=== PATIENT | male | born 1955 | race Caucasian/White ===

== ENCOUNTER 2019-09-15 06:33 | Day surgery (SDC) | payer MEDICARE, MEDICAID, SELFPAY ==
[2019-09-12 07:11] VITALS: BMI 34.0
--- NOTE | 2019-09-15 06:56 | PM.HPUD ---
H&P update H&P Update: DATE OF SURGERY/PROCEDURE: 09/15/19 DATE H&P PERFORMED: 07/16/19 H&P UPDATE INFORMATION: No changes to prior documentation and H&P to be scanned into chart PREOP DIAGNOSIS: Screening colonoscopy PLANNED PROCEDURE: Operation Date: 09/15/19 07:30 Proposed Procedures p Colonoscopy(Not Applicable) - Leandro Brunner MD Conscious Sedation: PHYSICAL EXAM: alert, oriented x 3 and clear to auscultation bilaterally OTHER PERTINENT EXAM FINDINGS: Abdomen: Soft Full H&P Perinent History: Social History: Social History Smoking and tobacco status: never smoked Alcohol intake: former Substance/Drug Use: never A&P Assessment and plan (1) Family history of colon cancer: Plan for colonoscopy under MAC Status: Acute Code(s): Z80.0 - Family history of malignant neoplasm of digestive organs
--- NOTE | 2019-09-15 06:58 | ANES.PREANES ---
Pre-Anesthetic Assessment Pre-Anesthetic Assessment: Height/Weight: Height 1.7 m Weight 98.43 kg Preop Diagnosis: left lower quadrant pain Proposed Procedure: Operation Date: 09/15/19 07:30 Proposed Procedures p Colonoscopy(Not Applicable) - Leandro Brunner MD Familial anesthetic complications: none Was Beta Charlie taken within 24 hours: N/A Social: Social History: No alcohol and No tobacco Exam: Pre-Anes Outpt Exam: alert, oriented x 3, clear to auscultation bilaterally and regular rate & rhythm Airway: Dentition: Chipped Additional comments: upper dentures History/ROS: Other Pulmonary: Pulmonary: None reported CV/HEM: CV/HEM: HTN : : None reported Hepatic: Hepatic: None reported GI: GI: GERD (certain foods ) and Hiatus hernia Metabolic: Metabolic: None reported Musc/skel: Musc/skel: OA/DJD Neuropsych: Neuropsych: None reported Anesthetic Plan: ASA status: II Anesthesia: MAC Risk of > 500 ml blood loss (7ml/kg in children): No PFSH Anesthesia PFSH: Medical History (Updated 09/15/19 @ 06:58 by Leandro Brunner MD) Family history of colon cancer (Acute) Hypertension (Acute) Social History (Updated 09/12/19 @ 07:08 by Dot Mireles RN) Smoking and tobacco status: never smoked Alcohol intake: former Substance/Drug Use: never Data Anesthesia Cardiac Studies: No Data to Display
[2019-09-15 07:04] VITALS: BP 96/65; PULSE 78; RESP 18; TEMP 36.6; O2SAT 100
[2019-09-15] MEDS: sodium chloride 0.9% 1,000 ML 30 ML (07:10)
[2019-09-15 07:59] VITALS: BP 83/59; PULSE 69; RESP 18; TEMP 36.8; O2SAT 94
--- NOTE | 2019-09-15 08:01 | ANE.PACU ---
 Inpatient post-anesthesia follow up: Airway intact: Yes Vital signs: Temperature 97.9 F Pulse Rate [Right Radial] 78 Respiratory Rate 18 Blood Pressure [Le ft Arm] 96/65 Pulse Oximetry 100 Oxygen Delivery Me thod Room Air Oxygen Flow Rate Fraction of Inspir ed Oxygen Hydration adequate: Yes Nausea and vomiting: No Pain level: 1 Mental status: Baseline
[2019-09-15 08:07] VITALS: BP 85/59; PULSE 66; RESP 16; O2SAT 96
== END 2019-09-15 08:20 | disposition home or self-care (01) ==
PROVIDERS: Family Provider Family Medicine; PCP Family Medicine; Visit Provider Surgery
PROC: 0DJD8ZZ Inspection of Lower Intestinal Tract, Via Natural or Artificial Opening Endoscopic (ICD-10-PCS; CPT 45378; principal; 2019-09-15 07:30)
DX: R10.32 Left lower quadrant pain (principal); K57.30 Diverticulosis of large intestine without perforation or abscess without bleeding; K64.8 Other hemorrhoids; Z87.891 Personal history of nicotine dependence; Z80.0 Family history of malignant neoplasm of digestive organs; I10 Essential (primary) hypertension; E78.5 Hyperlipidemia, unspecified; Z82.49 Family history of ischemic heart disease and other diseases of the circulatory system; Z83.3 Family history of diabetes mellitus
CPT/HCPCS: 12345; 45378; 96365; J2704; J7030

== ENCOUNTER 2021-07-14 09:30 | Emergency (ER) | payer MEDICARE, MEDICAID, SELFPAY ==
[2021-07-14 09:35] VITALS: BP 161/88; PULSE 76; RESP 18; TEMP 36.6; O2SAT 98; BMI 30.5
--- NOTE | 2021-07-14 09:52 | CT_ITS ---
WS: [id number] CT ABDOMEN PELVIS TECHNIQUE: Contrast-enhanced CT of the abdomen and pelvis with coronal and sagittal reformatted image s. CLINICAL INFORMATION: abd pain, vomiting, upper abd pressure COMPARISON: 2013 DLP: 1732.[address] scans at [facility] use at least one of these dose optimization techniques: automated e xposure control; mA and/or kV adjustment per patient size (includes targeted exams where dose is matc hed to clinical indication); or iterative reconstruction. FINDINGS: Large esophageal hiatal hernia with intrathoracic stomach. Additional herniation of upper intra-abdom inal contents and multiple loops of obstructed small bowel. Air-fluid levels within the hernia small bowel in the midline chest. This displaces the heart anteriorly. Air-fluid levels in multiple dilated fluid-filled loops of small bowel in the midabdomen measuring up to 3.3 CM. Associated bowel wall th ickening. No free air or pneumatosis. Fluid in the right lower quadrant and pelvis. Sigmoid colon is normal. A loop of the mid transverse colon is also herniated into the chest cavity a nd incompletely visualized extending off the [id number]. Visualized colon is decompressed and nono bstructed. Lung bases are well aerated. Normal liver. Normal portal vein and splenic vein. Normal gallbladder. N ormal splenic enhancement. Adrenal glands are normal. Normal renal parenchymal enhancement. No hydron ephrosis. Polycystic kidneys bilaterally with large bilateral renal cysts. Largest renal cyst measure up to 10 x 10 cm. Small amount of free fluid about the spleen and left upper quadrant. Tiny fat-cont aining umbilical hernia. Moderate spondylitic changes lumbar spine with disc space narrowing worse at L3-L5. CT/CT abdomen pelvis w con* [id number] IMPRESSION: 1. Large esophageal hiatal hernia with intrathoracic stomach. 2. Herniated loops of both small and large bowel herniated into the chest. 3. Evidence of small bowel obstruction with air-fluid levels and distended flu id-filled small bowel with mucosal edema and submucosal enhancement. Small mahogany l measures up to 3 cm in the abdomen. No free air. 4. Free fluid within the right lower quadrant and pelvis. Small amount of moraima splenic fluid in the left upper quadrant. 5. Herniated loop of transverse colon extends into the hiatal hernia and exten ds cephalad off the [id number]. This is incompletely visualized. 6. Left descending colon and sigmoid colon are decompressed. 7. Polycystic kidneys bilaterally. Notified SUMIT Garay at 07/14/2021 11:42 AM.
--- NOTE | 2021-07-14 09:52 | XR_ITS ---
WS: [id number] Exam: XR chest 1V portable [id number] Date/Time of Exam: 07/14/2021 9:52 AM Reason For Exam: abd pain No priors. The lungs are fully expanded and clear. The heart is not enlarged. A very large hiatal hernia is note d which may contain bowel as well as the stomach. No pleural effusions are seen. Regional bony elemen ts are intact. The mediastinum is not widened. XR/XR chest 1V portable [id number] IMPRESSION: 1. No acute cardiopulmonary process noted. 2. Very large hiatal hernia that may contain both the stomach as well as bowel loops.
--- NOTE | 2021-07-14 09:53 | W.ED.ABDPA2 ---
Documented by User: SUMIT Garay 07/14/21 09:56 HPI - Abdominal Pain General: Chief Complaint: Abdominal Pain Stated Complaint: Stomach cramps vomited for last 2 days Time Seen by Provider: 07/14/21 09:32 History of Present Illness: HPI narrative: Patient states that he thinks he has food poisoning. Patient states that he ate some chicken fingers from a gas station 2 nights ago when he got sick after that. Patient denies any fever chills. Has been vomiting with some brown stuff in his vomit last night. And that was after he drank prune juice. Not sure whether he is constipated. Denies fever chills shortness of breath. Has had slight diarrhea. Says his upper abdomen hurts. Has history of hiatal hernia and diverticulosis. MD elicited complaint: abdominal pain Pertinent past history: other (Hiatal hernia and diverticulosis) Onset (ago): day(s) Pain Consistency: intermittent Location: Epigastric Severity: mild Quality: fullness Radiation: none Exacerbating factors: eating Relieving factors: nothing Context: possible food poisoning Associated Symptoms: Reports diarrhea, nausea and vomiting; Denies chills and fever(s) Review of Systems Const: Denies: fever(s), chills or body aches Eyes: Denies: change in vision or blurry vision ENMT: Denies: throat pain or nasal congestion Card: Denies: chest pain or dyspnea on exertion Resp: Denies: dyspnea, productive cough or non-productive cough GI: Reports: abdominal pain, nausea, vomiting and diarrhea : Denies: difficulty urinating Musc: Denies: extremity pain Skin/Breast: Denies: rash Neuro: Denies: headache(s) Psych: Denies: anxiety or depression Aubrey/Lymph: Denies: easy bruising PFSH ED PFSH: Medical History Diverticulosis Family history of colon cancer 09/15/2019: Normal colonoscopy except diverticulosis, follow-up colonoscopy in 2024 Hypertension Social History Smoking and tobacco status: never smoked Alcohol intake: former Physical Exam Const: COMMON NORMALS: no acute distress, average body habitus and patient oriented x3 HENMT: COMMON NORMALS: normocephalic HEAD & SCALP: normal to inspection and normocephalic FACE & SINUS: normal facial exam Eye: COMMON NORMALS: conjunctivae normal GENERAL EYE: appearance normal, both eyes and all related structures CONJUNCTIVA: Yes conjunctivae normal Neck/C-Spine: COMMON NORMALS: no JVD Chest: COMMONS NORMALS: normal inspection of the chest Resp: COMMON NORMALS: normal respiratory effort and clear to auscultation bilaterally AUSCULTATION: clear to auscultation bilaterally Cardio: COMMON NORMALS: no JVD, regular rate and regular rhythm RATE: regular rate RHYTHM: regular rhythm GI: COMMON NORMALS: Normal to inspection, nondistended, normoactive bowel sounds present AUSCULTATION: Yes Hypoactive bowel sounds present PALPATION: Yes Tenderness to palpation present (GI) (Epigastric) Extremity: COMMON NORMALS: normal to inspection and full ROM Neuro: COMMON NORMALS: patient oriented x3 Course Vital Signs: Vital signs: Vital Signs Temperature 97.8 F 07/14/21 09:35 Pulse Rate 75 07/15/21 05:29 Respiratory Rate 20 H 07/15/21 07:25 Blood Pressure 116/51 07/15/21 05:29 Pulse Oximetry 92 07/15/21 05:29 MDM - Abdominal Pain Lab Data: Labs: Lab Results 07/14/21 07/14/21 07/14/21 10:10 10:10 10:19 WBC 13.7 10^3/uL H 10 ^3/uL (4.0-10.0) RBC 5.39 10^6/uL H 10 ^6/uL (4.1-5.3) Hgb 16.3 g/dL g/dL (11.7-16.6) Hct 48.1 % % (42.0-52.0) MCV 89.2 fl fl (80-94) MCH 30.2 pg pg (28.0-34.0) MCHC 33.9 g/dL g/dL (30.0-36.0) RDW 13.0 % % (12.1-15.1) Plt Count 274 10^3/cmm 10^3 /cmm (130-400) MPV 10.0 fL fL (7.4-10.4) Neut % (Auto) 88.3 % % Lymph % (Auto) 4.7 % % [place] % (Auto) 6.4 % % Eos % (Auto) 0.1 % % Baso % (Auto) 0.2 % % Neut # (Auto) 12.05 10^3/uL H 1 0^3/uL (1.8-7.7) Lymph # (Auto) 0.6 10^3/uL L 10^ 3/uL (0.8-4.8) [place] # (Auto) 0.9 10^3/uL 10^3/ uL (0.2-0.9) Eos # (Auto) 0.0 10^3/uL 10^3/ uL (0.0-0.8) Baso # (Auto) 0.0 10^3/uL 10^3/ uL (0.0-0.1) Nucleated RBC % (a uto) 0 % % Nucleated RBCs # 0.0 /100WBC /100W BC PT 13.30 SECONDS SEC ONDS (12.1-14.9) INR 0.98 (0.8-1.2) Sodium 135 mmol/L L mmol /L (136-145) Potassium 3.6 mmol/L mmol/L (3.5-5.1) Chloride 95 mmol/L L mmol/ L (98-107) Carbon Dioxide 27 mmol/L mmol/L (22-29) Anion Gap 16.6 (5-19) BUN 20 mg/dL mg/dL (8-23) Creatinine 1.0 mg/dL mg/dL (0.7-1.2) GFR Calculation 74.5 mL/min L mL/ min (90-130) Glucose 138 mg/dL H mg/dL (65-115) Calculated Osmolal ity 285 mOsm/kg mOsm/ kg (285-295) Lactic Acid Calcium 9.3 mg/dL mg/dL (8.5-10.5) Total Bilirubin 1.6 mg/dL H mg/dL (0.15-1.2) AST 22 U/L U/L (0-40) ALT 16 U/L U/L (0-41) Alkaline Phosphata se 53 IU/L IU/L (40-130) Total Protein 7.0 g/dL g/dL (6.6-8.7) Albumin 4.1 g/dL g/dL (3.5-5.2) Globulin 2.9 g/dL g/dL (1.3-4.6) Lipase 22 U/L U/L (13-60) Urine Color Urine Appearance Urine pH Ur Specific Gravit y Urine Protein Urine Glucose (UA) Urine Ketones Urine Blood Urine Nitrate Urine Bilirubin Urine Urobilinogen Ur Leukocyte Emilie ase SARS-CoV-2 Ag (Rap id) 07/14/21 07/14/21 07/14/21 10:19 14:01 16:52 WBC RBC Hgb Hct MCV MCH MCHC RDW Plt Count MPV Neut % (Auto) Lymph % (Auto) [place] % (Auto) Eos % (Auto) Baso % (Auto) Neut # (Auto) Lymph # (Auto) [place] # (Auto) Eos # (Auto) Baso # (Auto) Nucleated RBC % (a uto) Nucleated RBCs # PT INR Sodium Potassium Chloride Carbon Dioxide Anion Gap BUN Creatinine GFR Calculation Glucose Calculated Osmolal ity Lactic Acid 1.4 mmol/L mmol/L (0.5-2.2) Calcium Total Bilirubin AST ALT Alkaline Phosphata se Total Protein Albumin Globulin Lipase Urine Color Yellow (Yellow) Urine Appearance Clear (CLEAR) Urine pH 5 (5-7) Ur Specific Gravit y 1.010 (1.005-1.030) Urine Protein Neg (Negative) Urine Glucose (UA) Norm (Normal) Urine Ketones Negative (Negative) Urine Blood Neg (Negative) Urine Nitrate Negative (Negative) Urine Bilirubin Neg (Negative) Urine Urobilinogen 1 mg/dL H mg/dL (Negative) Ur Leukocyte Emilie ase Negative (Negative) SARS-CoV-2 Ag (Rap id) Negative (Negative) 07/15/21 07/15/21 07/15/21 06:56 06:56 06:56 WBC 11.7 10^3/uL H 10 ^3/uL (4.0-10.0) RBC 4.76 10^6/uL 10^6 /uL (4.1-5.3) Hgb 14.6 g/dL g/dL (11.7-16.6) Hct 43.2 % % (42.0-52.0) MCV 90.8 fl fl (80-94) MCH 30.7 pg pg (28.0-34.0) MCHC 33.8 g/dL g/dL (30.0-36.0) RDW 13.2 % % (12.1-15.1) Plt Count 227 10^3/cmm 10^3 /cmm (130-400) MPV 9.9 fL fL (7.4-10.4) Neut % (Auto) 80.4 % % Lymph % (Auto) 6.8 % % [place] % (Auto) 10.9 % % Eos % (Auto) 1.3 % % Baso % (Auto) 0.3 % % Neut # (Auto) 9.41 10^3/uL H 10 ^3/uL (1.8-7.7) Lymph # (Auto) 0.8 10^3/uL 10^3/ uL (0.8-4.8) [place] # (Auto) 1.3 10^3/uL H 10^ 3/uL (0.2-0.9) Eos # (Auto) 0.2 10^3/uL 10^3/ uL (0.0-0.8) Baso # (Auto) 0.0 10^3/uL 10^3/ uL (0.0-0.1) Nucleated RBC % (a uto) 0 % % Nucleated RBCs # 0.0 /100WBC /100W BC PT INR Sodium 137 mmol/L mmol/L (136-145) Potassium 3.7 mmol/L mmol/L (3.5-5.1) Chloride 100 mmol/L mmol/L (98-107) Carbon Dioxide 22 mmol/L mmol/L (22-29) Anion Gap 18.7 (5-19) BUN 25 mg/dL H mg/dL (8-23) Creatinine 1.0 mg/dL mg/dL (0.7-1.2) GFR Calculation 74.5 mL/min L mL/ min (90-130) Glucose 99 mg/dL mg/dL (65-115) Calculated Osmolal ity 288 mOsm/kg mOsm/ kg (285-295) Lactic Acid 1.0 mmol/L mmol/L (0.5-2.2) Calcium 8.3 mg/dL L mg/dL (8.5-10.5) Total Bilirubin 1.9 mg/dL H mg/dL (0.15-1.2) AST 16 U/L U/L (0-40) ALT 10 U/L U/L (0-41) Alkaline Phosphata se 41 IU/L IU/L (40-130) Total Protein 6.1 g/dL L g/dL (6.6-8.7) Albumin 3.4 g/dL L g/dL (3.5-5.2) Globulin 2.7 g/dL g/dL (1.3-4.6) Lipase Urine Color Urine Appearance Urine pH Ur Specific Gravit y Urine Protein Urine Glucose (UA) Urine Ketones Urine Blood Urine Nitrate Urine Bilirubin Urine Urobilinogen Ur Leukocyte Emilie ase SARS-CoV-2 Ag (Rap id) Discharge Plan Discharge Patient Disposition: Xfer Short-Term Hosp Clinical Impression: Diaphragmatic hernia, Small bowel obstruction Condition: Stable Prescriptions: No Action lisinopril-hydrochlorothiazide 20-12.5 mg Tablet 1 tab PO QAM RF: 0 Vitamin C 500 mg Tablet 500 mg PO DAILY RF: 0 zinc 50 mg Tablet 50 mg PO DAILY RF: 0 Osteo Bi-Flex 250-200 mg Tablet 1 tab PO DAILY RF: 0 Vitamin D3 1 cap PO DAILY RF: 0 Referrals: Omari Ames MD [Primary Care Provider] - Sign Out Sign Out Data: Patient Sign Out occurred on 07/14/21 at 11:58. Patient's care was discussed, and care was transferred from to Ameya Hodges DO. Coding Level of Care Code ED Relay Mechanic for Chg Fwd Exam Comprehensive Documented by User: Ameya Hodges DO 07/15/21 08:33 HPI - Abdominal Pain General: Chief Complaint: Abdominal Pain Stated Complaint: Stomach cramps vomited for last 2 days Time Seen by Provider: 07/14/21 09:32 History of Present Illness: HPI narrative: 65-year-old male presents to the emergency room with complaints of abdominal pain swelling and bloating and nausea and vomiting. Is been going on for the last 2 days and is progressively worsened. Denies any hemoptysis or hematochezia. Patient was initially seen by Rick TOLENTINO who signed the case out to me after CT findings. MD elicited complaint: abdominal pain Onset (ago): day(s) (2) Pain Consistency: constant Location: Diffuse Severity: severe Quality: cramping Exacerbating factors: eating, vomiting and movement Relieving factors: rest Associated Symptoms: Reports anorexia, belching, bloating, GI cramping, dyspepsia, nausea and poor appetite; Denies change in bowel habits, change in stool character, chills, coffee ground emesis, constipation, diarrhea, dysuria, excessive flatus, fever(s), heartburn, hematochezia, hematuria, hematemesis, fecal incontinence, loose stools, melena, syncope and vomiting Review of Systems Const: Denies: fever(s) or chills ENMT: Denies: throat pain, ear or mastoid pain, nasal discharge or nasal congestion Card: Denies: syncope Resp: Denies: dyspnea, productive cough or non-productive cough GI: Reports: nausea, bloating, GI cramping and belching; Denies: vomiting, hematemesis, coffee ground emesis, heartburn, diarrhea, constipation, excessive flatus, fecal incontinence, change in bowel habits, change in stool character, hematochezia or melena : Denies: dysuria or hematuria Skin/Breast: Denies: rash or pruritus PFSH ED PFSH: Medical History Diverticulosis Family history of colon cancer 09/15/2019: Normal colonoscopy except diverticulosis, follow-up colonoscopy in 2024 Hypertension Social History Smoking and tobacco status: never smoked Alcohol intake: former Physical Exam Const: COMMON NORMALS: no acute distress GENERAL APPEARANCE: cooperative and comfortable ORIENTATION/CONSCIOUSNESS: Yes awake, Yes oriented to person, Yes oriented to place and Yes oriented to time HENMT: COMMON NORMALS: normocephalic, atraumatic, hearing grossly normal bilaterally and external ears normal HEAD & SCALP: normocephalic and atraumatic EXTERNAL EAR: Yes external ears normal Neck/C-Spine: COMMON NORMALS: no JVD Resp: COMMON NORMALS: normal respiratory effort, No retractions, No use of accessory muscles and clear to auscultation bilaterally AUSCULTATION: clear to auscultation bilaterally Cardio: COMMON NORMALS: no JVD, regular rate, regular rhythm and No murmurs present (Cardio) RATE: regular rate RHYTHM: regular rhythm GI: INSPECTION: Yes abdominal distension AUSCULTATION: Yes Absent bowel sounds PALPATION: Yes Tenderness to palpation present (GI) PERCUSSION: tympanic to percussion Extremity: COMMON NORMALS: normal to inspection, capillary refill normal, no clubbing, cyanosis or edema, no calf tenderness and no pedal edema Neuro: SENSORIUM/ORIENTATION: Yes oriented to person, Yes oriented to place and Yes oriented to time Skin: COMMON NORMALS: no rashes or lesions noted GENERAL SKIN EXAM: no rashes or lesions noted Course Vital Signs: Vital signs: Vital Signs Temperature 97.8 F 07/14/21 09:35 Pulse Rate 75 07/15/21 05:29 Respiratory Rate 20 H 07/15/21 07:25 Blood Pressure 116/51 07/15/21 05:29 Pulse Oximetry 92 07/15/21 05:29 MDM - Abdominal Pain MDM Narrative: Medical decision making narrative: Massive diaphragmatic hernia resulting in stomach portions of the large and small bowel entering the chest cavity. He has evidence of bowel obstruction on the CT. Lactic acid is in the normal range. NG placed good return of fluids and did relieve some of his symptoms. Discussed with our surgeon here he does not feel we have adequate resources to manage this Dr. Lebron is not available and this will likely require cardiothoracic surgery as well as general surgery. After several attempts we were able to secure a receiving hospital at [facility]. We will go ahead and transfer via ground ambulance. Were awaiting bed assignment at this time. Lab Data: Labs: Lab Results 07/14/21 07/14/21 07/14/21 10:10 10:10 10:19 WBC 13.7 10^3/uL H 10 ^3/uL (4.0-10.0) RBC 5.39 10^6/uL H 10 ^6/uL (4.1-5.3) Hgb 16.3 g/dL g/dL (11.7-16.6) Hct 48.1 % % (42.0-52.0) MCV 89.2 fl fl (80-94) MCH 30.2 pg pg (28.0-34.0) MCHC 33.9 g/dL g/dL (30.0-36.0) RDW 13.0 % % (12.1-15.1) Plt Count 274 10^3/cmm 10^3 /cmm (130-400) MPV 10.0 fL fL (7.4-10.4) Neut % (Auto) 88.3 % % Lymph % (Auto) 4.7 % % [place] % (Auto) 6.4 % % Eos % (Auto) 0.1 % % Baso % (Auto) 0.2 % % Neut # (Auto) 12.05 10^3/uL H 1 0^3/uL (1.8-7.7) Lymph # (Auto) 0.6 10^3/uL L 10^ 3/uL (0.8-4.8) [place] # (Auto) 0.9 10^3/uL 10^3/ uL (0.2-0.9) Eos # (Auto) 0.0 10^3/uL 10^3/ uL (0.0-0.8) Baso # (Auto) 0.0 10^3/uL 10^3/ uL (0.0-0.1) Nucleated RBC % (a uto) 0 % % Nucleated RBCs # 0.0 /100WBC /100W BC PT 13.30 SECONDS SEC ONDS (12.1-14.9) INR 0.98 (0.8-1.2) Sodium 135 mmol/L L mmol /L (136-145) Potassium 3.6 mmol/L mmol/L (3.5-5.1) Chloride 95 mmol/L L mmol/ L (98-107) Carbon Dioxide 27 mmol/L mmol/L (22-29) Anion Gap 16.6 (5-19) BUN 20 mg/dL mg/dL (8-23) Creatinine 1.0 mg/dL mg/dL (0.7-1.2) GFR Calculation 74.5 mL/min L mL/ min (90-130) Glucose 138 mg/dL H mg/dL (65-115) Calculated Osmolal ity 285 mOsm/kg mOsm/ kg (285-295) Lactic Acid Calcium 9.3 mg/dL mg/dL (8.5-10.5) Total Bilirubin 1.6 mg/dL H mg/dL (0.15-1.2) AST 22 U/L U/L (0-40) ALT 16 U/L U/L (0-41) Alkaline Phosphata se 53 IU/L IU/L (40-130) Total Protein 7.0 g/dL g/dL (6.6-8.7) Albumin 4.1 g/dL g/dL (3.5-5.2) Globulin 2.9 g/dL g/dL (1.3-4.6) Lipase 22 U/L U/L (13-60) Urine Color Urine Appearance Urine pH Ur Specific Gravit y Urine Protein Urine Glucose (UA) Urine Ketones Urine Blood Urine Nitrate Urine Bilirubin Urine Urobilinogen Ur Leukocyte Emilie ase SARS-CoV-2 Ag (Rap id) 07/14/21 07/14/21 07/14/21 10:19 14:01 16:52 WBC RBC Hgb Hct MCV MCH MCHC RDW Plt Count MPV Neut % (Auto) Lymph % (Auto) [place] % (Auto) Eos % (Auto) Baso % (Auto) Neut # (Auto) Lymph # (Auto) [place] # (Auto) Eos # (Auto) Baso # (Auto) Nucleated RBC % (a uto) Nucleated RBCs # PT INR Sodium Potassium Chloride Carbon Dioxide Anion Gap BUN Creatinine GFR Calculation Glucose Calculated Osmolal ity Lactic Acid 1.4 mmol/L mmol/L (0.5-2.2) Calcium Total Bilirubin AST ALT Alkaline Phosphata se Total Protein Albumin Globulin Lipase Urine Color Yellow (Yellow) Urine Appearance Clear (CLEAR) Urine pH 5 (5-7) Ur Specific Gravit y 1.010 (1.005-1.030) Urine Protein Neg (Negative) Urine Glucose (UA) Norm (Normal) Urine Ketones Negative (Negative) Urine Blood Neg (Negative) Urine Nitrate Negative (Negative) Urine Bilirubin Neg (Negative) Urine Urobilinogen 1 mg/dL H mg/dL (Negative) Ur Leukocyte Emilie ase Negative (Negative) SARS-CoV-2 Ag (Rap id) Negative (Negative) 07/15/21 07/15/21 07/15/21 06:56 06:56 06:56 WBC 11.7 10^3/uL H 10 ^3/uL (4.0-10.0) RBC 4.76 10^6/uL 10^6 /uL (4.1-5.3) Hgb 14.6 g/dL g/dL (11.7-16.6) Hct 43.2 % % (42.0-52.0) MCV 90.8 fl fl (80-94) MCH 30.7 pg pg (28.0-34.0) MCHC 33.8 g/dL g/dL (30.0-36.0) RDW 13.2 % % (12.1-15.1) Plt Count 227 10^3/cmm 10^3 /cmm (130-400) MPV 9.9 fL fL (7.4-10.4) Neut % (Auto) 80.4 % % Lymph % (Auto) 6.8 % % [place] % (Auto) 10.9 % % Eos % (Auto) 1.3 % % Baso % (Auto) 0.3 % % Neut # (Auto) 9.41 10^3/uL H 10 ^3/uL (1.8-7.7) Lymph # (Auto) 0.8 10^3/uL 10^3/ uL (0.8-4.8) [place] # (Auto) 1.3 10^3/uL H 10^ 3/uL (0.2-0.9) Eos # (Auto) 0.2 10^3/uL 10^3/ uL (0.0-0.8) Baso # (Auto) 0.0 10^3/uL 10^3/ uL (0.0-0.1) Nucleated RBC % (a uto) 0 % % Nucleated RBCs # 0.0 /100WBC /100W BC PT INR Sodium 137 mmol/L mmol/L (136-145) Potassium 3.7 mmol/L mmol/L (3.5-5.1) Chloride 100 mmol/L mmol/L (98-107) Carbon Dioxide 22 mmol/L mmol/L (22-29) Anion Gap 18.7 (5-19) BUN 25 mg/dL H mg/dL (8-23) Creatinine 1.0 mg/dL mg/dL (0.7-1.2) GFR Calculation 74.5 mL/min L mL/ min (90-130) Glucose 99 mg/dL mg/dL (65-115) Calculated Osmolal ity 288 mOsm/kg mOsm/ kg (285-295) Lactic Acid 1.0 mmol/L mmol/L (0.5-2.2) Calcium 8.3 mg/dL L mg/dL (8.5-10.5) Total Bilirubin 1.9 mg/dL H mg/dL (0.15-1.2) AST 16 U/L U/L (0-40) ALT 10 U/L U/L (0-41) Alkaline Phosphata se 41 IU/L IU/L (40-130) Total Protein 6.1 g/dL L g/dL (6.6-8.7) Albumin 3.4 g/dL L g/dL (3.5-5.2) Globulin 2.7 g/dL g/dL (1.3-4.6) Lipase Urine Color Urine Appearance Urine pH Ur Specific Gravit y Urine Protein Urine Glucose (UA) Urine Ketones Urine Blood Urine Nitrate Urine Bilirubin Urine Urobilinogen Ur Leukocyte Emilie ase SARS-CoV-2 Ag (Rap id) Discharge Plan Discharge Patient Disposition: Xfer Short-Term Hosp Clinical Impression: Diaphragmatic hernia, Small bowel obstruction Condition: Stable Prescriptions: No Action lisinopril-hydrochlorothiazide 20-12.5 mg Tablet 1 tab PO QAM RF: 0 Vitamin C 500 mg Tablet 500 mg PO DAILY RF: 0 zinc 50 mg Tablet 50 mg PO DAILY RF: 0 Osteo Bi-Flex 250-200 mg Tablet 1 tab PO DAILY RF: 0 Vitamin D3 1 cap PO DAILY RF: 0 Referrals: Omari Ames MD [Primary Care Provider] - Sign Out Sign Out Data: Patient Sign Out occurred on 07/14/21 at 11:58. Patient's care was discussed, and care was transferred from to Ameya Hodges DO. Coding Level of Care Code ED Relay Mechanic for g Fwd Exam Comprehensive
[2021-07-14 10:20] VITALS: RESP 18; O2SAT 95
[2021-07-14] MEDS: morphine 4 mg/mL SDV 1 mL 2 MG IVP (10:20)
[2021-07-14] MEDS: sodium chloride 0.9% 1,000 ML 999 ML IV (10:24)
[2021-07-14] MEDS: ondansetron 2 mg/ML SDV 2 mL 4 MG IVP (10:27)
[2021-07-14 10:29] LABS: Basophils % 0.2 %; Eosinophils % 0.1 %; Hematocrit 48.1 % (42.0-52.0); Hemoglobin 16.3 g/dL (11.7-16.6); Lymphocytes # 0.6 10^3/uL (0.8-4.8); Lymphocytes % 4.7 %; Mean Corpuscular HGB Conc 33.9 g/dL (30.0-36.0); Mean Corpuscular Hemoglobin 30.2 pg (28.0-34.0); Mean Corpuscular Volume 89.2 fl (80-94); Monocytes # 0.9 10^3/uL (0.2-0.9); Monocytes % 6.4 %; Neutrophils # 12.05 10^3/uL (1.8-7.7); Neutrophils % 88.3 %; Nucleated Red Blood Cells % 0 %; Platelet Count 274 10^3/cmm (130-400); Red Blood Count 5.39 10^6/uL (4.1-5.3); White Blood Count 13.7 10^3/uL (4.0-10.0)
[2021-07-14 10:40] LABS: INR 0.98 (0.8-1.2)
[2021-07-14 10:57] LABS: Alanine Aminotransferase 16 U/L (0-41); Albumin Level 4.1 g/dL (3.5-5.2); Alkaline Phosphatase 53 IU/L (40-130); Anion Gap 16.6 (5-19); Aspartate Amino Transferase 22 U/L (0-40); Blood Urea Nitrogen 20 mg/dL (8-23); Calcium 9.3 mg/dL (8.5-10.5); Carbon Dioxide 27 mmol/L (22-29); Chloride 95 mmol/L (98-107); Globulin 2.9 g/dL (1.3-4.6); Glomerular Filtration Rate 74.5 mL/min (90-130); Glucose 138 mg/dL (65-115); Lipase 22 U/L (13-60); Osmolality Calculated 285 mOsm/kg (285-295); Potassium 3.6 mmol/L (3.5-5.1); Sodium 135 mmol/L (136-145); Total Bilirubin 1.6 mg/dL (0.15-1.2)
[2021-07-14] MEDS: iohexol 300 mg/mL 100 mL Btl IV (11:13)
[2021-07-14 11:18] VITALS: BP 123/72
[2021-07-14 12:18] VITALS: BP 133/71; PULSE 65; RESP 16; O2SAT 98
[2021-07-14] MEDS: LORazepam 2 mg/mL INJ 1 mL 1 MG IVP (13:13)
[2021-07-14 13:35] LABS: Lactic Sepsis W/Reflex 1.4 mmol/L (0.5-2.2)
[2021-07-14] MEDS: cetacaine Spray 5 gm Can 1 SPRAY TOPICAL (14:24)
[2021-07-14] MEDS: pantoprazole 40 mg SDV 80 MG IVP (16:31)
[2021-07-14] MEDS: sodium chlor 0.9% + KCl 20 mEq 20 MEQ/1,000 ML BAG 125 MEQ IV (16:31)
[2021-07-14 16:44] VITALS: BP 137/84; PULSE 85; RESP 14; O2SAT 91
[2021-07-14 16:49] LABS: Add Urine Microscopic? NO; Charge for UA Resulting for Rev
[2021-07-14 16:57] LABS: Bilirubin Urine Neg (Negative); Blood Urine Neg (Negative); Glucose Urine UA Norm (Normal); Ketones Urine Negative (Negative); Leukocyte Esterase Urine Negative (Negative); Nitrate Urine Negative (Negative); Protein Urine Neg (Negative); Urine Appearance Clear (CLEAR); Urine Color Yellow (Yellow); Urobilinogen Urine 1 mg/dL (Negative); pH Urine 5 (5-7)
[2021-07-14 17:28] VITALS: BP 125/78; PULSE 79; RESP 14; O2SAT 93
[2021-07-14 17:28] LABS: SARS Covid-2 Antigen Negative (Negative)
[2021-07-14] MEDS: ketorolac 30 mg/mL INJ 15 MG IVP (21:13)
--- NOTE | 2021-07-14 22:43 | PC.NURSE ---
took over care at [id number] from Williams Nickerson RN. pt sleeping at this time.
[2021-07-15] VITALS (8 sets, daily range): BP systolic 100–127; BP diastolic 51–79; PULSE 60–75; RESP 14–20; O2SAT 91–95
--- NOTE | 2021-07-15 02:36 | PC.NURSE ---
Pt. repositioned and pulse ox repositioned. O2 saturation 94% while sleeping.
[2021-07-15] MEDS: piperacillin-tazobactam 3.375 GM in sodium chloride 0.9% (plus) 50 ML IV (06:42)
[2021-07-15 07:09] LABS: Basophils % 0.3 %; Eosinophils # 0.2 10^3/uL (0.0-0.8); Eosinophils % 1.3 %; Hematocrit 43.2 % (42.0-52.0); Hemoglobin 14.6 g/dL (11.7-16.6); Lymphocytes # 0.8 10^3/uL (0.8-4.8); Lymphocytes % 6.8 %; Mean Corpuscular HGB Conc 33.8 g/dL (30.0-36.0); Mean Corpuscular Hemoglobin 30.7 pg (28.0-34.0); Mean Corpuscular Volume 90.8 fl (80-94); Mean Platelet Volume 9.9 fL (7.4-10.4); Monocytes # 1.3 10^3/uL (0.2-0.9); Monocytes % 10.9 %; Neutrophils # 9.41 10^3/uL (1.8-7.7); Neutrophils % 80.4 %; Nucleated Red Blood Cells % 0 %; Platelet Count 227 10^3/cmm (130-400); Red Blood Count 4.76 10^6/uL (4.1-5.3); Red Cell Distribution Width 13.2 % (12.1-15.1); White Blood Count 11.7 10^3/uL (4.0-10.0)
[2021-07-15] MEDS: morphine 4 mg/mL SDV 1 mL IVP (07:25)
[2021-07-15] MEDS: sodium chlor 0.9% + KCl 20 mEq 20 MEQ/1,000 ML BAG 125 MEQ IV (07:25)
[2021-07-15] MEDS: pantoprazole 40 mg SDV IVP (07:27)
[2021-07-15 07:30] LABS: Alanine Aminotransferase 10 U/L (0-41); Albumin Level 3.4 g/dL (3.5-5.2); Alkaline Phosphatase 41 IU/L (40-130); Anion Gap 18.7 (5-19); Aspartate Amino Transferase 16 U/L (0-40); Blood Urea Nitrogen 25 mg/dL (8-23); Calcium 8.3 mg/dL (8.5-10.5); Carbon Dioxide 22 mmol/L (22-29); Chloride 100 mmol/L (98-107); Globulin 2.7 g/dL (1.3-4.6); Glomerular Filtration Rate 74.5 mL/min (90-130); Glucose 99 mg/dL (65-115); Osmolality Calculated 288 mOsm/kg (285-295); Potassium 3.7 mmol/L (3.5-5.1); Sodium 137 mmol/L (136-145); Total Bilirubin 1.9 mg/dL (0.15-1.2); Total Protein 6.1 g/dL (6.6-8.7)
[2021-07-15] MEDS: morphine 4 mg/mL SDV 1 mL 6 MG IVP (08:40)
== END 2021-07-15 09:23 | disposition short-term general hospital (02) ==
PROVIDERS: Nurse Practitioner Family; Emergency Provider Family Medicine; PCP Family Medicine
DX: I10 Essential (primary) hypertension (principal); Z20.822 Contact with and (suspected) exposure to COVID-19
CPT/HCPCS: 71045; 74177; 80053; 81003; 83605; 83690; 85025; 85610; 87426; 96365; 96366; 96367; 96375; 96376; 99285; C9113; J1885; J2060; J2270; J2405; J2543; J7030; Q9967

== ENCOUNTER → 2021-08-01 08:36 | Day surgery (SDC) | payer MEDICARE, MEDICAID, SELFPAY ==
[2021-08-01 08:58] VITALS: BP 117/77; PULSE 78; RESP 16; TEMP 36.9; O2SAT 93; BMI 28.3
--- NOTE | 2021-08-01 09:33 | PC.NURSE ---
Patient brought own PICC line dressing kit which was used.
[2021-08-01 09:36] LABS: Ionized Calcium 1.1 mmol/L (1.1-1.4)
[2021-08-01 09:51] LABS: Basophils # 0.1 10^3/uL (0.0-0.1); Eosinophils # 0.5 10^3/uL (0.0-0.8); Eosinophils % 6.5 %; Hemoglobin 10.9 g/dL (11.7-16.6); Lymphocytes # 0.8 10^3/uL (0.8-4.8); Lymphocytes % 11.6 %; Mean Corpuscular HGB Conc 27.9 g/dL (30.0-36.0); Mean Corpuscular Hemoglobin 32.3 pg (28.0-34.0); Mean Corpuscular Volume 115.7 fl (80-94); Mean Platelet Volume 11.5 fL (7.4-10.4); Monocytes # 0.8 10^3/uL (0.2-0.9); Monocytes % 10.9 %; Neutrophils # 4.77 10^3/uL (1.8-7.7); Neutrophils % 69.4 %; Nucleated Red Blood Cells % 0 %; Platelet Count 401 10^3/cmm (130-400); Red Blood Count 3.37 10^6/uL (4.1-5.3); Red Cell Distribution Width 14.6 % (12.1-15.1); White Blood Count 6.9 10^3/uL (4.0-10.0)
== END ==
PROVIDERS: PCP Family Medicine; Visit Provider Nurse Practitioner
DX: K22.3 Perforation of esophagus (principal)
CPT/HCPCS: 36592; 82330; 85025

== ENCOUNTER 2021-08-02 09:13 | Outpatient (CLI) | payer MEDICARE, MEDICAID, SELFPAY ==
[2021-08-02 09:44] LABS: Basophils # 0.1 10^3/uL (0.0-0.1); Eosinophils # 0.5 10^3/uL (0.0-0.8); Eosinophils % 6.3 %; Hematocrit 40.5 % (42.0-52.0); Hemoglobin 12.4 g/dL (11.7-16.6); Lymphocytes % 13.2 %; Mean Corpuscular HGB Conc 30.6 g/dL (30.0-36.0); Mean Corpuscular Hemoglobin 29.7 pg (28.0-34.0); Mean Corpuscular Volume 96.9 fl (80-94); Mean Platelet Volume 10.4 fL (7.4-10.4); Monocytes # 0.8 10^3/uL (0.2-0.9); Monocytes % 10.4 %; Neutrophils % 68.7 %; Nucleated Red Blood Cells % 0 %; Platelet Count 492 10^3/cmm (130-400); Red Blood Count 4.18 10^6/uL (4.1-5.3); Red Cell Distribution Width 13.8 % (12.1-15.1); White Blood Count 7.3 10^3/uL (4.0-10.0)
[2021-08-02 10:01] LABS: Alanine Aminotransferase 36 U/L (0-41); Albumin Level 2.8 g/dL (3.5-5.2); Alkaline Phosphatase 91 IU/L (40-130); Anion Gap 15.8 (5-19); Aspartate Amino Transferase 33 U/L (0-40); Blood Urea Nitrogen 20 mg/dL (8-23); Calcium 8.7 mg/dL (8.5-10.5); Carbon Dioxide 24 mmol/L (22-29); Chloride 103 mmol/L (98-107); Glomerular Filtration Rate 84.2 mL/min (90-130); Glucose 107 mg/dL (65-115); Magnesium 2.1 mg/dL (1.7-2.3); Osmolality Calculated 289 mOsm/kg (285-295); Phosphorus 3.1 mg/dL (2.5-4.5); Potassium 4.8 mmol/L (3.5-5.1); Sodium 138 mmol/L (136-145); Total Bilirubin 0.6 mg/dL (0.15-1.2); Total Protein 6.8 g/dL (6.6-8.7)
[2021-08-02 10:09] LABS: Ionized Calcium 1.2 mmol/L (1.1-1.4)
== END 2021-08-02 09:14 | disposition home or self-care (01) ==
LOC: LAB 09:20
PROVIDERS: PCP Nurse Practitioner; Visit Provider Nurse Practitioner
DX: K22.3 Perforation of esophagus (principal)
CPT/HCPCS: 36415; 80053; 82330; 83735; 84100; 85025

== ENCOUNTER → 2021-08-08 12:59 | Day surgery (SDC) | payer MEDICARE, MEDICAID, SELFPAY ==
[2021-08-08 13:17] VITALS: BP 123/76; PULSE 80; RESP 18; TEMP 36.1; O2SAT 97
[2021-08-08 13:52] LABS: Basophils % 0.7 %; Eosinophils # 0.4 10^3/uL (0.0-0.8); Eosinophils % 6.8 %; Hematocrit 38.8 % (42.0-52.0); Hemoglobin 12.2 g/dL (11.7-16.6); Lymphocytes # 1.3 10^3/uL (0.8-4.8); Lymphocytes % 22.8 %; Mean Corpuscular HGB Conc 31.4 g/dL (30.0-36.0); Mean Corpuscular Hemoglobin 29.9 pg (28.0-34.0); Mean Corpuscular Volume 95.1 fl (80-94); Monocytes # 0.7 10^3/uL (0.2-0.9); Monocytes % 11.6 %; Neutrophils # 3.38 10^3/uL (1.8-7.7); Neutrophils % 57.6 %; Nucleated Red Blood Cells % 0 %; Platelet Count 298 10^3/cmm (130-400); Red Blood Count 4.08 10^6/uL (4.1-5.3); Red Cell Distribution Width 13.3 % (12.1-15.1); White Blood Count 5.9 10^3/uL (4.0-10.0)
--- NOTE | 2021-08-08 13:52 | PC.NURSE ---
Pt to GI Lab for lab draw and PICC dressing change. Labs drawn as ordered peripherally. PICC dressing to right upper arm performed using sterile technique. Site clear. Pt tolerated well.
[2021-08-08 14:00] LABS: Ionized Calcium 1.2 mmol/L (1.1-1.4)
[2021-08-08 14:16] LABS: Alanine Aminotransferase 32 U/L (0-41); Albumin Level 2.8 g/dL (3.5-5.2); Alkaline Phosphatase 86 IU/L (40-130); Anion Gap 11.4 (5-19); Aspartate Amino Transferase 28 U/L (0-40); Blood Urea Nitrogen 19 mg/dL (8-23); Calcium 8.6 mg/dL (8.5-10.5); Carbon Dioxide 28 mmol/L (22-29); Chloride 101 mmol/L (98-107); Globulin 3.8 g/dL (1.3-4.6); Glomerular Filtration Rate 96.1 mL/min (90-130); Glucose 105 mg/dL (65-115); Magnesium 1.8 mg/dL (1.7-2.3); Osmolality Calculated 285 mOsm/kg (285-295); Phosphorus 2.9 mg/dL (2.5-4.5); Potassium 4.4 mmol/L (3.5-5.1); Sodium 136 mmol/L (136-145); Total Bilirubin 0.5 mg/dL (0.15-1.2); Total Protein 6.6 g/dL (6.6-8.7)
== END ==
PROVIDERS: PCP Nurse Practitioner; Visit Provider Nurse Practitioner
DX: Z45.2 Encounter for adjustment and management of vascular access device (principal); K22.3 Perforation of esophagus
CPT/HCPCS: 36415; 80053; 82330; 83735; 84100; 85025

== ENCOUNTER → 2021-08-15 12:48 | Day surgery (SDC) | payer MEDICARE, MEDICAID, SELFPAY ==
[2021-08-15 13:07] VITALS: BMI 26.6
[2021-08-15 13:09] VITALS: BP 123/76; PULSE 83; RESP 16; TEMP 36.6; O2SAT 97
[2021-08-15 13:33] LABS: Basophils % 0.5 %; Eosinophils # 0.2 10^3/uL (0.0-0.8); Eosinophils % 3.4 %; Hemoglobin 13.3 g/dL (11.7-16.6); Lymphocytes # 1.9 10^3/uL (0.8-4.8); Lymphocytes % 32.8 %; Mean Corpuscular HGB Conc 31.7 g/dL (30.0-36.0); Mean Corpuscular Hemoglobin 29.7 pg (28.0-34.0); Mean Corpuscular Volume 93.8 fl (80-94); Mean Platelet Volume 10.7 fL (7.4-10.4); Monocytes # 0.6 10^3/uL (0.2-0.9); Monocytes % 10.1 %; Neutrophils # 3.07 10^3/uL (1.8-7.7); Neutrophils % 52.9 %; Nucleated Red Blood Cells % 0 %; Platelet Count 301 10^3/cmm (130-400); Red Blood Count 4.48 10^6/uL (4.1-5.3); Red Cell Distribution Width 13.4 % (12.1-15.1); White Blood Count 5.8 10^3/uL (4.0-10.0)
[2021-08-15 14:02] LABS: Alanine Aminotransferase 25 U/L (0-41); Albumin Level 3.3 g/dL (3.5-5.2); Alkaline Phosphatase 102 IU/L (40-130); Anion Gap 16.7 (5-19); Blood Urea Nitrogen 20 mg/dL (8-23); Calcium 8.7 mg/dL (8.5-10.5); Carbon Dioxide 24 mmol/L (22-29); Chloride 100 mmol/L (98-107); Globulin 3.9 g/dL (1.3-4.6); Glomerular Filtration Rate 96.1 mL/min (90-130); Glucose 109 mg/dL (65-115); Magnesium 1.9 mg/dL (1.7-2.3); Osmolality Calculated 285 mOsm/kg (285-295); Potassium 4.7 mmol/L (3.5-5.1); Sodium 136 mmol/L (136-145); Total Bilirubin 0.5 mg/dL (0.15-1.2); Total Protein 7.2 g/dL (6.6-8.7)
[2021-08-15 14:04] LABS: Ionized Calcium 1.2 mmol/L (1.1-1.4)
[2021-08-15 14:14] LABS: Aspartate Amino Transferase 22 U/L (0-40)
== END ==
PROVIDERS: PCP Nurse Practitioner; Visit Provider Nurse Practitioner
DX: Z45.2 Encounter for adjustment and management of vascular access device (principal); K22.3 Perforation of esophagus
CPT/HCPCS: 36592; 80053; 82330; 83735; 84100; 85025

== ENCOUNTER → 2021-08-22 08:41 | Day surgery (SDC) | payer MEDICARE, MEDICAID, SELFPAY ==
[2021-08-22 08:58] VITALS: BP 125/73; PULSE 66; RESP 18; TEMP 36.9; O2SAT 96
--- NOTE | 2021-08-22 09:15 | PC.NURSE ---
Pt to GI Lab for peripheral lab draw and dressing change to right PICC line. Pt had medication actively infusing via home pump, therefore, flushing and checking for blood return not completed. PICC to right upper arm patent with no redness or drainage noted. Dressing changed per protocol with stat lock in place. Pt tolerated well.
[2021-08-22 09:27] LABS: Ionized Calcium 1.2 mmol/L (1.1-1.4)
[2021-08-22 09:31] LABS: Basophils % 0.2 %; Eosinophils # 0.1 10^3/uL (0.0-0.8); Eosinophils % 2.5 %; Hematocrit 36.1 % (42.0-52.0); Hemoglobin 11.4 g/dL (11.7-16.6); Lymphocytes # 1.4 10^3/uL (0.8-4.8); Lymphocytes % 27.8 %; Mean Corpuscular HGB Conc 31.6 g/dL (30.0-36.0); Mean Corpuscular Hemoglobin 29.8 pg (28.0-34.0); Mean Corpuscular Volume 94.5 fl (80-94); Mean Platelet Volume 10.7 fL (7.4-10.4); Monocytes # 0.6 10^3/uL (0.2-0.9); Monocytes % 13.2 %; Neutrophils # 2.73 10^3/uL (1.8-7.7); Neutrophils % 56.1 %; Nucleated Red Blood Cells % 0 %; Platelet Count 314 10^3/cmm (130-400); Red Blood Count 3.82 10^6/uL (4.1-5.3); Red Cell Distribution Width 13.3 % (12.1-15.1); White Blood Count 4.9 10^3/uL (4.0-10.0)
[2021-08-22 10:38] LABS: Alanine Aminotransferase 15 U/L (0-41); Albumin Level 2.9 g/dL (3.5-5.2); Alkaline Phosphatase 77 IU/L (40-130); Anion Gap 13.1 (5-19); Aspartate Amino Transferase 18 U/L (0-40); Blood Urea Nitrogen 15 mg/dL (8-23); Calcium 8.3 mg/dL (8.5-10.5); Carbon Dioxide 26 mmol/L (22-29); Chloride 103 mmol/L (98-107); Globulin 3.6 g/dL (1.3-4.6); Glomerular Filtration Rate 112.1 mL/min (90-130); Glucose 109 mg/dL (65-115); Magnesium 1.9 mg/dL (1.7-2.3); Osmolality Calculated 287 mOsm/kg (285-295); Phosphorus 2.9 mg/dL (2.5-4.5); Potassium 4.1 mmol/L (3.5-5.1); Sodium 138 mmol/L (136-145); Total Bilirubin 0.4 mg/dL (0.15-1.2); Total Protein 6.5 g/dL (6.6-8.7)
== END ==
PROVIDERS: PCP Nurse Practitioner; Visit Provider Nurse Practitioner
DX: Z45.2 Encounter for adjustment and management of vascular access device (principal); K22.3 Perforation of esophagus
CPT/HCPCS: 36415; 80053; 82330; 83735; 84100; 85025

== ENCOUNTER → 2021-08-29 12:04 | Day surgery (SDC) | payer MEDICARE, MEDICAID, SELFPAY ==
[2021-08-29 12:15] VITALS: BP 98/59; PULSE 62; RESP 18; TEMP 36.4; O2SAT 97
[2021-08-29 12:58] LABS: Basophils % 0.4 %; Eosinophils # 0.1 10^3/uL (0.0-0.8); Eosinophils % 1.6 %; Hematocrit 37.5 % (42.0-52.0); Hemoglobin 12.2 g/dL (11.7-16.6); Lymphocytes # 2.3 10^3/uL (0.8-4.8); Lymphocytes % 42.5 %; Mean Corpuscular HGB Conc 32.5 g/dL (30.0-36.0); Mean Corpuscular Hemoglobin 29.5 pg (28.0-34.0); Mean Corpuscular Volume 90.6 fl (80-94); Monocytes # 0.6 10^3/uL (0.2-0.9); Neutrophils # 2.42 10^3/uL (1.8-7.7); Neutrophils % 44.3 %; Nucleated Red Blood Cells % 0 %; Platelet Count 388 10^3/cmm (130-400); Red Blood Count 4.14 10^6/uL (4.1-5.3); Red Cell Distribution Width 13.2 % (12.1-15.1); White Blood Count 5.5 10^3/uL (4.0-10.0)
[2021-08-29 13:03] LABS: Ionized Calcium 1.2 mmol/L (1.1-1.4)
[2021-08-29 13:15] LABS: Alanine Aminotransferase 15 U/L (0-41); Albumin Level 3.3 g/dL (3.5-5.2); Alkaline Phosphatase 75 IU/L (40-130); Aspartate Amino Transferase 18 U/L (0-40); Blood Urea Nitrogen 20 mg/dL (8-23); Calcium 8.8 mg/dL (8.5-10.5); Carbon Dioxide 24 mmol/L (22-29); Chloride 101 mmol/L (98-107); Globulin 3.4 g/dL (1.3-4.6); Glomerular Filtration Rate 112.1 mL/min (90-130); Glucose 99 mg/dL (65-115); Magnesium 1.9 mg/dL (1.7-2.3); Osmolality Calculated 283 mOsm/kg (285-295); Phosphorus 2.8 mg/dL (2.5-4.5); Sodium 135 mmol/L (136-145); Total Bilirubin 0.4 mg/dL (0.15-1.2); Total Protein 6.7 g/dL (6.6-8.7)
== END ==
PROVIDERS: PCP Nurse Practitioner; Visit Provider Nurse Practitioner
DX: Z45.2 Encounter for adjustment and management of vascular access device (principal); K22.3 Perforation of esophagus
CPT/HCPCS: 36592; 80053; 82330; 83735; 84100; 85025

== ENCOUNTER → 2022-08-15 07:57 | Outpatient (BNVA) | payer MEDICARE, MEDICAID, SELFPAY | PROVIDERS: PCP Family Medicine; Visit Provider Family Medicine | DX: E78.5 Hyperlipidemia, unspecified (principal); I10 Essential (primary) hypertension | CPT/HCPCS: 80053; 80061 ==

== ENCOUNTER 2023-07-13 06:16 | Emergency (ER) | payer MEDICARE, MEDICAID, SELFPAY ==
[2023-07-13 06:18] VITALS: BMI 25.0
[2023-07-13 06:21] VITALS: BP 153/78; PULSE 83; RESP 16; TEMP 37.1; O2SAT 97
[2023-07-13 06:52] LABS: Basophils % 0.2 %; Hematocrit 39.8 % (37-53); Lymphocytes # 0.8 10^3/uL (0.8-4.8); Mean Corpuscular HGB Conc 33.4 g/dL (30-55); Mean Corpuscular Hemoglobin 28.5 pg (27-33); Mean Corpuscular Volume 85.4 fl (82-101); Monocytes # 0.5 10^3/uL (0.2-0.9); Neutrophils # 7.69 10^3/uL (1.8-7.7); Neutrophils % 85.5 %; Nucleated Red Blood Cells % 0 %; Platelet Count 381 10^3/cmm (157-399); Red Blood Count 4.66 10^6/uL (3.85-5.65); Red Cell Distribution Width 16.3 % (12.1-15.1)
[2023-07-13 06:56] LABS: INR 0.91 (0.8-1.2)
[2023-07-13 06:57] LABS: Partial Thromboplastin Time 21.6 SECONDS (23.9-36.7)
[2023-07-13 07:04] LABS: Alanine Aminotransferase 42 U/L (0-41); Albumin Level 4.5 g/dL (3.5-5.2); Alkaline Phosphatase 58 U/L (40-130); Anion Gap 29.5 (5-19); Aspartate Amino Transferase 57 U/L (0-40); Blood Urea Nitrogen 25 mg/dL (8-23); Calcium 9.4 mg/dL (8.5-10.5); Carbon Dioxide 29 mmol/L (22-29); Chloride 95 mmol/L (98-107); Globulin 2.2 g/dL (1.3-4.6); Glucose 135 mg/dL (65-115); Lipase 20 U/L (13-60); Osmolality Calculated 316 mOsm/kg (285-295); Potassium 3.5 mmol/L (3.5-5.1); Sodium 150 mmol/L (136-145); Total Bilirubin 0.7 mg/dL (0.15-1.2); Total Protein 6.7 g/dL (6.6-8.7)
[2023-07-13 07:07] LABS: Alcohol Level 362 mg/dL (0-10)
[2023-07-13] MEDS: sodium chloride 0.9% 1,000 ML 999 ML IV ×2 (07:09→08:06)
[2023-07-13] MEDS: ondansetron 2 mg/ML SDV 2 mL 4 MG IVP (07:10)
[2023-07-13] MEDS: pantoprazole 40 mg SDV 80 MG IVP (07:10)
--- NOTE | 2023-07-13 07:16 | ED_ITS ---
HPI - GI Bleed General: Chief complaint: Nausea/Vomiting/Diarrhea Stated complaint: ABD PAIN Time Seen by Provider: 07/13/23 06:27 History of Present Illness: This patient is a 67-year-old white male who presents to the emergency department via EMS after vomiting up blood. Patient states that he has been vomiting up blood for the past 2 to 3 days. Patient states he is an alcoholic. He has not noticed any blood in stools. Patient states he has had no prior episodes of upper GI bleeding. He does take Prilosec for gastroesophageal reflux disease. Other past medical history includes hypertension. Patient is not feeling lightheaded. No chest pain or shortness of breath. Associated symptoms: Reports nausea and vomiting Review of Systems General: Reports: 10 or more systems reviewed and unremarkable except in HPI and below GI: Reports: nausea, vomiting and hematemesis PFSH ED PFSH: Medical History (Updated 07/13/23 @ 09:30 by Miguel Rios MD) Diverticulosis Family history of colon cancer 09/15/2019: Normal colonoscopy except diverticulosis, follow-up colonoscopy in 2024 GERD (gastroesophageal reflux disease) Hyperlipidemia Hypertension Hypertension Social History Smoking and tobacco/nicotine status: never used tobacco/nicotine Alcohol intake: former Substance/Drug Use: never Physical Exam Const: COMMON NORMALS: no acute distress, patient oriented x3 and no limitations GENERAL APPEARANCE: cooperative and comfortable HENMT: COMMON NORMALS: normocephalic, atraumatic, Normal nasal mucous membranes and turbinates present, moist oral mucous membranes and oropharynx normal HEAD & SCALP: normal to inspection, normocephalic and atraumatic FACE & SINUS: normal facial exam NOSE: Normal nasal mucous membranes and turbinates present MOUTH: other (Dark dried blood around the lips.) Eye: COMMON NORMALS: Equal, round and reactive pupils present, EOMs intact bilaterally and conjunctivae normal GENERAL EYE: appearance normal, both eyes and all related structures CONJUNCTIVA: Yes conjunctivae normal PUPIL: Yes Equal, round and reactive pupils present Neck/C-Spine: COMMON NORMALS: supple and no JVD Chest: COMMONS NORMALS: normal inspection of the chest Resp: COMMON NORMALS: normal respiratory effort and clear to auscultation bilaterally AUSCULTATION: clear to auscultation bilaterally Cardio: COMMON NORMALS: no JVD, regular rate, regular rhythm, No gallops present (Cardio), No murmurs present (Cardio) and No rub (Cardio) RATE: regular rate RHYTHM: regular rhythm GI: COMMON NORMALS: Normal to inspection, nondistended, normoactive bowel sounds present, Soft to palpation and non-tender AUSCULTATION: Yes normoactive bowel sounds PALPATION: Yes Soft to palpation : COMMON NORMALS: Yes no CVA tenderness BLADDER/KIDNEY EXAM: Yes no CVA tenderness Back/Pelvis: COMMON NORMALS: no CVA tenderness and thoracic and lumbar spine normal to inspection Extremity: COMMON NORMALS: normal to inspection Neuro: COMMON NORMALS: patient oriented x3 and CN's II-XII intact bilaterally Psych: COMMON NORMALS: mental status grossly normal, Normal thought process present and cooperative THOUGHT PROCESS: Normal thought process present Skin: COMMON NORMALS: no rashes or lesions noted, turgor normal and no jaundic e GENERAL SKIN EXAM: no rashes or lesions noted and turgor normal Course Vital Signs: Vital signs: Vital Signs Temperature 98.8 F 07/13/23 06:21 Pulse Rate 92 07/13/23 08:37 Respiratory Rate 18 07/13/23 08:37 Blood Pressure 153/64 07/13/23 08:37 Pulse Oximetry 95 07/13/23 08:37 Oxygen Delivery Me thod Room Air 07/13/23 08:37 MDM - GI Bleed Medical Decision Making Patient was given 2 L of normal saline and 80 mg of Protonix IV. Also started octreotide. CBC revealed hemoglobin of 13.3. CMP reveals a sodium of 150, BUN 25 and creatinine 1.2. Lipase 20. Blood alcohol level was 362. Abdominal f latplate and upright films did not reveal any free air. Patient likely has bleeding esophageal varices with his history of alcoholism but this could be a bleed from a peptic ulcer or gastritis. He will need an EGD. I initially discussed the case with the local surgeon who stated that he does not have the equipment here to take care of bleed from esophageal varices and he recommended transfer. I did discuss the case with Glenn, intake nurse at [facility] [place] in [place]. Dr. Hurst has excepted the patient. Patient will be transferred shortly. He is stable. Lab Data 07/13/23 06:22 07/13/23 06:22 Laboratory Results WBC 9.00 10^3/uL (3.29-11.43) 07/13/23 06:22 RBC 4.66 10^6/uL (3.85-5.65) 07/13/23 06:22 Hgb 13.30 g/dL (11.27-16.99) 07/13/23 06:22 Hct 39.8 % (37-53) 07/13/23 06:22 MCV 85.4 fl (82-101) 07/13/23 06:22 MCH 28.5 pg (27-33) 07/13/23 06:22 MCHC 33.4 g/dL (30-55) 07/13/23 06:22 RDW 16.3 % (12.1-15.1) H 07/13/23 06:22 Plt Count 381 10^3/cmm (157-399) 07/13/23 06:22 MPV 9.0 fL (7.4-10.4) 07/13/23 06:22 Neut % (Auto) 85.5 % 07/13/23 06:22 Lymph % (Auto) 9.0 % 07/13/23 06:22 [place] % (Auto) 5.0 % 07/13/23 06:22 Eos % (Auto) 0.0 % 07/13/23 06:22 Baso % (Auto) 0.2 % 07/13/23 06:22 Neut # (Auto) 7.69 10^3/uL (1.8-7.7) 07/13/23 06:22 Lymph # (Auto) 0.8 10^3/uL (0.8-4.8) 07/13/23 06:22 [place] # (Auto) 0.5 10^3/uL (0.2-0.9) 07/13/23 06:22 Eos # (Auto) 0.0 10^3/uL (0.0-0.8) 07/13/23 06:22 Baso # (Auto) 0.0 10^3/uL (0.0-0.1) 07/13/23 06:22 Nucleated RBC % (auto) 0 % 07/13/23 06:22 Nucleated RBCs # 0.0 /100WBC 07/13/23 06:22 PT 12.50 SECONDS (12.1-14.9) 07/13/23 06:22 INR 0.91 (0.8-1.2) 07/13/23 06:22 APTT 21.6 SECONDS (23.9-36.7) L 07/13/23 06:22 Sodium 150 mmol/L (136-145) H 07/13/23 06:22 Potassium 3.5 mmol/L (3.5-5.1) 07/13/23 06:22 Chloride 95 mmol/L (98-107) L 07/13/23 06:22 Carbon Dioxide 29 mmol/L (22-29) 07/13/23 06:22 Anion Gap 29.5 (5-19) H 07/13/23 06:22 BUN 25 mg/dL (8-23) H 07/13/23 06:22 Creatinine 1.2 mg/dL (0.7-1.2) 07/13/23 06:22 GFR Calculation 60.0 mL/min (90-130) L 07/13/23 06:22 Glucose 135 mg/dL (65-115) H 07/13/23 06:22 Calculated Osmolality 316 mOsm/kg (285-295) H 07/13/23 06:22 Calcium 9.4 mg/dL (8.5-10.5) 07/13/23 06:22 Total Bilirubin 0.7 mg/dL (0.15-1.2) 07/13/23 06:22 AST 57 U/L (0-40) H 07/13/23 06:22 ALT 42 U/L (0-41) H 07/13/23 06:22 Alkaline Phosphatase 58 U/L (40-130) 07/13/23 06:22 Total Protein 6.7 g/dL (6.6-8.7) 07/13/23 06:22 Albumin 4.5 g/dL (3.5-5.2) 07/13/23 06:22 Globulin 2.2 g/dL (1.3-4.6) 07/13/23 06:22 Lipase 20 U/L (13-60) 07/13/23 06:22 Ethyl Alcohol 362 mg/dL (0-10) H* 07/13/23 06:22 Blood Type A Positive 07/13/23 06:20 Rho(D) Type Rh positive 07/13/23 06:20 Antibody Screen Negative 07/13/23 06:20 All radiology interpretation(s) finalized by discharge Discharge Plan Discharge Patient Disposition: Xfer Short-Term Hosp Clinical Impression: Upper GI hemorrhage Condition: Stable Discharge Orders: Transfer Out of Facility (Order); Ordered 07/13/23 Ordered By: Miguel Rios Referrals: Omari Ames MD [Primary Care Provider] - Coding Level of Care Code ED Certified Performance Technologist for Giselle Horton
--- NOTE | 2023-07-13 07:23 | XR_ITS ---
WS: [id number] Exam: XR acute abdomen series [id number] Date/Time of Exam: 07/13/2023 7:31 AM Reason For Exam: Upper GI Bleed AP portable chest x-ray compared to the last exam 07/14/2021. The lungs are clear and fully inflated. Normal cardiomediastinal silhouette and regional bony element s. Flat and erect abdomen. No bowel obstruction or pneumoperitoneum. Surgical clips in the epigastric re gion. Bony structures are intact. Degenerative changes of the lumbar spine and slight levoscoliosis. IMPRESSION: 1. No acute cardiopulmonary finding. 2. No acute abdominal process.
[2023-07-13] MEDS: octreotide 500 MCG in sodium chloride 0.9% (100 ml) 100 ML 10.1 MCG IV (08:28)
[2023-07-13 08:37] VITALS: BP 153/64; PULSE 92; RESP 18; O2SAT 95
== END 2023-07-13 10:03 | disposition short-term general hospital (02) ==
PROVIDERS: Emergency Provider Emergency Medicine; PCP Family Medicine
DX: K92.2 Gastrointestinal hemorrhage, unspecified (principal); E78.5 Hyperlipidemia, unspecified; I10 Essential (primary) hypertension
CPT/HCPCS: 74022; 80053; 80307; 83690; 85025; 85610; 85730; 86850; 86900; 96365; 96366; 96375; 99285; C9113; J2354; J2405; J7030

== ENCOUNTER → 2023-07-23 13:54 | Outpatient (BNVA) | payer MEDICARE, MEDICAID, SELFPAY | PROVIDERS: PCP Family Medicine; Visit Provider Family Medicine | DX: K92.2 Gastrointestinal hemorrhage, unspecified (principal) | CPT/HCPCS: 80053; 85025 ==

== ENCOUNTER 2023-12-13 19:20 | Emergency (ER) | payer MEDICARE, MEDICAID, SELFPAY ==
[2023-12-13] VITALS (7 sets, daily range): BP systolic 103–142; BP diastolic 50–67; PULSE 67–93; RESP 16–19; TEMP 36.8; O2SAT 94–97
--- NOTE | 2023-12-13 19:31 | ED_ITS ---
HPI - GI Bleed 2 General: Chief complaint: GI Bleed Stated complaint: Vomiting Time Seen by Provider: 12/13/23 19:29 History of Present Illness: 68-year-old male patient comes in today with what he describes as coffee-ground like emesis. Patient states that he has been drinking more than he usually does. Patient reports excessive drinking the last 2 to 3 days. This is starting patient vomiting. Patient has had previous episode at that time days. Not tell him he had any esophageal varices. Patient did not report any bright red blood. Patient reports some gastric discomfort. Patient reports he does have abdominal hernias. Patient skin is warm and dry color is pink. Review of Systems 2 General: Reports: 10 or more systems reviewed and unremarkable except in HPI and below PFSH ED 2 PFSH: Medical History GERD (gastroesophageal reflux disease) Hyperlipidemia Hypertension Diverticulosis Hypertension Family history of colon cancer 09/15/2019: Normal colonoscopy except diverticulosis, follow-up colonoscopy in 2024 Social History Smoking and tobacco/nicotine status: never used tobacco/nicotine Alcohol intake: former Substance/Drug Use: never Physical Exam 2 Const: COMMON NORMALS: alert HENMT: COMMON NORMALS: normocephalic HEAD & SCALP: normocephalic Neck/C-Spine: COMMON NORMALS: full ROM Resp: COMMON NORMALS: normal respiratory effort and clear to auscultation bilaterally AUSCULTATION: clear to auscultation bilaterally Cardio: COMMON NORMALS: regular rate RATE: regular rate GI: COMMON NORMALS: Soft to palpation and non-tender PALPATION: Yes Soft to palpation : COMMON NORMALS: Yes no CVA tenderness BLADDER/KIDNEY EXAM: Yes no CVA tenderness Back/Pelvis: COMMON NORMALS: no CVA tenderness Extremity: COMMON NORMALS: normal to inspection Neuro: SENSORIUM/ORIENTATION: Yes alert Skin: COMMON NORMALS: turgor normal GENERAL SKIN EXAM: turgor normal Course 2 Vital Signs: Vital signs: Vital Signs Temperature 98.3 F 12/13/23 19:22 Pulse Rate 80 12/13/23 21:33 Respiratory Rate 17 12/13/23 21:00 Blood Pressure 134/60 12/13/23 21:33 Pulse Oximetry 96 12/13/23 21:33 Oxygen Delivery Me thod Room Air 12/13/23 21:33 MDM - GI Bleed Medical Decision Making 68-year-old male patient comes in today for complaints of nausea and vomiting with blood in it. Patient reports drinking excessively for the last 2 to 3 days. Patient does have a history of alcoholism. Patient has had a prior gastritis secondary to alcoholism. Patient denies any esophageal varices. Patient appears nontoxic. Abdomen soft with some epigastric tenderness. Vital signs are normal. Differential diagnosis includes but not limited to gastritis, pancreatitis, esophageal varices, anemia. Hemoglobin was 12.2. EtOH was 349. Sodium was 146, potassium 3.8, creatinine was 1.1. Patient was given 2 L of IV fluid. 80 mg of pantoprazole. Patient was able to tolerate oral fluids. Patient will be placed on oral pantoprazole as strongly encouraged not to continue with alcohol consumption. Recommend follow-up with primary care in 1 week. Return to ED for worsening symptoms. Patient reported understanding and agreed to plan. Lab Data 12/13/23 19:35 12/13/23 19:35 Laboratory Results WBC 9.65 10^3/uL (3.29-11.43) 12/13/23 19:35 RBC 4.67 10^6/uL (3.85-5.65) 12/13/23 19:35 Hgb 12.20 g/dL (11.27-16.99) 12/13/23 19:35 Hct 40.0 % (37-53) 12/13/23 19:35 MCV 85.7 fl (82-101) 12/13/23 19:35 MCH 26.1 pg (27-33) L 12/13/23 19:35 MCHC 30.5 g/dL (30-55) 12/13/23 19:35 RDW 17.5 % (12.1-15.1) H 12/13/23 19:35 Plt Count 369 10^3/cmm (157-399) 12/13/23 19:35 MPV 9.7 fL (7.4-10.4) 12/13/23 19:35 Neut % (Auto) 88.6 % 12/13/23 19:35 Lymph % (Auto) 6.7 % 12/13/23 19:35 [place] % (Auto) 3.7 % 12/13/23 19:35 Eos % (Auto) 0.0 % 12/13/23 19:35 Baso % (Auto) 0.6 % 12/13/23 19:35 Neut # (Auto) 8.54 10^3/uL (1.8-7.7) H 12/13/23 19:35 Lymph # (Auto) 0.7 10^3/uL (0.8-4.8) L 12/13/23 19:35 [place] # (Auto) 0.4 10^3/uL (0.2-0.9) 12/13/23 19:35 Eos # (Auto) 0.0 10^3/uL (0.0-0.8) 12/13/23 19:35 Baso # (Auto) 0.1 10^3/uL (0.0-0.1) 12/13/23 19:35 Nucleated RBC % (auto) 0 % 12/13/23 19:35 Nucleated RBCs # 0.0 /100WBC 12/13/23 19:35 Sodium 146 mmol/L (136-145) H 12/13/23 19:35 Potassium 3.8 mmol/L (3.5-5.1) 12/13/23 19:35 Chloride 102 mmol/L (98-107) 12/13/23 19:35 Carbon Dioxide 19 mmol/L (22-29) L 12/13/23 19:35 Anion Gap 28.8 (5-19) H 12/13/23 19:35 BUN 25 mg/dL (8-23) H 12/13/23 19:35 Creatinine 1.1 mg/dL (0.7-1.2) 12/13/23 19:35 GFR Calculation 66.2 mL/min (90-130) L 12/13/23 19:35 Glucose 60 mg/dL (65-115) L 12/13/23 19:35 Calculated Osmolality 304 mOsm/kg (285-295) H 12/13/23 19:35 Calcium 9.2 mg/dL (8.5-10.5) 12/13/23 19:35 Total Bilirubin 0.7 mg/dL (0.15-1.2) 12/13/23 19:35 AST 52 U/L (0-40) H 12/13/23 19:35 ALT 24 U/L (0-41) 12/13/23 19:35 Alkaline Phosphatase 61 U/L (40-130) 12/13/23 19:35 Total Protein 7.4 g/dL (6.6-8.7) 12/13/23 19:35 Albumin 4.2 g/dL (3.5-5.2) 12/13/23 19:35 Globulin 3.2 g/dL (1.3-4.6) 12/13/23 19:35 Lipase 23 U/L (13-60) 12/13/23 19:35 Ethyl Alcohol 349 mg/dL (0-10) H* 12/13/23 19:35 No radiology studies performed this visit Discharge Plan Discharge Patient Disposition: Home Clinical Impression: Gastritis Qualifiers: Gastritis type: alcoholic Chronicity: unspecified Gastritis bleeding: with bleeding Qualified Code(s): K29.21 - Alcoholic gastritis with bleeding Condition: Stable Prescriptions: New Protonix 40 mg tablet,delayed release (DR/EC) 40 mg PO DAILY 28 Days Qty: 30 2RF ondansetron 4 mg tablet,disintegrating 4 mg PO Q8H PRN (Reason: nausea and vomiting) 3 Days Qty: 9 0RF No Action hydralazine 25 mg tablet 25 mg PO TID Qty: 90 3RF lisinopril-hydrochlorothiazide 20-12.5 mg tablet 1 tab PO QAM Qty: 90 3RF omeprazole 40 mg capsule,delayed release(DR/EC) 40 mg PO QAM Discharge Orders: Discharge ED (Routine); Ordered 12/13/23 Ordered By: Demar Burt Referrals: Omari Ames MD [Primary Care Provider] - Discharge Diet: Usual diet Discharge Activity: Increase activity as tolerated Patient Instructions: Gastritis (ED) Activity Restrictions/Additional Instructions: Stop drinking alcohol. The excessive drinking of alcohol and has irritated the lining of your stomach causing it to bleed. Cessation of alcohol should return to normal mucosa in the stomach. Use Protonix to help decrease acid and to encourage healing. Clear liquid diet until abdominal pain and vomiting subsides. Avoidance of alcohol is strongly encouraged. Follow-up with primary care in 1 week for recheck. Return to ER for worsening symptoms such as increasing pain, bright red blood in the vomit or stool, or weakness and feeling of passing out. Coding Level of Care Code ED Ibm Mainframe Developer for Giselle Horton
[2023-12-13] MEDS: lactated ringers 1,000 ML 999 ML IV (19:50)
[2023-12-13 20:11] LABS: Basophils # 0.1 10^3/uL (0.0-0.1); Basophils % 0.6 %; Lymphocytes # 0.7 10^3/uL (0.8-4.8); Lymphocytes % 6.7 %; Mean Corpuscular HGB Conc 30.5 g/dL (30-55); Mean Corpuscular Hemoglobin 26.1 pg (27-33); Mean Corpuscular Volume 85.7 fl (82-101); Mean Platelet Volume 9.7 fL (7.4-10.4); Monocytes # 0.4 10^3/uL (0.2-0.9); Monocytes % 3.7 %; Neutrophils # 8.54 10^3/uL (1.8-7.7); Neutrophils % 88.6 %; Nucleated Red Blood Cells % 0 %; Platelet Count 369 10^3/cmm (157-399); Red Blood Count 4.67 10^6/uL (3.85-5.65); Red Cell Distribution Width 17.5 % (12.1-15.1); White Blood Count 9.65 10^3/uL (3.29-11.43)
[2023-12-13] MEDS: ondansetron 2 mg/ML SDV 2 mL 4 MG IVP (20:28)
[2023-12-13] MEDS: pantoprazole 40 mg SDV 80 MG IVP (20:28)
[2023-12-13 20:46] LABS: Alanine Aminotransferase 24 U/L (0-41); Albumin Level 4.2 g/dL (3.5-5.2); Alkaline Phosphatase 61 U/L (40-130); Blood Urea Nitrogen 25 mg/dL (8-23); Calcium 9.2 mg/dL (8.5-10.5); Carbon Dioxide 19 mmol/L (22-29); Chloride 102 mmol/L (98-107); Creatinine Clr Calc Pharmacy 62.3145; Globulin 3.2 g/dL (1.3-4.6); Glomerular Filtration Rate 66.2 mL/min (90-130); Glucose 60 mg/dL (65-115); Lipase 23 U/L (13-60); Osmolality Calculated 304 mOsm/kg (285-295); Sodium 146 mmol/L (136-145); Total Bilirubin 0.7 mg/dL (0.15-1.2); Total Protein 7.4 g/dL (6.6-8.7)
[2023-12-13 20:51] LABS: Anion Gap 28.8 (5-19); Aspartate Amino Transferase 52 U/L (0-40); Potassium 3.8 mmol/L (3.5-5.1)
[2023-12-13 20:53] LABS: Alcohol Level 349 mg/dL (0-10)
[2023-12-13] MEDS: sodium chloride 0.9% 1,000 ML 999 ML IV (21:03)
== END 2023-12-13 22:01 | disposition home or self-care (01) ==
PROVIDERS: Emergency Provider Nurse Practitioner Family; PCP Family Medicine
DX: K29.21 Alcoholic gastritis with bleeding (principal); E78.5 Hyperlipidemia, unspecified; I10 Essential (primary) hypertension
CPT/HCPCS: 36415; 80053; 80307; 83690; 85025; 96361; 96374; 96375; 99284; C9113; J2405; J7030; J7120

== ENCOUNTER 2023-12-19 01:43 | Emergency (ER) | payer MEDICARE, MEDICAID, SELFPAY ==
[2023-12-19 01:48] VITALS: BP 157/78; PULSE 86; RESP 17; TEMP 37; O2SAT 78; BMI 26.6
--- NOTE | 2023-12-19 01:53 | ED_ITS ---
HPI - Allergic Reaction General: Chief complaint: Allergic Reaction Stated complaint: Allergic reaction L side face swollen welps everyw Time Seen by Provider: 12/19/23 01:46 History of Present Illness: HPI narrative: Patient presents to the ER with complaints of allergic reaction. Patient stated he has red blotches and a rash all over his body as well as facial swelling in the mouth and tongue area. Patient states he is not had any new medicine but he brings his 3 medicines and it include lisinopril/HCTZ, Protonix, and Zofran, patient does state he is allergic to kiwi but has not ate any kiwi directly. Patient did have a fruit flavored cheesecake the day before yesterday. And when he went to bed yesterday night he did notice a mild red rash over his stomach. Patient denies any wheezing, problems breathing or swallowing. Patient did not take any Benadryl at home before coming to the emergency room. Review of Systems General: Reports: 10 or more systems reviewed and unremarkable except in HPI and below PFS ED PFSH: Medical History GERD (gastroesophageal reflux disease) Hyperlipidemia Hypertension Diverticulosis Hypertension Family history of colon cancer 09/15/2019: Normal colonoscopy except diverticulosis, follow-up colonoscopy in 2024 Social History Smoking and tobacco/nicotine status: never used tobacco/nicotine Alcohol intake: former Substance/Drug Use: never Physical Exam Const: COMMON NORMALS: no acute distress, average body habitus, patient oriented x3, no limitations, healthy appearing, alert and well nourished HENMT: COMMON NORMALS: normocephalic, atraumatic, hearing grossly normal bilaterally, external ears normal, Normal external nose present, moist oral mucous membranes and oropharynx normal HEAD & SCALP: normocephalic and atraumatic NOSE: Normal external nose present EXTERNAL EAR: Yes external ears normal OTHER: Swollen lower half of face including lips and tongue. Eye: COMMON NORMALS: Equal, round and reactive pupils present, EOMs intact bilaterally, conjunctivae normal and no scleral icterus CONJUNCTIVA: Yes conjunctivae normal PUPIL: Yes Equal, round and reactive pupils present Neck/C-Spine: COMMON NORMALS: full ROM, no lymphadenopathy, supple, no meningeal signs, no JVD and Thyroid normal THYROID: Thyroid normal Chest: COMMONS NORMALS: normal inspection of the chest and normal palpation of entire chest wall Resp: COMMON NORMALS: normal respiratory effort, No retractions, No use of accessory muscles and clear to auscultation bilaterally AUSCULTATION: clear to auscultation bilaterally Cardio: COMMON NORMALS: no JVD, regular rate, regular rhythm, S1 normal heart sound present, S2 normal heart sound present, No gallops present (Cardio), No clicks present (Cardio), No murmurs present (Cardio) and No rub (Cardio) RATE: regular rate RHYTHM: regular rhythm HEART SOUNDS: S1 normal heart sound present and S2 normal heart sound present GI: COMMON NORMALS: Normal to inspection, nondistended, normoactive bowel sounds present, Soft to palpation, non-tender, No hepatosplenomegaly present and no masses PALPATION: Yes Soft to palpation and Yes No hepatosplenomegaly present Neuro: COMMON NORMALS: patient oriented x3 SENSORIUM/ORIENTATION: Yes alert MENINGEAL SIGNS: Yes no meningeal signs Course Vital Signs: Vital signs: Vital Signs Temperature 98.6 F 12/19/23 03:32 Pulse Rate 60 12/19/23 03:32 Respiratory Rate 16 12/19/23 03:32 Blood Pressure 116/74 12/19/23 03:32 Pulse Oximetry 97 12/19/23 03:32 Oxygen Delivery Me thod Room Air 12/19/23 01:48 MDM - Allergic Reaction Medical Decision Making Patient was given 125 mg Solu-Medrol, 40 mg of Pepcid, 50 mg of Benadryl, and then observed. Upon reevaluation patient said the swelling has started to go down and he is feeling much better. Patient did ask if we could send an EpiPen for him to the pharmacy. Patient we discharged home. Differential Diagnosis Likely allergic reaction and angioedema Medical Records I reviewed the patient's medical records. Lab Data I reviewed the patient's lab results. No radiology studies performed this visit Discharge Plan Discharge Patient Disposition: Home Clinical Impression: Allergic reaction Qualifiers: Encounter type: initial encounter Qualified Code(s): T78.40XA - Allergy, unspecified, initial encounter Condition: Stable Prescriptions: New EpiPen 2-Shawn 0.3 mg/0.3 mL auto-injector 0.3 mg IM Q15M PRN (Reason: anaphylaxis) Qty: 2 0RF Rx Instructions: for 3 doses No Action hydralazine 25 mg tablet 25 mg PO TID Qty: 90 3RF lisinopril-hydrochlorothiazide 20-12.5 mg tablet 1 tab PO QAM Qty: 90 3RF omeprazole 40 mg capsule,delayed release(DR/EC) 40 mg PO QAM Protonix 40 mg tablet,delayed release (DR/EC) 40 mg PO DAILY 28 Days Qty: 30 2RF Discharge Orders: Discharge ED (Routine); Ordered 12/19/23 Ordered By: Fuentes Espinoza Referrals: Omari Ames MD [Primary Care Provider] - 1 week Patient Instructions: Allergic Reaction Activity Restrictions/Additional Instructions: An EpiPen has been sent to your pharmacy. Please continue to take Benadryl 25 mg 3 times a day and Pepcid 20 mg twice a day for the next 3 days to make for sure your reaction goes away and stays away. These medicines are available [id number]. Please follow-up with your family practitioner for further evaluation and testing as needed. Coding Level of Care Code ED Nurse Outreach Case Manager for Giselle Horton
[2023-12-19] MEDS: diphenhydrAMINE 50 mg/mL SDV 1mL IVP (01:56)
[2023-12-19] MEDS: famotidine 20 mg/2 mL INJ 40 MG IVP (01:56)
[2023-12-19] MEDS: methylPREDNISolone sod succ 125 mg/2 mL INJ IVP (01:56)
[2023-12-19 02:08] VITALS: BP 128/72; PULSE 77; RESP 17; O2SAT 96
[2023-12-19 02:59] VITALS: BP 116/74; PULSE 60; RESP 16; O2SAT 97
[2023-12-19 03:32] VITALS: BP 116/74; PULSE 60; RESP 16; TEMP 37; O2SAT 97
== END 2023-12-19 03:33 | disposition home or self-care (01) ==
PROVIDERS: Emergency Provider Emergency Medicine; PCP Family Medicine
DX: T78.40XA Allergy, unspecified, initial encounter (principal); X58.XXXA Exposure to other specified factors, initial encounter
CPT/HCPCS: 96374; 96375; 99284; J1200; J2919; J3490

== ENCOUNTER 2024-01-06 11:30 | Emergency (ER) | payer MEDICARE, MEDICAID, SELFPAY ==
[2024-01-06] VITALS (9 sets, daily range): BP systolic 113–155; BP diastolic 56–82; PULSE 71–99; RESP 16–18; TEMP 36.8; O2SAT 94–100; BMI 26.6
[2024-01-06 12:22] LABS: Basophils # 0.1 10^3/uL (0.0-0.1); Basophils % 0.5 %; Hematocrit 39.6 % (37-53); Lymphocytes # 0.8 10^3/uL (0.8-4.8); Lymphocytes % 8.6 %; Mean Corpuscular HGB Conc 30.8 g/dL (30-55); Mean Corpuscular Volume 84.3 fl (82-101); Mean Platelet Volume 8.9 fL (7.4-10.4); Monocytes # 0.3 10^3/uL (0.2-0.9); Neutrophils # 8.01 10^3/uL (1.8-7.7); Neutrophils % 87.7 %; Nucleated Red Blood Cells % 0 %; Platelet Count 404 10^3/cmm (157-399); Red Cell Distribution Width 17.6 % (12.1-15.1); White Blood Count 9.14 10^3/uL (3.29-11.43)
[2024-01-06 12:42] LABS: Alanine Aminotransferase 11 U/L (0-41); Albumin Level 4.1 g/dL (3.5-5.2); Alkaline Phosphatase 80 U/L (40-130); Anion Gap 22.3 (5-19); Aspartate Amino Transferase 24 U/L (0-40); Blood Urea Nitrogen 20 mg/dL (8-23); Carbon Dioxide 21 mmol/L (22-29); Chloride 98 mmol/L (98-107); Creatinine Clr Calc Pharmacy 62.3145; Globulin 3.2 g/dL (1.3-4.6); Glomerular Filtration Rate 66.2 mL/min (90-130); Glucose 106 mg/dL (65-115); Lipase 26 U/L (13-60); Osmolality Calculated 289 mOsm/kg (285-295); Potassium 3.3 mmol/L (3.5-5.1); Sodium 138 mmol/L (136-145); Total Bilirubin 0.7 mg/dL (0.15-1.2); Total Protein 7.3 g/dL (6.6-8.7)
--- NOTE | 2024-01-06 12:55 | XRR_ITS ---
PROCEDURE INFORMATION: Exam: XR Chest Exam date and time: 01/06/2024 1:05 PM Age: 68 years old Clinical indication: Other: Hematemesis; Additional info: Hemetemsis TECHNIQUE: Imaging protocol: Radiologic exam of the chest. Views: 1 view. COMPARISON: CR XR chest 1V portable [id number] 07/14/2021 10:01 AM FINDINGS: Lungs: No focal consolidation. Pleural spaces: No evidence of pneumothorax. No evidence of pleural effusion. Heart/Mediastinum: Cardiomediastinal silhouette is within normal limits. Bones/joints: No evidence of acute osseous abnormality. XR/XR chest 1V portable [id number] IMPRESSION: 1. No acute cardiopulmonary abnormality.
--- NOTE | 2024-01-06 12:58 | ED_ITS ---
HPI - GI Bleed 2 General: Chief complaint: Abdominal Pain Stated complaint: vomiting blood Time Seen by Provider: 01/06/24 12:16 Source: patient Mode of arrival: ambulatory Limitations: no limitations History of Present Illness: This patient presents to the emergency department because of vomiting blood. He states he vomited a little bit of blood last night and more so today. He is also having some upper epigastric discomfort. He admits to regular use of alcohol and that he has a chronic alcoholic. His last drink was earlier today. He denies any current chest pain shortness of breath lightheadedness syncope etc. He does not take any blood thinning medications. He denies any black or tarry stools. He denies any history of esophageal varices. He had a prior esophageal hiatal hernia repaired surgically at [facility]. complaint: gross hematemesis Pain Consistency: constant Severity: moderate Context: history of GI bleed Associated symptoms: Reports abdominal pain and vomiting; Denies chills, fever(s), headache(s), rash or syncope Review of Systems 2 Const: Denies: fever(s) or chills Eyes: Denies: change in vision ENMT: Denies: throat pain or odynophagia Card: Denies: chest pain, palpitations, irregular heart rhythm, syncope or pre-syncope Resp: Denies: dyspnea, productive cough or non-productive cough GI: Reports: abdominal pain, vomiting and hematemesis; Denies: melena : Denies: flank pain, difficulty urinating or dysuria Musc: Denies: neck pain, back pain or extremity pain Skin/Breast: Denies: rash or pruritus Neuro: Denies: headache(s), numbness in extremities or weakness in extremities Psych: Denies: anxiety or depression PFS ED 2 PFSH: Medical History GERD (gastroesophageal reflux disease) Hyperlipidemia Hypertension Diverticulosis Hypertension Family history of colon cancer 09/15/2019: Normal colonoscopy except diverticulosis, follow-up colonoscopy in 2024 Social History Smoking and tobacco/nicotine status: never used tobacco/nicotine Alcohol intake: former Substance/Drug Use: never Physical Exam 2 Narrative: EXAM NARRATIVE: Appears somewhat uncomfortable but able to answer questions appropriately. Const: COMMON NORMALS: average body habitus, patient oriented x3, alert and well nourished GENERAL APPEARANCE: cooperative HENMT: COMMON NORMALS: normocephalic, Normal external nose present, Normal nasal mucous membranes and turbinates present, moist oral mucous membranes and oropharynx normal HEAD & SCALP: normocephalic NOSE: Normal external nose present and Normal nasal mucous membranes and turbinates present Eye: COMMON NORMALS: Equal, round and reactive pupils present, EOMs intact bilaterally, conjunctivae normal and no scleral icterus CONJUNCTIVA: Yes conjunctivae normal PUPIL: Yes Equal, round and reactive pupils present Neck/C-Spine: COMMON NORMALS: full ROM, no lymphadenopathy, no JVD and No carotid bruits Chest: COMMONS NORMALS: normal inspection of the chest and normal palpation of entire chest wall Resp: COMMON NORMALS: normal respiratory effort, No retractions and clear to auscultation bilaterally AUSCULTATION: clear to auscultation bilaterally Cardio: COMMON NORMALS: no JVD, regular rate, regular rhythm, No murmurs present (Cardio) and Peripheral pulses 2+ throughout RATE: regular rate R HYTHM: regular rhythm PERIPHERAL PULSES: Peripheral pulses 2+ throughout GI: COMMON NORMALS: Normal to inspection, nondistended, normoactive bowel sounds present, Soft to palpation and No hepatosplenomegaly present P ALPATION: Yes Soft to palpation, Yes Tenderness to palpation present (GI) (Epigastric), No Guarding due to palpation present (GI), No Rigid due to palpation and Yes No hepatosplenomegaly present : COMMON NORMALS: Yes no CVA tenderness BLADDER/KIDNEY EXAM: Yes no CVA tenderness Back/Pelvis: COMMON NORMALS: no CVA tenderness, thoracic and lumbar spine normal to inspection, no thoracic nor lumbar tenderness and thoraco-lumbar ROM normal Extremity: COMMON NORMALS: normal to inspection, full ROM, capillary refill normal and no joint enlargement Neuro: COMMON NORMALS: patient oriented x3, moves all extremities, no focal motor deficits and no sensory deficits noted SENSORIUM/ORIENTATION: Yes alert Skin: COMMON NORMALS: no rashes or lesions noted, no wounds and turgor normal GENERAL SKIN EXAM: no rashes or lesions noted and turgor normal Course 2 Reevaluation(s): Reevaluation #1: Patient has remained hemodynamically stable with normal vital signs no tachycardia hypotension etc. Has had no subsequent hematemesis etc. We discussed treatment options to include continued observation versus home observation and he prefers the latter. We also discussed in detail the etiology to his gastritis which is his continued alcohol use. He acknowledges that and also promised me that he would work towards reducing his alcohol intake. 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 At this point he is currently hemodynamically clinically stable without any evidence of significant anemia thrombocytopenia etc. and may be discharged to home care. Time: 15:36 Vital Signs: Vital signs: Vital Signs Temperature 98.3 F 01/06/24 11:46 Pulse Rate 76 01/06/24 15:00 Respiratory Rate 17 01/06/24 13:54 Blood Pressure 123/56 01/06/24 14:00 Pulse Oximetry 94 01/06/24 15:00 Oxygen Delivery Me thod Room Air 01/06/24 11:46 MDM - GI Bleed Medical Decision Making Patient with a known history of chronic alcoholism returns to the emergency department with history of hematemesis today. He apparently is a daily drinker and states his last ingestion of alcohol was earlier today. Had a prior history of esophageal hernia with surgical repair but no history of esophageal varices. Clinical examination was reassuring without any evidence of acute abdomen and normal vital signs. Laboratory and imaging was obtained to ensure patient's stability and determine if there was a profound anemia etc. hemoglobin returned essentially unchanged from previous hemoglobins. The rest of his laboratories are also reassuring with borderline potassium being the only outlier. Chest x- ray is also reassuring. The patient received proton pump inhibitor IV fluids and continued observation. He was observed in the emerged part for greater than 4 hours and had no subsequent hematemesis or other concerning findings and remained hemodynamically stable. Treatment options were discussed and the patient prefers to be discharged home. He was admonished on alcohol ingestion reduction. He will be placed on double therapy with PPI and Carafate. He apparently was taking an H2 endy but did not seem to like that medicine. Differential Diagnosis Likely gastritis Medical Records I reviewed the patient's medical records. Prior hemoglobin and other ED workup was noted and unchanged from this current presentation Lab Data I reviewed the patient's lab results. 01/06/24 12:01 01/06/24 12:01 Radiology Impressions Chest X-Ray 01/06/24 12:55 IMPRESSION: 1. No acute cardiopulmonary abnormality. Laboratory Results WBC 9.14 10^3/uL (3.29-11.43) 01/06/24 12:01 RBC 4.70 10^6/uL (3.85-5.65) 01/06/24 12:01 Hgb 12.20 g/dL (11.27-16.99) 01/06/24 12:01 Hct 39.6 % (37-53) 01/06/24 12:01 MCV 84.3 fl (82-101) 01/06/24 12:01 MCH 26.0 pg (27-33) L 01/06/24 12:01 MCHC 30.8 g/dL (30-55) 01/06/24 12:01 RDW 17.6 % (12.1-15.1) H 01/06/24 12:01 Plt Count 404 10^3/cmm (157-399) H 01/06/24 12:01 MPV 8.9 fL (7.4-10.4) 01/06/24 12:01 Neut % (Auto) 87.7 % 01/06/24 12:01 Lymph % (Auto) 8.6 % 01/06/24 12:01 [place] % (Auto) 3.0 % 01/06/24 12:01 Eos % (Auto) 0.0 % 01/06/24 12:01 Baso % (Auto) 0.5 % 01/06/24 12:01 Neut # (Auto) 8.01 10^3/uL (1.8-7.7) H 01/06/24 12:01 Lymph # (Auto) 0.8 10^3/uL (0.8-4.8) 01/06/24 12:01 [place] # (Auto) 0.3 10^3/uL (0.2-0.9) 01/06/24 12:01 Eos # (Auto) 0.0 10^3/uL (0.0-0.8) 01/06/24 12:01 Baso # (Auto) 0.1 10^3/uL (0.0-0.1) 01/06/24 12:01 Nucleated RBC % (auto) 0 % 01/06/24 12:01 Nucleated RBCs # 0.0 /100WBC 01/06/24 12:01 Sodium 138 mmol/L (136-145) 01/06/24 12:01 Potassium 3.3 mmol/L (3.5-5.1) L 01/06/24 12:01 Chloride 98 mmol/L (98-107) 01/06/24 12:01 Carbon Dioxide 21 mmol/L (22-29) L 01/06/24 12:01 Anion Gap 22.3 (5-19) H 01/06/24 12:01 BUN 20 mg/dL (8-23) 01/06/24 12:01 Creatinine 1.1 mg/dL (0.7-1.2) 01/06/24 12: GFR Calculation 66.2 mL/min (90-130) L 01/06/24 12:01 Glucose 106 mg/dL (65-115) 01/06/24 12: Calculated Osmolality 289 mOsm/kg (285-295) 01/06/24 12: Calcium 9.0 mg/dL (8.5-10.5) 01/06/24 12:01 Total Bilirubin 0.7 mg/dL (0.15-1.2) 01/06/24 12:01 AST 24 U/L (0-40) 01/06/24 12:01 ALT 11 U/L (0-41) 01/06/24 12:01 Alkaline Phosphatase 80 U/L (40-130) 01/06/24 12:01 Total Protein 7.3 g/dL (6.6-8.7) 01/06/24 12: Albumin 4.1 g/dL (3.5-5.2) 01/06/24 12: Globulin 3.2 g/dL (1.3-4.6) 01/06/24 12:01 Lipase 26 U/L (13-60) 01/06/24 12:01 Ethyl Alcohol 278 mg/dL (0-10) H 01/06/24 12:01 Blood Type A Positive 01/06/24 13:03 Rho(D) Type Rh positive 01/06/24 13:03 Antibody Screen Negative 01/06/24 13:03 All radiology interpretation(s) finalized by discharge EKG Data EKG 1: I personally reviewed and interpreted this EKG as follows: Interpretation: Contemporaneous review of EKG reveals a ventricular rate of 107 bpm consistent with sinus tachycardia. Normal ME interval, QRS duration, QT T interval. Normal axis. Q waves present in 2 3 and aVF suggestive of possible remote inferior wall TN. No prior tracings available in the system for review. Discharge Plan Discharge Patient Disposition: Home Clinical Impression: Alcohol use disorder Alcoholic gastritis Qualifiers: Chronicity: acute Gastritis bleeding: with bleeding Qualified Code(s): K29.21 - Alcoholic gastritis with bleeding Condition: Stable Prescriptions: New pantoprazole [Protonix] 40 mg tablet,delayed release (DR/EC) 40 mg PO BID 10 Days Qty: 20 1RF sucralfate [Carafate] 100 mg/mL suspension 1 g PO TID 28 Days Qty: 840 0RF No Action lisinopril-hydrochlorothiazide 20-12.5 mg tablet 1 tab PO QAM Qty: 90 3RF epinephrine [EpiPen 2-Shawn] 0.3 mg/0.3 mL auto-injector 0.3 mg IM Q15M PRN (Reason: anaphylaxis) Qty: 2 0RF Rx Instructions: for 3 doses pantoprazole [Protonix] 40 mg tablet,delayed release (DR/EC) 40 mg PO DAILY 28 Days Qty: 30 2RF Discharge Orders: Discharge ED (Routine); Ordered 01/06/24 Ordered By: Sukhdev Traore Referrals: Omari Ames MD [Primary Care Provider] - 2 weeks Discharge Diet: Usual diet Discharge Activity: Resume usual activity Patient Instructions: Opioid Safety, Pain Management Activity Restrictions/Additional Instructions: As we discussed your use of alcohol directly irritates the stomach lining and causes of bleeding. This means that you should discontinue your alcohol use. We have also prescribed 2 medications to help with your stomach to heal. 1 of those is a pill that she should take twice daily for the next 10 days and the other is a solution that she should drink 3 times daily for the next 4 weeks. If it anytime you have recurrence of your bleeding or weakness or other concerning symptoms you are welcome to return to the emergency department otherwise you should follow-up with your regular doctor in 2 weeks. Coding Level of Care Code ED Heat Transfer Technician for Giselle Horton
[2024-01-06 13:12] LABS: Alcohol Level 278 mg/dL (0-10)
--- NOTE | 2024-01-06 13:22 | ECG_ITS ---
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 Measurements Intervals [place] Rate: 107 P: 62 FL: 124 QRS: -19 QRSD: 117 T: 40 QT: 356 QTc: 476 Interpretive Statements SINUS TACHYCARDIA INFERIOR MYOCARDIAL INFARCTION , PROBABLY OLD [40+ ms Q WAVE AND/OR ST/T ABNORMALITY IN II/aVF] No previous ECG available for comparison Electronically Signed On 01-06-2024 22:24:06 CDT by Reynaldo Hurst M.D. [id number]
[2024-01-06] MEDS: sodium chloride 0.9% 1,000 ML 150 ML IV (13:52)
[2024-01-06] MEDS: morphine 4 mg/mL SDV 1 mL 2 MG IVP (13:54)
[2024-01-06] MEDS: pantoprazole 40 mg SDV IVP (13:55)
[2024-01-06] MEDS: sucralfate 1 gm/10 mL Oral Liq UDC PO (16:07)
== END 2024-01-06 16:09 | disposition home or self-care (01) ==
PROVIDERS: Emergency Medicine; Emergency Provider Emergency Medicine; PCP Family Medicine
DX: K29.21 Alcoholic gastritis with bleeding (principal); E78.5 Hyperlipidemia, unspecified; I10 Essential (primary) hypertension
CPT/HCPCS: 36415; 71045; 80053; 80307; 83690; 85025; 86850; 86900; 93005; 96374; 96375; 99285; C9113; J2270; J7030

== ENCOUNTER 2024-02-08 14:53 | Inpatient (IN) | payer MEDICARE, SELFPAY ==
[2024-02-08] VITALS (9 sets, daily range): BP systolic 154–184; BP diastolic 68–84; PULSE 87–99; RESP 16–19; TEMP 36.6–36.9; O2SAT 95–99
[2024-02-08 15:38] LABS: Basophils # 0.1 10^3/uL (0.0-0.1); Basophils % 0.9 %; Hematocrit 36.2 % (37-53); Lymphocytes # 0.9 10^3/uL (0.8-4.8); Lymphocytes % 10.6 %; Mean Corpuscular HGB Conc 30.9 g/dL (30-55); Mean Corpuscular Hemoglobin 25.7 pg (27-33); Mean Corpuscular Volume 83.2 fl (82-101); Mean Platelet Volume 8.7 fL (7.4-10.4); Monocytes # 0.4 10^3/uL (0.2-0.9); Monocytes % 4.9 %; Neutrophils # 6.78 10^3/uL (1.8-7.7); Neutrophils % 83.2 %; Nucleated Red Blood Cells % 0 %; Platelet Count 393 10^3/cmm (157-399); Red Blood Count 4.35 10^6/uL (3.85-5.65); Red Cell Distribution Width 18.6 % (12.1-15.1); White Blood Count 8.14 10^3/uL (3.29-11.43)
[2024-02-08 15:53] LABS: INR 0.95 (0.8-1.2)
[2024-02-08 15:58] LABS: Alanine Aminotransferase 9 U/L (0-41); Albumin Level 4.2 g/dL (3.5-5.2); Alkaline Phosphatase 60 U/L (40-130); Anion Gap 30.2 (5-19); Aspartate Amino Transferase 24 U/L (0-40); Blood Urea Nitrogen 23 mg/dL (8-23); Calcium 8.7 mg/dL (8.5-10.5); Carbon Dioxide 17 mmol/L (22-29); Chloride 101 mmol/L (98-107); Creatinine Clr Calc Pharmacy 85.6824; Glomerular Filtration Rate 95.6 mL/min (90-130); Glucose 110 mg/dL (65-115); Lipase 22 U/L (13-60); Osmolality Calculated 302 mOsm/kg (285-295); Potassium 4.2 mmol/L (3.5-5.1); Sodium 144 mmol/L (136-145); Total Bilirubin 0.7 mg/dL (0.15-1.2); Total Protein 7.2 g/dL (6.6-8.7)
--- NOTE | 2024-02-08 17:53 | ED_ITS ---
Documented by User: Ameya Hodges DO 02/09/24 06:57 HPI - GI Bleed 2 General: Chief complaint: GI Bleed Stated complaint: vomitting blood Time Seen by Provider: 02/08/24 17:42 Source: patient Mode of arrival: ambulatory History of Present Illness: 68-year-old male presents to the emergen cy room complaints of vomiting blood and coffee-ground like emesis. He drinks about 1/5 of whiskey per day. He recently began drinking regularly again. He had been off the wagon for a time. He denies any neymar hematemesis denies any melena or hematochezia. He is complaining of significant stomach upset and nausea. MD complaint: coffee ground emesis Onset (ago): hour(s) Pain Consistency: constant Severity: moderate Relieving factors: none Exacerbating factors: none Associated symptoms: Reports abdominal pain, nausea and vomiting; Denies chills, easy bruising, epistaxis, fever(s), headache(s), malaise, other bleeding, poor appetite, rash, syncope or weakness Review of Systems 2 Const: Denies: fever(s), chills or malaise ENMT: Denies: epistaxis Card: Denies: syncope Resp: Denies: dyspnea GI: Reports: abdominal pain, nausea, vomiting, hematemesis and coffee ground emesis : Denies: flank pain, dysuria, urinary frequency or urinary urgency Musc: Denies: neck pain or back pain Skin/Breast: Denies: rash Neuro: Denies: headache(s) Aubrey/Lymph: Denies: easy bruising PFSH ED 2 PFSH: Medical History GERD (gastroesophageal reflux disease) Hyperlipidemia Hypertension Diverticulosis Hypertension Family history of colon cancer 09/15/2019: Normal colonoscopy except diverticulosis, follow-up colonoscopy in 2024 Social History Smoking and tobacco/nicotine status: never used tobacco/nicotine Alcohol intake: former Substance/Drug Use: never Physical Exam 2 Const: GENERAL APPEARANCE: cooperative and comfortable O RIENTATION/CONSCIOUSNESS: Yes awake, Yes oriented to person, Yes oriented to place and Yes oriented to time HENMT: COMMON NORMALS: normocephalic, atraumatic and hearing grossly normal bilaterally HEAD & SCALP: normocephalic and atraumatic Resp: COMMON NORMALS: normal respiratory effort, No retractions, No use of accessory muscles and clear to auscultation bilaterally AUSCULTATION: clear to auscultation bilaterally Cardio: COMMON NORMALS: regular rate, regular rhythm and No murmurs present (Cardio) RATE: regular rate RHYTHM: regular rhythm GI: COMMON NORMALS: No hepatosplenomegaly present AUSCULTATION: Yes normoactive bowel sounds PALPATION: Yes Tenderness to palpation present (GI) (Epigastric), No Guarding due to palpation present (GI) and Yes No hepatosplenomegaly present Extremity: COMMON NORMALS: normal to inspection, capillary refill normal, no clubbing, cyanosis or edema, no calf tenderness and no pedal edema Neuro: SENSORIUM/ORIENTATION: Yes oriented to person, Yes oriented to place and Yes oriented to time Skin: COMMON NORMALS: no rashes or lesions noted GENERAL SKIN EXAM: no rashes or lesions noted Course 2 Vital Signs: Vital signs: Vital Signs Temperature 98.5 F 02/09/24 03:22 Pulse Rate 76 02/09/24 05:46 Respiratory Rate 18 02/09/24 03:22 Blood Pressure 138/69 02/09/24 03:22 Pulse Oximetry 98 02/09/24 03:22 Oxygen Delivery Me thod Room Air 02/09/24 03:22 MDM - GI Bleed Medical Decision Making Care signed out to Dr. Goodson at change of shift. See final notes for diagnosis and disposition. Received in checkout from Dr. Hodges at shift change. Gentleman with coffee- ground emesis. Small amounts here. No blood frankly, or clots. Vitals are stable. He is actually hypertensive. Alcohol level is 94. He has received fluid, IV PPI. CT shows no acute findings. He has a fluid-filled hiatal hernia. No evidence of varices. His INR is 1.0. Liver enzymes are essentially normal. Hemoglobin looks stable 11.2. Consulted with surgery. They are willing to see in consultation. He will be admitted to hospitalist for upper GI bleeding. They agree. Medical Records I reviewed the patient's medical records. Lab Data I reviewed the patient's lab results. 02/09/24 05:05 02/09/24 05:05 Radiology Impressions Abdomen/Pelvis CT 02/08/24 17:53 IMPRESSION: 1. No acute findings. 2. Residual fluid-filled hiatal hernia. The previous large hernia in the lower chest has been repaired. 3. Large renal cysts. COMMENTS: Consistent with the [employer]'s Incidental Findings Committee white paper (J Am Debo Radiol 2018): Any incidental renal lesion less than 1 cm or classified as too small to characterize, or any incidental cystic renal lesion characterized as simple-appearing, is likely benign. No follow-up imaging is recommended for these lesions per consensus recommendations based on imaging criteria. Laboratory Results WBC 8.14 10^3/uL (3.29-11.43) 02/08/24 15:25 RBC 4.35 10^6/uL (3.85-5.65) 02/08/24 15:25 Hgb 11.20 g/dL (11.27-16.99) L 02/08/24 15:25 Hct 36.2 % (37-53) L 02/08/24 15:25 MCV 83.2 fl (82-101) 02/08/24 15:25 MCH 25.7 pg (27-33) L 02/08/24 15:25 MCHC 30.9 g/dL (30-55) 02/08/24 15:25 RDW 18.6 % (12.1-15.1) H 02/08/24 15:25 Plt Count 393 10^3/cmm (157-399) 02/08/24 15:25 MPV 8.7 fL (7.4-10.4) 02/08/24 15:25 Neut % (Auto) 83.2 % 02/08/24 15:25 Lymph % (Auto) 10.6 % 02/08/24 15:25 [place] % (Auto) 4.9 % 02/08/24 15:25 Eos % (Auto) 0.0 % 02/08/24 15: Baso % (Auto) 0.9 % 02/08/24 15:25 Neut # (Auto) 6.78 10^3/uL (1.8-7.7) 02/08/24 15:25 Lymph # (Auto) 0.9 10^3/uL (0.8-4.8) 02/08/24 15:25 [place] # (Auto) 0.4 10^3/uL (0.2-0.9) 02/08/24 15:25 Eos # (Auto) 0.0 10^3/uL (0.0-0.8) 02/08/24 15:25 Baso # (Auto) 0.1 10^3/uL (0.0-0.1) 02/08/24 15:25 Nucleated RBC % (auto) 0 % 02/08/24 15:25 Nucleated RBCs # 0.0 /100WBC 02/08/24 15:25 PT 13.60 SECONDS (12.1-14.9) 02/08/24 18:07 INR 1.01 (0.8-1.2) 02/08/24 18:07 APTT 22.0 SECONDS (23.9-36.7) L 02/08/24 18:07 Sodium 144 mmol/L (136-145) 02/08/24 15:25 Potassium 4.2 mmol/L (3.5-5.1) 02/08/24 15:25 Chloride 101 mmol/L (98-107) 02/08/24 15:25 Carbon Dioxide 17 mmol/L (22-29) L 02/08/24 15:25 Anion Gap 30.2 (5-19) H 02/08/24 15:25 BUN 23 mg/dL (8-23) 02/08/24 15:25 Creatinine 0.8 mg/dL (0.7-1.2) 02/08/24 15:25 GFR Calculation 95.6 mL/min (90-130) 02/08/24 15:25 Glucose 110 mg/dL (65-115) 02/08/24 15:25 Calculated Osmolality 302 mOsm/kg (285-295) H 02/08/24 15:25 Lactic Acid 10.2 mmol/L (0.5-2.2) H* 02/08/24 15:25 Calcium 8.7 mg/dL (8.5-10.5) 02/08/24 15:25 Iron 107 ug/dL (59-158) 02/08/24 15:25 TIBC 349 mcg/dl 02/08/24 15:25 % Saturation 30.6 % (20-50) 02/08/24 15:25 Unsat Iron Binding 242 ug/dL (112-347) 02/08/24 15:25 Total Bilirubin 0.7 mg/dL (0.15-1.2) 02/08/24 15:25 AST 24 U/L (0-40) 02/08/24 15:25 ALT 9 U/L (0-41) 02/08/24 15:25 Alkaline Phosphatase 60 U/L (40-130) 02/08/24 15:25 Ammonia 21 umol/L (16-60) 02/08/24 18:07 Total Protein 7.2 g/dL (6.6-8.7) 02/08/24 15:25 Albumin 4.2 g/dL (3.5-5.2) 02/08/24 15:25 Globulin 3.0 g/dL (1.3-4.6) 02/08/24 15:25 Lipase 22 U/L (13-60) 02/08/24 15:25 Vitamin B12 303 pg/mL (232-1245) 02/08/24 15:25 Procalcitonin 0.07 ng/mL (0-0.5) 02/08/24 15:25 TSH 1.79 uIU/mL (0.27-4.20) 02/08/24 15:25 Gastric Occult Blood Positive (Negative) H 02/08/24 18:02 Urine Opiates Screen Positive ng/mL (Negative) H 02/08/24 01:44 Ur Barbiturates Screen Negative ng/mL (Negative) 02/08/24 01:44 Ur Phencyclidine Scrn Negative ng/mL (Negative) 02/08/24 01:44 Ur Amphetamines Screen Negative ng/mL (Negative) 02/08/24 01:44 U Benzodiazepines Scrn Negative ng/mL (Negative) 02/08/24 01:44 Urine Cocaine Screen Negative ng/mL (Negative) 02/08/24 01:44 U Marijuana (THC) Screen Negative ng/mL (Negative) 02/08/24 01:44 Ethyl Alcohol 94 mg/dL (0-10) H 02/08/24 18:07 Discharge Plan Discharge Patient Disposition: Admitted As Inpatient Admit Provider: Victoriano Harry Clinical Impression: Acute upper gastrointestinal bleeding Condition: Stable Coding Level of Care Code ED Collar Starcher for Chg Fwd Documented by User: Yehuda Goodson DO 02/08/24 20:28 HPI - GI Bleed 2 General: Chief complaint: GI Bleed Stated complaint: vomitting blood Time Seen by Provider: 02/08/24 17:42 PFSH ED 2 PFSH: Medical History GERD (gastroesophageal reflux disease) Hyperlipidemia Hypertension Diverticulosis Hypertension Family history of colon cancer 09/15/2019: Normal colonoscopy except diverticulosis, follow-up colonoscopy in 2024 Social History Smoking and tobacco/nicotine status: never used tobacco/nicotine Alcohol intake: former Substance/Drug Use: never Course 2 Vital Signs: Vital signs: Vital Signs Temperature 98.5 F 02/09/24 03:22 Pulse Rate 76 02/09/24 05:46 Respiratory Rate 18 02/09/24 03:22 Blood Pressure 138/69 02/09/24 03:22 Pulse Oximetry 98 02/09/24 03:22 Oxygen Delivery Me thod Room Air 02/09/24 03:22 MDM - GI Bleed Medical Decision Making Received in checkout from Dr. Hodges at shift change. Gentleman with coffee- ground emesis. Small amounts here. No blood frankly, or clots. Vitals are stable. He is actually hypertensive. Alcohol level is 94. He has received fluid, IV PPI. CT shows no acute findings. He has a fluid-filled hiatal hernia. No evidence of varices. His INR is 1.0. Liver enzymes are essentially normal. Hemoglobin looks stable 11.2. Consulted with surgery. They are willing to see in consultation. He will be admitted to hospitalist for upper GI bleeding. They agree. Lab Data 02/09/24 05:05 02/09/24 05:05 Radiology Impressions Abdomen/Pelvis CT 02/08/24 17:53 IMPRESSION: 1. No acute findings. 2. Residual fluid-filled hiatal hernia. The previous large hernia in the lower chest has been repaired. 3. Large renal cysts. COMMENTS: Consistent with the [employer]'s Incidental Findings Committee white paper (J Am Debo Radiol 2018): Any incidental renal lesion less than 1 cm or classified as too small to characterize, or any incidental cystic renal lesion characterized as simple-appearing, is likely benign. No follow-up imaging is recommended for these lesions per consensus recommendations based on imaging criteria. Laboratory Results WBC 8.14 10^3/uL (3.29-11.43) 02/08/24 15:25 RBC 4.35 10^6/uL (3.85-5.65) 02/08/24 15:25 Hgb 11.20 g/dL (11.27-16.99) L 02/08/24 15: Hct 36.2 % (37-53) L 02/08/24 15:25 MCV 83.2 fl (82-101) 02/08/24 15: MCH 25.7 pg (27-33) L 02/08/24 15: MCHC 30.9 g/dL (30-55) 02/08/24 15: RDW 18.6 % (12.1-15.1) H 02/08/24 15: Plt Count 393 10^3/cmm (157-399) 02/08/24 15:25 MPV 8.7 fL (7.4-10.4) 02/08/24 15:25 Neut % (Auto) 83.2 % 02/08/24 15:25 Lymph % (Auto) 10.6 % 02/08/24 15:25 [place] % (Auto) 4.9 % 02/08/24 15:25 Eos % (Auto) 0.0 % 02/08/24 15: Baso % (Auto) 0.9 % 02/08/24 15: Neut # (Auto) 6.78 10^3/uL (1.8-7.7) 02/08/24 15: Lymph # (Auto) 0.9 10^3/uL (0.8-4.8) 02/08/24 15:25 [place] # (Auto) 0.4 10^3/uL (0.2-0.9) 02/08/24 15:25 Eos # (Auto) 0.0 10^3/uL (0.0-0.8) 02/08/24 15:25 Baso # (Auto) 0.1 10^3/uL (0.0-0.1) 02/08/24 15:25 Nucleated RBC % (auto) 0 % 02/08/24 15:25 Nucleated RBCs # 0.0 /100WBC 02/08/24 15:25 PT 13.60 SECONDS (12.1-14.9) 02/08/24 18:07 INR 1.01 (0.8-1.2) 02/08/24 18:07 APTT 22.0 SECONDS (23.9-36.7) L 02/08/24 18:07 Sodium 144 mmol/L (136-145) 02/08/24 15:25 Potassium 4.2 mmol/L (3.5-5.1) 02/08/24 15:25 Chloride 101 mmol/L (98-107) 02/08/24 15:25 Carbon Dioxide 17 mmol/L (22-29) L 02/08/24 15:25 Anion Gap 30.2 (5-19) H 02/08/24 15:25 BUN 23 mg/dL (8-23) 02/08/24 15:25 Creatinine 0.8 mg/dL (0.7-1.2) 02/08/24 15:25 GFR Calculation 95.6 mL/min (90-130) 02/08/24 15:25 Glucose 110 mg/dL (65-115) 02/08/24 15:25 Calculated Osmolality 302 mOsm/kg (285-295) H 02/08/24 15:25 Lactic Acid 10.2 mmol/L (0.5-2.2) H* 02/08/24 15:25 Calcium 8.7 mg/dL (8.5-10.5) 02/08/24 15:25 Iron 107 ug/dL (59-158) 02/08/24 15:25 TIBC 349 mcg/dl 02/08/24 15:25 % Saturation 30.6 % (20-50) 02/08/24 15:25 Unsat Iron Binding 242 ug/dL (112-347) 02/08/24 15:25 Total Bilirubin 0.7 mg/dL (0.15-1.2) 02/08/24 15:25 AST 24 U/L (0-40) 02/08/24 15:25 ALT 9 U/L (0-41) 02/08/24 15:25 Alkaline Phosphatase 60 U/L (40-130) 02/08/24 15:25 Ammonia 21 umol/L (16-60) 02/08/24 18:07 Total Protein 7.2 g/dL (6.6-8.7) 02/08/24 15:25 Albumin 4.2 g/dL (3.5-5.2) 02/08/24 15:25 Globulin 3.0 g/dL (1.3-4.6) 02/08/24 15:25 Lipase 22 U/L (13-60) 02/08/24 15:25 Vitamin B12 303 pg/mL (232-1245) 02/08/24 15:25 Procalcitonin 0.07 ng/mL (0-0.5) 02/08/24 15:25 TSH 1.79 uIU/mL (0.27-4.20) 02/08/24 15:25 Gastric Occult Blood Positive (Negative) H 02/08/24 18:02 Urine Opiates Screen Positive ng/mL (Negative) H 02/08/24 01:44 Ur Barbiturates Screen Negative ng/mL (Negative) 02/08/24 01:44 Ur Phencyclidine Scrn Negative ng/mL (Negative) 02/08/24 01:44 Ur Amphetamines Screen Negative ng/mL (Negative) 02/08/24 01:44 U Benzodiazepines Scrn Negative ng/mL (Negative) 02/08/24 01:44 Urine Cocaine Screen Negative ng/mL (Negative) 02/08/24 01:44 U Marijuana (THC) Screen Negative ng/mL (Negative) 02/08/24 01:44 Ethyl Alcohol 94 mg/dL (0-10) H 02/08/24 18:07 All radiology interpretation(s) finalized by discharge Discharge Plan Discharge Patient Disposition: Admitted As Inpatient Admit Provider: Victoriano Harry Clinical Impression: Acute upper gastrointestinal bleeding Condition: Stable Coding Level of Care Code ED Collar Starcher for Giselle Horton
--- NOTE | 2024-02-08 17:53 | CTR_ITS ---
PROCEDURE INFORMATION: Exam: CT Abdomen And Pelvis With Contrast Exam date and time: 02/08/2024 6:22 PM Age: 68 years old Clinical indication: Nausea and vomiting; Abdominal pain; Generalized; Prior surgery; Surgery date: 6+ months; Surgery type: Hernia repair; Patient HX: C/O diffuse abd pain with n/v TECHNIQUE: Imaging protocol: Computed tomography of the abdomen and pelvis with contrast. Radiation optimization: All CT scans at this facility use at least one of these dose optimization techniques: automated exposure control; mA and/or kV adjustment per patient size (includes targeted exams where dose is matched to clinical indication); or iterative reconstruction. Contrast material: OMNI 350; Contrast volume: 100 ml; Contrast route: INTRAVENOUS (IV); COMPARISON: CT abdomen pelvis w con* [id number] 07/14/2021 11:12 AM RADIATION DOSE METRICS: Total DLP (mGy-cm): 511.65 FINDINGS: Diaphragm: Large fluid-filled hiatal hernia with adjacent clip. Liver: Diffuse fatty infiltration of the liver. No nodule. Gallbladder and bile ducts: Cholecystectomy. The bile ducts are normal. Pancreas: Normal. No ductal dilation. Spleen: Normal. No splenomegaly. Adrenal glands: Normal. No mass. Kidneys and ureters: Multiple bilateral renal cysts, Hounsfield units less than 20, the largest on the left 10.7 cm and on the right 10.9 cm. Additional hypodense lesions in both kidneys are too small to characterize and are most likely cysts. No follow-up imaging is recommended. No calculus or hydronephrosis. Stomach and bowel: Mild diverticulosis of the colon. No diverticulitis. The transverse and descending colon are decompressed. The stomach and small bowel are unremarkable. No obstruction. Appendix: The appendix is not visualized. No secondary signs of appendicitis. Intraperitoneal space: Unremarkable. No free air. No significant fluid collection. Vasculature: Mild calcified arterial plaque. No aneurysm. Lymph nodes: 3.0 cm lobulated fluid collection in the lower left pelvis, Hounsfield units less than 20, is most likely a seroma or lymphocele. Urinary bladder: Unremarkable as visualized. Reproductive: Mildly enlarged prostate with a calcification. Bones/joints: Degenerative changes in the spine. No acute fracture. Soft tissues: Fat containing right inguinal hernia. Fat containing umbilical hernia. CT/CT abdomen pelvis w con* [id number] IMPRESSION: 1. No acute findings. 2. Residual fluid-filled hiatal hernia. The previous large hernia in the lower chest has been repaired. 3. Large renal cysts. COMMENTS: Consistent with the [employer]'s Incidental Findings Committee white paper (J Am Debo Radiol 2018): Any incidental renal lesion less than 1 cm or classified as too small to characterize, or any incidental cystic renal lesion characterized as simple-appearing, is likely benign. No follow-up imaging is recommended for these lesions per consensus recommendations based on imaging criteria.
[2024-02-08 18:03] LABS: Gastricult Occult Blood Positive (Negative)
[2024-02-08] MEDS: pantoprazole 40 mg SDV 80 MG IVP (18:06)
[2024-02-08 18:22] LABS: Ammonia 21 umol/L (16-60); INR 1.01 (0.8-1.2)
[2024-02-08] MEDS: iohexol 350 mg/mL 500 mL Btl (per mL) IV (18:26)
[2024-02-08] MEDS: sodium chloride 0.9% 1,000 ML 999 ML IV (18:37)
[2024-02-08 18:45] LABS: Alcohol Level 94 mg/dL (0-10)
[2024-02-08] MEDS: pantoprazole 40 mg SDV IVP (21:47)
[2024-02-08] MEDS: dextrose 5%-sod chloride 0.9% 1,000 ML 50 ML IV (21:48)
--- NOTE | 2024-02-08 21:49 | PM.HP ---
Providers/Chief Complaint Admitting Physician: Victoriano Harry MD Primary Care Provider: Omari Ames MD Chief Complaint: vomitting blood History of Present Illness James Austin is a 68 year old male medical history of hypertension, past history of GI bleed, alcohol use disorder who presents to the emergency room today with several episodes of vomiting containing coffee-ground material. Denies any bright red blood in vomitus. Has not noticed any stool abnormalities. Complains of abdominal pain located in the epigastric region at the time of vomiting. In reviewing his past medical history, it appears patient was previously in the emergency room January 06, 2024 and December 13, 2023 and June 2023 with similar complaints of coffee-ground emesis. In June 2023, he was transferred to [facility] due to suspicion for variceal bleeding and underwent upper GI endoscopy there. Per review of primary care physicians noted there were no varices or ulcers encountered at that time. More recently in November and December, his hemoglobin was stable at the time and patient was discharged on PPIs to follow-up with primary care physician. He has continued to drink. No known history of GI malignancy. Previously had colonoscopy in 2019 which had shown no abnormalities Except for mild diverticulosis of the sigmoid colon. Review of Systems General: Reports: 10 or more systems reviewed and unremarkable except in HPI and below Const: Denies: fever(s), chills or body aches Eyes: Denies: change in vision, blurry vision or photophobia ENMT: Reports: hoarseness; Denies: throat pain, enlarged tonsils, odynophagia or nasal congestion Card: Denies: chest pain, palpitations, irregular heart rhythm, edema, swelling of feet/ankles, lightheadedness, pre-syncope, dyspnea on exertion or orthopnea Resp: Denies: dyspnea, productive cough, non-productive cough, wheezing, stridor, pain on inspiration, change in phlegm color, hemoptysis or chest congestion GI: Denies: abdominal pain, nausea, vomiting, hematemesis, coffee ground emesis, dysphagia, heartburn, diarrhea, constipation, GI cramping, change in stool character, hematochezia or melena : Denies: flank pain, dysuria, urinary frequency, urinary urgency, urinary hesitancy or hematuria Musc: Denies: neck pain, back pain, extremity pain, joint swelling, joint warmth or deformity Neuro: Denies: headache(s), numbness in extremities, weakness in extremities, sensory changes, difficulty walking, frequent falls, dizziness, vertigo, behavioral changes, Slurred speech present or seizure-like activity Psych: Denies: anxiety, depression, suicidal ideation or homicidal ideation Endo: Denies: polyuria, polydipsia, tired all the time, cold intolerance or hot flashes Aubrey/Lymph: Denies: easy bruising or easy bleeding Medications/Allergies Home Medications Medication Instructions Recorded Confirmed Last Taken Type lisinopril 20 1 tab PO QAM #90 tabs 09/19/23 02/08/24 02/08/24 08:00 Rx mg-hydrochlorothiazide 12.5 mg tablet epinephrine 0.3 mg/0.3 mL 0.3 mg (0.3 mL) IM Q15M PRN 12/19/23 02/08/24 Unknown Rx injection, auto-injector (EpiPen anaphylaxis #2 ea 2-Shawn) omeprazole 40 mg capsule,delayed 40 mg PO DAILY 02/08/24 02/08/24 02/08/24 08:00 History release Allergies Allergy/AdvReac Type Severity Reaction Status Date / Time cantaloupe Allergy Unknown ALGY-Swell Verified 02/08/24 21:53 Lip/Tongue/Throat kiwi Allergy Unknown ALGY-Anaphy Verified 02/08/24 21:53 laxis PFSH Acute PFSH: Medical History GERD (gastroesophageal reflux disease) Hyperlipidemia Hypertension Diverticulosis Hypertension Family history of colon cancer 09/15/2019: Normal colonoscopy except diverticulosis, follow-up colonoscopy in 2024 Social History Smoking and tobacco/nicotine status: never used tobacco/nicotine Alcohol intake: former Substance/Drug Use: never Vitals/I&O/Wt Last Vital Signs Temp 98.3 F 02/08/24 21:27 Pulse 93 02/08/24 21:27 Resp 19 H 02/08/24 21:27 BP 173/77 02/08/24 21:27 Pulse Ox 97 02/08/24 21:27 O2 Del Method Room Air 02/08/24 21:37 02/08/24 02/08/24 02/08/24 06:59 14:59 22:59 Intake Total 1000 / 1000 Balance 1000 / 1000 Weight last 48 hrs Weight 77.111 kg Physical Exam Narrative: General: No acute distress, AO x3 HEENT: PERRLA, pupils bilaterally equal and reactive, pallors not present Chest: Normal vesicular breath sounds, no added sounds, equal good air entry bilaterally CVS: S1-S2 regular, no murmurs, no tachycardia, no gallops, no rubs Abdomen: Soft, nontender, no organomegaly, bowel sounds present Neuro: No focal deficits, no facial deformity, AO x3, power 5/5 in all limbs Data 02/08/24 15:25 02/08/24 15:25 Other Labs: [facility] [address] [place] [id number] Scan Report Signed Patient: James Austin Unit #: [id number] : [id number] Age/Sex: 68 / M ADM Date: 02/08/24 Loc: ER Room/Bed: Attending Dr: Ordering Provider/Ordering MD: Ameya Hodges DO Date of Service: 02/08/24 Procedure(s): CT abdomen pelvis w con* [id number] Accession Number(s): [id number] Report Number: [id number] PROCEDURE INFORMATION: Exam: CT Abdomen And Pelvis With Contrast Exam date and time: 02/08/2024 6:22 PM Age: 68 years old Clinical indication: Nausea and vomiting; Abdominal pain; Generalized; Prior surgery; Surgery date: 6+ months; Surgery type: Hernia repair; Patient HX: C/O diffuse abd pain with n/v TECHNIQUE: Imaging protocol: Computed tomography of the abdomen and pelvis with contrast. Radiation optimization: All CT scans at this facility use at least one of these dose optimization techniques: automated exposure control; mA and/or kV adjustment per patient size (includes targeted exams where dose is matched to clinical indication); or iterative reconstruction. Contrast material: OMNI 350; Contrast volume: 100 ml; Contrast route: INTRAVENOUS (IV); COMPARISON: CT abdomen pelvis w con* [id number] 07/14/2021 11:12 AM RADIATION DOSE METRICS: Total DLP (mGy-cm): 511.65 FINDINGS: Diaphragm: Large fluid-filled hiatal hernia with adjacent clip. Liver: Diffuse fatty infiltration of the liver. No nodule. Gallbladder and bile ducts: Cholecystectomy. The bile ducts are normal. Pancreas: Normal. No ductal dilation. Spleen: Normal. No splenomegaly. Adrenal glands: Normal. No mass. Kidneys and ureters: Multiple bilateral renal cysts, Hounsfield units less than 20, the largest on the left 10.7 cm and on the right 10.9 cm. Additional hypodense lesions in both kidneys are too small to characterize and are most likely cysts. No follow-up imaging is recommended. No calculus or hydronephrosis. Stomach and bowel: Mild diverticulosis of the colon. No diverticulitis. The transverse and descending colon are decompressed. The stomach and small bowel are unremarkable. No obstruction. Appendix: The appendix is not visualized. No secondary signs of appendicitis. Intraperitoneal space: Unremarkable. No free air. No significant fluid collection. Vasculature: Mild calcified arterial plaque. No aneurysm. Lymph nodes: 3.0 cm lobulated fluid collection in the lower left pelvis, Hounsfield units less than 20, is most likely a seroma or lymphocele. Urinary bladder: Unremarkable as visualized. Reproductive: Mildly enlarged prostate with a calcification. Bones/joints: Degenerative changes in the spine. No acute fracture. Soft tissues: Fat containing right inguinal hernia. Fat containing umbilical hernia. CT/CT abdomen pelvis w con* [id number] IMPRESSION: 1. No acute findings. 2. Residual fluid-filled hiatal hernia. The previous large hernia in the lower chest has been repaired. 3. Large renal cysts. A&P Assessment and plan (1) Acute upper gastrointestinal bleeding: Acute upper GI bleeding likely as a result of multiple episodes of vomiting, possibly alcoholic gastritis. Previously patient has been in the ER in November and December for similar complaints. He has been on PPIs but does not appear to have any relief in symptoms. He continues to drink. Hemoglobin currently stable at 11.2. Will trend serially. Given continued symptoms in spite of being on PPIs, will likely need endoscopic evaluation General surgery consult for the same. Keep n.p.o. Protonix 40 mg IV every 12 hours (2) GI bleed: (3) Intractable vomiting: Likely alcohol gastritis induced. As needed Zofran for symptomatic management PPIs IV every 12 hours. (4) Alcohol abuse: Currently alcohol level at 94. History of daily drinking Closely monitor for signs of alcohol withdrawal CIWA monitoring , as needed Ativan per CIWA scoring. thiamine 100 mg p.o. daily (5) Lactic acidosis: Likely related to dehydration and vomiting. Improving from 10 to 2.6 with hydration No signs of sepsis Continue IV hydration Plan DVT prophylaxis: SCDs only Full code Attestations Medical Necessity Statement*: Greater than 2 midnight stay is anticipated Coding Level of Care Code Acute Code for Chg Fwd High MDM includes number and complexity of problems actively addressed during encounter, amount and/or complexity of data reviewed/ordered and described risk of complication, morbidity or mortality of management as documented Diagnoses Acute upper gastrointestinal bleeding K92.2 GI bleed K92.2 Intractable vomiting R11.10 Alcohol abuse F10.10 Lactic acidosis E87.20
[2024-02-08 22:04] LABS: Lactic Sepsis W/Reflex 10.2 mmol/L (0.5-2.2)
[2024-02-08] MEDS: folic acid 1 MG, multivitamin inj 10 ML, thiamine 100 MG in sodium chloride 0.9% 1,000 ML 252.800000000000011 MG IV (22:07)
[2024-02-08 22:08] LABS: Procalcitonin 0.07 ng/mL (0-0.5); Thyroid Stimulating Hormone 1.79 uIU/mL (0.27-4.20)
[2024-02-08] MEDS: morphine 4 mg/mL SDV 1 mL 2 MG IVP (22:13)
--- NOTE | 2024-02-08 22:36 | PC.NURSE ---
Notified Dr. Pan via phone call at 0328 of critical lab result: lactic acid 10.2 No new orders received at this time.
[2024-02-08 23:33] LABS: Reflex Lactate Order REFLEX LACTIC ORDERD
[2024-02-09] VITALS (9 sets, daily range): BP systolic 138–157; BP diastolic 67–76; PULSE 52–82; RESP 16–18; TEMP 36.4–36.9; O2SAT 96–99
[2024-02-09 00:23] LABS: Lactic Acid level (Lactate) 2.6 mmol/L (0.5-2.2)
[2024-02-09 01:38] LABS: Iron 107 ug/dL (59-158); Percent Saturation 30.6 % (20-50); Total Iron Binding Capacity 349 mcg/dl; Unsaturated Iron Binding 242 ug/dL (112-347)
[2024-02-09 01:48] LABS: Add Urine Microscopic? NO; Charge for UA Resulting for Rev
[2024-02-09 01:52] LABS: Vitamin B12 303 pg/mL (232-1245)
[2024-02-09 01:59] LABS: Amphetamines Screen Urine Negative (Negative); Barbiturates Screen Urine Negative (Negative); Benzodiazepines Screen Urine Negative (Negative); Cocaine Screen Urine Negative (Negative); Opiate Screen Urine Positive (Negative); PCP Screen Urine Negative (Negative); THC Screen Urine Negative (Negative)
[2024-02-09 02:02] LABS: Bilirubin Urine Neg (Negative); Blood Urine Neg (Negative); Glucose Urine UA Norm (Normal); Ketones Urine 2+ (Negative); Leukocyte Esterase Urine Negative (Negative); Nitrate Urine Negative (Negative); Protein Urine Trace (Negative); Urine Appearance Clear (CLEAR); Urine Color Yellow (Yellow); Urobilinogen Urine Neg (Negative); pH Urine 7 (5-7)
[2024-02-09] MEDS: LORazepam 2 mg/mL INJ 10 mL MDV IVP (02:11)
[2024-02-09 05:53] LABS: Basophils % 0.2 %; Hematocrit 29.3 % (37-53); Lymphocytes # 0.7 10^3/uL (0.8-4.8); Lymphocytes % 7.5 %; Mean Corpuscular HGB Conc 30.7 g/dL (30-55); Mean Corpuscular Hemoglobin 25.5 pg (27-33); Mean Platelet Volume 9.5 fL (7.4-10.4); Monocytes % 11.3 %; Neutrophils # 7.07 10^3/uL (1.8-7.7); Neutrophils % 80.8 %; Nucleated Red Blood Cells % 0 %; Platelet Count 309 10^3/cmm (157-399); Red Blood Count 3.53 10^6/uL (3.85-5.65); Red Cell Distribution Width 18.4 % (12.1-15.1); White Blood Count 8.76 10^3/uL (3.29-11.43)
[2024-02-09 06:06] LABS: Chol HDL Ratio 2.08 mg/dL (1.0-5.00); Cholesterol 191 mg/dL (0-200); HDL Cholesterol 92 mg/dL (60-100); LDL Cholesterol Calculated 90 mg/dL (50-129); LDL HDL Ratio 0.98 RATIO (0.00-3.22); Triglycerides 45 mg/dL (0-150)
[2024-02-09 06:12] LABS: Estmated Average Glucose 97
[2024-02-09 06:18] LABS: Alanine Aminotransferase 10 U/L (0-41); Albumin Level 3.7 g/dL (3.5-5.2); Alkaline Phosphatase 46 U/L (40-130); Anion Gap 14.1 (5-19); Aspartate Amino Transferase 21 U/L (0-40); Blood Urea Nitrogen 25 mg/dL (8-23); Calcium 8.3 mg/dL (8.5-10.5); Carbon Dioxide 25 mmol/L (22-29); Chloride 110 mmol/L (98-107); Creatinine Clr Calc Pharmacy 86.6965; Globulin 2.4 g/dL (1.3-4.6); Glomerular Filtration Rate 111.5 mL/min (90-130); Glucose 139 mg/dL (65-115); Magnesium 2.2 mg/dL (1.7-2.3); Osmolality Calculated 307 mOsm/kg (285-295); Phosphorus 1.8 mg/dL (2.5-4.5); Potassium 4.1 mmol/L (3.5-5.1); Sodium 145 mmol/L (136-145); Total Bilirubin 1.5 mg/dL (0.15-1.2); Total Protein 6.1 g/dL (6.6-8.7)
[2024-02-09 07:35] LABS: Folate Level > 20.0 ng/mL (4.5-32.2)
[2024-02-09] MEDS: pantoprazole 40 mg SDV IVP ×2 (08:49→20:42)
[2024-02-09] MEDS: folic acid 1 mg Tablet PO (09:07)
[2024-02-09] MEDS: thiamine 100 mg Tablet PO (09:07)
[2024-02-09] MEDS: multivitamin therapeutic Tablet 1 TAB PO (09:07)
[2024-02-09] MEDS: artificial tears Op Soln 15 mL Btl 1 DROP EYE-BOTH (11:34)
[2024-02-09] MEDS: dextrose 5%-sod chloride 0.9% 1,000 ML 75 ML IV (13:38)
[2024-02-09] MEDS: LORazepam 1 mg Tablet PO (14:15)
[2024-02-09] MEDS: sodium chloride 0.9% 1,000 ML 150 ML IV ×2 (14:16→20:42)
--- NOTE | 2024-02-09 14:23 | P.CONIM_ITS ---
Providers/Reason For Consult 2 Consulting Physician/Specialty*: Dr. Alek Prince, DO/General surgery Reason for Consult*: Hematemesis Attending Physician: Frantz Dunn MD Primary Care Provider: Omari Ames MD History of Present Illness History of Present Illness James Austin is a 68 year old male with a longstanding history of alcoholism, who presents to the hospital with hematemesis. He reports that he began feeling nauseous yesterday and had several episodes of emesis which eventually became hematemesis. He reports that his vomit began to contain [id number] material. He reports that he has vague epigastric pain that does not radiate. Nothing seems to make the pain better or worse. He reports that his last bowel movement was this morning and was within normal limits. He typically drinks whiskey and feels somewhat shaky today. He has a history of hiatal hernia repair. CT of the abdomen pelvis showed small hiatal hernia with some fluid in the esophagus. His last 3 EGDs did not identify any esophageal varices. Review of Systems 2 General: Reports: 10 or more systems reviewed and unremarkable except in HPI and below Medications/Allergies Home Medications Medication Instructions Recorded Confirmed Last Taken Type lisinopril 20 1 tab PO QAM #90 tabs 09/19/23 02/08/24 02/08/24 08:00 Rx mg-hydrochlorothiazide 12.5 mg tablet epinephrine 0.3 mg/0.3 mL 0.3 mg (0.3 mL) IM Q15M PRN 12/19/23 02/08/24 Unknown Rx injection, auto-injector (EpiPen anaphylaxis #2 ea 2-Shawn) omeprazole 40 mg capsule,delayed 40 mg PO DAILY 02/08/24 02/08/24 02/08/24 08:00 History release Allergies Allergy/AdvReac Type Severity Reaction Status Date / Time cantaloupe Allergy Unknown ALGY-Swell Verified 02/08/24 21:53 Lip/Tongue/Throat kiwi Allergy Unknown ALGY-Anaphy Verified 02/08/24 21:53 laxis Current Medications Generic Name Dose Route Start Last Admin Trade Name Freq PRN Reason Stop Dose Admin Artificial Tears 1 drop 02/09/24 10:20 02/09/24 11:34 Artificial Tears Op Soln 15 Ml Btl EYE-BOTH 1 drop Q4H PRN Administration DRY EYE(S) Folic Acid 1 mg 02/09/24 09:00 02/09/24 09:07 Folic Acid 1 Mg Tablet PO 1 mg DAILY MARSHA Administration Sodium Chloride 1,000 mls @ 150 mls/hr 02/09/24 14:15 02/09/24 14:16 Sodium Chloride 0.9% IV 150 mls/hr .Q6H40M MARSHA Administration Lorazepam 2 mg 02/08/24 21:31 02/09/24 02:11 Lorazepam 2 Mg/Ml Inj 10 Ml Mdv IVP 2 mg PRN PRN Administration WITHDRAWAL Protocol Morphine Sulfate 2 mg 02/08/24 21:31 02/08/24 22:13 Morphine 4 Mg/Ml Sdv 1 Ml IVP 2 mg Q4H PRN Administration SEVERE PAIN Multivitamins Therapeutic 1 tab 02/09/24 09:00 02/09/24 09:07 Multivitamin Therapeutic Tablet PO 1 tab DAILY MARSHA Administration Pantoprazole Sodium 40 mg 02/08/24 21:31 02/09/24 08:49 Pantoprazole 40 Mg Sdv IVP 40 mg Q12H MARSHA Administration Thiamine Mononitrate 100 mg 02/09/24 09:00 02/09/24 09:07 Thiamine 100 Mg Tablet PO 100 mg DAILY MARSHA Administration PFSH Acute 2 PFSH: Medical History GERD (gastroesophageal reflux disease) Hyperlipidemia Hypertension Diverticulosis Hypertension Family history of colon cancer 09/15/2019: Normal colonoscopy except diverticulosis, follow-up colonoscopy in 2024 Social History Smoking and tobacco/nicotine status: never used tobacco/nicotine Alcohol intake: former Substance/Drug Use: never Vitals/I&O/Wt Last Vital Signs Temp 97.6 F 02/09/24 12:00 Pulse 63 02/09/24 12:00 Resp 18 02/09/24 03:22 BP 154/73 02/09/24 12:00 Pulse Ox 96 02/09/24 12:00 O2 Del Method Room Air 02/09/24 08:00 02/08/24 02/09/24 02/09/24 22:59 06:59 14:59 Intake Total 1000 / 1000 1445.367 / 2445.367 613.75 / 613.75 Output Total 475 / 475 Balance 1000 / 1000 1445.367 / 2445.367 138.75 / 138.75 Weight last 48 hrs Weight 178 lb 8 oz Weight 174 lb 9.6 oz Weight 174 lb 2 oz Weight 170 lb Physical Exam 2 Narrative: General : Patient is well developed , no acute distress, oriented x3 Head : Normal cephalic, a-traumatic. Ears : Pinnae and external canal are normal. Hearing is normal. Eyes : PERRLA, Sclera and injection are normal. No conjunctival discharge. Nose : Mucous membranes are without erythema. Throat : buccal mucosa is normal, gums are without significant recession or hypertrophy. Lungs : Equal chest rise bilaterally, no use of accessory muscles, trachea is midline. Cor : Rate and rhythm are normal. Abdomen : Soft, ND, NT, no g/r/m Extremities : No edema, no cyanosis or clubbing, dorsalis pedis pulses are present bilaterally, non-tender to palpation of calves. Upper extremities are normal bilaterally. Back : non-tender to palpation, no CVA tenderness. Neuro : CN II - XII intact, Upper and lower extremities have equal and full strength Data 02/09/24 05:05 02/09/24 05:05 A&P Assessment and plan (1) Acute upper gastrointestinal bleeding: (2) Alcohol abuse: (3) Lactic acidosis: (4) Acute blood loss anemia: Plan Protonix IV twice daily Sucralfate IV fluids Full liquid diet N.p.o. after midnight Tomorrow for EGD The risks and benefits of the procedure, including bleeding, infection, intestinal perforation requiring surgery, missed lesion were explained to the patient. The patient is understanding of the risks and wishes to proceed. Ativan 1 mg p.o. now Coding Level of Care Code 44689 Diagnoses Acute upper gastrointestinal bleeding K92.2 Alcohol abuse F10.10 Lactic acidosis E87.20 Acute blood loss anemia D62
--- NOTE | 2024-02-09 17:18 | PM.PN ---
Subjective Subjective: Patient reports mild abdominal discomfort. Reports the nausea and vomiting is improved. Denies fevers or chills. Discussed plan of care including EGD tomorrow. He is in agreement. Medications: Reviewed: Yes Vitals/I&O/Wt Last Vital Signs Temp 97.7 F 02/09/24 16:00 Pulse 71 02/09/24 16:00 Resp 16 02/09/24 16:00 BP 153/67 02/09/24 16:00 Pulse Ox 98 02/09/24 16:00 O2 Del Method Room Air 02/09/24 16:00 02/09/24 02/09/24 02/09/24 06:59 14:59 22:59 Intake Total 1445.367 / 2445.367 613.75 / 613.75 Output Total 475 / 475 Balance 1445.367 / 2445.367 138.75 / 138.75 Weight last 48 hrs Weight 80.966 kg Weight 79.197 kg Weight 78.982 kg Weight 77.111 kg Physical Exam Narrative: General: Patient is awake and alert. Head: Normocephalic. Atraumatic. EOM intact. Dry mucous membranes. Neck: No JVD. Cardiovascular: RRR. No gallops. No murmurs. Lungs: Clear to auscultation, no use of accessory muscles, no crackles or wheezes. Skin: No jaundice. No rashes. Abdomen: Normal bowel sounds, abdomen soft and nontender. Extremities: No cyanosis or clubbing. Musculoskeletal: No swollen or erythematous joints. Neurological: Moves all 4 extremities. No myoclonus. Data 02/09/24 05:05 02/09/24 05:05 A&P Assessment and plan (1) Acute upper gastrointestinal bleeding: Acute appropriate GI bleed Suspected alcohol induced gastritis Continue IV PPI Discussed with general surgery Will make n.p.o. after midnight for EGD tomorrow Trend hemoglobin Antiemetics as needed IV fluids increased (2) Intractable vomiting: Continue IV PPI Antiemetics as needed Supportive care (3) Alcohol abuse: Alcohol use disorder with abuse Benefit from complete cessation Continue [facility] monitoring Monitor for worsening withdrawal (4) Lactic acidosis: Severe lactic acidosis secondary to severe dehydration secondary to alcoholism GI bleed Lactic level is improving IV fluids are increased Plan DVT prophylaxis: SCDs Full code Attestations Medical Necessity Statement*: Patient requires ongoing hospitalization for IV fluid resuscitation, IV PPI, serial exams, CIWA, and EGD tomorrow. Coding Level of Care Code Acute Code for Chg Fwd Diagnoses Acute upper gastrointestinal bleeding K92.2 Intractable vomiting R11.10 Alcohol abuse F10.10 Lactic acidosis E87.20
[2024-02-09] MEDS: ondansetron 2 mg/ML SDV 2 mL 4 MG IVP (19:42)
[2024-02-09] MEDS: trazodone 50 mg Tablet PO (20:42)
[2024-02-10] VITALS (9 sets, daily range): BP systolic 131–169; BP diastolic 61–117; PULSE 48–74; RESP 16–20; TEMP 36.3–36.8; O2SAT 96–100
[2024-02-10] MEDS: sodium chloride 0.9% 1,000 ML 150 ML IV ×2 (03:27→10:32)
[2024-02-10 05:41] LABS: Basophils % 0.3 %; Eosinophils % 0.5 %; Hematocrit 28.1 % (37-53); Lymphocytes # 1.3 10^3/uL (0.8-4.8); Lymphocytes % 21.1 %; Mean Corpuscular HGB Conc 30.2 g/dL (30-55); Mean Corpuscular Hemoglobin 25.9 pg (27-33); Mean Corpuscular Volume 85.7 fl (82-101); Mean Platelet Volume 9.3 fL (7.4-10.4); Monocytes # 0.6 10^3/uL (0.2-0.9); Monocytes % 10.6 %; Neutrophils # 3.98 10^3/uL (1.8-7.7); Neutrophils % 67.2 %; Nucleated Red Blood Cells % 0 %; Platelet Count 238 10^3/cmm (157-399); Red Blood Count 3.28 10^6/uL (3.85-5.65); Red Cell Distribution Width 18.6 % (12.1-15.1); White Blood Count 5.93 10^3/uL (3.29-11.43)
[2024-02-10 06:07] LABS: Alanine Aminotransferase 9 U/L (0-41); Albumin Level 3.2 g/dL (3.5-5.2); Alkaline Phosphatase 44 U/L (40-130); Anion Gap 12.1 (5-19); Aspartate Amino Transferase 24 U/L (0-40); Blood Urea Nitrogen 21 mg/dL (8-23); Carbon Dioxide 25 mmol/L (22-29); Chloride 110 mmol/L (98-107); Globulin 2.1 g/dL (1.3-4.6); Glomerular Filtration Rate 111.5 mL/min (90-130); Glucose 123 mg/dL (65-115); Osmolality Calculated 300 mOsm/kg (285-295); Phosphorus 2.4 mg/dL (2.5-4.5); Potassium 4.1 mmol/L (3.5-5.1); Sodium 143 mmol/L (136-145); Total Protein 5.3 g/dL (6.6-8.7)
[2024-02-10] MEDS: acetaminophen 325 mg Tablet 650 MG PO (08:57)
[2024-02-10] MEDS: pantoprazole 40 mg SDV IVP ×2 (08:57→15:27)
--- NOTE | 2024-02-10 12:00 | ANES.PREANE2 ---
Pre-Anesthetic Assessment Height/Weight: Height 1.7 m Weight 81.647 kg Temp Pulse Resp BP Pulse Ox O2 Del Method 97.4 F L 50 L 20 H 169/65 100 Room Air 02/10/24 11:52 02/10/24 11:52 02/10/24 11:52 02/10/24 11:52 02/10/24 11:52 02/10/24 11:52 Operation Date: 02/10/24 13:00 Proposed Procedures p EGD(Not Applicable) - Alek Prince, Social Alcohol and Tobacco Exam alert, oriented x 3, clear to auscultation bilaterally and regular rate & rhythm Airway Submandibular: within normal limits Cervical ROM: within normal limits Mallampati: Class II Pulmonary Chronic Obstructive Pulmonary Disease and Cough GI Gastroesophageal Reflux Disease Alcohol induced Gastritis; r/o upper GI bleed. Anesthetic Plan ASA status: 3E Anesthesia: MAC Medications/Allergies Home Medications Medication Instructions Recorded Confirmed Last Taken Type lisinopril 20 1 tab PO QAM #90 tabs 09/19/23 02/08/24 02/08/24 08:00 Rx mg-hydrochlorothiazide 12.5 mg tablet epinephrine 0.3 mg/0.3 mL 0.3 mg (0.3 mL) IM Q15M PRN 12/19/23 02/08/24 Unknown Rx injection, auto-injector (EpiPen anaphylaxis #2 ea 2-Shawn) omeprazole 40 mg capsule,delayed 40 mg PO DAILY 02/08/24 02/08/24 02/08/24 08:00 History release Allergies Allergy/AdvReac Type Severity Reaction Status Date / Time cantaloupe Allergy Unknown ALGY-Swell Verified 02/08/24 21:53 Lip/Tongue/Throat kiwi Allergy Unknown ALGY-Anaphy Verified 02/08/24 21:53 laxis Current Medications Generic Name Dose Route Start Last Admin Trade Name Freq PRN Reason Stop Dose Admin Acetaminophen 650 mg 02/08/24 21:31 02/10/24 08:57 Acetaminophen 325 Mg Tablet PO 650 mg Q6H PRN Administration Mild/Mod Pain Or Temp >/= 101 Artificial Tears 1 drop 02/09/24 10:20 02/09/24 11:34 Artificial Tears Op Soln 15 Ml Btl EYE-BOTH 1 drop Q4H PRN Administration DRY EYE(S) Folic Acid 1 mg 02/09/24 09:00 06/16/24 10:12 Folic Acid 1 Mg Tablet PO Not Given DAILY MARSHA Sodium Chloride 1,000 mls @ 150 mls/hr 02/09/24 14:15 02/10/24 10:32 Sodium Chloride 0.9% IV 150 mls/hr .Q6H40M MARSHA Administration Lorazepam 2 mg 02/08/24 21:31 02/09/24 02:11 Lorazepam 2 Mg/Ml Inj 10 Ml Mdv IVP 2 mg PRN PRN Administration WITHDRAWAL Protocol Morphine Sulfate 2 mg 02/08/24 21:31 02/08/24 22:13 Morphine 4 Mg/Ml Sdv 1 Ml IVP 2 mg Q4H PRN Administration SEVERE PAIN Multivitamins Therapeutic 1 tab 02/09/24 09:00 02/10/24 10:13 Multivitamin Therapeutic Tablet PO Not Given DAILY MARSHA Ondansetron HCl 4 mg 02/08/24 21:31 02/09/24 19:42 Ondansetron 2 Mg/Ml Sdv 2 Ml IVP 4 mg Q8H PRN Administration vomiting, or N/V if npo Pantoprazole Sodium 40 mg 02/08/24 21:31 02/10/24 08:57 Pantoprazole 40 Mg Sdv IVP 40 mg Q12H MARSHA Administration Thiamine Mononitrate 100 mg 02/09/24 09:00 02/10/24 10:13 Thiamine 100 Mg Tablet PO Not Given DAILY MARSHA Trazodone HCl 50 mg 02/09/24 19:49 02/09/24 20:42 Trazodone 50 Mg Tablet PO 50 mg BEDTIME PRN Administration INSOMNIA PFSH Anesthesia Medical History GERD (gastroesophageal reflux disease) Hyperlipidemia Hypertension Diverticulosis Hypertension Family history of colon cancer 09/15/2019: Normal colonoscopy except diverticulosis, follow-up colonoscopy in 2024 Social History Smoking and tobacco/nicotine status: never used tobacco/nicotine Alcohol intake: former Substance/Drug Use: never Data Anesthesia 02/10/24 05:20 02/10/24 05:20 Short CBC 02/08/24 02/09/24 02/10/24 Range/Units 15:25 05:05 05:20 WBC 8.14 8.76 5.93 (3.29-11.43) 10^3/uL Hgb 11.20 L 9.00 L 8.50 L (11.27-16.99) g/dL Hct 36.2 L 29.3 L 28.1 L (37-53) % MCV 83.2 83.0 85.7 (82-101) fl Plt Count 393 309 238 (157-399) 10^3/cmm Neut % (Auto) 83.2 80.8 67.2 % Neut # (Auto) 6.78 7.07 3.98 (1.8-7.7) 10^3/uL BMP 02/08/24 02/09/24 02/10/24 15:25 05:05 05:20 Sodium 144 145 143 Potassium 4.2 4.1 4.1 Chloride 101 110 H 110 H Carbon Dioxide 17 L 25 25 BUN 23 25 H 21 Creatinine 0.8 0.7 0.7 Glucose 110 139 H 123 H Calcium 8.7 8.3 L 8.0 L Liver Function 02/08/24 02/09/24 02/10/24 Range/Units 15:25 05:05 05:20 Total Bilirubin 0.7 1.5 H 1.0 (0.15-1.2) mg/dL AST 24 21 24 (0-40) U/L ALT 9 10 9 (0-41) U/L Alkaline Phosphatase 60 46 44 (40-130) U/L Albumin 4.2 3.7 3.2 L (3.5-5.2) g/dL Urine 02/09/24 Range/Units 01:44 Urine Color Yellow (Yellow) Urine Appearance Clear (CLEAR) Urine pH 7 (5-7) Ur Specific [place] 1.010 (1.005-1.030) Urine Protein Trace (Negative) Urine Glucose (UA) Norm (Normal) Urine Ketones 2+ H (Negative) Urine Nitrate Negative (Negative) Urine Bilirubin Neg (Negative) Ur Leukocyte Esterase Negative (Negative) Coags 02/08/24 02/08/24 15:25 18:07 PT 13.00 13.60 INR 0.95 1.01 APTT 22.0 L 22.0 L Cardiac Studies: No Data to Display
--- NOTE | 2024-02-10 12:53 | P.PN_ITS ---
Vitals/I&O/Wt Last Vital Signs Temp 97.4 F L 02/10/24 11:52 Pulse 50 L 02/10/24 11:52 Resp 20 H 02/10/24 11:52 BP 169/65 02/10/24 11:52 Pulse Ox 100 02/10/24 11:52 O2 Del Method Room Air 02/10/24 11:52 02/09/24 02/10/24 02/10/24 22:59 06:59 14:59 Intake Total 1085 / 1698.75 1000 / 2698.75 1000 / 1000 Output Total 200 / 675 Balance 1085 / 1223.75 800 / 2023.75 1000 / 1000 Weight last 48 hrs Weight 180 lb Weight 181 lb 3 oz Weight 178 lb 8 oz Weight 174 lb 9.6 oz Weight 174 lb 2 oz Weight 170 lb Data 02/10/24 05:20 02/10/24 05:20 A&P Assessment and plan (1) Acute upper gastrointestinal bleeding: (2) Alcohol abuse: (3) Lactic acidosis: (4) Acute blood loss anemia: Plan EGD The risks and benefits of the procedure, including bleeding, infection, intestinal perforation requiring surgery, missed lesion were explained to the patient. The patient is understanding of the risks and wishes to proceed. Attestations 2 Medical Necessity Statement*: PER PRIMARY Coding Level of Care Code Acute Code for Chg Fwd Diagnoses Acute upper gastrointestinal bleeding K92.2 Alcohol abuse F10.10 Lactic acidosis E87.20 Acute blood loss anemia D62
[2024-02-10] MEDS: EPINEPHrine 1 mg/mL INJ XX (13:08)
[2024-02-10] MEDS: thiamine 100 mg Tablet PO (14:31)
[2024-02-10] MEDS: folic acid 1 mg Tablet PO (14:31)
[2024-02-10] MEDS: multivitamin therapeutic Tablet 1 TAB PO (14:31)
--- NOTE | 2024-02-10 15:09 | ANE.PACU2 ---
Inpatient post-anesthesia follow up: Airway intact: Yes Vital signs: Temperature 97.9 F Pulse Rate 56 Respiratory Rate 18 Blood Pressure 137/61 Pulse Oximetry 98 Oxygen Delivery Me thod Room Air Oxygen Flow Rate Fraction of Inspir ed Oxygen Hydration adequate: Yes Nausea and vomiting: No Pain level: 1 Mental status: Baseline
--- NOTE | 2024-02-10 15:30 | PM.DCS ---
Discharge Providers Date of Admission: 02/08/24 20:40 Date of Discharge: February 10, 2024 Attending Provider at Admission: Victoriano Harry MD Attending Provider at Discharge: Frantz Dunn MD Consults: General surgery Primary Care Provider: Omari Ames MD Diagnoses at Discharge Discharge Diagnosis (1) Acute upper gastrointestinal bleeding: Status: Acute (2) Alcohol abuse: Status: Acute (3) Lactic acidosis: Status: Acute (4) Acute blood loss anemia: Status: Acute Reason for Visit Reason for Visit: vomitting blood Hospital Course Hospital Course James Austin is a 68-year-old male with a past medical history significant for alcohol use disorder with abuse, prior GI bleed, and hypertension who presented with coffee-ground emesis, found to have acute GI bleed, lactic acidosis, dehydration, and acute blood loss anemia. He was treated with IV PPI treatment, IV fluids, and supportive care. General surgery consulted and he underwent EGD evaluation revealing moderate hiatal hernia and esophagitis. He was treated with [facility] protocol and advised to continue outpatient treatment of alcohol use disorder. He remained stable and was discharged home on twice daily PPI. He was educated to continue full liquid diet through Sunday per general surgery recommendation. He will follow-up with his PCP within 1 week. Physical Exam Narrative: General: Patient is awake and alert. Head: Normocephalic. Atraumatic. EOM intact. Neck: No JVD. Cardiovascular: RRR. No gallops. No murmurs. No peripheral edema. Lungs: Clear to auscultation, no use of accessory muscles, no crackles or wheezes. Skin: No jaundice. No rashes. Abdomen: Normal bowel sounds, abdomen soft and nontender. Extremities: No cyanosis or clubbing. Musculoskeletal: No swollen or erythematous joints. Neurological: Moves all 4 extremities. No myoclonus. Discharge Data Studies Completed and Pending Completed Studies During Hospitalization Category Date Time Status CT abdomen pelvis w con* [id number] Stat Cat Scan 02/08/24 17:53 Completed Pending at discharge Category Date Time Status Pathology: Surgical [PTH] Routine Pth 02/10/24 13:12 Ordered Radiology Impressions Abdomen/Pelvis CT 02/08/24 17:53 IMPRESSION: 1. No acute findings. 2. Residual fluid-filled hiatal hernia. The previous large hernia in the lower chest has been repaired. 3. Large renal cysts. COMMENTS: Consistent with the [employer]'s Incidental Findings Committee white paper (J Am Debo Radiol 2018): Any incidental renal lesion less than 1 cm or classified as too small to characterize, or any incidental cystic renal lesion characterized as simple-appearing, is likely benign. No follow-up imaging is recommended for these lesions per consensus recommendations based on imaging criteria. Laboratory Results WBC 5.93 10^3/uL (3.29-11.43) 02/10/24 05:20 RBC 3.28 10^6/uL (3.85-5.65) L 02/10/24 05:20 Hgb 8.50 g/dL (11.27-16.99) L 02/10/24 05:20 Hct 28.1 % (37-53) L 02/10/24 05:20 MCV 85.7 fl (82-101) 02/10/24 05:20 MCH 25.9 pg (27-33) L 02/10/24 05:20 MCHC 30.2 g/dL (30-55) 02/10/24 05:20 RDW 18.6 % (12.1-15.1) H 02/10/24 05:20 Plt Count 238 10^3/cmm (157-399) 02/10/24 05:20 MPV 9.3 fL (7.4-10.4) 02/10/24 05:20 Neut % (Auto) 67.2 % 02/10/24 05:20 Lymph % (Auto) 21.1 % 02/10/24 05:20 [place] % (Auto) 10.6 % 02/10/24 05:20 Eos % (Auto) 0.5 % 02/10/24 05:20 Baso % (Auto) 0.3 % 02/10/24 05:20 Neut # (Auto) 3.98 10^3/uL (1.8-7.7) 02/10/24 05:20 Lymph # (Auto) 1.3 10^3/uL (0.8-4.8) 02/10/24 05:20 [place] # (Auto) 0.6 10^3/uL (0.2-0.9) 02/10/24 05:20 Eos # (Auto) 0.0 10^3/uL (0.0-0.8) 02/10/24 05:20 Baso # (Auto) 0.0 10^3/uL (0.0-0.1) 02/10/24 05:20 Nucleated RBC % (auto) 0 % 02/10/24 05:20 Nucleated RBCs # 0.0 /100WBC 02/10/24 05:20 PT 13.60 SECONDS (12.1-14.9) 02/08/24 18:07 INR 1.01 (0.8-1.2) 02/08/24 18:07 APTT 22.0 SECONDS (23.9-36.7) L 02/08/24 18:07 Sodium 143 mmol/L (136-145) 02/10/24 05:20 Potassium 4.1 mmol/L (3.5-5.1) 02/10/24 05:20 Chloride 110 mmol/L (98-107) H 02/10/24 05:20 Carbon Dioxide 25 mmol/L (22-29) 02/10/24 05:20 Anion Gap 12.1 (5-19) 02/10/24 05:20 BUN 21 mg/dL (8-23) 02/10/24 05:20 Creatinine 0.7 mg/dL (0.7-1.2) 02/10/24 05:20 GFR Calculation 111.5 mL/min (90-130) 02/10/24 05:20 Glucose 123 mg/dL (65-115) H 02/10/24 05:20 Estimat Average Glucose 97 02/09/24 05:05 Hemoglobin A1c 5.0 % (4.0-6.0) 02/09/24 05:05 Calculated Osmolality 300 mOsm/kg (285-295) H 02/10/24 05:20 Lactic Acid 10.2 mmol/L (0.5-2.2) H* 02/08/24 15:25 Lactic Acid (Sepsis) 2.6 mmol/L (0.5-2.2) H 02/09/24 00:00 Calcium 8.0 mg/dL (8.5-10.5) L 02/10/24 05:20 Phosphorus 2.4 mg/dL (2.5-4.5) L 02/10/24 05:20 Magnesium 2.0 mg/dL (1.7-2.3) 02/10/24 05:20 Iron 107 ug/dL (59-158) 02/08/24 15:25 TIBC 349 mcg/dl 02/08/24 15:25 % Saturation 30.6 % (20-50) 02/08/24 15:25 Unsat Iron Binding 242 ug/dL (112-347) 02/08/24 15:25 Total Bilirubin 1.0 mg/dL (0.15-1.2) 02/10/24 05:20 AST 24 U/L (0-40) 02/10/24 05:20 ALT 9 U/L (0-41) 02/10/24 05:20 Alkaline Phosphatase 44 U/L (40-130) 02/10/24 05:20 Ammonia 21 umol/L (16-60) 02/08/24 18:07 Total Protein 5.3 g/dL (6.6-8.7) L 02/10/24 05:20 Albumin 3.2 g/dL (3.5-5.2) L 02/10/24 05:20 Globulin 2.1 g/dL (1.3-4.6) 02/10/24 05:20 Triglycerides 45 mg/dL (0-150) 02/09/24 05:05 Cholesterol 191 mg/dL (0-200) 02/09/24 05:05 LDL Cholesterol, Calc 90 mg/dL (50-129) 02/09/24 05:05 HDL Cholesterol 92 mg/dL (60-100) 02/09/24 05:05 LDL/HDL Ratio 0.98 RATIO (0.00-3.22) 02/09/24 05:05 Cholesterol/HDL Ratio 2.08 mg/dL (1.0-5.00) 02/09/24 05:05 Lipase 22 U/L (13-60) 02/08/24 15:25 Vitamin B12 303 pg/mL (232-1245) 02/08/24 15:25 Folate > 20.0 ng/mL (4.5-32.2) 02/09/24 05:05 Procalcitonin 0.07 ng/mL (0-0.5) 02/08/24 15:25 TSH 1.79 uIU/mL (0.27-4.20) 02/08/24 15:25 Urine Color Yellow (Yellow) 02/09/24 01:44 Urine Appearance Clear (CLEAR) 02/09/24 01:44 Urine pH 7 (5-7) 02/09/24 01:44 Ur Specific [place] 1.010 (1.005-1.030) 02/09/24 01:44 Urine Protein Trace (Negative) 02/09/24 01:44 Urine Glucose (UA) Norm (Normal) 02/09/24 01:44 Urine Ketones 2+ (Negative) H 02/09/24 01:44 Urine Blood Neg (Negative) 02/09/24 01:44 Urine Nitrate Negative (Negative) 02/09/24 01:44 Urine Bilirubin Neg (Negative) 02/09/24 01:44 Urine Urobilinogen Neg mg/dL (Negative) 02/09/24 01:44 Ur Leukocyte Esterase Negative (Negative) 02/09/24 01:44 Gastric Occult Blood Positive (Negative) H 02/08/24 18:02 Urine Opiates Screen Positive ng/mL (Negative) H 02/08/24 01:44 Ur Barbiturates Screen Negative ng/mL (Negative) 02/08/24 01:44 Ur Phencyclidine Scrn Negative ng/mL (Negative) 02/08/24 01:44 Ur Amphetamines Screen Negative ng/mL (Negative) 02/08/24 01:44 U Benzodiazepines Scrn Negative ng/mL (Negative) 02/08/24 01:44 Urine Cocaine Screen Negative ng/mL (Negative) 02/08/24 01:44 U Marijuana (THC) Screen Negative ng/mL (Negative) 02/08/24 01:44 Ethyl Alcohol 94 mg/dL (0-10) H 02/08/24 18:07 Vitals Last Vital Signs Temp 97.9 F 02/10/24 13:30 Pulse 56 L 02/10/24 13:30 Resp 18 02/10/24 13:30 BP 137/61 02/10/24 13:30 Pulse Ox 98 02/10/24 13:30 O2 Del Method Room Air 02/10/24 13:30 Discharge Plan Discharge Patient Disposition: Home Condition: Stable Prescriptions: New folic acid 1 mg Tablet 1 mg PO DAILY 30 Days Qty: 30 0RF Vitamin B-1 (mononitrate) 100 mg Tablet 100 mg PO DAILY Qty: 30 0RF pantoprazole 40 mg tablet,delayed release (DR/EC) 40 mg PO BID Qty: 60 2RF Continued lisinopril-hydrochlorothiazide 20-12.5 mg tablet 1 tab PO QAM Qty: 90 3RF epinephrine [EpiPen 2-Shawn] 0.3 mg/0.3 mL auto-injector 0.3 mg IM Q15M PRN (Reason: anaphylaxis) Qty: 2 0RF Rx Instructions: for 3 doses Discontinued omeprazole 40 mg capsule,delayed release(DR/EC) 40 mg PO DAILY Discharge Orders: Discharge Order (Routine); Ordered 02/10/24 Ordered By: Frantz Dunn Referrals: Omari Ames MD [Primary Care Provider] - 4-7 days (We have notified your physician's clinic of the need for a follow-up appointment to be scheduled. If you have not heard from them within the next 2 business days, please call them directly. ) Patient Instructions: Alcohol Abuse, Thiamine (By mouth), Folic Acid (By mouth), Pantoprazole (By mouth), Gastrointestinal Bleeding (DC), GI Discharge Instructions, Opioid Safety Activity Restrictions/Additional Instructions: 1. Take medications as prescribed 2. Recommend alcohol cessation 3. Full liquid diet through Sunday 4. PCP follow-up within 1 week 5. Increase activity as tolerated. 6. No driving for 24 hours postprocedure. 7. No NSAIDs. Discharge Attestations Time Spent in Discharge Care*: greater than 30 min Quality Metrics Clinical Quality Measures [ No reported AMI, CVA or VTE this stay] Coding Level of Care Code Acute Code for Chg Fwd Diagnoses Acute upper gastrointestinal bleeding K92.2 Alcohol abuse F10.10 Lactic acidosis E87.20 Acute blood loss anemia D62
== END 2024-02-10 16:35 | disposition home or self-care (01) | DRG 378 ==
LOC: ER 20:28 → MEDSURG 20:40
PROVIDERS: Family Medicine; Physician Assistant; Surgery; Admitting Provider Student in an Organized Health Care Education/Training Program; Emergency Provider Emergency Medicine; PCP Family Medicine; Visit Provider Internal Medicine
PROC: 0DJ08ZZ Inspection of Upper Intestinal Tract, Via Natural or Artificial Opening Endoscopic (ICD-10-PCS; CPT 43235; principal; 2024-02-10 13:00)
DX: K92.2 Gastrointestinal hemorrhage, unspecified (principal); D62 Acute posthemorrhagic anemia; E87.20 Acidosis, unspecified; K44.0 Diaphragmatic hernia with obstruction, without gangrene; F10.10 Alcohol abuse, uncomplicated; Y90.4 Blood alcohol level of 80-99 mg/100 ml; I10 Essential (primary) hypertension; E86.0 Dehydration; K20.90 Esophagitis, unspecified without bleeding; K57.90 Diverticulosis of intestine, part unspecified, without perforation or abscess without bleeding; K21.9 Gastro-esophageal reflux disease without esophagitis
CPT/HCPCS: 36415; 43239; 43255; 74177; 80053; 80061; 80306; 80307; 81003; 82140; 82271; 82607; 82746; 83036; 83540; 83550; 83605; 83690; 83735; 84100; 84145; 84443; 85025; 85610; 85730; 88305; 88313; 88342; 94664; 96372; 96374; 99285; C9113; J0171; J0330; J2060; J2270; J2405; J2704; J3411; J3490; J7030; J7042; Q9967

== ENCOUNTER → 2024-02-19 13:20 | Outpatient (BNVA) | payer MEDICARE, SELFPAY | PROVIDERS: PCP Family Medicine; Visit Provider Family Medicine | DX: F10.10 Alcohol abuse, uncomplicated (principal); K92.2 Gastrointestinal hemorrhage, unspecified | CPT/HCPCS: 80053; 85025 ==

== ENCOUNTER → 2024-03-06 09:49 | Outpatient (BNVA) | payer MEDICARE, MEDICAID, SELFPAY | PROVIDERS: PCP Family Medicine; Visit Provider Surgery | DX: F10.10 Alcohol abuse, uncomplicated (principal); K22.10 Ulcer of esophagus without bleeding; K40.20 Bilateral inguinal hernia, without obstruction or gangrene, not specified as recurrent; R22.9 Localized swelling, mass and lump, unspecified | CPT/HCPCS: 99204 ==

== ENCOUNTER 2024-03-18 10:25 | Day surgery (SDC) | payer MEDICARE, MEDICAID, SELFPAY ==
[2024-03-18] VITALS (10 sets, daily range): BP systolic 100–142; BP diastolic 47–77; PULSE 57–88; RESP 18; TEMP 36.3–36.7; O2SAT 96–99; BMI 27.3
--- NOTE | 2024-03-18 10:53 | W.PM.OPSUD ---
Surgery/Procedure H&P Update DATE OF PROCEDURE: March 18, 2024 DATE H&P PERFORMED: 03/06/24 H&P UPDATE INFORMATION: I have reviewed H&P completed within last 30 days, I have examined patient prior to procedure and No changes to prior documentation PLANNED PROCEDURE: Operation Date: 03/18/24 12:35 Proposed Procedures p excision sub q mass of back 3.2 cm [id number], R22.9(Not Applicable) - Alek Prince, DO
--- NOTE | 2024-03-18 11:02 | ANES.PREANE2 ---
Pre-Anesthetic Assessment Height/Weight: Height 1.7 m Operation Date: 03/18/24 12:35 Proposed Procedures p excision sub q mass of back 3.2 cm 52734, R22.9(Not Applicable) - Alek Prince DO Familial anesthetic complications: Hallicinations Was Beta Charlie taken within 24 hours: N/A Was Clonidine taken within 24 hours: N/A Last intake: > 8hrs Social No alcohol and No tobacco Exam alert, oriented x 3, clear to auscultation bilaterally and regular rate & rhythm Airway Mallampati: Class II Dentition: false CV/HEM Hypertension GI hiatal hernia -states he's done well with pantoprazole and isn't having anymore issues with acid reflux 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 laparoscopic surgery 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 Anesthetic Plan ASA status: 3 Anesthesia: MAC Risk of > 500 ml blood loss (7ml/kg in children): No Medications/Allergies Home Medications Medication Instructions Recorded Confirmed Last Taken Type lisinopril 20 1 tab PO QAM #90 tabs 09/19/23 03/17/24 03/17/24 Rx mg-hydrochlorothiazide 12.5 mg tablet epinephrine 0.3 mg/0.3 mL 0.3 mg (0.3 mL) IM Q15M PRN 12/19/23 03/17/24 Unknown Rx injection, auto-injector (EpiPen anaphylaxis #2 ea 2-Shawn) thiamine mononitrate (vit B1) 100 100 mg PO DAILY #30 tabs 02/10/24 03/17/24 03/17/24 Rx mg tablet (Vitamin B-1 (mononitrate)) pantoprazole 40 mg tablet,delayed 40 mg PO BID #60 tabs 03/06/24 03/17/24 03/17/24 Rx release Allergies Allergy/AdvReac Type Severity Reaction Status Date / Time cantaloupe Allergy Unknown ALGY-Swell Verified 03/06/24 10:04 Lip/Tongue/Throat kiwi Allergy Unknown ALGY-Anaphy Verified 03/06/24 10:04 laxis [facility] Anesthesia Medical History GI bleed Acute blood loss anemia Alcohol abuse Acute upper gastrointestinal bleeding GERD (gastroesophageal reflux disease) Hyperlipidemia Hypertension Diverticulosis Hypertension Family history of colon cancer 09/15/2019: Normal colonoscopy except diverticulosis, follow-up colonoscopy in 2024 Social History Smoking and tobacco/nicotine status: unknown if used tobacco/nicotine Alcohol intake: former Substance/Drug Use: never Data Anesthesia Cardiac Studies: No Data to Display
[2024-03-18] MEDS: sodium chloride 0.9% 1,000 ML 30 ML IV (11:12)
[2024-03-18] MEDS: ceFAZolin 2,000 mg SDV 2000 MG IVP (11:40)
[2024-03-18] MEDS: lidocaine-epi 2% PF 1:200,000 20 mL SDV XX (11:58)
--- NOTE | 2024-03-18 12:19 | PM.OP ---
Operative Report Date of procedure: March 18, 2024 Pre-op diagnosis: Subcutaneous mass of back Post-op diagnosis: same Procedure done: Excision of subcutaneous mass of back Specimens removed/disposition: Subcutaneous mass of back measures 4.5 cm in greatest diameter Surgeon: Alek Prince DO Anesthesia: General and Local Estimated blood loss (mL): 5 Complications: None apparent Brief History: This very pleasant 68-year-old gentleman who came to my office with a growing subcutaneous mass of his back that causes pain and would rupture sometimes. Excision was indicated. The risks and benefits were explained and documented. Procedure: Patient was wheeled operative room and remained on the gurney in the supine position. General endotracheal intubation was achieved by department anesthesia. The patient was then placed into the right lateral decubitus position. The back was inspected prepped and draped in usual sterile fashion. A timeout was performed. All present were in agreement. 2% lidocaine with epinephrine used to anesthetize the skin overlying the subcutaneous mass of his back. An elliptical excision was made transversely measuring 4.5 cm in length. 15 blade scalpel was used to do this. Electrocautery was then used dissect down around a cystic structure which was removed intact. Hemostasis was achieved with electrocautery. Subcutaneous mass measured 4.5 cm in greatest diameter. Skin was closed using 3-0 nylon in an interrupted vertical mattress and simple fashion. Sterile bandage was applied. Patient tolerated procedure well.
[2024-03-18] MEDS: HYDROcodone-acetaminophen 7.5-325 mg Tablet 1 TAB PO (13:18)
--- NOTE | 2024-03-18 13:35 | ANE.PACU2 ---
Inpatient post-anesthesia follow up: Airway intact: Yes Vital signs: Temperature 97.3 F Pulse Rate 57 Respiratory Rate 18 Blood Pressure 142/63 Pulse Oximetry 98 Oxygen Delivery Me thod Room Air Oxygen Flow Rate Fraction of Inspir ed Oxygen Hydration adequate: Yes Nausea and vomiting: Yes Pain level: 1 Mental status: Baseline
== END 2024-03-18 13:37 | disposition home or self-care (01) ==
PROVIDERS: PCP Family Medicine; Visit Provider Surgery
PROC: (CPT 11406; principal; 2024-03-18 12:35)
DX: L72.0 Epidermal cyst (principal); K21.9 Gastro-esophageal reflux disease without esophagitis; I10 Essential (primary) hypertension; E78.5 Hyperlipidemia, unspecified; Z80.0 Family history of malignant neoplasm of digestive organs
CPT/HCPCS: 11406; 12032; 88307; J0690; J1100; J2405; J3010; J7030

== ENCOUNTER → 2024-03-25 13:33 | Outpatient (BNVA) | payer MEDICARE, MEDICAID, SELFPAY | PROVIDERS: PCP Family Medicine; Visit Provider Family Medicine | DX: I10 Essential (primary) hypertension (principal); F10.10 Alcohol abuse, uncomplicated; K92.2 Gastrointestinal hemorrhage, unspecified; Z79.899 Other long term (current) drug therapy | CPT/HCPCS: 80053; 85025 ==

== ENCOUNTER 2024-03-29 12:45 | Emergency (ER) | payer MEDICARE, MEDICAID, SELFPAY ==
[2024-03-29 12:50] VITALS: BP 153/81; PULSE 80; RESP 18; TEMP 36.6; O2SAT 98
--- NOTE | 2024-03-29 13:15 | ED_ITS ---
HPI - Nausea/Vomiting/Diarrhea 2 General: Chief complaint: Nausea/Vomiting/Diarrhea Stated complaint: vomitting (3 days), high bp, weakness Time Seen by Provider: 03/29/24 12:51 Source: patient Mode of arrival: ambulatory Limitations: no limitations History of Present Illness: Patient is made his way to the emergency department because he think he got overheated a couple days ago. He states he is been sick to his stomach and cannot keep anything in his stomach. He has had repetitive nausea and vomiting when he attempts to eat or drink. He states there is been no blood in his emesis. He states that he is also had some elevation in his blood pressure at home which concerns me him. He has been faithful to his medications. He denies any concomitant chest pain or shortness of breath syncope lightheadedness etc. He denies any blood in his stools or black tarry stools. He recently was admitted because of gastritis and had an endoscopy. He states he has not drank alcohol for 2 days this week. No prior history of abdominal surgeries. MD elicited complaint: nausea and vomiting Associated nausea: Yes Associated symtoms: Reports nausea; Denies anxiety, change in vision, chest pain, dysuria, palpitations or syncope Review of Systems 2 Const: Denies: fever(s) or chills Eyes: Denies: change in vision ENMT: Denies: throat pain, odynophagia, nasal discharge or nasal congestion Card: Denies: chest pain, palpitations, syncope or pre-syncope Resp: Denies: dyspnea, productive cough or non-productive cough GI: Reports: nausea and vomiting; Denies: hematemesis, diarrhea, hematochezia or melena : Denies: flank pain, difficulty urinating, dysuria or urinary frequency Musc: Denies: neck pain, back pain, extremity pain or extremity swelling Skin/Breast: Denies: rash or pruritus Psych: Denies: anxiety or depression Endo: Denies: polyuria or polydipsia PFSH ED 2 PFSH: Medical History GI bleed Acute blood loss anemia Alcohol abuse Acute upper gastrointestinal bleeding GERD (gastroesophageal reflux disease) Hyperlipidemia Hypertension Diverticulosis Hypertension Family history of colon cancer 09/15/2019: Normal colonoscopy except diverticulosis, follow-up colonoscopy in 2024 Social History Smoking and tobacco/nicotine status: unknown if used tobacco/nicotine Alcohol intake: former Substance/Drug Use: never Physical Exam 2 Narrative: EXAM NARRATIVE: He appears to be comfortable. He answers questions in a goal-directed fashion. Const: COMMON NORMALS: no acute distress, average body habitus and patient oriented x3 GENERAL APPEARANCE: cooperative and comfortable HENMT: COMMON NORMALS: normocephalic, Normal nasal mucous membranes and turbinates present, moist oral mucous membranes and oropharynx normal HEAD & SCALP: normocephalic FACE & SINUS: normal facial exam NOSE: Normal nasal mucous membranes and turbinates present Eye: COMMON NORMALS: Equal, round and reactive pupils present, EOMs intact bilaterally and conjunctivae normal CONJUNCTIVA: Yes conjunctivae normal P UPIL: Yes Equal, round and reactive pupils present Neck/C-Spine: COMMON NORMALS: full ROM, supple and no JVD Chest: COMMONS NORMALS: normal inspection of the chest Resp: COMMON NORMALS: normal respiratory effort, No retractions, No use of accessory muscles and clear to auscultation bilaterally AUSCULTATION: clear to auscultation bilaterally Cardio: COMMON NORMALS: no JVD, regular rate, regular rhythm, No murmurs present (Cardio) and Peripheral pulses 2+ throughout RATE: regular rate R HYTHM: regular rhythm PERIPHERAL PULSES: Peripheral pulses 2+ throughout GI: COMMON NORMALS: Normal to inspection, nondistended, normoactive bowel sounds present, Soft to palpation, non-tender, No hepatosplenomegaly present and no masses PALPATION: Yes Soft to palpation and Yes No hepatosplenomegaly present : COMMON NORMALS: Yes no CVA tenderness BLADDER/KIDNEY EXAM: Yes no CVA tenderness Back/Pelvis: COMMON NORMALS: no CVA tenderness, thoracic and lumbar spine normal to inspection, no thoracic nor lumbar tenderness and thoraco-lumbar ROM normal Extremity: COMMON NORMALS: normal to inspection, full ROM, capillary refill normal, no calf tenderness and no pedal edema Neuro: COMMON NORMALS: patient oriented x3, moves all extremities, no focal motor deficits and no sensory deficits noted Psych: COMMON NORMALS: mental status grossly normal Skin: COMMON NORMALS: no rashes or lesions noted and no jaundice GENERAL SKIN EXAM: no rashes or lesions noted Course 2 Reevaluation(s): Reevaluation #1: Patient was reevaluated. He states he is doing well. No nausea or emesis since arrival to the emergency department. Will continue with IV fluids and transition to oral fluids Time: 15:00 Reevaluation #2: Patient is on his second liter of IV fluids. He states he still gets the acid taste in his mouth. Time: 15:56 Reevaluation #3: Reevaluation patient states he is doing much better after receiving the Carafate and the Pepcid. He is tolerating oral fluids without any difficulty. We had a discussion about his esophagitis and that alcohol avoidance is crucial. We also discussed dissolving his Carafate tablets at home and water and taking that slurry. He is currently stable and his desires to be discharged home and again we admonished him to avoid alcohol. Time: 17:40 Vital Signs: Vital signs: Vital Signs Temperature 97.8 F 03/29/24 12:50 Pulse Rate 74 03/29/24 16:54 Respiratory Rate 16 03/29/24 16:54 Blood Pressure 150/80 03/29/24 16:54 Pulse Oximetry 97 03/29/24 16:54 Oxygen Delivery Me thod Room Air 03/29/24 16:54 MDM - Nausea/Vomiting/Diarrhea Medical Decision Making This patient presented as per the HPI with nausea and vomiting which she attributed to possible heat stress. He is also had a history of alcohol related gastritis and stomach issues in the past. Differential included potential viral gastroenteritis, alcoholic gastritis, other potential etiologies of upper GI symptoms. Initial laboratories were reassuring including hemoglobin which was for any acute anemia. He did have evidence of volume depletion and he received IV fluids while in the emergency department. His prior EGD was reviewed which did show distal esophagitis. He did respond well to therapy in the emergency department was clinically stable had any evidence of profound anemia, other disturbance in his biochemistry. His blood alcohol level in the emergency department was 0. He remained clinically stable and desired to be discharged and is being discharged with instructions to use his Carafate as a slurry, avoid alcohol at any cost and to return if he needs any recurrent symptoms and follow-up with his primary care doctor as scheduled. Medical Records I reviewed the patient's medical records. EEG did show distal esophagitis. Lab Data 03/29/24 13:21 03/29/24 13:21 Laboratory Results WBC 9.63 10^3/uL (3.29-11.43) 03/29/24 13:21 RBC 4.60 10^6/uL (3.85-5.65) 03/29/24 13:21 Hgb 11.40 g/dL (11.27-16.99) 03/29/24 13:21 Hct 36.3 % (37-53) L 03/29/24 13:21 MCV 78.9 fl (82-101) L 03/29/24 13:21 MCH 24.8 pg (27-33) L 03/29/24 13:21 MCHC 31.4 g/dL (30-55) 03/29/24 13:21 RDW 19.9 % (12.1-15.1) H 03/29/24 13:21 Plt Count 293 10^3/cmm (157-399) 03/29/24 13:21 MPV 9.6 fL (7.4-10.4) 03/29/24 13:21 Neut % (Auto) 77.5 % 03/29/24 13:21 Lymph % (Auto) 12.7 % 03/29/24 13:21 [place] % (Auto) 9.3 % 03/29/24 13:21 Eos % (Auto) 0.0 % 03/29/24 13:21 Baso % (Auto) 0.2 % 03/29/24 13:21 Neut # (Auto) 7.46 10^3/uL (1.8-7.7) 03/29/24 13:21 Lymph # (Auto) 1.2 10^3/uL (0.8-4.8) 03/29/24 13:21 [place] # (Auto) 0.9 10^3/uL (0.2-0.9) 03/29/24 13:21 Eos # (Auto) 0.0 10^3/uL (0.0-0.8) 03/29/24 13:21 Baso # (Auto) 0.0 10^3/uL (0.0-0.1) 03/29/24 13:21 Nucleated RBC % (auto) 0 % 03/29/24 13:21 Nucleated RBCs # 0.0 /100WBC 03/29/24 13:21 Sodium 139 mmol/L (136-145) 03/29/24 13:21 Potassium 3.6 mmol/L (3.5-5.1) 03/29/24 13:21 Chloride 93 mmol/L (98-107) L 03/29/24 13:21 Carbon Dioxide 28 mmol/L (22-29) 03/29/24 13:21 Anion Gap 21.6 (5-19) H 03/29/24 13:21 BUN 39 mg/dL (8-23) H 03/29/24 13:21 Creatinine 1.3 mg/dL (0.7-1.2) H 03/29/24 13:21 GFR Calculation 54.6 mL/min (90-130) L 03/29/24 13:21 Glucose 134 mg/dL (65-115) H 03/29/24 13:21 Calculated Osmolality 299 mOsm/kg (285-295) H 03/29/24 13:21 Calcium 9.8 mg/dL (8.5-10.5) 03/29/24 13:21 Magnesium 1.9 mg/dL (1.7-2.3) 03/29/24 13:21 Total Bilirubin 3.3 mg/dL (0.15-1.2) H 03/29/24 13:21 AST 31 U/L (0-40) 03/29/24 13:21 ALT 20 U/L (0-41) 03/29/24 13:21 Alkaline Phosphatase 55 U/L (40-130) 03/29/24 13:21 Creatine Kinase 216 U/L (39-308) 03/29/24 13:21 Total Protein 7.0 g/dL (6.6-8.7) 03/29/24 13:21 Albumin 4.3 g/dL (3.5-5.2) 03/29/24 13:21 Globulin 2.7 g/dL (1.3-4.6) 03/29/24 13:21 Lipase 24 U/L (13-60) 03/29/24 13:21 Ethyl Alcohol < 10 mg/dL (0-10) 03/29/24 13:21 No radiology studies performed this visit EKG Data EKG 1: I personally reviewed and interpreted this EKG as follows: Interpretation: Contemporaneous review of resting EKG reveals a ventricular rate of 65 bpm. Normal HI interval, QRS duration, corrected QT interval. Normal axis. No acute ST-T wave changes noted. Discharge Plan Discharge Patient Disposition: Home Clinical Impression: Volume depletion, Esophagitis, Alcohol use disorder Condition: Stable Prescriptions: No Action pantoprazole 40 mg tablet,delayed release (DR/EC) 40 mg PO BID Qty: 60 12RF lisinopril-hydrochlorothiazide 20-12.5 mg tablet 1 tab PO QAM Qty: 90 3RF epinephrine [EpiPen 2-Shawn] 0.3 mg/0.3 mL auto-injector 0.3 mg IM Q15M PRN (Reason: anaphylaxis) Qty: 2 0RF Rx Instructions: for 3 doses thiamine mononitrate (vit B1) [Vitamin B-1 (mononitrate)] 100 mg Tablet 100 mg PO DAILY Qty: 30 0RF hydrocodone-acetaminophen 7.5-325 mg tablet 1 tab PO Q6H PRN (Reason: pain) Qty: 20 0RF Colace 100 mg capsule 100 mg PO BID Qty: 14 0RF Discharge Orders: Discharge ED (Routine); Ordered 03/29/24 Ordered By: Sukhdev Traore Referrals: Omari Ames MD [Primary Care Provider] - Discharge Diet: Usual diet Discharge Activity: Increase activity as tolerated Patient Instructions: Opioid Safety, Pain Management Activity Restrictions/Additional Instructions: As we discussed while in the emergency department we recommend taking your Carafate tablets and dissolving and a small glass of water and taking her medication that way. You should also continue your other stomach medicines as prescribed. Do not drink alcohol as this is a direct irritant to your stomach. If you have any new or worsening symptoms or develop any other concerns you are welcome to return to the emergency department at any time. Coding Level of Care Code ED Assembl[employer] Install[employer] General for Giselle Horton
[2024-03-29 13:42] LABS: Basophils % 0.2 %; Hematocrit 36.3 % (37-53); Lymphocytes # 1.2 10^3/uL (0.8-4.8); Lymphocytes % 12.7 %; Mean Corpuscular HGB Conc 31.4 g/dL (30-55); Mean Corpuscular Hemoglobin 24.8 pg (27-33); Mean Corpuscular Volume 78.9 fl (82-101); Mean Platelet Volume 9.6 fL (7.4-10.4); Monocytes # 0.9 10^3/uL (0.2-0.9); Monocytes % 9.3 %; Neutrophils # 7.46 10^3/uL (1.8-7.7); Neutrophils % 77.5 %; Nucleated Red Blood Cells % 0 %; Platelet Count 293 10^3/cmm (157-399); Red Cell Distribution Width 19.9 % (12.1-15.1); White Blood Count 9.63 10^3/uL (3.29-11.43)
--- NOTE | 2024-03-29 13:45 | ECG_ITS ---
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 Measurements Intervals [place] Rate: 65 P: 53 NH: 154 QRS: 6 QRSD: 100 T: 36 QT: 434 QTc: 454 Interpretive Statements SINUS RHYTHM Compared to ECG 01/06/2024 13:22:56 Sinus tachycardia no longer present Myocardial infarct finding no longer present Electronically Signed On 03-31-2024 14:11:46 CDT by Ramón Hi M.D. [id number]
[2024-03-29 13:54] LABS: Alanine Aminotransferase 20 U/L (0-41); Albumin Level 4.3 g/dL (3.5-5.2); Alkaline Phosphatase 55 U/L (40-130); Anion Gap 21.6 (5-19); Aspartate Amino Transferase 31 U/L (0-40); Blood Urea Nitrogen 39 mg/dL (8-23); Calcium 9.8 mg/dL (8.5-10.5); Carbon Dioxide 28 mmol/L (22-29); Chloride 93 mmol/L (98-107); Globulin 2.7 g/dL (1.3-4.6); Glomerular Filtration Rate 54.6 mL/min (90-130); Glucose 134 mg/dL (65-115); Lipase 24 U/L (13-60); Magnesium 1.9 mg/dL (1.7-2.3); Osmolality Calculated 299 mOsm/kg (285-295); Potassium 3.6 mmol/L (3.5-5.1); Sodium 139 mmol/L (136-145); Total Bilirubin 3.3 mg/dL (0.15-1.2)
[2024-03-29 13:55] LABS: Creatine Phosphokinase 216 U/L (39-308)
[2024-03-29 13:58] LABS: Alcohol Level < 10 mg/dL (0-10); Creatinine Clr Calc Pharmacy 54.0846
[2024-03-29] MEDS: lactated ringers 1,000 ML 999 ML IV ×2 (14:06→15:23)
[2024-03-29] MEDS: ondansetron 2 mg/ML SDV 2 mL 4 MG IVP (14:06)
[2024-03-29 14:11] VITALS: BP 126/72; PULSE 68; RESP 16; O2SAT 100
[2024-03-29 14:44] VITALS: BP 148/70; PULSE 66; RESP 16; O2SAT 95
[2024-03-29] MEDS: sucralfate 1 gm/10 mL Oral Liq UDC PO (16:37)
[2024-03-29] MEDS: famotidine 20 mg/2 mL INJ 40 MG IVP (16:43)
[2024-03-29 16:54] VITALS: BP 150/80; PULSE 74; RESP 16; O2SAT 97
[2024-03-29 18:18] VITALS: BP 146/81; PULSE 71; RESP 16; TEMP 36.6; O2SAT 98
== END 2024-03-29 18:14 | disposition home or self-care (01) ==
PROVIDERS: Emergency Provider Emergency Medicine; PCP Family Medicine
DX: K20.90 Esophagitis, unspecified without bleeding (principal); E86.9 Volume depletion, unspecified; F10.10 Alcohol abuse, uncomplicated; Y90.0 Blood alcohol level of less than 20 mg/100 ml; E78.5 Hyperlipidemia, unspecified; I10 Essential (primary) hypertension
CPT/HCPCS: 80053; 80307; 82550; 83690; 83735; 85025; 93005; 96361; 96374; 96375; 99284; J2405; J3490; J7120

== ENCOUNTER → 2024-04-07 08:57 | Outpatient (BNVA) | payer MEDICARE, MEDICAID, SELFPAY | PROVIDERS: PCP Family Medicine; Visit Provider Surgery | DX: Z98.890 Other specified postprocedural states (principal); Z87.2 Personal history of diseases of the skin and subcutaneous tissue | CPT/HCPCS: 99214 ==

== ENCOUNTER 2024-05-14 12:03 | Emergency (ER) | payer MEDICARE, MEDICAID, SELFPAY ==
[2024-05-14 12:05] VITALS: BP 113/60; PULSE 75; RESP 96; TEMP 36.6; O2SAT 96; BMI 27.3
--- NOTE | 2024-05-14 12:10 | CT_ITS ---
WS: [id number] CT chest wo con [id number] HISTORY: Traumatic chest pain TECHNIQUE: Axial imaging performed through the thorax. Coronal and sagittal reformats are submitted. All CT scans at [facility] use at least one of these dose optimization techniques: automated exposure control; mA and/or kV adjustment per patient size (includes targeted exams where dose is mat ched to clinical indication); or iterative reconstruction. CONTRAST: Omnipaque 350; 100 mL IV. DLP: 416.61 mGy.cm COMPARISON: None available. Lungs and central airway: Normal. Pleura: Normal. No pleural effusion. Heart and pericardium: Mild cardiomegaly. Mediastinum and akash: No mediastinum or hilar adenopathy. Vessels: Mild atherosclerosis aorta. Mildly dilated pulmonary artery. Chest wall and lower neck: No soft tissue masses. Upper abdomen: Patient has known large renal cysts. Hepatic steatosis. No adrenal mass. Large hiatal hernia. Prior cholecystectomy. Osseous structures: No destructive process. No fractures. CT/CT chest wo con [id number] IMPRESSION: 1. No pulmonary contusion or pneumothorax. 2. Mild cardiomegaly. 3. No pneumonia. 4. Mild pulmonary enlargement. 5. Large hiatal hernia with fluid in the mid to distal esophagus. Suspect refl ux disease. 6. Large renal cysts and prior cholecystectomy.
--- NOTE | 2024-05-14 12:10 | CT_ITS ---
WS: [id number] CT HEAD NONCONTRAST HISTORY: fall, head injury TECHNIQUE: Contiguous axial imaging performed through the brain in 2.0 mm imaging. Bone and soft tiss ue windows. Sagittal and coronal reformats reviewed. All CT scans at [facility] use at least one of these dose optimization techniques: automated exposure control; mA and/or kV adjustment per pa tient size (includes targeted exams where dose is matched to clinical indication); or iterative recon struction. DLP: 1108.48 mGy.cm COMPARISON: None available. No acute intracranial hemorrhage, midline shift or mass effect. Mild atrophy. Mild small vessel disease. No prior infarct. Ventricles: Normal size with no hydrocephalus. No inferior displacement of cerebellar tonsils. Paranasal sinuses: Mild mucoperiosteal thickening in the ethmoid sinuses. Mastoid air cells: Well pneumatized. Calvarium and scalp: Skull is intact with no soft tissue edema or swelling. Very dense calcification in the distal vertebral arteries and in the intracranial carotid arteries. CT/CT head wo con* [id number] IMPRESSION: 1. No acute intracranial hemorrhage or edema. 2. Mild atrophy and mild small vessel disease.
[2024-05-14 12:15] LABS: Basophils # 0.1 10^3/uL (0.0-0.1); Basophils % 0.5 %; Eosinophils # 0.1 10^3/uL (0.0-0.8); Eosinophils % 0.9 %; Lymphocytes # 2.2 10^3/uL (0.8-4.8); Lymphocytes % 20.8 %; Mean Corpuscular HGB Conc 31.1 g/dL (30-55); Mean Corpuscular Hemoglobin 25.3 pg (27-33); Mean Corpuscular Volume 81.4 fl (82-101); Mean Platelet Volume 10.3 fL (7.4-10.4); Monocytes # 0.8 10^3/uL (0.2-0.9); Monocytes % 7.1 %; Neutrophils # 7.43 10^3/uL (1.8-7.7); Neutrophils % 70.2 %; Nucleated Red Blood Cells % 0 %; Platelet Count 323 10^3/cmm (157-399); Red Blood Count 4.67 10^6/uL (3.85-5.65); Red Cell Distribution Width 20.2 % (12.1-15.1); White Blood Count 10.58 10^3/uL (3.29-11.43)
[2024-05-14] MEDS: sodium chloride 0.9% 1,000 ML 999 ML IV ×2 (12:26→13:46)
--- NOTE | 2024-05-14 12:27 | ECG_ITS ---
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 Measurements Intervals [place] Rate: 71 P: 61 FL: 162 QRS: 10 QRSD: 103 T: 30 QT: 427 QTc: 465 Interpretive Statements SINUS RHYTHM LOW QRS VOLTAGE IN EXTREMITY LEADS [QRS DEFLECTION < 0.5 mV IN LIMB LEADS] INFERIOR MYOCARDIAL INFARCTION , OF INDETERMINATE AGE [40+ ms Q WAVE AND/OR ST/T ABNORMALITY IN II/aVF] Compared to ECG 03/29/2024 13:45:37 Low QRS voltage now present Myocardial infarct finding now present Electronically Signed On 05-15-2024 0:21:15 CDT by Reynaldo Hurst M.D. [id number]
--- NOTE | 2024-05-14 12:33 | ED_ITS ---
HPI - Syncope 2 General: Chief Complaint: Syncope Stated Complaint: PASSED OUT Time Seen by Provider: 05/14/24 12:07 History of Present Illness: 68-year-old man with a history of hypert ension, hyperlipidemia who presents to the emergency room after having a syncopal episode. Apparently he has been working out in the heat last couple of days. He had been out quite a bit on Sunday and sweated a lot and then did not really replenish. He was out today. He is covered in sweat today. He said that he passed out and hit his left lateral posterior rib cage that some pain there. Blood pressure was in the 80s systolic according to EMS. He was received some fluids and his blood pressure is now over 100 systolic. No altered mental status. No focal motor deficits. No chest pain. No shortness of breath. No abdominal pain. Some nausea but no vomiting. Related Data Previous Rx's Medication Instructions Recorded lisinopril 20 1 tab PO QAM #90 tabs 09/19/23 mg-hydrochlorothiazide 12.5 mg tablet epinephrine 0.3 mg/0.3 mL 0.3 mg (0.3 mL) IM Q15M PRN 12/19/23 injection, auto-injector (EpiPen anaphylaxis #2 ea 2-Shawn) thiamine mononitrate (vit B1) 100 100 mg PO DAILY #30 tabs 02/10/24 mg tablet (Vitamin B-1 (mononitrate)) pantoprazole 40 mg tablet,delayed 40 mg PO BID #60 tabs 03/06/24 release hydrocodone 7.5 mg-acetaminophen 1 tab PO Q6H PRN pain #20 tabs 03/18/24 325 mg tablet Allergies Allergy/AdvReac Type Severity Reaction Status Date / Time cantaloupe Allergy Unknown ALGY-Swell Verified 04/07/24 09:19 Lip/Tongue/Throat kiwi Allergy Unknown ALGY-Anaphy Verified 04/07/24 09:19 laxis Review of Systems 2 Narrative: Constitutional symptoms: Negative except as documented in HPI. Skin symptoms: Negative except as documented in HPI. Eye symptoms: Negative except as documented in HPI. ENMT symptoms: Negative except as documented in HPI. Respiratory symptoms: Negative except as documented in HPI. Cardiovascular symptoms: Negative except as documented in HPI. Gastrointestinal symptoms: Negative except as documented in HPI. Genitourinary symptoms: Negative except as documented in HPI. Musculoskeletal symptoms: Negative except as documented in HPI. Neurologic symptoms: Negative except as documented in HPI. Psychiatric symptoms: Negative except as documented in HPI. Endocrine symptoms: Negative except as documented in HPI. PFSH ED 2 PFSH: Medical History GI bleed Acute blood loss anemia Alcohol abuse Acute upper gastrointestinal bleeding GERD (gastroesophageal reflux disease) Hyperlipidemia Hypertension Diverticulosis Hypertension Family history of colon cancer 09/15/2019: Normal colonoscopy except diverticulosis, follow-up colonoscopy in 2024 Surgical History History of excision of epidermal inclusion cyst Social History Smoking and tobacco/nicotine status: unknown if used tobacco/nicotine Alcohol intake: former Substance/Drug Use: never Physical Exam 2 Narrative: EXAM NARRATIVE: General: Alert, no acute distress. Skin: Warm, diaphoretic. Head: Normocephalic, atraumatic. Neck: Supple, trachea midline. Eye: Extraocular movements are intact. Ears, nose, mouth and throat: mucosa moist. Cardiovascular: Regular, Normal peripheral perfusion. Respiratory: Lungs are clear to auscultation, respirations are non-labored, breath sounds are equal, Symmetrical chest wall expansion. Gastrointestinal: Soft, Nontender, Non distended Musculoskeletal: Normal ROM, no deformity. Neurological: Alert and oriented, No focal neurological deficit observed. Psychiatric: Cooperative, appropriate mood & affect. Course 2 Vital Signs: Vital signs: Vital Signs Temperature 97.8 F 05/14/24 12:05 Pulse Rate 75 05/14/24 12:05 Respiratory Rate 96 H 05/14/24 12:05 Blood Pressure 113/60 05/14/24 12:05 Pulse Oximetry 96 05/14/24 12:05 Oxygen Delivery Me thod Room Air 05/14/24 12:05 MDM - Syncope Medical Decision Making Medical decision making: Differential diagnosis including but not limited to and based on the above HPI, review of systems and physical exam in this patient with syncope: Vasovagal, orthostatics hypotension, cardiac dysrhythmia, myocardial infarction, infection and hypotension, Orders placed to evaluate differential diagnosis based on the above differential, HPI and physical exam EKG: Time 1227. Rate 71. Normal sinus rhythm, No ST-T changes, no ectopy, normal CT & QRS intervals, This was reviewed and interpreted by myself the ER physician at 1230 Lab Review: Laboratory results were reviewed and interpreted by myself the emergency room physician. No leukocytosis. No anemia. Patient does have significant increase in his BUN/creatinine and 27 1.9 from creatinine around 1.3 a month or so ago. CT head: No acute intracranial process. no intracranial hemorrhage, no evidence of infarct. no evidence of acute fracture.This was reviewed and interpreted by myself the ER physician. CT of the chest without contrast: No rib fractures. No pneumothorax. No other acute process. This was reviewed and interpreted by myself the emergency room physician. I also reviewed the radiology report. I reviewed the patient's medical record. Reexamination: Patient remained stable. No increased work of breathing. No altered mental status. No focal motor deficits. Assessment and plan: Heat exposure Syncope Acute renal insufficiency Dehydration ?2 L normal saline bolus in the emergency room. Vitals have improved. Patient feels better. - Discharged home - Discussed findings and plan with patient. Answered any questions. - All laboratory values were reviewed and interpreted personally by myself, the ER physician - All imaging was reviewed and interpreted personally by myself, the ER physician. - Evaluation and treatment of this problem were appropriate in the emergency setting Lab Data 05/14/24 12:10 05/14/24 12:[address] 05/14/24 12:10 IMPRESSION: 1. No pulmonary contusion or pneumothorax. 2. Mild cardiomegaly. 3. No pneumonia. 4. Mild pulmonary enlargement. 5. Large hiatal hernia with fluid in the mid to distal esophagus. Suspect reflux disease. 6. Large renal cysts and prior cholecystectomy. Head CT 05/14/24 12:10 IMPRESSION: 1. No acute intracranial hemorrhage or edema. 2. Mild atrophy and mild small vessel disease. Laboratory Results WBC 10.58 10^3/uL (3.29-11.43) 05/14/24 12:10 RBC 4.67 10^6/uL (3.85-5.65) 05/14/24 12:10 Hgb 11.80 g/dL (11.27-16.99) 05/14/24 12:10 Hct 38.0 % (37-53) 05/14/24 12:10 MCV 81.4 fl (82-101) L 05/14/24 12:10 MCH 25.3 pg (27-33) L 05/14/24 12:10 MCHC 31.1 g/dL (30-55) 05/14/24 12:10 RDW 20.2 % (12.1-15.1) H 05/14/24 12:10 Plt Count 323 10^3/cmm (157-399) 05/14/24 12:10 MPV 10.3 fL (7.4-10.4) 05/14/24 12:10 Neut % (Auto) 70.2 % 05/14/24 12:10 Lymph % (Auto) 20.8 % 05/14/24 12:10 [place] % (Auto) 7.1 % 05/14/24 12:10 Eos % (Auto) 0.9 % 05/14/24 12:10 Baso % (Auto) 0.5 % 05/14/24 12:10 Neut # (Auto) 7.43 10^3/uL (1.8-7.7) 05/14/24 12:10 Lymph # (Auto) 2.2 10^3/uL (0.8-4.8) 05/14/24 12:10 [place] # (Auto) 0.8 10^3/uL (0.2-0.9) 05/14/24 12:10 Eos # (Auto) 0.1 10^3/uL (0.0-0.8) 05/14/24 12:10 Baso # (Auto) 0.1 10^3/uL (0.0-0.1) 05/14/24 12:10 Nucleated RBC % (auto) 0 % 05/14/24 12:10 Nucleated RBCs # 0.0 /100WBC 05/14/24 12:10 Sodium 136 mmol/L (136-145) 05/14/24 12:10 Potassium 3.7 mmol/L (3.5-5.1) 05/14/24 12:10 Chloride 91 mmol/L (98-107) L 05/14/24 12:10 Carbon Dioxide 21 mmol/L (22-29) L 05/14/24 12:10 Anion Gap 27.7 (5-19) H 05/14/24 12:10 BUN 27 mg/dL (8-23) H 05/14/24 12:10 Creatinine 1.9 mg/dL (0.7-1.2) H 05/14/24 12:10 GFR Calculation 35.2 mL/min (90-130) L 05/14/24 12:10 Glucose 166 mg/dL (65-115) H 05/14/24 12:10 Calculated Osmolality 291 mOsm/kg (285-295) 05/14/24 12:10 Calcium 9.7 mg/dL (8.5-10.5) 05/14/24 12:10 Total Bilirubin 2.2 mg/dL (0.15-1.2) H 05/14/24 12:10 AST 36 U/L (0-40) 05/14/24 12:10 ALT 28 U/L (0-41) 05/14/24 12:10 Alkaline Phosphatase 61 U/L (40-130) 05/14/24 12:10 Troponin T Baseline 38 ng/L (0-15) H 05/14/24 12:10 Total Protein 6.7 g/dL (6.6-8.7) 05/14/24 12:10 Albumin 4.4 g/dL (3.5-5.2) 05/14/24 12:10 Globulin 2.3 g/dL (1.3-4.6) 05/14/24 12:10 All radiology interpretation(s) finalized by discharge Discharge Plan Discharge Patient Disposition: Home Clinical Impression: Syncope, Dehydration, Acute renal insufficiency Condition: Stable Prescriptions: No Action pantoprazole 40 mg tablet,delayed release (DR/EC) 40 mg PO BID Qty: 60 12RF lisinopril-hydrochlorothiazide 20-12.5 mg tablet 1 tab PO QAM Qty: 90 3RF epinephrine [EpiPen 2-Shawn] 0.3 mg/0.3 mL auto-injector 0.3 mg IM Q15M PRN (Reason: anaphylaxis) Qty: 2 0RF Rx Instructions: for 3 doses thiamine mononitrate (vit B1) [Vitamin B-1 (mononitrate)] 100 mg Tablet 100 mg PO DAILY Qty: 30 0RF hydrocodone-acetaminophen 7.5-325 mg tablet 1 tab PO Q6H PRN (Reason: pain) Qty: 20 0RF Discharge Orders: Discharge ED (Routine); Ordered 05/14/24 Ordered By: Lexus Spain Referrals: Omari Ames MD [Primary Care Provider] - Discharge Diet: Usual diet Discharge Activity: Resume usual activity Patient Instructions: Dehydration (ED), Syncope (ED) Activity Restrictions/Additional Instructions: Please drink large amounts of Gatorade and water over the next several days. Avoid any further exertion in the heat and excessive sweating. Thank you for choosing [facility] for your healthcare needs today. Please realize this is an emergency room and that we are providing you with a medical screening exam and this may not be complete and all inclusive of all the testing and or work up that you may need to determine your ailment or severity of your illness. You have been screened and evaluated and felt safe for discharge. Health conditions do change or evolve sometimes and as such it is important that you follow up with your Primary Doctor to be re checked, 3-5 days is a general good time frame for follow up. You are always welcome to return to the ED for re assessment if your symptoms are worsening or you have new concerns Coding Level of Care Code ED Pulp Plant Supervisor for Giselle Horton
[2024-05-14 12:36] LABS: Alanine Aminotransferase 28 U/L (0-41); Albumin Level 4.4 g/dL (3.5-5.2); Alkaline Phosphatase 61 U/L (40-130); Anion Gap 27.7 (5-19); Aspartate Amino Transferase 36 U/L (0-40); Blood Urea Nitrogen 27 mg/dL (8-23); Calcium 9.7 mg/dL (8.5-10.5); Carbon Dioxide 21 mmol/L (22-29); Chloride 91 mmol/L (98-107); Globulin 2.3 g/dL (1.3-4.6); Glomerular Filtration Rate 35.2 mL/min (90-130); Glucose 166 mg/dL (65-115); Osmolality Calculated 291 mOsm/kg (285-295); Potassium 3.7 mmol/L (3.5-5.1); Sodium 136 mmol/L (136-145); Total Bilirubin 2.2 mg/dL (0.15-1.2); Total Protein 6.7 g/dL (6.6-8.7)
[2024-05-14 12:39] LABS: Troponin(5th) Baseline 38 ng/L (0-15)
[2024-05-14 13:30] VITALS: BP 128/62; PULSE 62; O2SAT 95
[2024-05-14 14:23] LABS: Troponin 5 2HR 30.25 ng/L (0-15)
[2024-05-14 14:25] LABS: Troponin 5 2HR Delta -7.75 ABS# (0-10)
[2024-05-14 14:26] VITALS: BP 155/74; PULSE 76; O2SAT 97
== END 2024-05-14 14:27 | disposition home or self-care (01) ==
PROVIDERS: Emergency Provider Emergency Medicine; PCP Family Medicine
DX: R55 Syncope and collapse (principal); E86.0 Dehydration; N28.9 Disorder of kidney and ureter, unspecified; E78.5 Hyperlipidemia, unspecified; I10 Essential (primary) hypertension
CPT/HCPCS: 36415; 70450; 71250; 80053; 84484; 85025; 93005; 96360; 99284; J7030

== ENCOUNTER → 2024-06-24 07:33 | Outpatient (BNVA) | payer MEDICARE, MEDICAID, SELFPAY | PROVIDERS: PCP Family Medicine; Visit Provider Family Medicine | DX: I10 Essential (primary) hypertension (principal); E78.5 Hyperlipidemia, unspecified; F10.10 Alcohol abuse, uncomplicated; K21.9 Gastro-esophageal reflux disease without esophagitis | CPT/HCPCS: 80053; 85025 ==

== ENCOUNTER 2024-07-07 13:53 | Observation (INO) | payer MEDICARE, MEDICAID, SELFPAY ==
[2024-07-07] VITALS (9 sets, daily range): BP systolic 166–188; BP diastolic 69–83; PULSE 83–107; RESP 16–22; TEMP 36.6–36.7; O2SAT 91–100; BMI 27.3
--- NOTE | 2024-07-07 16:35 | CTR_ITS ---
PROCEDURE INFORMATION: Exam: CT Abdomen And Pelvis With Contrast Exam date and time: 07/07/2024 5:15 PM Age: 68 years old Clinical indication: Abdominal pain; Other: Inguinal RT; Prior surgery; Surgery date: 6+ months; Surgery type: Hernia; Additional info: Abd pain TECHNIQUE: Imaging protocol: Computed tomography of the abdomen and pelvis with contrast. Radiation optimization: All CT scans at this facility use at least one of these dose optimization techniques: automated exposure control; mA and/or kV adjustment per patient size (includes targeted exams where dose is matched to clinical indication); or iterative reconstruction. Contrast material: OMNIPAQUE 350; Contrast volume: 100 ml; Contrast route: INTRAVENOUS (IV); COMPARISON: CT abdomen pelvis w con* [id number] 02/08/2024 6:22 PM RADIATION DOSE METRICS: Total DLP (mGy-cm): 763.96 FINDINGS: Diaphragm: Moderate hiatal hernia with residual fluid. Liver: Diffuse hepatic steatosis. No focal liver lesion. Gallbladder and biliary ducts: Normal. No calcified stones. No ductal dilation. Pancreas: Normal. No ductal dilation. Spleen: Normal. No splenomegaly. Adrenal glands: Normal. No mass. Kidneys and ureters: Multiple bilateral renal cysts are again seen and appears stable, again measuring up to 10.7 cm on the left and 10.9 cm on the right. No hydronephrosis. Stomach and bowel: Colonic diverticulosis without evidence of acute diverticulitis. No bowel obstruction. Appendix: No evidence of appendicitis. Intraperitoneal space: Unremarkable. No free air. No significant fluid collection. Vasculature: Mild atherosclerotic aortoiliac calcifications. No aortic aneurysm. Lymph nodes: Unremarkable. No enlarged lymph nodes. Urinary bladder: Unremarkable as visualized. Reproductive: Unremarkable as visualized. Bones/joints: Similar degenerative changes of the spine. Likely subacute nondisplaced fractures of the left posterior 12th rib and the left L1 through L3 transverse processes. Soft tissues: Small to moderate-sized right inguinal hernia containing fat and a nonobstructed portion of the cecum and terminal ileum. Small fat containing left inguinal hernia. CT/CT abdomen pelvis w con* [id number] IMPRESSION: 1. Small to moderate right inguinal hernia containing a portion of the cecum and terminal ileum. No evidence of obstruction. 2. Subacute nondisplaced fractures of the left posterior 12th rib and the L1 through L3 transverse processes on the left. 3. Remainder stable.
--- NOTE | 2024-07-07 16:36 | XRR_ITS ---
PROCEDURE INFORMATION: Exam: XR Chest Exam date and time: 07/07/2024 5:44 PM Age: 68 years old Clinical indication: Cough and dyspnea; Additional info: Dyspnea/cough TECHNIQUE: Imaging protocol: Radiologic exam of the chest. Views: 1 view. COMPARISON: CT chest con [id number] 05/14/2024 12:52 PM FINDINGS: Lungs: Unremarkable. No consolidation. Pleural spaces: Unremarkable. No pleural effusion. No pneumothorax. Heart/Mediastinum: Calcified left hilar nodes. Vasculature: Mildly tortuous thoracic aorta with atherosclerotic calcifications. Bones/joints: Unremarkable. XR/XR chest 1V portable [id number] IMPRESSION: No acute cardiopulmonary findings.
--- NOTE | 2024-07-07 16:36 | ECG_ITS ---
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 Measurements Intervals [place] Rate: 101 P: 62 SC: 153 QRS: -13 QRSD: 104 T: 18 QT: 360 QTc: 468 Interpretive Statements SINUS TACHYCARDIA WITH OCCASIONAL VENTRICULAR PREMATURE COMPLEXES Compared to ECG 05/14/2024 12:27:42 Ventricular premature complex(es) now present Sinus rhythm no longer present Myocardial infarct finding no longer present Electronically Signed On 07-10-2024 21:16:00 LOAN COUNSELOR by Reynaldo Hurst M.D. [id number]
--- NOTE | 2024-07-07 16:43 | ED_ITS ---
Documented by User: Ameya Hodges DO 07/08/24 05:59 HPI - Male Genitourinary 2 General: Chief complaint: Urogenital-Male Stated complaint: abd pain Time Seen by Provider: 07/07/24 16:06 History of Present Illness: 68-[facility]. States he has lower abdominal pain is gone plus he has epigastric pain. Patient is a heavy drinker he binge drink over the weekend drinking up to 1/5 of hard liquor a couple of days in a row. He has been vomiting coffee-ground like emesis today. He has not had any known esophageal varices that he can tell me. He does state at 1 point he had an injury to his esophagus associated with the procedure that was done in [place]. No known history of coronary artery disease. Associated symptoms: Reports nausea and vomiting; Deny dysuria Related Data Previous Rx's Medication Instructions Recorded lisinopril 20 1 tab PO QAM #90 tabs 09/19/23 mg-hydrochlorothiazide 12.5 mg tablet epinephrine 0.3 mg/0.3 mL 0.3 mg (0.3 mL) IM Q15M PRN 12/19/23 injection, auto-injector (EpiPen anaphylaxis #2 ea 2-Shawn) pantoprazole 40 mg tablet,delayed 40 mg PO BID #60 tabs 03/06/24 release Allergies Allergy/AdvReac Type Severity Reaction Status Date / Time cantaloupe Allergy Unknown ALGY-Swell Verified 07/07/24 14:09 Lip/Tongue/Throat kiwi Allergy Unknown ALGY-Anaphy Verified 07/07/24 14:09 laxis Review of Systems 2 Const: Denies: fever(s) or chills Card: Denies: chest pain Resp: Denies: dyspnea GI: Reports: abdominal pain, nausea, vomiting and coffee ground emesis : Denies: dysuria, urinary frequency or urinary urgency Musc: Denies: neck pain or back pain Skin/Breast: Denies: rash PFSH ED 2 PFSH: Medical History GI bleed Acute blood loss anemia Alcohol abuse Acute upper gastrointestinal bleeding GERD (gastroesophageal reflux disease) Hyperlipidemia Hypertension Diverticulosis Hypertension Family history of colon cancer 09/15/2019: Normal colonoscopy except diverticulosis, follow-up colonoscopy in 2024 Surgical History History of excision of epidermal inclusion cyst Social History Smoking and tobacco/nicotine status: unknown if used tobacco/nicotine Alcohol intake: former Substance/Drug Use: never Physical Exam 2 Const: GENERAL APPEARANCE: cooperative ORIENTATION/CONSCIOUSNESS: Yes awake, Yes oriented to person, Yes oriented to place and Yes oriented to time HENMT: COMMON NORMALS: normocephalic, atraumatic and hearing grossly normal bilaterally HEAD & SCALP: normocephalic and atraumatic Resp: COMMON NORMALS: normal respiratory effort, No retractions, No use of accessory muscles and clear to auscultation bilaterally AUSCULTATION: clear to auscultation bilaterally Cardio: COMMON NORMALS: regular rate, regular rhythm and No murmurs present (Cardio) RATE: regular rate RHYTHM: regular rhythm GI: COMMON NORMALS: No hepatosplenomegaly present AUSCULTATION: Yes normoactive bowel sounds PALPATION: Yes Tenderness to palpation present (GI) (Epigastric and lateral right inguinal region), No Guarding due to palpation present (GI) and Yes No hepatosplenomegaly present OTHER: Full supposed to the right inguinal region consistent with an inguinal hernia easily reduced completely with direct pressure Extremity: COMMON NORMALS: normal to inspection, capillary refill normal, no clubbing, cyanosis or edema, no calf tenderness and no pedal edema Neuro: SENSORIUM/ORIENTATION: Yes oriented to person, Yes oriented to place and Yes oriented to time Skin: COMMON NORMALS: no rashes or lesions noted GENERAL SKIN EXAM: no rashes or lesions noted Course 2 Vital Signs: Vital signs: Vital Signs Temperature 98.7 F 07/08/24 04:00 Pulse Rate 85 07/08/24 04:00 Respiratory Rate 17 07/08/24 04:00 Blood Pressure 159/93 07/08/24 04:00 Pulse Oximetry 97 07/08/24 04:00 Oxygen Delivery Me thod Room Air 07/08/24 04:00 MDM - Male Medical Decision Making Care signed out to Dr. Spain at change of shift. See final notes for diagnosis and disposition. Patient care transition at shift change awaiting occult of gastric contents. This was positive. Lab review. No leukocytosis. Hemoglobin is stable 11.3, however his BUN and creatinine are up at 42 and 1.6 which would be quite indicative of an upper GI bleed. CT of the abdomen pelvis: There is a inguinal hernia. Subcu left posterior rib fractures. Nothing acute. This was reviewed and interpreted by myself the emergency room physician. I also reviewed the radiology report. Consultation: I spoke with Dr. Prince who is on-call for general surgery and has seen the patient before. He will perform endoscopy in the morning. He recommends n.p.o. after midnight. Carafate. And Protonix. These have all been given Consultation: I spoke with Dr. Freeman who is on-call for the hospitalist service who agrees to admission. Assessment and plan: Upper GI bleeding Binge alcohol drinking Acute renal insufficiency -I discussed the patient with the hospitalist on-call who is admitting the patient. - Discussed findings and plan with patient. Answered any questions. - All laboratory values were reviewed and interpreted personally by myself, the ER physician - All imaging was reviewed and interpreted personally by myself, the ER physician. - Evaluation and treatment of this problem were appropriate in the emergency setting Lab Data 07/08/24 05:24 07/07/24 17:09 Radiology Impressions Abdomen/Pelvis CT 07/07/24 16:35 IMPRESSION: 1. Small to moderate right inguinal hernia containing a portion of the cecum and terminal ileum. No evidence of obstruction. 2. Subacute nondisplaced fractures of the left posterior 12th rib and the L1 through L3 transverse processes on the left. 3. Remainder stable. Chest X-Ray 07/07/24 16:36 IMPRESSION: No acute cardiopulmonary findings. Laboratory Results WBC 10.56 10^3/uL (3.29-11.43) 07/07/24 17:09 RBC 4.54 10^6/uL (3.85-5.65) 07/07/24 17:09 Hgb 11.30 g/dL (11.27-16.99) 07/07/24 17:09 Hct 35.5 % (37-53) L 07/07/24 17:09 MCV 78.2 fl (82-101) L 07/07/24 17:09 MCH 24.9 pg (27-33) L 07/07/24 17:09 MCHC 31.8 g/dL (30-55) 07/07/24 17:09 RDW 18.9 % (12.1-15.1) H 07/07/24 17:09 Plt Count 373 10^3/cmm (157-399) 07/07/24 17:09 MPV 9.4 fL (7.4-10.4) 07/07/24 17:09 Neut % (Auto) 86.6 % 07/07/24 17:09 Lymph % (Auto) 4.1 % 07/07/24 17:09 Oliver % (Auto) 8.7 % 07/07/24 17:09 Eos % (Auto) 0.0 % 07/07/24 17:09 Baso % (Auto) 0.2 % 07/07/24 17:09 Neut # (Auto) 9.15 10^3/uL (1.8-7.7) H 07/07/24 17:09 Lymph # (Auto) 0.4 10^3/uL (0.8-4.8) L 07/07/24 17:09 Oliver # (Auto) 0.9 10^3/uL (0.2-0.9) 07/07/24 17:09 Eos # (Auto) 0.0 10^3/uL (0.0-0.8) 07/07/24 17:09 Baso # (Auto) 0.0 10^3/uL (0.0-0.1) 07/07/24 17:09 Nucleated RBC % (auto) 0 % 07/07/24 17:09 Nucleated RBCs # 0.0 /100WBC 07/07/24 17:09 PT 13.70 SECONDS (12.1-14.9) 07/07/24 17:09 INR 1.02 (0.8-1.2) 07/07/24 17:09 APTT 22.7 SECONDS (23.9-36.7) L 07/07/24 17:09 Sodium 144 mmol/L (136-145) 07/07/24 17:09 Potassium 3.7 mmol/L (3.5-5.1) 07/07/24 17:09 Chloride 93 mmol/L (98-107) L 07/07/24 17:09 Carbon Dioxide 24 mmol/L (22-29) 07/07/24 17:09 Anion Gap 30.7 (5-19) H 07/07/24 17:09 BUN 42 mg/dL (8-23) H 07/07/24 17:09 Creatinine 1.6 mg/dL (0.7-1.2) H 07/07/24 17:09 GFR Calculation 42.9 mL/min (90-130) L 07/07/24 17:09 Glucose 154 mg/dL (65-115) H 07/07/24 17:09 Calculated Osmolality 312 mOsm/kg (285-295) H 07/07/24 17:09 Lactic Acid 9.4 mmol/L (0.5-2.2) H* 07/07/24 17:09 Calcium 9.7 mg/dL (8.5-10.5) 07/07/24 17:09 Total Bilirubin 1.1 mg/dL (0.15-1.2) 07/07/24 17:09 AST 46 U/L (0-40) H 07/07/24 17:09 ALT 36 U/L (0-41) 07/07/24 17:09 Alkaline Phosphatase 65 U/L (40-130) 07/07/24 17:09 Total Protein 6.9 g/dL (6.6-8.7) 07/07/24 17:09 Albumin 4.5 g/dL (3.5-5.2) 07/07/24 17:09 Globulin 2.4 g/dL (1.3-4.6) 07/07/24 17:09 Lipase 21 U/L (13-60) 07/07/24 17:09 Vitamin B12 378 pg/mL (232-1245) 07/07/24 17:09 Gastric Occult Blood Positive (Negative) H 07/07/24 18:03 Ethyl Alcohol < 10 mg/dL (0-10) 07/07/24 17:09 Blood Type A Positive 07/07/24 17:35 Rho(D) Type Rh positive 07/07/24 17:35 Antibody Screen Negative 07/07/24 17:35 Discharge Plan Discharge Patient Disposition: Admitted As Inpatient Admit Provider: eTodoro Freeman Clinical Impression: Acute upper GI bleeding, Acute renal insufficiency, Alcohol consumption binge drinking, Hernia, inguinal, right Condition: Stable Coding Level of Care Code ED Customer Services Coordinator for [employer] Documented by User: Lexus Spain MD 07/07/24 19:45 HPI - Male Genitourinary 2 General: Chief complaint: Urogenital-Male Stated complaint: abd pain Time Seen by Provider: 07/07/24 16:06 Related Data Previous Rx's Medication Instructions Recorded lisinopril 20 1 tab PO QAM #90 tabs 09/19/23 mg-hydrochlorothiazide 12.5 mg tablet epinephrine 0.3 mg/0.3 mL 0.3 mg (0.3 mL) IM Q15M PRN 12/19/23 injection, auto-injector (EpiPen anaphylaxis #2 ea 2-Shawn) pantoprazole 40 mg tablet,delayed 40 mg PO BID #60 tabs 03/06/24 release Allergies Allergy/AdvReac Type Severity Reaction Status Date / Time cantaloupe Allergy Unknown ALGY-Swell Verified 07/07/24 14:09 Lip/Tongue/Throat kiwi Allergy Unknown ALGY-Anaphy Verified 07/07/24 14:09 laxis PFSH ED 2 PFSH: Medical History GI bleed Acute blood loss anemia Alcohol abuse Acute upper gastrointestinal bleeding GERD (gastroesophageal reflux disease) Hyperlipidemia Hypertension Diverticulosis Hypertension Family history of colon cancer 09/15/2019: Normal colonoscopy except diverticulosis, follow-up colonoscopy in 2024 Surgical History History of excision of epidermal inclusion cyst Social History Smoking and tobacco/nicotine status: unknown if used tobacco/nicotine Alcohol intake: former Substance/Drug Use: never Course 2 Vital Signs: Vital signs: Vital Signs Temperature 98.7 F 07/08/24 04:00 Pulse Rate 85 07/08/24 04:00 Respiratory Rate 17 07/08/24 04:00 Blood Pressure 159/93 07/08/24 04:00 Pulse Oximetry 97 07/08/24 04:00 Oxygen Delivery Me thod Room Air 07/08/24 04:00 MDM - Male Medical Decision Making Patient care transition at shift change awaiting occult of gastric contents. This was positive. Lab review. No leukocytosis. Hemoglobin is stable 11.3, however his BUN and creatinine are up at 42 and 1.6 which would be quite indicative of an upper GI bleed. CT of the abdomen pelvis: There is a inguinal hernia. Subcu left posterior rib fractures. Nothing acute. This was reviewed and interpreted by myself the emergency room physician. I also reviewed the radiology report. Consultation: I spoke with Dr. Prince who is on-call for general surgery and has seen the patient before. He will perform endoscopy in the morning. He recommends n.p.o. after midnight. Carafate. And Protonix. These have all been given Consultation: I spoke with Dr. Freeman who is on-call for the hospitalist service who agrees to admission. Assessment and plan: Upper GI bleeding Binge alcohol drinking Acute renal insufficiency -I discussed the patient with the hospitalist on-call who is admitting the patient. - Discussed findings and plan with patient. Answered any questions. - All laboratory values were reviewed and interpreted personally by myself, the ER physician - All imaging was reviewed and interpreted personally by myself, the ER physician. - Evaluation and treatment of this problem were appropriate in the emergency setting Lab Data 07/08/24 05:24 07/07/24 17:09 Radiology Impressions Abdomen/Pelvis CT 07/07/24 16:35 IMPRESSION: 1. Small to moderate right inguinal hernia containing a portion of the cecum and terminal ileum. No evidence of obstruction. 2. Subacute nondisplaced fractures of the left posterior 12th rib and the L1 through L3 transverse processes on the left. 3. Remainder stable. Chest X-Ray 07/07/24 16:36 IMPRESSION: No acute cardiopulmonary findings. Laboratory Results WBC 10.56 10^3/uL (3.29-11.43) 07/07/24 17:09 RBC 4.54 10^6/uL (3.85-5.65) 07/07/24 17:09 Hgb 11.30 g/dL (11.27-16.99) 07/07/24 17:09 Hct 35.5 % (37-53) L 07/07/24 17:09 MCV 78.2 fl (82-101) L 07/07/24 17:09 MCH 24.9 pg (27-33) L 07/07/24 17:09 MCHC 31.8 g/dL (30-55) 07/07/24 17:09 RDW 18.9 % (12.1-15.1) H 07/07/24 17:09 Plt Count 373 10^3/cmm (157-399) 07/07/24 17:09 MPV 9.4 fL (7.4-10.4) 07/07/24 17:09 Neut % (Auto) 86.6 % 07/07/24 17:09 Lymph % (Auto) 4.1 % 07/07/24 17:09 Oliver % (Auto) 8.7 % 07/07/24 17:09 Eos % (Auto) 0.0 % 07/07/24 17:09 Baso % (Auto) 0.2 % 07/07/24 17:09 Neut # (Auto) 9.15 10^3/uL (1.8-7.7) H 07/07/24 17:09 Lymph # (Auto) 0.4 10^3/uL (0.8-4.8) L 07/07/24 17:09 Oliver # (Auto) 0.9 10^3/uL (0.2-0.9) 07/07/24 17:09 Eos # (Auto) 0.0 10^3/uL (0.0-0.8) 07/07/24 17:09 Baso # (Auto) 0.0 10^3/uL (0.0-0.1) 07/07/24 17:09 Nucleated RBC % (auto) 0 % 07/07/24 17:09 Nucleated RBCs # 0.0 /100WBC 07/07/24 17:09 PT 13.70 SECONDS (12.1-14.9) 07/07/24 17:09 INR 1.02 (0.8-1.2) 07/07/24 17:09 APTT 22.7 SECONDS (23.9-36.7) L 07/07/24 17:09 Sodium 144 mmol/L (136-145) 07/07/24 17:09 Potassium 3.7 mmol/L (3.5-5.1) 07/07/24 17:09 Chloride 93 mmol/L (98-107) L 07/07/24 17:09 Carbon Dioxide 24 mmol/L (22-29) 07/07/24 17:09 Anion Gap 30.7 (5-19) H 07/07/24 17:09 BUN 42 mg/dL (8-23) H 07/07/24 17:09 Creatinine 1.6 mg/dL (0.7-1.2) H 07/07/24 17:09 GFR Calculation 42.9 mL/min (90-130) L 07/07/24 17:09 Glucose 154 mg/dL (65-115) H 07/07/24 17:09 Calculated Osmolality 312 mOsm/kg (285-295) H 07/07/24 17:09 Lactic Acid 9.4 mmol/L (0.5-2.2) H* 07/07/24 17:09 Calcium 9.7 mg/dL (8.5-10.5) 07/07/24 17:09 Total Bilirubin 1.1 mg/dL (0.15-1.2) 07/07/24 17:09 AST 46 U/L (0-40) H 07/07/24 17:09 ALT 36 U/L (0-41) 07/07/24 17:09 Alkaline Phosphatase 65 U/L (40-130) 07/07/24 17:09 Total Protein 6.9 g/dL (6.6-8.7) 07/07/24 17:09 Albumin 4.5 g/dL (3.5-5.2) 07/07/24 17:09 Globulin 2.4 g/dL (1.3-4.6) 07/07/24 17:09 Lipase 21 U/L (13-60) 07/07/24 17:09 Vitamin B12 378 pg/mL (232-1245) 07/07/24 17:09 Gastric Occult Blood Positive (Negative) H 07/07/24 18:03 Ethyl Alcohol < 10 mg/dL (0-10) 07/07/24 17:09 Blood Type A Positive 07/07/24 17:35 Rho(D) Type Rh positive 07/07/24 17:35 Antibody Screen Negative 07/07/24 17:35 All radiology interpretation(s) finalized by discharge Discharge Plan Discharge Patient Disposition: Admitted As Inpatient Admit Provider: Teodoro Freeamn Clinical Impression: Acute upper GI bleeding, Acute renal insufficiency, Alcohol consumption binge drinking, Hernia, inguinal, right Condition: Stable Coding Level of Care Code ED Customer Services Coordinator for Giselle Horton
[2024-07-07] MEDS: ondansetron 2 mg/ML SDV 2 mL 4 MG IVP ×2 (17:03→21:28)
[2024-07-07] MEDS: pantoprazole 40 mg SDV 80 MG IVP (17:05)
[2024-07-07] MEDS: iohexol 350 mg/mL 500 mL Btl (per mL) IV (17:16)
[2024-07-07 17:33] LABS: Basophils % 0.2 %; Hematocrit 35.5 % (37-53); Lymphocytes # 0.4 10^3/uL (0.8-4.8); Lymphocytes % 4.1 %; Mean Corpuscular HGB Conc 31.8 g/dL (30-55); Mean Corpuscular Hemoglobin 24.9 pg (27-33); Mean Corpuscular Volume 78.2 fl (82-101); Mean Platelet Volume 9.4 fL (7.4-10.4); Monocytes # 0.9 10^3/uL (0.2-0.9); Monocytes % 8.7 %; Neutrophils # 9.15 10^3/uL (1.8-7.7); Neutrophils % 86.6 %; Nucleated Red Blood Cells % 0 %; Platelet Count 373 10^3/cmm (157-399); Red Blood Count 4.54 10^6/uL (3.85-5.65); Red Cell Distribution Width 18.9 % (12.1-15.1); White Blood Count 10.56 10^3/uL (3.29-11.43)
[2024-07-07 17:52] LABS: Alanine Aminotransferase 36 U/L (0-41); Albumin Level 4.5 g/dL (3.5-5.2); Alkaline Phosphatase 65 U/L (40-130); Anion Gap 30.7 (5-19); Aspartate Amino Transferase 46 U/L (0-40); Blood Urea Nitrogen 42 mg/dL (8-23); Calcium 9.7 mg/dL (8.5-10.5); Carbon Dioxide 24 mmol/L (22-29); Chloride 93 mmol/L (98-107); Creatinine Clr Calc Pharmacy 43.3925; Globulin 2.4 g/dL (1.3-4.6); Glomerular Filtration Rate 42.9 mL/min (90-130); Glucose 154 mg/dL (65-115); Lipase 21 U/L (13-60); Osmolality Calculated 312 mOsm/kg (285-295); Potassium 3.7 mmol/L (3.5-5.1); Sodium 144 mmol/L (136-145); Total Bilirubin 1.1 mg/dL (0.15-1.2); Total Protein 6.9 g/dL (6.6-8.7)
[2024-07-07 17:54] LABS: Alcohol Level < 10 mg/dL (0-10)
[2024-07-07 17:58] LABS: Lactic Sepsis W/Reflex 9.4 mmol/L (0.5-2.2)
[2024-07-07 18:30] LABS: Gastricult Occult Blood Positive (Negative)
[2024-07-07 18:39] LABS: INR 1.02 (0.8-1.2); Partial Thromboplastin Time 22.7 SECONDS (23.9-36.7)
[2024-07-07 19:26] LABS: Reflex Lactate Order REFLEX LACTIC ORDERD
--- NOTE | 2024-07-07 19:40 | P.HP_ITS ---
Providers/Chief Complaint 2 Primary Care Provider: Omari Ames MD Chief Complaint: abd pain History of Present Illness James Austin is a 68 year old male history of binge drinking, alcohol abuse, coffee-ground emesis history, 02/11/2024 had EGD done which showed hiatal hernia and ulcerative esophagitis, biopsy is showing benign gastric mucosa no signs of H. pylori infection no intestinal metaplasia or dysplasia, biopsy of the mass on his back showed epidermal inclusion cyst no sign of malignancy Patient is stating that he was sober until few days ago he noticed that he had a large bottle of alcohol in his house, he lives alone, he drink 1/5 alcohol shots for next 3 days then started experiencing nausea along emesis, he noticed dark- colored emesis, he has had multiple episodes in last 24 hours, he patient is denying history of alcohol withdrawal-related seizure history. No chest pain shortness of breath or vomiting at the time of my evaluation patient is hypertensive with heart rate around 80s. Workup in the ER revealed alcohol-induced acidosis, hemoglobin and blood pressure stable, Dr. Prince consulted for an EGD who will plan to scope the patient in the morning, hemoglobin 11.3, BUN 42, creatinine 1.6 Patient is stating that he is motivated to quit alcohol he is looking forward to seeing his grandkids grow up Review of Systems 2 Const: Denies: fever(s) Eyes: Denies: change in vision ENMT: Denies: throat pain Card: Denies: chest pain Resp: Denies: dyspnea GI: Reports: abdominal pain, nausea and coffee ground emesis Medications/Allergies Home Medications Medication Instructions Recorded Confirmed Last Taken Type lisinopril 20 1 tab PO QAM #90 tabs 09/19/23 07/07/24 07/07/24 Rx mg-hydrochlorothiazide 12.5 mg tablet epinephrine 0.3 mg/0.3 mL 0.3 mg (0.3 mL) IM Q15M PRN 12/19/23 07/07/24 Unknown Rx injection, auto-injector (EpiPen anaphylaxis #2 ea 2-Shawn) pantoprazole 40 mg tablet,delayed 40 mg PO BID #60 tabs 03/06/24 07/07/24 07/07/24 Rx release Allergies Allergy/AdvReac Type Severity Reaction Status Date / Time cantaloupe Allergy Unknown ALGY-Swell Verified 07/07/24 14:09 Lip/Tongue/Throat kiwi Allergy Unknown ALGY-Anaphy Verified 07/07/24 14:09 laxis PFSH Acute 2 PFSH: Medical History GI bleed Acute blood loss anemia Alcohol abuse Acute upper gastrointestinal bleeding GERD (gastroesophageal reflux disease) Hyperlipidemia Hypertension Diverticulosis Hypertension Family history of colon cancer 09/15/2019: Normal colonoscopy except diverticulosis, follow-up colonoscopy in 2024 Surgical History History of excision of epidermal inclusion cyst Social History Smoking and tobacco/nicotine status: unknown if used tobacco/nicotine Alcohol intake: former Substance/Drug Use: never Vitals/I&O/Wt Last Vital Signs Temp 97.8 F 07/07/24 14:04 Pulse 96 07/07/24 18:33 Resp 17 07/07/24 17:15 BP 166/69 07/07/24 18:33 Pulse Ox 94 07/07/24 18:33 O2 Del Method Room Air 07/07/24 14:04 Weight last 48 hrs Weight 79.379 kg Physical Exam 2 Narrative: Awake and alert Dehydrated GCS 15 Mild sign of alcohol withdrawal with coarse tremors Hemodynamically stable Hypertensive Normal sinus rhythm heart rate 80s Abdomen soft No active chest pain or shortness of breath Currently on room air Pleasant Appears stated age Laying supine in his bed Data 07/07/24 17:09 07/07/24 17:09 Micro: Microbiology 07/07/24 17:35 Blood Culture - Preliminary Blood SPECIMEN COLLECTED A&P Assessment and plan (1) Alcohol abuse: (2) Alcohol consumption binge drinking: (3) Hypertension: (4) GERD (gastroesophageal reflux disease): (5) GI bleed: (6) Acute renal insufficiency: (7) Metabolic acidosis: Plan Coffee-ground emesis Binge drinking History of ulcerative esophagitis Start sucralfate and Protonix Normal history of H. pylori as per previous biopsy report I will keep patient on n.p.o. 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 General Surgery consulted for EGD in the morning DVT prophylaxis: With SCDs Attestations 2 Medical Necessity Statement*: Anticipating discharge within 48 hours Diagnoses Alcohol abuse F10.10 Alcohol consumption binge drinking F10.10 Hypertension I10 GERD (gastroesophageal reflux disease) K21.9 GI bleed K92.2 Acute renal insufficiency N28.9 Metabolic acidosis E87.20
[2024-07-07 20:44] LABS: Lactic Acid level (Lactate) 4.1 mmol/L (0.5-2.2)
[2024-07-07] MEDS: sucralfate 1 gm/10 mL Oral Liq UDC PO (20:51)
[2024-07-07] MEDS: dextrose 5%-lactated ringers 1,000 ML 75 ML IV (21:28)
[2024-07-07] MEDS: labetalol 5 mg/mL SDV 20mL 10 MG IVP (21:28)
[2024-07-07 23:47] LABS: Vitamin B12 378 pg/mL (232-1245)
[2024-07-08] VITALS (13 sets, daily range): BP systolic 133–180; BP diastolic 59–93; PULSE 63–85; RESP 16–20; TEMP 36.5–37.2; O2SAT 92–98
[2024-07-08 05:46] LABS: Basophils % 0.1 %; Eosinophils % 0.2 %; Lymphocytes # 0.8 10^3/uL (0.8-4.8); Lymphocytes % 7.7 %; Mean Corpuscular HGB Conc 32.1 g/dL (30-55); Mean Corpuscular Hemoglobin 25.5 pg (27-33); Mean Corpuscular Volume 79.3 fl (82-101); Mean Platelet Volume 9.5 fL (7.4-10.4); Monocytes # 1.2 10^3/uL (0.2-0.9); Monocytes % 11.2 %; Neutrophils # 8.33 10^3/uL (1.8-7.7); Neutrophils % 80.5 %; Nucleated Red Blood Cells % 0 %; Platelet Count 277 10^3/cmm (157-399); Red Blood Count 4.16 10^6/uL (3.85-5.65); White Blood Count 10.35 10^3/uL (3.29-11.43)
[2024-07-08 06:04] LABS: Anion Gap 16.6 (5-19); Blood Urea Nitrogen 40 mg/dL (8-23); Calcium 8.8 mg/dL (8.5-10.5); Carbon Dioxide 33 mmol/L (22-29); Chloride 99 mmol/L (98-107); Creatinine Clr Calc Pharmacy 53.4061; Glomerular Filtration Rate 54.6 mL/min (90-130); Glucose 150 mg/dL (65-115); Magnesium 2.1 mg/dL (1.7-2.3); Osmolality Calculated 313 mOsm/kg (285-295); Phosphorus 2.8 mg/dL (2.5-4.5); Potassium 3.6 mmol/L (3.5-5.1); Sodium 145 mmol/L (136-145)
[2024-07-08] MEDS: sucralfate 1 gm/10 mL Oral Liq UDC PO (06:07)
[2024-07-08] MEDS: ondansetron 2 mg/ML SDV 2 mL 4 MG IVP ×3 (08:37→22:36)
[2024-07-08] MEDS: pantoprazole 40 mg SDV IVP ×2 (08:53→17:15)
[2024-07-08] MEDS: sennosides-docusate Tablet 1 TAB PO (08:59)
--- NOTE | 2024-07-08 10:04 | PC.CHAP ---
Pastoral Care Encounter/Spiritual Assessment Type of Contact [] Declined vein pumper visit [] Patient/Family/Request visit [] Outpatient visit [] Follow-up visit [] Physician referral [] Code/Alert [x] Routine visit [] Staff referral [] Actively dying [] Patient sleeping [] Family support [] [] Out of room [] Palliative care [] [] Receiving care in room [] Pre-surgical visit [] Trauma [] Long length of stay [] ICU visit [] Other: Relational/Emotional Strength [x] Patient feels connected with others/family/visitors/staff [] Distress [] Loneliness/isolation [] Abandonment Spirituality of Patient [x] Person of Skye [] Attends Yazdanism of their [place] [x] Believes in Prayer [] Reads Bible or Orthodox materials [] There are Spiritual issues to be addressed [place] [employer] Interventions [x] Prayer [x] Active listening [] Non-anxious presence [x] Spiritual/emotional support [] Crisis/trauma care [] Spiritual counseling [] Bereavement support [] Provided bereavement packet [] Provided Bible/devotional materials [] Provided toy/stuffed animal, coloring book to patient or family member [] Provided Communion [] Anointing/[place] [] Salvation [x] Completed spiritual assessment [] Other: Impact on Illness or Injury [] Angry [] Fearful [] Anxious [] Often cries [] Exhaustion [] Unable to work [] Unable to attend mormon [] Unable to walk/stand [] Unable to read [] Unable to drive [] Unable to eat/drink [] Unable to sleep [] Unable to be with family [] Patient intubated [] Other: Summary Time spent with patient 5 min
--- NOTE | 2024-07-08 11:00 | P.CONIM_ITS ---
Providers/Reason For Consult 2 Consulting Physician/Specialty*: Dr. Alek Prince, DO/General Surgery Reason for Consult*: Hematemesis Attending Physician: Victoriano Harry MD Primary Care Provider: Omari Ames MD History of Present Illness History of Present Illness James Austin is a 68 year old male, with a history of alcoholism, who presented to the hospital with coffee-ground emesis. Earlier this year he presented to the hospital for the same reason and I performed an EGD where I found ulcerated esophagitis with bleeding that was controlled with epinephrine injections. He recently had a relapse and drink hard liquor. He denies any abdominal pain, diarrhea, hematochezia and/or melena. He reports that he has been constipated but did have a small bowel movement this morning. He has known bilateral groin hernias and an umbilical hernia. General surgery was consulted for possible endoscopy Review of Systems 2 General: Reports: 10 or more systems reviewed and unremarkable except in HPI and below Medications/Allergies Home Medications Medication Instructions Recorded Confirmed Last Taken Type lisinopril 20 1 tab PO QAM #90 tabs 09/19/23 07/07/24 07/07/24 Rx mg-hydrochlorothiazide 12.5 mg tablet epinephrine 0.3 mg/0.3 mL 0.3 mg (0.3 mL) IM Q15M PRN 12/19/23 07/07/24 Unknown Rx injection, auto-injector (EpiPen anaphylaxis #2 ea 2-Shawn) pantoprazole 40 mg tablet,delayed 40 mg PO BID #60 tabs 03/06/24 07/07/24 07/07/24 Rx release Allergies Allergy/AdvReac Type Severity Reaction Status Date / Time cantaloupe Allergy Unknown ALGY-Swell Verified 07/07/24 14:09 Lip/Tongue/Throat kiwi Allergy Unknown ALGY-Anaphy Verified 07/07/24 14:09 laxis Current Medications Generic Name Dose Route Start Last Admin Trade Name Freq PRN Reason Stop Dose Admin Folic Acid 1 mg 07/08/24 09:00 07/08/24 08:58 Folic Acid 1 Mg Tablet PO Not Given DAILY MARSHA Dextrose/Lactated Ringer's 1,000 mls @ 75 mls/hr 07/07/24 21:04 07/08/24 10:53 Dextrose 5%-Lactated Ringers IV Infused .[id number] MARSHA Infusion Labetalol HCl 10 mg 07/07/24 21:04 07/07/24 21:28 Labetalol 5 Mg/Ml Sdv 20ml IVP 10 mg Q4H PRN Administration hr>140, bp>180/100 Multivitamins Therapeutic 1 tab 07/08/24 09:00 07/08/24 08:59 Multivitamin Therapeutic Tablet PO Not Given DAILY MARSHA Ondansetron HCl 4 mg 07/07/24 21:04 07/08/24 08:37 Ondansetron 2 Mg/Ml Sdv 2 Ml IVP 4 mg Q6H PRN Administration NAUSEA AND VOMITING Pantoprazole Sodium 40 mg 07/08/24 09:00 07/08/24 08:53 Pantoprazole 40 Mg Sdv IVP 40 mg BID MARSHA Administration Senna/Docusate Sodium 1 tab 07/08/24 09:00 07/08/24 08:59 Sennosides-Docusate Tablet PO 1 tab DAILY MARSHA Administration Sucralfate 1 gm 07/08/24 07:00 07/08/24 10:53 Sucralfate 1 Gm/10 Ml Oral Liq Udc PO Not Given AC MARSHA Thiamine Mononitrate 100 mg 07/08/24 09:00 07/08/24 08:59 Thiamine 100 Mg Tablet PO Not Given DAILY MARSHA PFSH Acute 2 PFSH: Medical History GI bleed Acute blood loss anemia Alcohol abuse Acute upper gastrointestinal bleeding GERD (gastroesophageal reflux disease) Hyperlipidemia Hypertension Diverticulosis Hypertension Family history of colon cancer 09/15/2019: Normal colonoscopy except diverticulosis, follow-up colonoscopy in 2024 Surgical History History of excision of epidermal inclusion cyst Social History Smoking and tobacco/nicotine status: unknown if used tobacco/nicotine Alcohol intake: former Substance/Drug Use: never Vitals/I&O/Wt Last Vital Signs Temp 98.2 F 07/08/24 07:41 Pulse 73 07/08/24 07:41 Resp 16 07/08/24 07:41 BP 155/73 07/08/24 07:41 Pulse Ox 97 07/08/24 07:41 O2 Del Method Room Air 07/08/24 07:41 07/07/24 07/08/24 07/08/24 22:59 06:59 14:59 Intake Total 45 / 45 1000 / 1000 Output Total 600 / 600 Balance 45 / 45 -600 / -555 1000 / 1000 Weight last 48 hrs Weight 175 lb Weight 175 lb Weight 175 lb Physical Exam 2 Narrative: General : Patient is well developed , no acute distress, oriented x3 Head : Normal cephalic, a-traumatic. Ears : Pinnae and external canal are normal. Hearing is normal. Eyes : PERRLA, Sclera and injection are normal. No conjunctival discharge. Nose : Mucous membranes are without erythema. Throat : buccal mucosa is normal, gums are without significant recession or hypertrophy. Lungs : Equal chest rise bilaterally, no use of accessory muscles, trachea is midline. Cor : Rate and rhythm are normal. Abdomen : Soft, ND, mild tenderness over a reducible umbilical and bilateral inguinal hernias, his right groin appears to have bowel in it, no g/r/m Extremities : No edema, no cyanosis or clubbing, dorsalis pedis pulses are present bilaterally, non-tender to palpation of calves. Upper extremities are normal bilaterally. Back : non-tender to palpation, no CVA tenderness. Neuro : CN II - XII intact, Upper and lower extremities have equal and full strength Data 07/08/24 05:24 07/08/24 05:24 Micro: Microbiology 07/07/24 20:03 Blood Culture - Preliminary Blood SPECIMEN COLLECTED 07/07/24 17:35 Blood Culture - Preliminary Blood SPECIMEN COLLECTED A&P Assessment and plan (1) Acute upper GI bleeding: (2) Umbilical hernia: (3) Bilateral inguinal hernia: Plan Protonix IV twice daily Sucralfate EGD The risks and benefits of the procedure, including bleeding, infection, intestinal perforation requiring surgery, missed lesion were explained to the patient. The patient is understanding of the risks and wishes to proceed. I recommend that he follow-up in my office after discharge to discuss repair of his hernias. His right inguinal hernia is most concerning as it appears to contain bowel at this time but it is reducible. Medical management per hospitalist. Coding Level of Care Code 36054 Diagnoses Acute upper GI bleeding K92.2 Umbilical hernia K42.9 Bilateral inguinal hernia K40.20
[2024-07-08] MEDS: sodium chloride 0.9% 1,000 ML 30 ML IV (11:20)
--- NOTE | 2024-07-08 12:07 | P.ANESASSM_ITS ---
Pre-Anesthetic Assessment Height/Weight: Height 1.7 m Weight 79.379 kg Temp Pulse Resp BP Pulse Ox O2 Del Method 98.9 F 77 18 164/81 97 Room Air 07/08/24 11:10 07/08/24 11:10 07/08/24 11:10 07/08/24 11:10 07/08/24 11:10 07/08/24 11:10 Operation Date: 07/08/24 12:35 Proposed Procedures p EGD(Not Applicable) - Alek Prince DO Familial anesthetic complications: none Was Beta Charlie taken within 24 hours: N/A Was Clonidine taken within 24 hours: N/A Last intake: Intake Last Liquid Date 07/07/24 Last Solid Date 07/07/24 Social Alcohol and No tobacco Exam alert and oriented x 3 Airway Submandibular: within normal limits Cervical ROM: within normal limits Mallampati: Class I Dentition: full History/ROS No significant history except as noted Anesthetic Plan ASA status: 2E Anesthesia: Anesthesia Evaluation and MAC Medications/Allergies Home Medications Medication Instructions Recorded Confirmed Last Taken Type lisinopril 20 1 tab PO QAM #90 tabs 09/19/23 07/07/24 07/07/24 Rx mg-hydrochlorothiazide 12.5 mg tablet epinephrine 0.3 mg/0.3 mL 0.3 mg (0.3 mL) IM Q15M PRN 12/19/23 07/07/24 Unknown Rx injection, auto-injector (EpiPen anaphylaxis #2 ea 2-Shawn) pantoprazole 40 mg tablet,delayed 40 mg PO BID #60 tabs 03/06/24 07/07/24 07/07/24 Rx release Allergies Allergy/AdvReac Type Severity Reaction Status Date / Time cantaloupe Allergy Unknown ALGY-Swell Verified 07/07/24 14:09 Lip/Tongue/Throat kiwi Allergy Unknown ALGY-Anaphy Verified 07/07/24 14:09 laxis Current Medications Generic Name Dose Route Start Last Admin Trade Name Freq PRN Reason Stop Dose Admin Folic Acid 1 mg 07/08/24 09:00 07/08/24 08:58 Folic Acid 1 Mg Tablet PO Not Given DAILY MARSHA Dextrose/Lactated Ringer's 1,000 mls @ 75 mls/hr 07/07/24 21:04 07/08/24 10:53 Dextrose 5%-Lactated Ringers IV Infused .[id number] MARSHA Infusion Sodium Chloride 1,000 mls @ 30 mls/hr 07/08/24 11:30 07/08/24 11:20 Sodium Chloride 0.9% IV 07/09/24 11:29 30 mls/hr .Q24H MARSHA Administration Labetalol HCl 10 mg 07/07/24 21:04 07/07/24 21:28 Labetalol 5 Mg/Ml Sdv 20ml IVP 10 mg Q4H PRN Administration hr>140, bp>180/100 Multivitamins Therapeutic 1 tab 07/08/24 09:00 07/08/24 08:59 Multivitamin Therapeutic Tablet PO Not Given DAILY MARSHA Ondansetron HCl 4 mg 07/07/24 21:04 07/08/24 08:37 Ondansetron 2 Mg/Ml Sdv 2 Ml IVP 4 mg Q6H PRN Administration NAUSEA AND VOMITING Pantoprazole Sodium 40 mg 07/08/24 09:00 07/08/24 08:53 Pantoprazole 40 Mg Sdv IVP 40 mg BID MARSHA Administration Senna/Docusate Sodium 1 tab 07/08/24 09:00 07/08/24 08:59 Sennosides-Docusate Tablet PO 1 tab DAILY MARSHA Administration Sucralfate 1 gm 07/08/24 07:00 07/08/24 10:53 Sucralfate 1 Gm/10 Ml Oral Liq Udc PO Not Given AC MARSHA Thiamine Mononitrate 100 mg 07/08/24 09:00 07/08/24 08:59 Thiamine 100 Mg Tablet PO Not Given DAILY MARSHA PFSH Anesthesia Medical History GI bleed Acute blood loss anemia Alcohol abuse Acute upper gastrointestinal bleeding GERD (gastroesophageal reflux disease) Hyperlipidemia Hypertension Diverticulosis Hypertension Family history of colon cancer 09/15/2019: Normal colonoscopy except diverticulosis, follow-up colonoscopy in 2024 Surgical History History of excision of epidermal inclusion cyst Social History Smoking and tobacco/nicotine status: unknown if used tobacco/nicotine Alcohol intake: former Substance/Drug Use: never Data Anesthesia 07/08/24 05:24 07/08/24 05:24 Short CBC 11/11/24 11/12/24 Range/Units 17:09 05:24 WBC 10.56 10.35 (3.29-11.43) 10^3/uL Hgb 11.30 10.60 L (11.27-16.99) g/dL Hct 35.5 L 33.0 L (37-53) % MCV 78.2 L 79.3 L (82-101) fl Plt Count 373 277 (157-399) 10^3/cmm Neut % (Auto) 86.6 80.5 % Neut # (Auto) 9.15 H 8.33 H (1.8-7.7) 10^3/uL BMP 07/07/24 07/08/24 17:09 05:24 Sodium 144 145 Potassium 3.7 3.6 Chloride 93 L 99 Carbon Dioxide 24 33 H BUN 42 H 40 H Creatinine 1.6 H 1.3 H Glucose 154 H 150 H Calcium 9.7 8.8 Liver Function 07/07/24 Range/Units 17:09 Total Bilirubin 1.1 (0.15-1.2) mg/dL AST 46 H (0-40) U/L ALT 36 (0-41) U/L Alkaline Phosphatase 65 (40-130) U/L Albumin 4.5 (3.5-5.2) g/dL Blood Bank 07/07/24 17:35 Blood Type A Positive Rho(D) Type Rh positive Antibody Screen Negative Coags 07/07/24 17:09 PT 13.70 INR 1.02 APTT 22.7 L Microbiology 07/07/24 20:03 Blood Culture - Preliminary Blood SPECIMEN COLLECTED 07/07/24 17:35 Blood Culture - Preliminary Blood SPECIMEN COLLECTED Cardiac Studies: 2 No Data to Display
[2024-07-08] MEDS: EPINEPHrine 1 mg/mL INJ XX (12:16)
--- NOTE | 2024-07-08 12:40 | ANE.PACU2 ---
Inpatient post-anesthesia follow up: Airway intact: Yes Vital signs: Temperature 98.0 F Pulse Rate 68 Respiratory Rate 16 Blood Pressure 176/83 Pulse Oximetry 95 Oxygen Delivery Me thod Room Air Oxygen Flow Rate Fraction of Inspir ed Oxygen Hydration adequate: Yes Nausea and vomiting: No Pain level: 1 Mental status: Baseline
[2024-07-08] MEDS: folic acid 1 MG, multivitamin inj 10 ML, thiamine 100 MG in sodium chloride 0.9% 1,000 ML 252.8 MG IV (13:17)
--- NOTE | 2024-07-08 13:17 | P.PN_ITS ---
Vitals/I&O/Wt Last Vital Signs Temp 98.0 F 07/08/24 13:03 Pulse 71 07/08/24 13:03 Resp 17 07/08/24 13:03 BP 163/74 07/08/24 13:03 Pulse Ox 98 07/08/24 13:03 O2 Del Method Room Air 07/08/24 13:03 07/07/24 07/08/24 07/08/24 22:59 06:59 14:59 Intake Total 45 1300 / 1300 Output Total 600 / 600 Balance 45 -600 / -555 1300 / 1300 Weight last 48 hrs Weight 79.379 kg Weight 79.379 kg Weight 79.379 kg Data 07/08/24 05:24 07/08/24 05:24 Micro: Microbiology 07/07/24 20:03 Blood Culture - Preliminary Blood SPECIMEN COLLECTED 07/07/24 17:35 Blood Culture - Preliminary Blood SPECIMEN COLLECTED A&P Assessment and plan (1) Coffee ground emesis: (2) GI bleed: (3) Acute renal insufficiency: (4) Alcohol abuse: (5) Alcohol consumption binge drinking: (6) Hypertension: (7) GERD (gastroesophageal reflux disease): (8) Bilateral inguinal hernia: Plan Coffee-ground emesis post binge alcohol drinking: History of ulcerative esophagitis. Continue Protonix twice daily/Carafate ACHS. Surgery consulted. Plan for EGD and colonoscopy today. N.p.o. for now. After that we will start on liquid diet. Continue with IV fluids at 75 cc/h. Will add banana bag. Alcohol level negative on admission. Continue to monitor for alcohol withdrawal symptoms. TODD: Most likely in setting of dehydration secondary to nausea and vomiting along with home dose of lisinopril and hydrochlorothiazide. Continue with IV fluids. Monitor BMP daily. Medical reconciliation done for nephrotoxic drugs. Hypertension: Goal blood pressure less than 140/90 mmHg. For now start on amlodipine 10 mg oral daily. Hold off on home dose of hydrochlorothiazide and lisinopril. Lactic acidosis: Most likely in setting of dehydration nausea vomiting. Continue with IV fluids as above. Hemodynamically stable. Zofran as needed. Full code N.p.o./clear liquid diet post EGD. Protonix with sufficient for PUD prophylaxis SCD for DVT prophylaxis Attestations 2 Medical Necessity Statement*: Requires further hospitalization for management of coffee-ground emesis in setting of binge alcohol drinking, TODD as patient awaits EGD and colonoscopy Diagnoses Coffee ground emesis K92.0 GI bleed K92.2 Acute renal insufficiency N28.9 Alcohol abuse F10.10 Alcohol consumption binge drinking F10.10 Hypertension I10 GERD (gastroesophageal reflux disease) K21.9 Bilateral inguinal hernia K40.20
[2024-07-08] MEDS: amlodipine 10 mg Tablet PO (13:24)
[2024-07-08 14:46] LABS: Hematocrit 32.1 % (37-53)
[2024-07-08] MEDS: dextrose 5%-lactated ringers 1,000 ML 75 ML IV (17:44)
[2024-07-08] MEDS: metoclopramide 5 mg/mL SDV 2 mL IVP (18:29)
--- NOTE | 2024-07-08 18:48 | XRR_ITS ---
PROCEDURE INFORMATION: Exam: XR Abdomen Exam date and time: 07/08/2024 7:22 PM Age: 68 years old Clinical indication: Vomiting TECHNIQUE: Imaging protocol: Radiologic exam of the abdomen. Views: 2 Views. Upright and supine views. COMPARISON: CT abdomen pelvis w con* [id number] 07/07/2024 5:15 PM FINDINGS: Lungs: No focal consolidation. mild bibasilar subsegmental atelectasis. Pleural spaces: No pneumothorax or pleural effusion. Heart/Mediastinum: Heart size is enlarged. Mediastinal contours unremarkable. Gastrointestinal tract: No abnormally dilated bowel loops or distinct pneumoperitoneum. Intraperitoneal space: See Gastrointestinal tract finding. Organs: No organomegaly, mass, or abnormal calcification. Bones/joints: No acute osseous or soft tissue abnormality. No acute osseous or soft tissue abnormality. XR/XR acute abdomen series [id number] IMPRESSION: 1. No focal consolidation. mild bibasilar subsegmental atelectasis. 2. Cardiomegaly. 3. No acute abnormality in the abdomen and pelvis.
[2024-07-09] VITALS (8 sets, daily range): BP systolic 126–171; BP diastolic 61–81; PULSE 55–65; RESP 15–18; TEMP 36.8–37.2; O2SAT 94–99
[2024-07-09 05:45] LABS: Basophils % 0.2 %; Hematocrit 30.6 % (37-53); Lymphocytes # 1.3 10^3/uL (0.8-4.8); Lymphocytes % 15.3 %; Mean Corpuscular Hemoglobin 25.7 pg (27-33); Mean Corpuscular Volume 82.9 fl (82-101); Mean Platelet Volume 9.7 fL (7.4-10.4); Monocytes # 0.7 10^3/uL (0.2-0.9); Monocytes % 8.3 %; Neutrophils # 6.36 10^3/uL (1.8-7.7); Neutrophils % 75.8 %; Nucleated Red Blood Cells % 0 %; Platelet Count 199 10^3/cmm (157-399); Red Blood Count 3.69 10^6/uL (3.85-5.65); Red Cell Distribution Width 19.2 % (12.1-15.1); White Blood Count 8.39 10^3/uL (3.29-11.43)
[2024-07-09 06:04] LABS: Alanine Aminotransferase 19 U/L (0-41); Albumin Level 3.4 g/dL (3.5-5.2); Alkaline Phosphatase 48 U/L (40-130); Anion Gap 11.4 (5-19); Aspartate Amino Transferase 28 U/L (0-40); Blood Urea Nitrogen 27 mg/dL (8-23); Calcium 8.2 mg/dL (8.5-10.5); Carbon Dioxide 30 mmol/L (22-29); Chloride 105 mmol/L (98-107); Creatinine Clr Calc Pharmacy 77.5954; Globulin 1.8 g/dL (1.3-4.6); Glomerular Filtration Rate 83.4 mL/min (90-130); Glucose 137 mg/dL (65-115); Osmolality Calculated 303 mOsm/kg (285-295); Potassium 3.4 mmol/L (3.5-5.1); Sodium 143 mmol/L (136-145); Total Protein 5.2 g/dL (6.6-8.7)
[2024-07-09] MEDS: sucralfate 1 gm/10 mL Oral Liq UDC PO ×3 (06:11→21:29)
[2024-07-09] MEDS: dextrose 5%-lactated ringers 1,000 ML 75 ML IV (06:12)
[2024-07-09] MEDS: ondansetron 2 mg/ML SDV 2 mL 4 MG IVP (06:14)
[2024-07-09] MEDS: pantoprazole 40 mg SDV IVP ×2 (08:18→18:27)
[2024-07-09] MEDS: metoclopramide 5 mg/mL SDV 2 mL IVP ×3 (08:22→23:44)
[2024-07-09] MEDS: amlodipine 5 mg Tablet 10 MG PO (10:54)
--- NOTE | 2024-07-09 13:52 | P.PN_ITS ---
Subjective 2 Subjective: Overnight patient continued to have nausea and vomiting and was not able to tolerate much of his liquid diet. Lamination he seems slightly anxious, complaining of mild nausea. States vomiting is improving. He was not able to take his oral antihypertensive in the morning today hence blood pressures are elevated right now. Denies any abdominal pain. States he is passing flatus. Vitals/I&O/Wt Last Vital Signs Temp 98.3 F 07/09/24 11:23 Pulse 55 L 07/09/24 11:23 Resp 15 07/09/24 11:23 BP 151/77 07/09/24 11:23 Pulse Ox 94 07/09/24 11:23 O2 Del Method Room Air 07/09/24 11:23 07/08/24 07/09/24 07/09/24 22:59 06:59 14:59 Intake Total 1011.2 / 2311.2 935 / 3246.2 754 / 754 Output Total 450 / 450 Balance 1011.2 / 2311.2 485 / 2796.2 754 / 754 Weight last 48 hrs Weight 80.428 kg Weight 79.379 kg Weight 79.379 kg Weight 79.379 kg Physical Exam 2 Narrative: General: AOx3, no acute distress Pulmonary: Normal respiratory breath sounds all over lung crowder with occasional rhonchi Cardiac: S1-S2 regular no murmurs, no gallops GI: Mild tenderness in epigastric region, inguinal bilateral, umbilical hernia present, bowel sounds present Neuro: Power 5/5 in all limbs, no facial droop Data 07/09/24 05:24 07/09/24 05:24 Micro: Microbiology 07/07/24 20:03 Blood Culture - Preliminary Blood NEGATIVE TO DATE 07/07/24 17:35 Blood Culture - Preliminary Blood NEGATIVE TO DATE A&P Assessment and plan (1) Nausea and vomiting: (2) Ulcerative esophagitis: (3) Coffee ground emesis: (4) GI bleed: (5) Acute renal insufficiency: (6) Alcohol abuse: (7) Alcohol consumption binge drinking: (8) Hypertension: (9) GERD (gastroesophageal reflux disease): (10) Bilateral inguinal hernia: Plan Coffee-ground emesis post binge alcohol drinking: Post EGD on 07/08. Again found to have significant esophagitis with contact bleeding. Hemoglobin has remained stable. Continue Protonix twice daily and Carafate ACHS. Continue with NS at 50 cc/h as patient is unable to tolerate oral intake. Nausea/vomiting: Less likely in setting of small bowel obstruction. Patient did not passing flatus. Abdominal CT is negative for obstruction. Could be in setting of severe gastritis. Cannot rule out mild alcohol withdrawal. Continue Protonix as above. Advised patient for multiple small meals. Continue with liquid diet for now. Alcohol level negative on admission. Continue to monitor for alcohol withdrawal symptoms. TODD: Resolved. Most likely in setting of dehydration secondary to nausea and vomiting along with home dose of lisinopril and hydrochlorothiazide. Continue with IV fluids as above. Monitor BMP daily. Medical reconciliation done for nephrotoxic drugs. Hypertension: Goal blood pressure less than 140/90 mmHg. For now we will try to continue with amlodipine 10 mg oral daily. Hold off on home dose of hydrochlorothiazide and lisinopril. If unable to maintain oral intake will start on IV hydralazine 10 mg every 6 hours as needed for systolic blood pressure more than 160 mg. Full code Full liquid diet. Protonix with sufficient for PUD prophylaxis SCD for DVT prophylaxis Attestations 2 Medical Necessity Statement*: Requires further hospitalization for management of persistent nausea and vomiting because of which patient is able to not maintain his oral intake, coffee-ground emesis in setting of severe esophagitis Diagnoses Nausea and vomiting R11.2 Ulcerative esophagitis K22.10 Coffee ground emesis K92.0 GI bleed K92.2 Acute renal insufficiency N28.9 Alcohol abuse F10.10 Alcohol consumption binge drinking F10.10 Hypertension I10 GERD (gastroesophageal reflux disease) K21.9 Bilateral inguinal hernia K40.20
[2024-07-09] MEDS: lisinopril 20 mg Tablet PO (15:28)
[2024-07-09] MEDS: lidocaine 2% viscous 15 ML, aluminum-mag hydrox-simethicon 30 ML, sucralfate oral liq 1 GM PO (15:28)
[2024-07-09] MEDS: sodium chloride 0.9% 1,000 ML 50 ML IV (15:29)
[2024-07-10] VITALS: BP 121/70; PULSE 63; RESP 19; TEMP 37; O2SAT 95
[2024-07-10 04:00] VITALS: BP 166/85; PULSE 62; RESP 16; TEMP 36.8; O2SAT 96
[2024-07-10 05:54] LABS: Basophils % 0.1 %; Eosinophils # 0.1 10^3/uL (0.0-0.8); Eosinophils % 2.1 %; Hematocrit 30.4 % (37-53); Lymphocytes # 1.7 10^3/uL (0.8-4.8); Lymphocytes % 25.6 %; Mean Corpuscular HGB Conc 30.6 g/dL (30-55); Mean Corpuscular Volume 84.9 fl (82-101); Mean Platelet Volume 9.9 fL (7.4-10.4); Monocytes # 0.5 10^3/uL (0.2-0.9); Neutrophils # 4.42 10^3/uL (1.8-7.7); Neutrophils % 64.9 %; Nucleated Red Blood Cells % 0 %; Platelet Count 158 10^3/cmm (157-399); Red Blood Count 3.58 10^6/uL (3.85-5.65); Red Cell Distribution Width 18.7 % (12.1-15.1); White Blood Count 6.81 10^3/uL (3.29-11.43)
[2024-07-10 06:25] LABS: Alanine Aminotransferase 21 U/L (0-41); Albumin Level 3.2 g/dL (3.5-5.2); Alkaline Phosphatase 52 U/L (40-130); Anion Gap 9.4 (5-19); Aspartate Amino Transferase 29 U/L (0-40); Blood Urea Nitrogen 14 mg/dL (8-23); Calcium 7.8 mg/dL (8.5-10.5); Carbon Dioxide 27 mmol/L (22-29); Chloride 106 mmol/L (98-107); Creatinine Clr Calc Pharmacy 88.1631; Globulin 2.1 g/dL (1.3-4.6); Glomerular Filtration Rate 95.6 mL/min (90-130); Glucose 111 mg/dL (65-115); Osmolality Calculated 289 mOsm/kg (285-295); Potassium 3.4 mmol/L (3.5-5.1); Sodium 139 mmol/L (136-145); Total Bilirubin 0.8 mg/dL (0.15-1.2); Total Protein 5.3 g/dL (6.6-8.7)
[2024-07-10] MEDS: metoclopramide 5 mg/mL SDV 2 mL IVP ×2 (06:34→12:02)
[2024-07-10] MEDS: sucralfate 1 gm/10 mL Oral Liq UDC PO ×2 (06:34→12:01)
[2024-07-10 07:59] VITALS: BP 160/67; PULSE 64; RESP 16; TEMP 37.1; O2SAT 97
[2024-07-10 08:46] VITALS: PULSE 64; RESP 16; O2SAT 97
[2024-07-10] MEDS: sennosides-docusate Tablet 1 TAB PO (09:30)
[2024-07-10] MEDS: folic acid 1 mg Tablet PO (09:30)
[2024-07-10] MEDS: thiamine 100 mg Tablet PO (09:30)
[2024-07-10] MEDS: pantoprazole 40 mg SDV IVP (09:30)
[2024-07-10] MEDS: multivitamin therapeutic Tablet 1 TAB PO (09:30)
[2024-07-10] MEDS: lisinopril 20 mg Tablet PO (09:30)
[2024-07-10] MEDS: amlodipine 10 mg Tablet PO (09:30)
--- NOTE | 2024-07-10 11:19 | PM.DCS ---
Discharge Providers Date of Admission: 07/07/24 19:46 Date of Discharge: July 10, 2024 Attending Provider at Admission: Teodoro Freeman MD Attending Provider at Discharge: Victoriano Harry MD Consults: Surgery: Dr. Prince Primary Care Provider: Omari Ames MD Diagnoses at Discharge Discharge Diagnosis (1) Nausea and vomiting: Status: Acute (2) Ulcerative esophagitis: Status: Acute (3) Coffee ground emesis: Status: Acute (4) GI bleed: Status: Acute (5) Acute renal insufficiency: Status: Acute (6) Alcohol abuse: Status: Acute (7) Alcohol consumption binge drinking: Status: Acute (8) Hypertension: Status: Acute (9) GERD (gastroesophageal reflux disease): Status: Acute (10) Bilateral inguinal hernia: Status: Acute Reason for Visit Reason for Visit: abd pain Brief History: History as per HPI: James Austin is a 68 year old male history of binge drinking, alcohol abuse, coffee-ground emesis history, 02/11/2024 had EGD done which showed hiatal hernia and ulcerative esophagitis, biopsy is showing benign gastric mucosa no signs of H. pylori infection no intestinal metaplasia or dysplasia, biopsy of the mass on his back showed epidermal inclusion cyst no sign of malignancy Patient is stating that he was sober until few days ago he noticed that he had a large bottle of alcohol in his house, he lives alone, he drink 1/5 alcohol shots for next 3 days then started experiencing nausea along emesis, he noticed dark-colored emesis, he has had multiple episodes in last 24 hours, he patient is denying history of alcohol withdrawal-related seizure history. No chest pain shortness of breath or vomiting at the time of my evaluation patient is hypertensive with heart rate around 80s. Workup in the ER revealed alcohol-induced acidosis, hemoglobin and blood pressure stable, Dr. Prince consulted for an EGD who will plan to scope the patient in the morning, hemoglobin 11.3, BUN 42, creatinine 1.6 Patient is stating that he is motivated to quit alcohol he is looking forward to seeing his grandkids grow up Hospital Course Hospital Course Patient was admitted to the hospital further evaluation and management of coffee-ground emesis with concerns for alcohol induced gastritis along with persistent nausea and vomiting. He was started on IV hydration, surgery was consulted and he underwent EGD on 07/08 which was concerning for significant esophagitis with contact bleeding. He was continued on twice daily Protonix along with Carafate. Patient's hospitalization was complicated by him unable to maintain his oral intake because of persistent nausea and vomiting which was treated conservatively. Small bowel obstruction was ruled out. Gradually patient improved and is able to tolerate liquid diet. He is been discharged in hemodynamically stable condition on Protonix twice daily, Carafate before meals and at bedtime along with as needed GI cocktail. Patient has been advised to hold off on alcohol consumption going forward and he is agreeable. Physical Exam Narrative: General: AOx3, no acute distress Pulmonary: Normal respiratory breath sounds all over lung crowder with occasional rhonchi Cardiac: S1-S2 regular no murmurs, no gallops GI: Mild tenderness in epigastric region, inguinal bilateral, umbilical hernia present, bowel sounds present Neuro: Power 5/5 in all limbs, no facial droop Discharge Data Studies Completed and Pending Completed Studies During Hospitalization Category Date Time Status CT abdomen pelvis w con* [id number] Stat Cat Scan 07/07/24 16:35 Completed XR acute abdomen series [id number] Stat Exams 07/08/24 18:48 Completed XR chest 1V portable [id number] Stat Exams 07/07/24 16:36 Completed Pending at discharge Category Date Time Status Blood Culture Stat Lab 07/07/24 20:03 Results Pathology: Surgical [PTH] Routine Pth 07/08/24 12:16 Received Radiology Impressions Abdomen/Pelvis CT 07/07/24 16:35 IMPRESSION: 1. Small to moderate right inguinal hernia containing a portion of the cecum and terminal ileum. No evidence of obstruction. 2. Subacute nondisplaced fractures of the left posterior 12th rib and the L1 through L3 transverse processes on the left. 3. Remainder stable. Chest X-Ray 07/07/24 16:36 IMPRESSION: No acute cardiopulmonary findings. Chest/Abdomen X-ray 07/08/24 18:48 IMPRESSION: 1. No focal consolidation. mild bibasilar subsegmental atelectasis. 2. Cardiomegaly. 3. No acute abnormality in the abdomen and pelvis. Laboratory Results WBC 6.81 10^3/uL (3.29-11.43) 07/10/24 05:41 RBC 3.58 10^6/uL (3.85-5.65) L 07/10/24 05:41 Hgb 9.30 g/dL (11.27-16.99) L 07/10/24 05:41 Hct 30.4 % (37-53) L 07/10/24 05:41 MCV 84.9 fl (82-101) 07/10/24 05:41 MCH 26.0 pg (27-33) L 07/10/24 05:41 MCHC 30.6 g/dL (30-55) 07/10/24 05:41 RDW 18.7 % (12.1-15.1) H 07/10/24 05:41 Plt Count 158 10^3/cmm (157-399) 07/10/24 05:41 MPV 9.9 fL (7.4-10.4) 07/10/24 05:41 Neut % (Auto) 64.9 % 07/10/24 05:41 Lymph % (Auto) 25.6 % 07/10/24 05:41 [place] % (Auto) 7.0 % 07/10/24 05:41 Eos % (Auto) 2.1 % 07/10/24 05:41 Baso % (Auto) 0.1 % 07/10/24 05:41 Neut # (Auto) 4.42 10^3/uL (1.8-7.7) 07/10/24 05:41 Lymph # (Auto) 1.7 10^3/uL (0.8-4.8) 07/10/24 05:41 [place] # (Auto) 0.5 10^3/uL (0.2-0.9) 07/10/24 05:41 Eos # (Auto) 0.1 10^3/uL (0.0-0.8) 07/10/24 05:41 Baso # (Auto) 0.0 10^3/uL (0.0-0.1) 07/10/24 05:41 Nucleated RBC % (auto) 0 % 07/10/24 05:41 Nucleated RBCs # 0.0 /100WBC 07/10/24 05:41 PT 13.70 SECONDS (12.1-14.9) 07/07/24 17:09 INR 1.02 (0.8-1.2) 07/07/24 17:09 APTT 22.7 SECONDS (23.9-36.7) L 07/07/24 17:09 Sodium 139 mmol/L (136-145) 07/10/24 05:41 Potassium 3.4 mmol/L (3.5-5.1) L 07/10/24 05:41 Chloride 106 mmol/L (98-107) 07/10/24 05:41 Carbon Dioxide 27 mmol/L (22-29) 07/10/24 05:41 Anion Gap 9.4 (5-19) 07/10/24 05:41 BUN 14 mg/dL (8-23) 07/10/24 05:41 Creatinine 0.8 mg/dL (0.7-1.2) 07/10/24 05:41 GFR Calculation 95.6 mL/min (90-130) 07/10/24 05:41 Glucose 111 mg/dL (65-115) 07/10/24 05:41 Calculated Osmolality 289 mOsm/kg (285-295) 07/10/24 05:41 Lactic Acid 9.4 mmol/L (0.5-2.2) H* 07/07/24 17:09 Lactic Acid (Sepsis) 4.1 mmol/L (0.5-2.2) H* 07/07/24 20:03 Calcium 7.8 mg/dL (8.5-10.5) L 07/10/24 05:41 Phosphorus 2.8 mg/dL (2.5-4.5) 07/08/24 05:24 Magnesium 2.1 mg/dL (1.7-2.3) 07/08/24 05:24 Total Bilirubin 0.8 mg/dL (0.15-1.2) 07/10/24 05:41 AST 29 U/L (0-40) 07/10/24 05:41 ALT 21 U/L (0-41) 07/10/24 05:41 Alkaline Phosphatase 52 U/L (40-130) 07/10/24 05:41 Total Protein 5.3 g/dL (6.6-8.7) L 07/10/24 05:41 Albumin 3.2 g/dL (3.5-5.2) L 07/10/24 05:41 Globulin 2.1 g/dL (1.3-4.6) 07/10/24 05:41 Lipase 21 U/L (13-60) 07/07/24 17:09 Vitamin B12 378 pg/mL (232-1245) 07/07/24 17:09 Gastric Occult Blood Positive (Negative) H 07/07/24 18:03 Ethyl Alcohol < 10 mg/dL (0-10) 07/07/24 17:09 Blood Type A Positive 07/07/24 17:35 Rho(D) Type Rh positive 07/07/24 17:35 Antibody Screen Negative 07/07/24 17:35 Vitals Last Vital Signs Temp 98.7 F 07/10/24 07:59 Pulse 64 07/10/24 08:46 Resp 16 07/10/24 08:46 BP 160/67 07/10/24 07:59 Pulse Ox 97 07/10/24 08:46 O2 Del Method Room Air 07/10/24 08:46 Discharge Plan Discharge Patient Disposition: Home Condition: Stable Prescriptions: New sucralfate [Carafate] 100 mg/mL suspension 1 g PO Q6H 28 Days Qty: 1120 0RF ondansetron HCl 4 mg tablet 4 mg PO Q8H PRN (Reason: nausea and vomiting) 4 Days Qty: 30 0RF alum-mag hydroxide-simeth 400-400-40 mg/5 mL suspension 5 ml PO QID PRN (Reason: indigestion) Qty: 3000 0RF Continued pantoprazole 40 mg tablet,delayed release (DR/EC) 40 mg PO BID Qty: 60 12RF lisinopril-hydrochlorothiazide 20-12.5 mg tablet 1 tab PO QAM Qty: 90 3RF epinephrine [EpiPen 2-Shawn] 0.3 mg/0.3 mL auto-injector 0.3 mg IM Q15M PRN (Reason: anaphylaxis) Qty: 2 0RF Discharge Orders: Discharge Order (Routine); Ordered 07/10/24 Ordered By: Victoriano Harry Referrals: Alek Prince DO [Physician] - 07/14/24 10:00 am () Omari Ames MD [Primary Care Provider] - 07/15/24 11:00 am Discharge Diet: Advance as tolerated and Full LIquid Discharge Activity: Resume usual activity and Increase activity as tolerated Patient Instructions: Sucralfate (By mouth), Ondansetron (By mouth), Gastrointestinal Bleeding (DC), GI Post Discharge Instructions w/ Anesthesia, Opioid Safety Activity Restrictions/Additional Instructions: Continue with full liquid diet for next 4 to 5 days and then gradually advance from soft to regular diet in next 2 weeks. Please continue take multiple small meals. Take Protonix twice daily for next 4 weeks followed by once daily. Take Carafate 4 times a day before meals for next 4 weeks. Please try to avoid alcohol consumption going forward. Discharge Attestations Time Spent in Discharge Care*: greater than 30 min Specific Discharge Activities: educating patient, discussing with pcp/other providers, discussing with family preservation caseworker/social workers/dc planners, documenting/other paperwork and evaluating patient/reviewing data Status at Discharge: Cognitive status at discharge: cognitively intact, Behavioral status at discharge: cooperative, Functional status at discharge: independent ambulation, Overall status at discharge: patient is back to baseline Quality Metrics Clinical Quality Measures [ No reported AMI, CVA or VTE this stay] Coding Level of Care Code 51136 Total time (in minutes) for Discharge: 60 Diagnoses Nausea and vomiting R11.2 Ulcerative esophagitis K22.10 Coffee ground emesis K92.0 GI bleed K92.2 Acute renal insufficiency N28.9 Alcohol abuse F10.10 Alcohol consumption binge drinking F10.10 Hypertension I10 GERD (gastroesophageal reflux disease) K21.9 Bilateral inguinal hernia K40.20
[2024-07-10 12:12] VITALS: BP 138/71; PULSE 63; RESP 16; TEMP 37.2; O2SAT 97
[2024-07-10 13:25] VITALS: BP 138/71; PULSE 63; RESP 16; TEMP 37.2; O2SAT 97
== END 2024-07-10 13:30 | disposition home or self-care (01) ==
LOC: ER 19:44 → MEDSURG 20:07
PROVIDERS: Emergency Medicine; Family Medicine; Surgery; Admitting Provider Internal Medicine; Emergency Provider Emergency Medicine; PCP Family Medicine; Visit Provider Student in an Organized Health Care Education/Training Program
PROC: 0DJ08ZZ Inspection of Upper Intestinal Tract, Via Natural or Artificial Opening Endoscopic (ICD-10-PCS; CPT 43235; principal; 2024-07-08 12:35)
DX: K22.10 Ulcer of esophagus without bleeding (principal); K92.0 Hematemesis; K92.2 Gastrointestinal hemorrhage, unspecified; N28.9 Disorder of kidney and ureter, unspecified; F10.10 Alcohol abuse, uncomplicated; I10 Essential (primary) hypertension; K21.00 Gastro-esophageal reflux disease with esophagitis, without bleeding; K40.20 Bilateral inguinal hernia, without obstruction or gangrene, not specified as recurrent; N17.9 Acute kidney failure, unspecified; K42.9 Umbilical hernia without obstruction or gangrene; E87.20 Acidosis, unspecified; Z80.0 Family history of malignant neoplasm of digestive organs; E78.5 Hyperlipidemia, unspecified
CPT/HCPCS: 36415; 43239; 43255; 71045; 74022; 74177; 80048; 80053; 80307; 82271; 82607; 83605; 83690; 83735; 84100; 85014; 85018; 85025; 85610; 85730; 86850; 86900; 87040; 88305; 88312; 88342; 93005; 96372; 96374; 96375; 99285; G0378; J0171; J2405; J2470; J2704; J2765; J3411; J3490; J7030; J7121

== ENCOUNTER → 2024-07-15 11:20 | Outpatient (BNVA) | payer MEDICARE, MEDICAID, SELFPAY | PROVIDERS: PCP Family Medicine; Visit Provider Family Medicine | DX: K22.10 Ulcer of esophagus without bleeding (principal); K92.2 Gastrointestinal hemorrhage, unspecified; F10.10 Alcohol abuse, uncomplicated | CPT/HCPCS: 80048; 85025 ==

== ENCOUNTER → 2024-07-31 09:38 | Outpatient (BNVA) | payer MEDICARE, MEDICAID, SELFPAY | PROVIDERS: PCP Family Medicine; Visit Provider Family Medicine | DX: F10.10 Alcohol abuse, uncomplicated (principal); K92.2 Gastrointestinal hemorrhage, unspecified | CPT/HCPCS: 85025 ==

== ENCOUNTER → 2024-09-29 07:20 | Outpatient (BNVA) | payer MEDICARE, MEDICAID, SELFPAY | PROVIDERS: PCP Family Medicine; Visit Provider Family Medicine | DX: K92.2 Gastrointestinal hemorrhage, unspecified (principal) | CPT/HCPCS: 85025 ==

== ENCOUNTER 2024-10-17 13:25 | Inpatient (IN) | payer MEDICARE, MEDICAID, SELFPAY ==
[2024-10-17] VITALS (10 sets, daily range): BP systolic 44–147; BP diastolic 28–74; PULSE 64–77; RESP 17–26; TEMP 36.5; O2SAT 97–100; BMI 28.1; BMI 25.9
--- NOTE | 2024-10-17 13:32 | XR_ITS ---
WS: [id number] Exam: XR acute abdomen series [id number] Date/Time of Exam: 10/17/2024 1:52 PM Reason For Exam: abdominal pain AP portable chest compared to prior study 07/07/2024. Lungs are clear and fully expanded. Normal cardiomediastinal silhouette. Bony structures are intact. Flat and erect abdomen. No bowel obstruction or free air. Enlarged left renal silhouette which is probably secondary to known renal cysts. No other sign of organ enlargement. Bony structures are intact. Degenerative changes in the lumbar spine and slight levoscoliosis. XR/XR acute abdomen series [id number] IMPRESSION: 1. No acute cardiopulmonary finding. 2. Enlarged LEFT renal silhouette probably secondary to previously reported lar ge renal cysts identified on abdominal CT scan 07/07/2024. 3. No acute abdominal process.
--- NOTE | 2024-10-17 13:41 | ECG_ITS ---
[facility] Date: 2024-10-17 Pat Name: James Austin Department: Room: Gender: Male Outside Repairer Special: : 1955 Requested By: Lexus Brar Order Number: [id number] Jerri MD: ETHAN MEDINA Measurements Intervals [place] Rate: 71 P: 62 NE: 153 QRS: 7 QRSD: 100 T: 37 QT: 450 QTc: 492 Interpretive Statements SINUS RHYTHM MODERATE ST DEPRESSION [0.05+ mV ST DEPRESSION] PROLONGED QT INTERVAL Compared to ECG 07/07/2024 16:52:51 ST (T wave) deviation now present Prolonged QT interval now present Sinus tachycardia no longer present Ventricular premature complex(es) no longer present Electronically Signed On 10-21-2024 23:42:46 SURFACE SHIP USW SUPERVISOR by ETHAN MEDINA [email or web address]
[2024-10-17] MEDS: sodium chloride 0.9% 1,000 ML 999 ML IV (13:49)
[2024-10-17 13:58] LABS: ABG PCO2 23.6 mmHg (35-45); Base Excess ABG 2.6 mmol/L (-2.0-2.0); Blood Gas Allen Test Pos; Blood Gas Operator Identificat BROMA; Blood Gas Sample Site Radial, left; Blood Gas Sample Type Arterial; Carboxyhemoglobin 1.2 %THgb (0.4-20.1); HCO3 ABG 22.9 mmol/L (22-26); HGB O2 Sat 97.1 % (95-100); Methemoglobin 1.1 % (0.4-1.5); Oxygen Device ROOM AIR; Oxygen Saturation ABG > 99.1; PO2 FiO2 Ratio Arterial Blood 585; Potassium Level - ABG 3.1 mmol/L (3.5-5.0); Total Hemoglobin 12.7 g/dL (14-18)
--- NOTE | 2024-10-17 13:59 | W.ED.GENADLT ---
HPI - General Adult General: Chief complaint: General Medical Stated complaint: hypotension Time Seen by Provider: 10/17/24 13:28 History of Present Illness: 69-year-old man with a history of alcohol abuse, GERD, hyperlipidemia, hypertension and recent hernia repair who presents emergency room with decreased mentation and low blood pressure. Apparently a neighbor or someone found him and he seemed altered so they called an ambulance. On further review he tells us that he took his blood pressure medications, his pain medication and drink alcohol this morning. He reports no cough. No fevers. He has no focal motor deficits. He is somnolent at times but then awakens. EMS reports his blood pressure was profoundly low in the 60s to the 90s systolic. Patient has no abdominal pain. No flank pain. He is had no vomiting. He says he is having normal bowel movements. He says he had 2 small bowel movements today. Related Data Previous Rx's ?Medication ?Instructions ?Recorded lisinopril 20 1 tab PO QAM #90 tabs 09/19/23 mg-hydrochlorothiazide 12.5 mg tablet epinephrine 0.3 mg/0.3 mL 0.3 mg (0.3 mL) IM Q15M PRN 12/19/23 injection, auto-injector (EpiPen anaphylaxis #2 ea 2-Shawn) pantoprazole 40 mg tablet,delayed 40 mg PO BID #60 tabs 03/06/24 release ferrous sulfate 325 mg (65 mg 325 mg PO BID #60 tabs 07/15/24 iron) tablet Allergies Allergy/AdvReac Type Severity Reaction Status Date / Time cantaloupe Allergy Unknown ALGY-Swell Verified 10/17/24 13:47 Lip/Tongue/Throat kiwi Allergy Unknown ALGY-Anaphy Verified 10/17/24 13:47 laxis Review of Systems Narrative: Constitutional symptoms: Negative except as documented in HPI. Skin symptoms: Negative except as documented in HPI. Eye symptoms: Negative except as documented in HPI. ENMT symptoms: Negative except as documented in HPI. Respiratory symptoms: Negative except as documented in HPI. Cardiovascular symptoms: Negative except as documented in HPI. Gastrointestinal symptoms: Negative except as documented in HPI. Genitourinary symptoms: Negative except as documented in HPI. Musculoskeletal symptoms: Negative except as documented in HPI. Neurologic symptoms: Negative except as documented in HPI. Psychiatric symptoms: Negative except as documented in HPI. Endocrine symptoms: Negative except as documented in HPI. PFSH ED PFSH: Medical History GI bleed Acute blood loss anemia Alcohol abuse Acute upper gastrointestinal bleeding GERD (gastroesophageal reflux disease) Hyperlipidemia Hypertension Diverticulosis Hypertension Family history of colon cancer 09/15/2019: Normal colonoscopy except diverticulosis, follow-up colonoscopy in 2024 Surgical History History of excision of epidermal inclusion cyst Social History Smoking and tobacco/nicotine status: unknown if used tobacco/nicotine Alcohol intake: former Substance/Drug Use: never Physical Exam Narrative: EXAM NARRATIVE: General: Somnolent but arousable Skin: Warm, dry Head: Normocephalic, atraumatic. Neck: Supple, trachea midline. Eye: Extraocular movements are intact. Ears, nose, mouth and throat: Dry oral mucosa. Cardiovascular: Regular rate and rhythm, Normal peripheral perfusion. Respiratory: Lungs are clear to auscultation, respirations are non-labored, breath sounds are equal, Symmetrical chest wall expansion. Gastrointestinal: Soft, Nontender, Non distended, Normal bowel sounds. Musculoskeletal: no deformity. Neurological: Somnolent but oriented when awakened, No obvious focal neurological deficit observed. Psychiatric: unable to assess. Course Vital Signs: Vital signs: Vital Signs Temperature 97.7 F 10/17/24 13:30 Pulse Rate 77 10/17/24 14:00 Respiratory Rate 19 H 10/17/24 13:30 Blood Pressure 107/62 10/17/24 14:00 Pulse Oximetry 100 10/17/24 14:00 Oxygen Delivery Me thod Room Air 10/17/24 14:00 [facility] - General Adult Medical Decision Making Medical decision making: Differential diagnosis for patient presenting with generalized weakness/hypotension including but not limited to and based on the above HPI, review of systems and physical exam: Sepsis. Dehydration. Renal failure. Electrolyte abnormalities. Anemia. Congestive heart failure. Hypotension. Coronary syndrome. Hepatitis. Cirrhosis. Infections such as pneumonia, urinary tract infection, [place]ne illness, Cellulitis, Viral infections including influenza and Covid-19. Workup: labwork and lab/exam driven imaging ordered to evaluate, rule in and rule out above pathologies. EKG: Time 1341. Rate 71. Normal sinus rhythm, nonspecific diffuse ST depression., no ectopy, normal AK & QRS intervals, This was reviewed and interpreted by myself the ER physician at 1345 AB.5 05/20/ with an O2 sat of 97% Acute abdominal series: chest x-ray: No acute process. No obvious infiltrates. No pneumothorax. No cardiomegaly. This was reviewed and interpreted by myself the emergency room physician Abdomen x-ray: Paucity of air but no signs of obstruction. No evidence of free air or obstruction. This was reviewed and interpreted by myself the emergency room physician. I also reviewed the radiology report. Lab Review: Laboratory results were reviewed and interpreted by myself the emergency room physician. Mild leukocytosis with a white count of 14,000. Lactate is 12. BUN and creatinine are very elevated at 95 and 3.3. Recent creatinines have been around 0.9-1.1. However he does seem to be prone to acute renal insufficiency at times. Potassium is not elevated. CT of the abdomen pelvis with out contrast: Small collection at the right inguinal region with adjacent soft tissue stranding. Patient has had recent right inguinal hernia repair. Probably just secondary to recent surgery. He has no pain. No renal obstruction. Large bilateral renal cyst. This was reviewed and interpreted by myself the emergency room physician. I also reviewed the radiology report. I reviewed the patient's medical record. Reexamination: Patient continues to be fairly alert if not slightly somnolent. He awakes easily and answers questions appropriately. No increased work of breathing. Consultation: I spoke with Dr. Jesus who is on-call for the hospitalist service who agrees to admission to the ICU. Assessment and plan: Acute renal failure Dehydration Hypotension Possible sepsis Alcohol abuse Lactic acidosis -2.5 L normal saline bolus. Fluid volumes based on ideal body weight. -Broad-spectrum antibiotics were administered. Meropenem and Zyvox. Renal friendly. -Sepsis quality measures. -Lactic acid with a reflex was ordered. -Blood cultures were ordered. -I discussed the patient with the hospitalist on-call who is admitting the patient. - Discussed findings and plan with patient. Answered any questions. - All laboratory values were reviewed and interpreted personally by myself, the ER physician - All imaging was reviewed and interpreted personally by myself, the ER physician. - Evaluation and treatment of this problem were appropriate in the emergency setting Critical care -I spent a total of >35 minutes of critical care time managing the patient, independent of any other practitioner. -The time involved in the performance of separately reportable procedures was not counted towards critical care time. Lab Data 10/17/24 13:44 10/17/24 13:44 Radiology Impressions Chest/Abdomen X-ray 10/17/24 13:32 IMPRESSION: 1. No acute cardiopulmonary finding. 2. Enlarged LEFT renal silhouette probably secondary to previously reported large renal cysts identified on abdominal CT scan 07/07/2024. 3. No acute abdominal process. Abdomen/Pelvis CT 10/17/24 14:42 IMPRESSION: 1. There is a small collection at the RIGHT inguinal region with adjacent soft tissue stranding. The collection measures 3.6 x 2.5 cm. Patient has had recent RIGHT inguinal hernia repair. These changes are probably all appropriate for the recent surgery. 2. No renal obstruction. 3. Large bilateral renal cysts. 4. Cholelithiasis without acute cholecystitis. 5. Large hiatal hernia. Notified Lexus Spain MD at 10/17/2024 3:42 PM. Laboratory Results WBC 14.24 10^3/uL (3.29-11.43) H 10/17/24 13:44 RBC 4.89 10^6/uL (3.85-5.65) 10/17/24 13:44 Hgb 13.40 g/dL (11.27-16.99) 10/17/24 13:44 Hct 41.7 % (37-53) 10/17/24 13:44 MCV 85.3 fl (82-101) 10/17/24 13:44 MCH 27.4 pg (27-33) 10/17/24 13:44 MCHC 32.1 g/dL (30-55) 10/17/24 13:44 RDW 16.1 % (12.1-15.1) H 10/17/24 13:44 Plt Count 391 10^3/cmm (157-399) 10/17/24 13:44 MPV 10.1 fL (7.4-10.4) 10/17/24 13:44 Neut % (Auto) 85.2 % 10/17/24 13:44 Lymph % (Auto) 7.4 % 10/17/24 13:44 [place] % (Auto) 6.7 % 10/17/24 13:44 Eos % (Auto) 0.0 % 10/17/24 13:44 Baso % (Auto) 0.1 % 10/17/24 13:44 Neut # (Auto) 12.13 10^3/uL (1.8-7.7) H 10/17/24 13:44 Lymph # (Auto) 1.1 10^3/uL (0.8-4.8) 10/17/24 13:44 [place] # (Auto) 1.0 10^3/uL (0.2-0.9) H 10/17/24 13:44 Eos # (Auto) 0.0 10^3/uL (0.0-0.8) 10/17/24 13:44 Baso # (Auto) 0.0 10^3/uL (0.0-0.1) 10/17/24 13:44 Nucleated RBC % (auto) 0 % 10/17/24 13:44 Nucleated RBCs # 0.0 /100WBC 10/17/24 13:44 Specimen Type Arterial 10/17/24 13:45 Sample Site Radial, left 10/17/24 13:45 ABG pH 7.60 (7.35-7.45) H* 10/17/24 13:45 ABG pCO2 23.6 mmHg (35-45) L 10/17/24 13:45 ABG pO2 123.0 mmHg (80.0-100.0) H 10/17/24 13:45 ABG PO2/FiO2 Ratio 585 10/17/24 13:45 ABG HCO3 22.9 mmol/L (22-26) 10/17/24 13:45 ABG O2 Saturation > 99.1 10/17/24 13:45 ABG Base Excess 2.6 mmol/L (-2.0-2.0) H 10/17/24 13:45 Rd Test Pos 10/17/24 13:45 A-a O2 Gradient Not Reportable 10/17/24 13:45 Hematocrit 39.0 % (42-52) L 10/17/24 13:45 Hgb O2 Saturation 97.1 % (95-100) 10/17/24 13:45 Carboxyhemoglobin 1.2 %THgb (0.4-20.1) 10/17/24 13:45 Methemoglobin 1.1 % (0.4-1.5) 10/17/24 13:45 Total Hemoglobin 12.7 g/dL (14-18) L 10/17/24 13:45 Sodium 137.0 mmol/L (131-143) 10/17/24 13:45 Potassium 3.1 mmol/L (3.5-5.0) L 10/17/24 13:45 Glucose 107.0 mg/dL (70-115) 10/17/24 13:45 Ionized Calcium 1.0 mmol/L (1.1-1.4) L 10/17/24 13:45 O2 Delivery Device Room air 10/17/24 13:45 FiO2 21.0 % 10/17/24 13:45 Aircraft Stress Analyst ID Broma 10/17/24 13:45 Sodium 136 mmol/L (136-145) 10/17/24 13:44 Potassium 3.5 mmol/L (3.5-5.1) 10/17/24 13:44 Chloride 80 mmol/L (98-107) L 10/17/24 13:44 Carbon Dioxide 22 mmol/L (22-29) 10/17/24 13:44 Anion Gap 37.5 (5-19) H 10/17/24 13:44 BUN 95 mg/dL (8-23) H* D 10/17/24 13:44 Creatinine 3.3 mg/dL (0.7-1.2) H 10/17/24 13:44 GFR Calculation Not Reportable 10/17/24 13:44 Glucose 104 mg/dL (65-115) 10/17/24 13:44 Calculated Osmolality 312 mOsm/kg (285-295) H 10/17/24 13:44 Lactic Acid 12.0 mmol/L (0.5-2.2) H* 10/17/24 13:44 Calcium 9.8 mg/dL (8.5-10.5) 10/17/24 13:44 Total Bilirubin 1.5 mg/dL (0.15-1.2) H 10/17/24 13:44 AST 35 U/L (0-40) 10/17/24 13:44 ALT 21 U/L (0-41) 10/17/24 13:44 Alkaline Phosphatase 60 U/L (40-130) 10/17/24 13:44 Troponin T Baseline 60 ng/L (0-15) H 10/17/24 13:44 C-Reactive Protein 3.3 mg/L (0.0-4.9) 10/17/24 13:44 Total Protein 7.1 g/dL (6.6-8.7) 10/17/24 13:44 Albumin 4.4 g/dL (3.5-5.2) 10/17/24 13:44 Globulin 2.7 g/dL (1.3-4.6) 10/17/24 13:44 Lipase 40 U/L (13-60) 10/17/24 13:44 Procalcitonin 0.20 ng/mL (0-0.5) 10/17/24 13:44 Urine Color Yellow (Yellow) 10/17/24 15:40 Urine Appearance Clear (CLEAR) 10/17/24 15:40 Urine pH 6.5 (5-7) 10/17/24 15:40 Ur Specific [place] 1.013 (1.005-1.030) 10/17/24 15:40 Urine Protein 2+ (Negative) A 10/17/24 15:40 Urine Glucose (UA) Negative (Normal) 10/17/24 15:40 Urine Ketones Trace (Negative) 10/17/24 15:40 Urine Blood Negative (Negative) 10/17/24 15:40 Urine Nitrate Negative (Negative) 10/17/24 15:40 Urine Bilirubin Negative (Negative) 10/17/24 15:40 Urine Urobilinogen 1.0 mg/dL (Negative) 10/17/24 15:40 Ur Leukocyte Esterase Negative (Negative) 10/17/24 15:40 Urine RBC 0-4 /hpf (0-2) H 10/17/24 15:40 Urine WBC 0-4 /hpf (0-5) H 10/17/24 15:40 Ur Squamous Epith Cells 0-4 /hpf (0-5) H 10/17/24 15:40 Amorphous Sediment Not Reportable 10/17/24 15:40 Urine Bacteria Trace /hpf (NONE) 10/17/24 15:40 Hyaline Casts 0-4 /lpf H 10/17/24 15:40 Urine Mucus 1+ /hpf 10/17/24 15:40 Ethyl Alcohol 47 mg/dL (0-10) H 10/17/24 13:44 Influenza A (PCR) Negative (Negative) 10/17/24 14:05 Influenza Type B (PCR) Negative (Negative) 10/17/24 14:05 RSV (PCR) Negative (Negative) 10/17/24 14:05 SARS-CoV-2 (PCR) Negative (Negative) 10/17/24 14:05 All radiology interpretation(s) finalized by discharge Discharge Plan Discharge Patient Disposition: Admitted As Inpatient Clinical Impression: Acute renal failure, Alcohol abuse, Hypotension, Sepsis, Lactic acidosis, Dehydration Condition: Stable Coding Level of Care Code ED Plating Tank Operator for Giselle Horton
[2024-10-17] MEDS: ondansetron 2 mg/ML SDV 2 mL 8 MG IVP (14:03)
[2024-10-17 14:05] LABS: Basophils % 0.1 %; Hematocrit 41.7 % (37-53); Lymphocytes # 1.1 10^3/uL (0.8-4.8); Lymphocytes % 7.4 %; Mean Corpuscular HGB Conc 32.1 g/dL (30-55); Mean Corpuscular Hemoglobin 27.4 pg (27-33); Mean Corpuscular Volume 85.3 fl (82-101); Mean Platelet Volume 10.1 fL (7.4-10.4); Monocytes % 6.7 %; Neutrophils # 12.13 10^3/uL (1.8-7.7); Neutrophils % 85.2 %; Nucleated Red Blood Cells % 0 %; Platelet Count 391 10^3/cmm (157-399); Red Blood Count 4.89 10^6/uL (3.85-5.65); Red Cell Distribution Width 16.1 % (12.1-15.1); White Blood Count 14.24 10^3/uL (3.29-11.43)
[2024-10-17 14:18] LABS: Troponin(5th) Baseline 60 ng/L (0-15)
[2024-10-17] MEDS: sodium chloride 0.9% 500 ML 999 ML IV (14:25)
[2024-10-17] MEDS: naloxone 0.4 mg/ml SDV IVP (14:25)
[2024-10-17 14:28] LABS: Alanine Aminotransferase 21 U/L (0-41); Albumin Level 4.4 g/dL (3.5-5.2); Alcohol Level 47 mg/dL (0-10); Alkaline Phosphatase 60 U/L (40-130); Anion Gap 37.5 (5-19); Aspartate Amino Transferase 35 U/L (0-40); C Reactive Protein 3.3 mg/L (0.0-4.9); Calcium 9.8 mg/dL (8.5-10.5); Carbon Dioxide 22 mmol/L (22-29); Chloride 80 mmol/L (98-107); Creatinine Clr Calc Pharmacy 21.0017; Globulin 2.7 g/dL (1.3-4.6); Glucose 104 mg/dL (65-115); Lipase 40 U/L (13-60); Osmolality Calculated 312 mOsm/kg (285-295); Potassium 3.5 mmol/L (3.5-5.1); Sodium 136 mmol/L (136-145); Total Bilirubin 1.5 mg/dL (0.15-1.2); Total Protein 7.1 g/dL (6.6-8.7)
[2024-10-17 14:33] LABS: Blood Urea Nitrogen 95 mg/dL (8-23)
--- NOTE | 2024-10-17 14:42 | CT_ITS ---
WS: [id number] CT ABDOMEN AND PELVIS NONCONTRAST HISTORY: Renal failure, r/o obstructive uropathy per hospitalist TECHNIQUE: Imaging performed through the abdomen and pelvis. Coronal and sagittal reformats are submitted. All CT scans at [facility] use at least one of these dose optimization techniques: automated exposure control; mA and/or kV adjustment per patient size (includes targeted exams where dose is matched to clinical indication); or iterative reconstruction. DLP: 574.10 mGy.cm COMPARISON: 07/07/2024 Lower thorax: Lung bases are clear. Large hiatal hernia. Normal size heart. Liver: Normal size liver. No mass or bile duct dilatation. Gallbladder: Gallbladder is normally distended. Subtle area of increased density in the gallbladder consistent with stones. Pancreas: Normal size and attenuation. Normal pancreatic duct. No pancreatitis or mass. Spleen: Normal. Adrenal glands: Numerous Right kidney: Numerous large renal cysts which have been previously described. The largest from the upper pole measures 10.6 x 10.4 cm. No hydronephrosis or ureteral dilatation. Left kidney: Large LEFT renal cyst has been previously described measures 10.5 x 9.3 cm. There is a small amount of calcification in the wall of this cyst. No hydronephrosis. No ureteral dilatation. Aorta: Mild atherosclerosis abdominal aorta with no aneurysm. No free fluid, intraperitoneal air or significant lymphadenopathy. GI tract: Nondistended stomach. No small bowel obstruction. Small collection containing air in the adjacent inflammation at the RIGHT groin measures 3.6 x 2.5 cm. This is the area of a recent hernia repair. There does not appear to be recurrent bowel extending into the hernia. No colon obstruction. Abdominal wall: Intact abdominal wall. Recent postoperative changes in the RIGHT inguinal canal. Stable soft tissue in the LEFT inguinal canal. Pelvis: Urinary bladder is negative. Osseous structures: Moderate spondylitic changes in the lumbar spine. CT/CT abdomen pelvis wo con [id number] IMPRESSION: 1. There is a small collection at the RIGHT inguinal region with adjacent soft tissue stranding. The collection measures 3.6 x 2.5 cm. Patient has had recent RIGHT inguinal hernia repair. These changes are probably all appropriate for t he recent surgery. 2. No renal obstruction. 3. Large bilateral renal cysts. 4. Cholelithiasis without acute cholecystitis. 5. Large hiatal hernia. Notified Lexus Spain MD at 10/17/2024 3:42 PM.
[2024-10-17 14:53] LABS: Influenza A NEGATIVE (Negative); Influenza B NEGATIVE (Negative); Respiratory Syncytial Virus Ce NEGATIVE (Negative); SARS-CoV-2 PCR NEGATIVE (Negative)
--- NOTE | 2024-10-17 15:32 | ECG_ITS ---
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: : 1955 Requested By: Lexus Brar Order Number: [id number] Reading MD: ETHAN MEDINA Measurements Intervals [place] Rate: 69 P: 70 SD: 156 QRS: 15 QRSD: 106 T: 21 QT: 489 QTc: 527 Interpretive Statements SINUS RHYTHM ST DEVIATION AND MODERATE T-WAVE ABNORMALITY, CONSIDER LATERAL ISCHEMIA [-0.1+ mV T-WAVE IN I/aVL/V5/V6] ST DEVIATION AND MODERATE T-WAVE ABNORMALITY, CONSIDER INFERIOR ISCHEMIA [-0.1+ mV T-WAVE IN II/aVF] Compared to ECG 10/17/2024 13:41:51 T-wave abnormality now present Possible ischemia now present ST (T wave) deviation no longer present Prolonged QT interval no longer present Electronically Signed On 10-21-2024 23:52:42 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
[2024-10-17 15:44] LABS: Reflex Lactate Order REFLEX LACTIC ORDERD
[2024-10-17 15:57] LABS: Bilirubin Urine Negative (Negative); Blood Urine Negative (Negative); Glucose Urine UA Negative (Normal); Ketones Urine Trace (Negative); Leukocyte Esterase Urine Negative (Negative); Nitrate Urine Negative (Negative); Protein Urine 2+ (Negative); Specific Gravity, Urine 1.013 (1.005-1.030); Urine Appearance Clear (CLEAR); Urine Color Yellow (Yellow); pH Urine 6.5 (5-7)
[2024-10-17 16:27] LABS: RBC Urine 0-4 /hpf (0-2); Squamous Epithelial Cell Urine 0-4 /hpf (0-5); UA Manual Slide Review YES; UA Slide Review UA Slide Review Perf; WBC Urine 0-4 /hpf (0-5)
[2024-10-17 16:28] LABS: Bacteria Urine TRACE /hpf; Hyaline Casts Urine 0-4 /lpf; Mucus Urine 1+ /hpf
[2024-10-17 16:56] LABS: Troponin 5 2HR 46.09 ng/L (0-15)
[2024-10-17 16:57] LABS: Troponin 5 2HR Delta -13.91 ABS# (0-10)
[2024-10-17 16:58] LABS: Lactic Acid level (Lactate) 2.6 mmol/L (0.5-2.2)
[2024-10-17] MEDS: meropenem 500 mg SDV IVP (17:04)
[2024-10-17] MEDS: linezolid premix 600 MG/300 ML PREMIX 300 MG IV (17:07)
--- NOTE | 2024-10-17 17:23 | PM.HP ---
Providers/Chief Complaint Admitting Physician: Diana Pan MD Primary Care Provider: Omari Ames MD Chief Complaint: hypotension History of Present Illness James Austin is a 69 year old male history of binge drinking, alcohol abuse, coffee-ground emesis history, 02/11/2024 had EGD done which showed hiatal hernia and ulcerative esophagitis. He recently had hernia surgery with Dr. Elliott on 10/06. had no issues with post op healing. He has been having multipel episodes of Nausea and vomiting persistently for the past 3 days. He has been unable to keep anything down however has been binge drinking alcohol. he has had 2 episodes of coffee ground material com eup tody. Labs show evidence of dehydration, metabolic alkalosis and TODD today. He is awake, alert and oriented, denies any fever or other symptoms in the preceeding days. Review of Systems General: Reports: 10 or more systems reviewed and unremarkable except in HPI and below Const: Denies: fever(s), chills or body aches Eyes: Denies: change in vision, blurry vision or photophobia ENMT: Reports: hoarseness; Denies: throat pain, enlarged tonsils, odynophagia or nasal congestion Card: Denies: chest pain, palpitations, irregular heart rhythm, edema, swelling of feet/ankles, lightheadedness, pre-syncope, dyspnea on exertion or orthopnea Resp: Denies: dyspnea, productive cough, non-productive cough, wheezing, stridor, pain on inspiration, change in phlegm color, hemoptysis or chest congestion GI: Denies: abdominal pain, nausea, vomiting, hematemesis, coffee ground emesis, dysphagia, heartburn, diarrhea, constipation, GI cramping, change in stool character, hematochezia or melena : Denies: flank pain, dysuria, urinary frequency, urinary urgency, urinary hesitancy or hematuria Musc: Denies: neck pain, back pain, extremity pain, joint swelling, joint warmth or deformity Neuro: Denies: headache(s), numbness in extremities, weakness in extremities, sensory changes, difficulty walking, frequent falls, dizziness, vertigo, behavioral changes, Slurred speech present or seizure-like activity Psych: Denies: anxiety, depression, suicidal ideation or homicidal ideation Endo: Denies: polyuria, polydipsia, tired all the time, cold intolerance or hot flashes Aubrey/Lymph: Denies: easy bruising or easy bleeding Medications/Allergies Home Medications ?Medication ?Instructions ?Recorded ?Confirmed ?Last Taken ?Type lisinopril 20 1 tab PO QAM #90 tabs 09/19/23 10/17/24 07/07/24 Rx mg-hydrochlorothiazide 12.5 mg tablet epinephrine 0.3 mg/0.3 mL 0.3 mg (0.3 mL) IM Q15M PRN 12/19/23 10/17/24 Unknown Rx injection, auto-injector (EpiPen anaphylaxis #2 ea 2-Shawn) pantoprazole 40 mg tablet,delayed 40 mg PO BID #60 tabs 03/06/24 10/17/24 07/07/24 Rx release ferrous sulfate 325 mg (65 mg 325 mg PO BID #60 tabs 07/15/24 10/17/24 Unknown Rx iron) tablet Allergies Allergy/AdvReac Type Severity Reaction Status Date / Time cantaloupe Allergy Unknown ALGY-Swell Verified 10/17/24 13:47 Lip/Tongue/Throat kiwi Allergy Unknown ALGY-Anaphy Verified 10/17/24 13:47 laxis PFSH Acute PFSH: Medical History GI bleed Acute blood loss anemia Alcohol abuse Acute upper gastrointestinal bleeding GERD (gastroesophageal reflux disease) Hyperlipidemia Hypertension Diverticulosis Hypertension Family history of colon cancer 09/15/2019: Normal colonoscopy except diverticulosis, follow-up colonoscopy in 2024 Surgical History History of excision of epidermal inclusion cyst Social History Smoking and tobacco/nicotine status: unknown if used tobacco/nicotine Alcohol intake: former Substance/Drug Use: never Vitals/I&O/Wt Last Vital Signs Temp 97.7 F 10/17/24 13:30 Pulse 77 10/17/24 14:00 Resp 19 H 10/17/24 13:30 BP 107/62 10/17/24 14:00 Pulse Ox 100 10/17/24 14:00 O2 Del Method Room Air 10/17/24 14:00 Weight last 48 hrs Weight 81.647 kg Physical Exam Narrative: General: No acute distress, AO x3 HEENT: PERRLA, pupils bilaterally equal and reactive, pallors not present Chest: Normal vesicular breath sounds, no added sounds, equal good air entry bilaterally CVS: S1-S2 regular, no murmurs, no tachycardia, no gallops, no rubs Abdomen: Soft, nontender, no organomegaly, bowel sounds present Neuro: No focal deficits, no facial deformity, AO x3, power 5/5 in all limbs Data 10/17/24 13:44 10/17/24 13:44 Micro: Microbiology 10/17/24 16:27 Blood Culture - Preliminary Blood SPECIMEN COLLECTED 10/17/24 15:01 Blood Culture - Preliminary Blood SPECIMEN COLLECTED Other data: Radiology Impressions Chest/Abdomen X-ray 10/17/24 13:32 IMPRESSION: 1. No acute cardiopulmonary finding. 2. Enlarged LEFT renal silhouette probably secondary to previously reported large renal cysts identified on abdominal CT scan 07/07/2024. 3. No acute abdominal process. Abdomen/Pelvis CT 10/17/24 14:42 IMPRESSION: 1. There is a small collection at the RIGHT inguinal region with adjacent soft tissue stranding. The collection measures 3.6 x 2.5 cm. Patient has had recent RIGHT inguinal hernia repair. These changes are probably all appropriate for the recent surgery. 2. No renal obstruction. 3. Large bilateral renal cysts. 4. Cholelithiasis without acute cholecystitis. 5. Large hiatal hernia. Notified Lexus Spain MD at 10/17/2024 3:42 PM. Laboratory Results WBC 14.24 10^3/uL (3.29-11.43) H 10/17/24 13:44 RBC 4.89 10^6/uL (3.85-5.65) 10/17/24 13:44 Hgb 13.40 g/dL (11.27-16.99) 10/17/24 13:44 Hct 41.7 % (37-53) 10/17/24 13:44 MCV 85.3 fl (82-101) 10/17/24 13:44 MCH 27.4 pg (27-33) 10/17/24 13:44 MCHC 32.1 g/dL (30-55) 10/17/24 13:44 RDW 16.1 % (12.1-15.1) H 10/17/24 13:44 Plt Count 391 10^3/cmm (157-399) 10/17/24 13:44 MPV 10.1 fL (7.4-10.4) 10/17/24 13:44 Neut % (Auto) 85.2 % 10/17/24 13:44 Lymph % (Auto) 7.4 % 10/17/24 13:44 Sutton % (Auto) 6.7 % 10/17/24 13:44 Eos % (Auto) 0.0 % 10/17/24 13:44 Baso % (Auto) 0.1 % 10/17/24 13:44 Neut # (Auto) 12.13 10^3/uL (1.8-7.7) H 10/17/24 13:44 Lymph # (Auto) 1.1 10^3/uL (0.8-4.8) 10/17/24 13:44 Sutton # (Auto) 1.0 10^3/uL (0.2-0.9) H 10/17/24 13:44 Eos # (Auto) 0.0 10^3/uL (0.0-0.8) 10/17/24 13:44 Baso # (Auto) 0.0 10^3/uL (0.0-0.1) 10/17/24 13:44 Nucleated RBC % (auto) 0 % 10/17/24 13:44 Nucleated RBCs # 0.0 /100WBC 10/17/24 13:44 Specimen Type Arterial 10/17/24 13:45 Sample Site Radial, left 10/17/24 13:45 ABG pH 7.60 (7.35-7.45) H* 10/17/24 13:45 ABG pCO2 23.6 mmHg (35-45) L 10/17/24 13:45 ABG pO2 123.0 mmHg (80.0-100.0) H 10/17/24 13:45 ABG PO2/FiO2 Ratio 585 10/17/24 13:45 ABG HCO3 22.9 mmol/L (22-26) 10/17/24 13:45 ABG O2 Saturation > 99.1 10/17/24 13:45 ABG Base Excess 2.6 mmol/L (-2.0-2.0) H 10/17/24 13:45 Rd Test Pos 10/17/24 13:45 A-a O2 Gradient Not Reportable 10/17/24 13:45 Hematocrit 39.0 % (42-52) L 10/17/24 13:45 Hgb O2 Saturation 97.1 % (95-100) 10/17/24 13:45 Carboxyhemoglobin 1.2 %THgb (0.4-20.1) 10/17/24 13:45 Methemoglobin 1.1 % (0.4-1.5) 10/17/24 13:45 Total Hemoglobin 12.7 g/dL (14-18) L 10/17/24 13:45 Sodium 137.0 mmol/L (131-143) 10/17/24 13:45 Potassium 3.1 mmol/L (3.5-5.0) L 10/17/24 13:45 Glucose 107.0 mg/dL (70-115) 10/17/24 13:45 Ionized Calcium 1.0 mmol/L (1.1-1.4) L 10/17/24 13:45 O2 Delivery Device Room air 10/17/24 13:45 FiO2 21.0 % 10/17/24 13:45 Corporate Wellness Coordinator ID Broma 10/17/24 13:45 Sodium 136 mmol/L (136-145) 10/17/24 13:44 Potassium 3.5 mmol/L (3.5-5.1) 10/17/24 13:44 Chloride 80 mmol/L (98-107) L 10/17/24 13:44 Carbon Dioxide 22 mmol/L (22-29) 10/17/24 13:44 Anion Gap 37.5 (5-19) H 10/17/24 13:44 BUN 95 mg/dL (8-23) H* D 10/17/24 13:44 Creatinine 3.3 mg/dL (0.7-1.2) H 10/17/24 13:44 GFR Calculation Not Reportable 10/17/24 13:44 Glucose 104 mg/dL (65-115) 10/17/24 13:44 Calculated Osmolality 312 mOsm/kg (285-295) H 10/17/24 13:44 Lactic Acid 12.0 mmol/L (0.5-2.2) H* 10/17/24 13:44 Lactic Acid (Sepsis) 2.6 mmol/L (0.5-2.2) H 10/17/24 16:27 Calcium 9.8 mg/dL (8.5-10.5) 10/17/24 13:44 Total Bilirubin 1.5 mg/dL (0.15-1.2) H 10/17/24 13:44 AST 35 U/L (0-40) 10/17/24 13:44 ALT 21 U/L (0-41) 10/17/24 13:44 Alkaline Phosphatase 60 U/L (40-130) 10/17/24 13:44 Troponin T Baseline 60 ng/L (0-15) H 10/17/24 13:44 Troponin T 120 Minute 46.09 ng/L (0-15) H 10/17/24 16:27 Delta Troponin T -13.91 ABS# (0-10) L 10/17/24 16:27 C-Reactive Protein 3.3 mg/L (0.0-4.9) 10/17/24 13:44 Total Protein 7.1 g/dL (6.6-8.7) 10/17/24 13:44 Albumin 4.4 g/dL (3.5-5.2) 10/17/24 13:44 Globulin 2.7 g/dL (1.3-4.6) 10/17/24 13:44 Lipase 40 U/L (13-60) 10/17/24 13:44 Procalcitonin 0.20 ng/mL (0-0.5) 10/17/24 13:44 Urine Color Yellow (Yellow) 10/17/24 15:40 Urine Appearance Clear (CLEAR) 10/17/24 15:40 Urine pH 6.5 (5-7) 10/17/24 15:40 Ur Specific Koppel 1.013 (1.005-1.030) 10/17/24 15:40 Urine Protein 2+ (Negative) A 10/17/24 15:40 Urine Glucose (UA) Negative (Normal) 10/17/24 15:40 Urine Ketones Trace (Negative) 10/17/24 15:40 Urine Blood Negative (Negative) 10/17/24 15:40 Urine Nitrate Negative (Negative) 10/17/24 15:40 Urine Bilirubin Negative (Negative) 10/17/24 15:40 Urine Urobilinogen 1.0 mg/dL (Negative) 10/17/24 15:40 Ur Leukocyte Esterase Negative (Negative) 10/17/24 15:40 Urine RBC 0-4 /hpf (0-2) H 10/17/24 15:40 Urine WBC 0-4 /hpf (0-5) H 10/17/24 15:40 Ur Squamous Epith Cells 0-4 /hpf (0-5) H 10/17/24 15:40 Amorphous Sediment Not Reportable 10/17/24 15:40 Urine Bacteria Trace /hpf (NONE) 10/17/24 15:40 Hyaline Casts 0-4 /lpf H 10/17/24 15:40 Urine Mucus 1+ /hpf 10/17/24 15:40 Ethyl Alcohol 47 mg/dL (0-10) H 10/17/24 13:44 Influenza A (PCR) Negative (Negative) 10/17/24 14:05 Influenza Type B (PCR) Negative (Negative) 10/17/24 14:05 RSV (PCR) Negative (Negative) 10/17/24 14:05 SARS-CoV-2 (PCR) Negative (Negative) 10/17/24 14:05 A&P Assessment and plan (1) Alcohol abuse: (2) Alcohol consumption binge drinking: (3) Hypotension: (4) Ulcerative esophagitis: (5) Coffee ground emesis: (6) Metabolic alkalosis: Plan 69M with PMH esophagitis, h/o recurrent GI bleeding presenting with Hypotension. persistent vomiting and binge alcohol drinking past 3 days Labs show several abnormalities including metabolic alkalosis, TODD with cr at 3.3 , lacate of 12, improving at 2.6 with hydration. Hypoetnsive with systolic BP at 40 on arrival, now better afyter fluid bolus at 107/62 mmhg 2 episodes of coffee ground emesis today Ct abdomen without recent complications from hernia surgery. No obstructive uropathy. Plan: Admit to ICU completed 2L IVF bolus, start D5NS @ 100 cc/ hr Thiamine 100mg im nw followed by 100mg po daily protonix 40mg iv q12h Trend CBC every 8 hrs NPO except sips and chips check lipase to assess for pancreatitis Multiple metabolic derangements likely related to sever dehydration, less likely infection, hold off on further abx for now monitor for alcohol withdrawal , current level at 48 [facility] protocol PDMP PDMP Reviewed: Not Reviewed Attestations Medical Necessity Statement*: > 2 mdinight stay anticipated Coding Level of Care Code Acute Code for Chg Fwd Diagnoses Alcohol abuse F10.10 Alcohol consumption binge drinking F10.10 Hypotension I95.9 Ulcerative esophagitis K22.10 Coffee ground emesis K92.0 Metabolic alkalosis E87.3
[2024-10-17 18:40] LABS: Basophils % 0.1 %; Hematocrit 37.6 % (37-53); Lymphocytes % 5.8 %; Mean Corpuscular HGB Conc 31.6 g/dL (30-55); Mean Corpuscular Hemoglobin 26.7 pg (27-33); Mean Corpuscular Volume 84.3 fl (82-101); Mean Platelet Volume 9.9 fL (7.4-10.4); Monocytes # 1.3 10^3/uL (0.2-0.9); Monocytes % 7.6 %; Neutrophils # 15.17 10^3/uL (1.8-7.7); Nucleated Red Blood Cells % 0 %; Platelet Count 300 10^3/cmm (157-399); Red Blood Count 4.46 10^6/uL (3.85-5.65); Red Cell Distribution Width 16.1 % (12.1-15.1); White Blood Count 17.63 10^3/uL (3.29-11.43)
[2024-10-17 19:04] LABS: Lipase 29 U/L (13-60)
[2024-10-17] MEDS: dextrose 5%-sod chloride 0.9% 1,000 ML 100 ML IV (22:46)
[2024-10-17] MEDS: ondansetron 2 mg/ML SDV 2 mL 4 MG IVP (22:46)
[2024-10-17] MEDS: thiamine 100 mg/mL 2mL SDV IM (22:46)
[2024-10-17] MEDS: pantoprazole 40 mg SDV IVP (22:46)
[2024-10-18] VITALS (36 sets, daily range): BP systolic 100–160; BP diastolic 57–81; PULSE 49–86; RESP 12–27; TEMP 36.9; O2SAT 85–100
[2024-10-18 02:25] LABS: Troponin 5 6HR 38.47 ng/L (0-15)
[2024-10-18 02:32] LABS: Troponin 5 6HR Delta -21.53 ng/L (0-12)
[2024-10-18 03:01] LABS: Basophils % 0.1 %; Hematocrit 37.6 % (37-53); Lymphocytes # 1.4 10^3/uL (0.8-4.8); Lymphocytes % 9.8 %; Mean Corpuscular HGB Conc 31.1 g/dL (30-55); Mean Corpuscular Hemoglobin 27.2 pg (27-33); Mean Corpuscular Volume 87.4 fl (82-101); Mean Platelet Volume 10.3 fL (7.4-10.4); Monocytes # 1.1 10^3/uL (0.2-0.9); Monocytes % 8.2 %; Neutrophils % 81.7 %; Nucleated Red Blood Cells % 0 %; Platelet Count 265 10^3/cmm (157-399); White Blood Count 13.96 10^3/uL (3.29-11.43)
[2024-10-18 05:44] LABS: Basophils % 0.2 %; Hematocrit 41.2 % (37-53); Lymphocytes # 1.4 10^3/uL (0.8-4.8); Lymphocytes % 11.1 %; Mean Corpuscular HGB Conc 29.9 g/dL (30-55); Mean Corpuscular Volume 90.5 fl (82-101); Mean Platelet Volume 10.2 fL (7.4-10.4); Monocytes % 7.6 %; Neutrophils # 10.38 10^3/uL (1.8-7.7); Neutrophils % 80.8 %; Nucleated Red Blood Cells % 0 %; Platelet Count 209 10^3/cmm (157-399); Red Blood Count 4.55 10^6/uL (3.85-5.65); Red Cell Distribution Width 16.3 % (12.1-15.1); White Blood Count 12.86 10^3/uL (3.29-11.43)
[2024-10-18 08:40] LABS: Alanine Aminotransferase 19 U/L (0-41); Albumin Level 3.5 g/dL (3.5-5.2); Alkaline Phosphatase 49 U/L (40-130); Blood Urea Nitrogen 76 mg/dL (8-23); Calcium 8.5 mg/dL (8.5-10.5); Carbon Dioxide 25 mmol/L (22-29); Creatinine Clr Calc Pharmacy 31.7893; Globulin 2.4 g/dL (1.3-4.6); Glucose 102 mg/dL (65-115); Magnesium 2.8 mg/dL (1.7-2.3); Total Bilirubin 1.5 mg/dL (0.15-1.2); Total Protein 5.9 g/dL (6.6-8.7)
[2024-10-18] MEDS: dextrose 5%-sod chloride 0.9% 1,000 ML 100 ML IV ×2 (08:42→16:41)
[2024-10-18] MEDS: thiamine 100 mg Tablet PO (08:43)
[2024-10-18] MEDS: pantoprazole 40 mg SDV IVP ×2 (08:43→22:32)
[2024-10-18] MEDS: folic acid 1 mg Tablet PO (08:43)
[2024-10-18] MEDS: ondansetron 2 mg/ML SDV 2 mL 4 MG IVP ×2 (08:43→22:32)
[2024-10-18] MEDS: multivitamin therapeutic Tablet 1 TAB PO (08:43)
[2024-10-18 09:05] LABS: Anion Gap 24.1 (5-19); Chloride 97 mmol/L (98-107); Osmolality Calculated 319 mOsm/kg (285-295); Potassium 3.1 mmol/L (3.5-5.1); Sodium 143 mmol/L (136-145)
[2024-10-18 09:13] LABS: Aspartate Amino Transferase 33 U/L (0-40)
[2024-10-18 10:24] LABS: Basophils % 0.1 %; Eosinophils % 0.2 %; Hematocrit 38.9 % (37-53); Lymphocytes # 1.2 10^3/uL (0.8-4.8); Lymphocytes % 11.6 %; Mean Corpuscular HGB Conc 30.8 g/dL (30-55); Mean Corpuscular Hemoglobin 26.6 pg (27-33); Mean Corpuscular Volume 86.3 fl (82-101); Monocytes # 0.8 10^3/uL (0.2-0.9); Monocytes % 7.8 %; Neutrophils # 8.59 10^3/uL (1.8-7.7); Nucleated Red Blood Cells % 0 %; Platelet Count 231 10^3/cmm (157-399); Red Blood Count 4.51 10^6/uL (3.85-5.65); Red Cell Distribution Width 15.9 % (12.1-15.1); White Blood Count 10.73 10^3/uL (3.29-11.43)
[2024-10-18] MEDS: lidocaine 1% 5 ML in potassium chloride premix 100 ML 52.5 ML IV (13:45)
--- NOTE | 2024-10-18 16:42 | PC.NURSE ---
Patient transferred via wheelchair to [facility] patient belongings includes clothing, shoes, and a folder with wallet and vallejo money sealed inside. Patient is AOX4. See documented vitals.
[2024-10-18] MEDS: metoclopramide 5 mg/mL SDV 2 mL IVP (16:51)
--- NOTE | 2024-10-18 18:01 | P.PN_ITS ---
Subjective 2 Subjective: Several electrolyte abnormalities all much improved today. Leukocytosis resolved. Creatinine improving at 2.1. Urine output not accurately charted, however patient is noted to be voiding without restrictions. T. bili improving. Serially negative delta's. No further hematemesis noted. Nauseous persisting however improved compared to yesterday. Vitals/I&O/Wt Last Vital Signs Temp 98.5 F 10/18/24 14:00 Pulse 68 10/18/24 16:00 Resp 14 10/18/24 16:00 BP 128/63 10/18/24 16:00 Pulse Ox 98 10/18/24 16:00 O2 Del Method Room Air 10/18/24 16:00 10/18/24 10/18/24 10/18/24 06:59 14:59 22:59 Intake Total 993.333 / 993.333 903.333 / 1896.666 Output Total 250 / 250 Balance -250 / 1550 993.333 / 993.333 903.333 / 1896.666 Weight last 48 hrs Weight 75 kg Weight 75 kg Weight 81.647 kg Physical Exam 2 Narrative: General: No acute distress, AO x3 HEENT: PERRLA, pupils bilaterally equal and reactive, pallors not present Chest: Normal vesicular breath sounds, no added sounds, equal good air entry bilaterally CVS: S1-S2 regular, no murmurs, no tachycardia, no gallops, no rubs Abdomen: Soft, nontender, no organomegaly, bowel sounds present Neuro: No focal deficits, no facial deformity, AO x3, power 5/5 in all limbs Data 10/19/24 04:16 10/19/24 04:16 Micro: Microbiology 10/17/24 16:27 Blood Culture - Preliminary Blood NEGATIVE TO DATE 10/17/24 15:01 Blood Culture - Preliminary Blood NEGATIVE TO DATE A&P Assessment and plan (1) Alcohol abuse: (2) Alcohol consumption binge drinking: (3) Hypotension: (4) Ulcerative esophagitis: (5) Coffee ground emesis: (6) Metabolic alkalosis: Plan 69M with PMH esophagitis, h/o recurrent GI bleeding presenting with Hypotension. persistent vomiting and binge alcohol drinking past 3 days Labs show several abnormalities including metabolic alkalosis, TODD with cr at 3.3 , lacate of 12, improving at 2.6 with hydration. Hypoetnsive with systolic BP at 40 on arrival, now better afyter fluid bolus at 107/62 mmhg 2 episodes of coffee ground emesis today Ct abdomen without recent complications from hernia surgery. No obstructive uropathy. Plan: Admit to ICU completed 2L IVF bolus, start D5NS @ 100 cc/ hr Thiamine 100mg im nw followed by 100mg po daily protonix 40mg iv q12h Trend CBC every 8 hrs NPO except sips and chips check lipase to assess for pancreatitis Multiple metabolic derangements likely related to sever dehydration, less likely infection, hold off on further abx for now monitor for alcohol withdrawal , current level at 48 [facility] protocol October 19, 2024 Clinically much improved today. Electrolyte abnormalities improving as noted above. TODD improving with creatinine now at 2.1. Lipase was negative. No signs of acute pancreatitis on CT. Continues to have persisting nausea and had 1 episode of vomiting this morning however no further hematemesis. Hemodynamic stable. Serially downtrending troponins. No active chest pain. Transfer out of ICU to [facility] today. PDMP PDMP Reviewed: Not Reviewed Attestations 2 Medical Necessity Statement*: Transfer out of ICU to [facility]. Continue IV hydration. Monitor serial creatinine and T. bili. Monitor for any further hematemesis. Coding Level of Care Code Acute Code for Chg Fwd Diagnoses Alcohol abuse F10.10 Alcohol consumption binge drinking F10.10 Hypotension I95.9 Ulcerative esophagitis K22.10 Coffee ground emesis K92.0 Metabolic alkalosis E87.3
[2024-10-19] VITALS (7 sets, daily range): BP systolic 96–144; BP diastolic 61–79; PULSE 60–106; RESP 16–18; TEMP 36.5–36.8; O2SAT 95–97
[2024-10-19] MEDS: dextrose 5%-sod chloride 0.9% 1,000 ML 100 ML IV (02:48)
[2024-10-19 04:25] LABS: Eosinophils # 0.1 10^3/uL (0.0-0.8); Hematocrit 33.2 % (37-53); Lymphocytes # 1.6 10^3/uL (0.8-4.8); Mean Corpuscular Hemoglobin 26.8 pg (27-33); Mean Corpuscular Volume 86.5 fl (82-101); Mean Platelet Volume 10.1 fL (7.4-10.4); Monocytes # 0.6 10^3/uL (0.2-0.9); Monocytes % 7.3 %; Neutrophils # 6.21 10^3/uL (1.8-7.7); Neutrophils % 72.5 %; Nucleated Red Blood Cells % 0 %; Platelet Count 176 10^3/cmm (157-399); Red Blood Count 3.84 10^6/uL (3.85-5.65); Red Cell Distribution Width 15.8 % (12.1-15.1); White Blood Count 8.58 10^3/uL (3.29-11.43)
[2024-10-19 04:51] LABS: Alanine Aminotransferase 15 U/L (0-41); Albumin Level 3.2 g/dL (3.5-5.2); Alkaline Phosphatase 41 U/L (40-130); Anion Gap 11.7 (5-19); Aspartate Amino Transferase 19 U/L (0-40); Blood Urea Nitrogen 33 mg/dL (8-23); Calcium 8.2 mg/dL (8.5-10.5); Carbon Dioxide 30 mmol/L (22-29); Chloride 102 mmol/L (98-107); Creatinine Clr Calc Pharmacy 55.6313; Globulin 2.2 g/dL (1.3-4.6); Glucose 132 mg/dL (65-115); Osmolality Calculated 301 mOsm/kg (285-295); Sodium 141 mmol/L (136-145); Total Bilirubin 0.9 mg/dL (0.15-1.2); Total Protein 5.4 g/dL (6.6-8.7)
[2024-10-19 05:07] LABS: Potassium 2.7 mmol/L (3.5-5.1)
[2024-10-19] MEDS: potassium chloride premix 100 ML 25 MEQ IV (05:40)
[2024-10-19] MEDS: pantoprazole 40 mg SDV IVP (10:14)
[2024-10-19] MEDS: folic acid 1 mg Tablet PO (10:14)
[2024-10-19] MEDS: multivitamin therapeutic Tablet 1 TAB PO (10:14)
[2024-10-19] MEDS: thiamine 100 mg Tablet PO (10:14)
--- NOTE | 2024-10-19 10:30 | P.DS_ITS ---
Discharge Providers Date of Admission: 10/17/24 16:44 Date of Discharge: October 19, 2024 Attending Provider at Admission: Diana Pan MD Attending Provider at Discharge: Diana Pan MD Primary Care Provider: Omari Ames MD Diagnoses at Discharge Discharge Diagnosis (1) Alcohol abuse: Status: Acute (2) Alcohol consumption binge drinking: Status: Acute (3) Hypotension: Status: Acute (4) Ulcerative esophagitis: Status: Acute (5) Coffee ground emesis: Status: Acute (6) Metabolic alkalosis: Status: Acute Reason for Visit Reason for Visit: hypotension Brief History: James Austin is a 69 year old male history of binge drinking, alcohol abuse, Gi bleed, previous EGD done which showed hiatal hernia and ulcerative esophagitis. He recently had hernia surgery with Dr. Elliott on 10/06. had no issues with post op healing. He presented with having multiple episodes of Nausea and vomiting persistently for the past 3 days. He has been unable to keep anything down however had been binge drinking alcohol. he has had 2 episodes of coffee g round material, likely related to multiple episodes of vomiting. Labs showed several electrolyte abnormalties including elevated lactic acid, metabolic alkalosis with pH 7.6 , TODD with cr at 3.3, leukocytosis, elevated T. bili, and elevated troponins. He was admitted to the hospital in view of severe dehydration and inability to tolerate p.o. intake. His alcohol level was at 47. Severe dehydration was most likely related to binge alcohol drinking. He received IV fluid resuscitation. He was hypotensive on admission with systolic blood pressure only at 40 systolic. He received 2 L normal saline bolus and thereafter was maintained on D5 normal saline infusion at 100 cc an hour. With this his clinical status improved. Creatinine has improved from 3.3-1.2 today. He has adequate urine output. T. bili improved from 1.5-0.9. Leukocytosis improved from 17,000 To 8500. Hypokalemia was repleted with IV and oral supplementation. His nausea and vomiting finally improving by the day of discharge. He was able to tolerate a full liquid diet today. Lipase was negative. No CT evidence of acute pancreatitis. He has had recent surgery for hernia repair earlier this month. His incision site is healing very well No signs of infection. CT of the abdomen showed a small collection in the right inguinal region with addition soft tissue stranding, most likely consistent with postop changes. Note was made of cholelithiasis without acute cholecystitis. He was monitored for alcohol withdrawal, CIWA score is 0 on the day of discharge. Counseled extensively to avoid any alcohol consumption going forward. Lisinopril and HCTZ discontinued in view of recent TODD and recovering kidney function. Patient additionally reports multiple episodes of orthostatic hypotension in the past. Amel related of this may have been related to his medications or past episodes of excessive GI losses. For now given the TODD and recovering kidney function, we will hold VITO inhibitors. Recommended to stay off of antihypertensives for the next 3 days. Thereafter maintain a blood pressure chart and take it to his primary care provider. Amlodipine 5 mg p.o. daily has been recommended instead of lisinopril, patient to start medication if systolic blood pressure trending above 140. Physical Exam Narrative: General: No acute distress, AO x3 HEENT: PERRLA, pupils bilaterally equal and reactive, pallors not present Chest: Normal vesicular breath sounds, no added sounds, equal good air entry bilaterally CVS: S1-S2 regular, no murmurs, no tachycardia, no gallops, no rubs Abdomen: Soft, nontender, no organomegaly, bowel sounds present Neuro: No focal deficits, no facial deformity, AO x3, power 5/5 in all limbs Discharge Data Studies Completed and Pending Completed Studies During Hospitalization Category Date Time Status CT abdomen pelvis wo con [id number] Stat Cat Scan 10/17/24 14:42 Completed XR acute abdomen series [id number] Stat Exams 10/17/24 13:32 Completed Pending at discharge Category Date Time Status Blood Culture Stat Lab 10/17/24 16:27 Results Radiology Impressions Chest/Abdomen X-ray 10/17/24 13:32 IMPRESSION: 1. No acute cardiopulmonary finding. 2. Enlarged LEFT renal silhouette probably secondary to previously reported large renal cysts identified on abdominal CT scan 07/07/2024. 3. No acute abdominal process. Abdomen/Pelvis CT 10/17/24 14:42 IMPRESSION: 1. There is a small collection at the RIGHT inguinal region with adjacent soft tissue stranding. The collection measures 3.6 x 2.5 cm. Patient has had recent RIGHT inguinal hernia repair. These changes are probably all appropriate for the recent surgery. 2. No renal obstruction. 3. Large bilateral renal cysts. 4. Cholelithiasis without acute cholecystitis. 5. Large hiatal hernia. Notified Lexus Spain MD at 10/17/2024 3:42 PM. Laboratory Results WBC 8.58 10^3/uL (3.29-11.43) 10/19/24 04:16 RBC 3.84 10^6/uL (3.85-5.65) L 10/19/24 04:16 Hgb 10.30 g/dL (11.27-16.99) L 10/19/24 04:16 Hct 33.2 % (37-53) L 10/19/24 04:16 MCV 86.5 fl (82-101) 10/19/24 04:16 MCH 26.8 pg (27-33) L 10/19/24 04:16 MCHC 31.0 g/dL (30-55) 10/19/24 04:16 RDW 15.8 % (12.1-15.1) H 10/19/24 04:16 Plt Count 176 10^3/cmm (157-399) 10/19/24 04:16 MPV 10.1 fL (7.4-10.4) 10/19/24 04:16 Neut % (Auto) 72.5 % 10/19/24 04:16 Lymph % (Auto) 19.0 % 10/19/24 04:16 Wolfe % (Auto) 7.3 % 10/19/24 04:16 Eos % (Auto) 1.0 % 10/19/24 04:16 Baso % (Auto) 0.0 % 10/19/24 04:16 Neut # (Auto) 6.21 10^3/uL (1.8-7.7) 10/19/24 04:16 Lymph # (Auto) 1.6 10^3/uL (0.8-4.8) 10/19/24 04:16 Wolfe # (Auto) 0.6 10^3/uL (0.2-0.9) 10/19/24 04:16 Eos # (Auto) 0.1 10^3/uL (0.0-0.8) 10/19/24 04:16 Baso # (Auto) 0.0 10^3/uL (0.0-0.1) 10/19/24 04:16 Nucleated RBC % (auto) 0 % 10/19/24 04:16 Nucleated RBCs # 0.0 /100WBC 10/19/24 04:16 Specimen Type Arterial 10/17/24 13:45 Sample Site Radial, left 10/17/24 13:45 ABG pH 7.60 (7.35-7.45) H* 10/17/24 13:45 ABG pCO2 23.6 mmHg (35-45) L 10/17/24 13:45 ABG pO2 123.0 mmHg (80.0-100.0) H 10/17/24 13:45 ABG PO2/FiO2 Ratio 585 10/17/24 13:45 ABG HCO3 22.9 mmol/L (22-26) 10/17/24 13:45 ABG O2 Saturation > 99.1 10/17/24 13:45 ABG Base Excess 2.6 mmol/L (-2.0-2.0) H 10/17/24 13:45 Rd Test Pos 10/17/24 13:45 A-a O2 Gradient Not Reportable 10/17/24 13:45 Hematocrit 39.0 % (42-52) L 10/17/24 13:45 Hgb O2 Saturation 97.1 % (95-100) 10/17/24 13:45 Carboxyhemoglobin 1.2 %THgb (0.4-20.1) 10/17/24 13:45 Methemoglobin 1.1 % (0.4-1.5) 10/17/24 13:45 Total Hemoglobin 12.7 g/dL (14-18) L 10/17/24 13:45 Sodium 137.0 mmol/L (131-143) 10/17/24 13:45 Potassium 3.1 mmol/L (3.5-5.0) L 10/17/24 13:45 Glucose 107.0 mg/dL (70-115) 10/17/24 13:45 Ionized Calcium 1.0 mmol/L (1.1-1.4) L 10/17/24 13:45 O2 Delivery Device Room air 10/17/24 13:45 FiO2 21.0 % 10/17/24 13:45 [employer] ID Broma 10/17/24 13:45 Sodium 141 mmol/L (136-145) 10/19/24 04:16 Potassium 2.7 mmol/L (3.5-5.1) L* 10/19/24 04:16 Chloride 102 mmol/L (98-107) 10/19/24 04:16 Carbon Dioxide 30 mmol/L (22-29) H 10/19/24 04:16 Anion Gap 11.7 (5-19) 10/19/24 04:16 BUN 33 mg/dL (8-23) H 10/19/24 04:16 Creatinine 1.2 mg/dL (0.7-1.2) 10/19/24 04:16 GFR Calculation Not Reportable 10/19/24 04:16 Glucose 132 mg/dL (65-115) H 10/19/24 04:16 Calculated Osmolality 301 mOsm/kg (285-295) H 10/19/24 04:16 Lactic Acid 12.0 mmol/L (0.5-2.2) H* 10/17/24 13:44 Lactic Acid (Sepsis) 2.6 mmol/L (0.5-2.2) H 10/17/24 16:27 Calcium 8.2 mg/dL (8.5-10.5) L 10/19/24 04:16 Magnesium 2.8 mg/dL (1.7-2.3) H 10/18/24 05:02 Total Bilirubin 0.9 mg/dL (0.15-1.2) 10/19/24 04:16 AST 19 U/L (0-40) 10/19/24 04:16 ALT 15 U/L (0-41) 10/19/24 04:16 Alkaline Phosphatase 41 U/L (40-130) 10/19/24 04:16 Troponin T Baseline 60 ng/L (0-15) H 10/17/24 13:44 Troponin T 120 Minute 46.09 ng/L (0-15) H 10/17/24 16:27 Delta Troponin T -13.91 ABS# (0-10) L 10/17/24 16:27 Troponin T Hi Sens 6Hr 38.47 ng/L (0-15) H 10/18/24 01:58 Troponin T Hi Sens 6Hr Delta -21.53 ng/L (0-12) L 10/18/24 01:58 C-Reactive Protein 3.3 mg/L (0.0-4.9) 10/17/24 13:44 Total Protein 5.4 g/dL (6.6-8.7) L 10/19/24 04:16 Albumin 3.2 g/dL (3.5-5.2) L 10/19/24 04:16 Globulin 2.2 g/dL (1.3-4.6) 10/19/24 04:16 Lipase 29 U/L (13-60) 10/17/24 18:21 Procalcitonin 0.20 ng/mL (0-0.5) 10/17/24 13:44 Urine Color Yellow (Yellow) 10/17/24 15:40 Urine Appearance Clear (CLEAR) 10/17/24 15:40 Urine pH 6.5 (5-7) 10/17/24 15:40 Ur Specific [place] 1.013 (1.005-1.030) 10/17/24 15:40 Urine Protein 2+ (Negative) A 10/17/24 15:40 Urine Glucose (UA) Negative (Normal) 10/17/24 15:40 Urine Ketones Trace (Negative) 10/17/24 15:40 Urine Blood Negative (Negative) 10/17/24 15:40 Urine Nitrate Negative (Negative) 10/17/24 15:40 Urine Bilirubin Negative (Negative) 10/17/24 15:40 Urine Urobilinogen 1.0 mg/dL (Negative) 10/17/24 15:40 Ur Leukocyte Esterase Negative (Negative) 10/17/24 15:40 Urine RBC 0-4 /hpf (0-2) H 10/17/24 15:40 Urine WBC 0-4 /hpf (0-5) H 10/17/24 15:40 Ur Squamous Epith Cells 0-4 /hpf (0-5) H 10/17/24 15:40 Amorphous Sediment Not Reportable 10/17/24 15:40 Urine Bacteria Trace /hpf (NONE) 10/17/24 15:40 Hyaline Casts 0-4 /lpf H 10/17/24 15:40 Urine Mucus 1+ /hpf 10/17/24 15:40 Ethyl Alcohol 47 mg/dL (0-10) H 10/17/24 13:44 Influenza A (PCR) Negative (Negative) 10/17/24 14:05 Influenza Type B (PCR) Negative (Negative) 10/17/24 14:05 RSV (PCR) Negative (Negative) 10/17/24 14:05 SARS-CoV-2 (PCR) Negative (Negative) 10/17/24 14:05 Vitals Last Vital Signs Temp 97.8 F 10/19/24 12:00 Pulse 106 H 10/19/24 12:00 Resp 16 10/19/24 12:00 BP 99/61 10/19/24 12:00 Pulse Ox 97 10/19/24 12:00 O2 Del Method Room Air 10/19/24 12:00 Discharge Plan Discharge Patient Disposition: Home Condition: Stable Prescriptions: New folic acid 1 mg Tablet 1 mg PO DAILY 30 Days Qty: 30 0RF thiamine mononitrate (vit B1) [Vitamin B-1 (mononitrate)] 100 mg Tablet 100 mg PO DAILY 30 Days Qty: 30 0RF amlodipine [Norvasc] 5 mg tablet 5 mg PO DAILY 30 Days Qty: 30 0RF ondansetron HCl 4 mg tablet 4 mg PO Q8H PRN (Reason: nausea and vomiting) 5 Days Qty: 15 0RF metoclopramide HCl [Reglan] 5 mg tablet 5 mg PO Q12H PRN (Reason: nausea and vomiting) 5 Days Qty: 10 0RF Continued pantoprazole 40 mg tablet,delayed release (DR/EC) 40 mg PO BID Qty: 60 12RF ferrous sulfate 325 mg (65 mg iron) tablet 325 mg PO BID Qty: 60 3RF epinephrine [EpiPen 2-Shawn] 0.3 mg/0.3 mL auto-injector 0.3 mg IM Q15M PRN (Reason: anaphylaxis) Qty: 2 0RF Discontinued lisinopril-hydrochlorothiazide 20-12.5 mg tablet 1 tab PO QAM Qty: 90 3RF Discharge Orders: Discharge Order (Routine); Ordered 10/19/24 Ordered By: Diana Pan Referrals: Omari Ames MD [Primary Care Provider] - 7-10 days (We have notified your physician's clinic of the need for a follow-up appointment to be scheduled. If you have not heard from them within the next 2 business days, please call them directly. ) Discharge Diet: Advance as tolerated Discharge Activity: Resume usual activity Patient Instructions: Dehydration - Adult, Metoclopramide (By mouth), Thiamine (By mouth), Folic Acid (By mouth), Amlodipine (By mouth), Ondansetron (By mouth), Metabolic Alkalosis (GEN), Opioid Safety Discharge Attestations Time Spent in Discharge Care*: greater than 30 min Status at Discharge: Cognitive status at discharge: cognitively intact , Behavioral status at discharge: cooperative , Quality Metrics Clinical Quality Measures [ No reported AMI, CVA or VTE this stay] Coding Level of Care Code Acute Code for Chg Fwd Diagnoses Alcohol abuse F10.10 Alcohol consumption binge drinking F10.10 Hypotension I95.9 Ulcerative esophagitis K22.10 Coffee ground emesis K92.0 Metabolic alkalosis E87.3
[2024-10-19] MEDS: lidocaine 1% 5 ML in potassium chloride premix 100 ML 26.25 ML IV (13:18)
== END 2024-10-19 16:00 | disposition home or self-care (01) | DRG 683 ==
LOC: ER 14:51 → ER IP 16:46 → ICU 20:42 → MEDSURG 10-18 16:37
PROVIDERS: Admitting Provider Student in an Organized Health Care Education/Training Program; Emergency Provider Emergency Medicine; PCP Family Medicine; Visit Provider Student in an Organized Health Care Education/Training Program
DX: N17.9 Acute kidney failure, unspecified (principal); E87.3 Alkalosis; K22.10 Ulcer of esophagus without bleeding; E86.0 Dehydration; I95.9 Hypotension, unspecified; F10.10 Alcohol abuse, uncomplicated; Y90.2 Blood alcohol level of 40-59 mg/100 ml; R11.2 Nausea with vomiting, unspecified; E87.6 Hypokalemia; K80.20 Calculus of gallbladder without cholecystitis without obstruction; I10 Essential (primary) hypertension; K21.9 Gastro-esophageal reflux disease without esophagitis
CPT/HCPCS: 36415; 36600; 51798; 74022; 74176; 80051; 80053; 80307; 81001; 82330; 82805; 83605; 83690; 83735; 84145; 84484; 85025; 86140; 87040; 87637; 93005; 96365; 96367; 96372; 96375; 96376; 99285; J2020; J2185; J2310; J2405; J2470; J2765; J3411; J3480; J7030; J7040; J7042

== ENCOUNTER → 2024-10-29 09:28 | Outpatient (BNVA) | payer MEDICARE, MEDICAID, SELFPAY | PROVIDERS: PCP Family Medicine; Visit Provider Family Medicine | DX: F10.10 Alcohol abuse, uncomplicated (principal); I10 Essential (primary) hypertension; K92.2 Gastrointestinal hemorrhage, unspecified | CPT/HCPCS: 80053; 85025 ==

== ENCOUNTER 2024-12-08 17:17 | Emergency (ER) | payer MEDICARE, MEDICAID, SELFPAY ==
[2024-12-08] VITALS (7 sets, daily range): BP systolic 126–153; BP diastolic 53–77; PULSE 67–79; RESP 17; TEMP 36.6; O2SAT 92–100; BMI 27.3
[2024-12-08 17:49] LABS: Basophils % 0.1 %; Lymphocytes # 1.5 10^3/uL (0.8-4.8); Lymphocytes % 15.8 %; Mean Corpuscular Hemoglobin 26.3 pg (27-33); Mean Corpuscular Volume 82.3 fl (82-101); Mean Platelet Volume 10.2 fL (7.4-10.4); Monocytes # 0.9 10^3/uL (0.2-0.9); Monocytes % 9.2 %; Neutrophils # 7.13 10^3/uL (1.8-7.7); Neutrophils % 74.6 %; Nucleated Red Blood Cells % 0 %; Platelet Count 290 10^3/cmm (157-399); Red Blood Count 4.98 10^6/uL (3.85-5.65); Red Cell Distribution Width 15.8 % (12.1-15.1); White Blood Count 9.56 10^3/uL (3.29-11.43)
[2024-12-08 17:52] LABS: Urine Color Dark Yellow (Yellow)
[2024-12-08 17:53] LABS: Add Urine Microscopic? YES; Bilirubin Urine 1+ (Negative); Blood Urine Neg (Negative); Glucose Urine UA Norm (Normal); Ketones Urine 1+ (Negative); Leukocyte Esterase Urine Negative (Negative); Nitrate Urine Negative (Negative); Protein Urine Trace (Negative); Urine Appearance Clear (CLEAR); Urobilinogen Urine 4 mg/dL (Negative); pH Urine 7 (5-7)
--- NOTE | 2024-12-08 17:55 | CTR_ITS ---
PROCEDURE INFORMATION: Exam: CT Abdomen And Pelvis With Contrast Exam date and time: 12/08/2024 6:45 PM Age: 69 years old Clinical indication: Nausea and vomiting; Prior surgery; Surgery date: 6+ months; Surgery type: Hiatal hernia; Additional info: Abd pain TECHNIQUE: Imaging protocol: Computed tomography of the abdomen and pelvis with contrast. Radiation optimization: All CT scans at this facility use at least one of these dose optimization techniques: automated exposure control; mA and/or kV adjustment per patient size (includes targeted exams where dose is matched to clinical indication); or iterative reconstruction. Contrast material: OMNI 350; Contrast volume: 100 ml; Contrast route: INTRAVENOUS (IV); COMPARISON: CT abdomen pelvis wo con [id number] 10/17/2024 3:15 PM RADIATION DOSE METRICS: Total DLP (mGy-cm): 376.31 FINDINGS: Lungs: Minor areas of bibasilar atelectasis or scarring. Coronary arteries: Advanced coronary atherosclerotic calcifications are present. Diaphragm: Moderate-sized hiatal hernia. Lower esophageal wall thickening possible. Liver: Liver is steatotic. A few minute internal hypodensities. Left hepatic lobe 3.5 cm probable hemangioma. Gallbladder and biliary ducts: No calcified gallstones or biliary dilation identified. Pancreas: Unremarkable with no suspicious mass. No ductal dilation. Spleen: The spleen is not enlarged. No suspicious enhancing mass is noted. Adrenal glands: Normal. No mass. Kidneys and ureters: Small and large bilateral renal cysts measure up to about 11 cm. A few contain a few small calcified septations but there is no enhancing mass or hydronephrosis. Stomach and bowel: Mild sigmoid diverticulosis. No small bowel obstruction, abscess or free air. Appendix: No evidence of appendicitis. Not seen. Intraperitoneal space: No abscess or free air. Scattered mesenteric clips. Vasculature: Advanced diffuse vascular calcification noted. Lymph nodes: No enlarged lymph nodes. Urinary bladder: Unremarkable as visualized. Reproductive: Large prostate. Bones/joints: Moderate spine DJD. Few old skeletal deformities. Soft tissues: Right and left previous inguinal hernia repair. CT/CT abdomen pelvis w con* [id number] IMPRESSION: 1. No small bowel obstruction, abscess or free air. 2. Moderate-sized hiatal hernia with concern for esophagitis. 3. A few chronic/incidental findings above. COMMENTS: Consistent with the [employer]'s Incidental Findings Committee white paper (J Am Debo Radiol 2018): Any incidental renal lesion less than 1 cm or classified as too small to characterize, or any incidental cystic renal lesion characterized as simple-appearing, is likely benign. No follow-up imaging is recommended for these lesions per consensus recommendations based on imaging criteria.
--- NOTE | 2024-12-08 17:55 | W.ED.NAVMDI ---
Documented by User: Ameya Hodges DO 12/09/24 06:45 HPI - Nausea/Vomiting/Diarrhea General: Chief complaint: Nausea/Vomiting/Diarrhea Stated complaint: vomiting x 5 days Time Seen by Provider: 12/08/24 17:20 History of Present Illness: 69-year-old male presents emergency room complaining of coffee-ground emesis that began 4 days ago. He is a former alcoholic had been doing well and then recently due to some stressors from family issues his brother dying and began drinking again his last drink was 4 days ago when he started having the coffee-ground emesis. did not have any hematemesis. He has not had any melena or hematochezia. He has had upper GI bleeds in the past. In June 2024 patient was admitted to [facility] for a similar presentation had EGD at that time EGD note reviewed no mention of esophageal varices or gastric varices Associated symtoms: Denies chest pain or dysuria Related Data Previous Rx's ?Medication ?Instructions ?Recorded epinephrine 0.3 mg/0.3 mL 0.3 mg (0.3 mL) IM Q15M PRN 12/19/23 injection, auto-injector (EpiPen anaphylaxis #2 ea 2-Shawn) pantoprazole 40 mg tablet,delayed 40 mg PO BID #60 tabs 03/06/24 release ferrous sulfate 325 mg (65 mg 325 mg PO BID #60 tabs 07/15/24 iron) tablet lisinopril 20 1 tab PO QAM #90 tabs 12/03/24 mg-hydrochlorothiazide 12.5 mg tablet ondansetron 4 mg disintegrating 4 mg PO Q8H PRN nausea and 12/08/24 tablet vomiting 5 days #20 tabs Allergies Allergy/AdvReac Type Severity Reaction Status Date / Time cantaloupe Allergy Unknown ALGY-Swell Verified 10/17/24 13:47 Lip/Tongue/Throat kiwi Allergy Unknown ALGY-Anaphy Verified 10/17/24 13:47 laxis amlodipine AdvReac Mild headaches Verified 10/29/24 09:13 Review of Systems Const: Denies: fever(s) or chills Card: Denies: chest pain Resp: Denies: dyspnea GI: Denies: abdominal pain : Denies: dysuria, urinary frequency or urinary urgency Musc: Denies: neck pain or back pain Skin/Breast: Denies: rash PFSH ED PFSH: Medical History GI bleed Acute blood loss anemia Alcohol abuse Acute upper gastrointestinal bleeding GERD (gastroesophageal reflux disease) Hyperlipidemia Hypertension Diverticulosis Hypertension Family history of colon cancer 09/15/2019: Normal colonoscopy except diverticulosis, follow-up colonoscopy in 2024 Surgical History History of excision of epidermal inclusion cyst Social History Smoking and tobacco/nicotine status: unknown if used tobacco/nicotine Alcohol intake: former Substance/Drug Use: never Physical Exam Const: GENERAL APPEARANCE: cooperative ORIENTATION/CONSCIOUSNESS: Yes awake, Yes oriented to person, Yes oriented to place and Yes oriented to time HENMT: COMMON NORMALS: normocephalic, atraumatic and hearing grossly normal bilaterally HEAD & SCALP: normocephalic and atraumatic Resp: COMMON NORMALS: normal respiratory effort, No retractions, No use of accessory muscles and clear to auscultation bilaterally AUSCULTATION: clear to auscultation bilaterally Cardio: COMMON NORMALS: regular rate, regular rhythm and No murmurs present (Cardio) RATE: regular rate RHYTHM: regular rhythm GI: COMMON NORMALS: Soft to palpation and No hepatosplenomegaly present AUSCULTATION: Yes normoactive bowel sounds PALPATION: Yes Soft to palpation, No Tenderness to palpation present (GI), No Guarding due to palpation present (GI) and Yes No hepatosplenomegaly present Extremity: COMMON NORMALS: normal to inspection, capillary refill normal, no clubbing, cyanosis or edema, no calf tenderness and no pedal edema Neuro: SENSORIUM/ORIENTATION: Yes oriented to person, Yes oriented to place and Yes oriented to time Skin: COMMON NORMALS: no rashes or lesions noted GENERAL SKIN EXAM: no rashes or lesions noted Course Vital Signs: Vital signs: Vital Signs Temperature 97.8 F 12/08/24 17:20 Pulse Rate 73 12/08/24 20:32 Respiratory Rate 17 12/08/24 17:20 Blood Pressure 152/77 12/08/24 20:32 Pulse Oximetry 94 12/08/24 20:32 Oxygen Delivery Me thod Room Air 12/08/24 20:30 MDM - Nausea/Vomiting/Diarrhea Medical Decision Making Care signed out to Dr. Lanza at change of shift. See final notes for diagnosis and disposition. Medical Records I reviewed the patient's medical records. Lab Data I reviewed the patient's lab results. 12/08/24 17:43 12/08/24 17:43 Radiology Impressions Abdomen/Pelvis CT 12/08/24 17:55 IMPRESSION: 1. No small bowel obstruction, abscess or free air. 2. Moderate-sized hiatal hernia with concern for esophagitis. 3. A few chronic/incidental findings above. COMMENTS: Consistent with the [employer]'s Incidental Findings Committee white paper (J Am Debo Radiol 2018): Any incidental renal lesion less than 1 cm or classified as too small to characterize, or any incidental cystic renal lesion characterized as simple-appearing, is likely benign. No follow-up imaging is recommended for these lesions per consensus recommendations based on imaging criteria. Laboratory Results WBC 9.56 10^3/uL (3.29-11.43) 12/08/24 17:43 RBC 4.98 10^6/uL (3.85-5.65) 12/08/24 17:43 Hgb 13.10 g/dL (11.27-16.99) 12/08/24 17:43 Hct 41.0 % (37-53) 12/08/24 17:43 MCV 82.3 fl (82-101) 12/08/24 17:43 MCH 26.3 pg (27-33) L 12/08/24 17:43 MCHC 32.0 g/dL (30-55) 12/08/24 17:43 RDW 15.8 % (12.1-15.1) H 12/08/24 17:43 Plt Count 290 10^3/cmm (157-399) 12/08/24 17:43 MPV 10.2 fL (7.4-10.4) 12/08/24 17:43 Neut % (Auto) 74.6 % 12/08/24 17:43 Lymph % (Auto) 15.8 % 12/08/24 17:43 [place] % (Auto) 9.2 % 12/08/24 17:43 Eos % (Auto) 0.0 % 12/08/24 17:43 Baso % (Auto) 0.1 % 12/08/24 17:43 Neut # (Auto) 7.13 10^3/uL (1.8-7.7) 12/08/24 17:43 Lymph # (Auto) 1.5 10^3/uL (0.8-4.8) 12/08/24 17:43 [place] # (Auto) 0.9 10^3/uL (0.2-0.9) 12/08/24 17:43 Eos # (Auto) 0.0 10^3/uL (0.0-0.8) 12/08/24 17:43 Baso # (Auto) 0.0 10^3/uL (0.0-0.1) 12/08/24 17:43 Nucleated RBC % (auto) 0 % 12/08/24 17:43 Nucleated RBCs # 0.0 /100WBC 12/08/24 17:43 PT 12.80 SECONDS (12.1-14.9) 12/08/24 17:43 INR 0.90 (0.8-1.2) 12/08/24 17:43 Sodium 138 mmol/L (136-145) 12/08/24 17:43 Potassium 3.6 mmol/L (3.5-5.1) 12/08/24 17:43 Chloride 92 mmol/L (98-107) L 12/08/24 17:43 Carbon Dioxide 30 mmol/L (22-29) H 12/08/24 17:43 Anion Gap 19.6 (5-19) H 12/08/24 17:43 BUN 53 mg/dL (8-23) H 12/08/24 17:43 Creatinine 1.5 mg/dL (0.7-1.2) H 12/08/24 17:43 GFR Calculation Not Reportable 12/08/24 17:43 Glucose 112 mg/dL (65-115) 12/08/24 17:43 Calculated Osmolality 301 mOsm/kg (285-295) H 12/08/24 17:43 Calcium 9.6 mg/dL (8.5-10.5) 12/08/24 17:43 Total Bilirubin 2.0 mg/dL (0.15-1.2) H 12/08/24 17:43 AST 28 U/L (0-40) 12/08/24 17:43 ALT 21 U/L (0-41) 12/08/24 17:43 Alkaline Phosphatase 63 U/L (40-130) 12/08/24 17:43 Ammonia 23 umol/L (16-60) 12/08/24 17:43 Total Protein 7.7 g/dL (6.6-8.7) 12/08/24 17:43 Albumin 4.7 g/dL (3.5-5.2) 12/08/24 17:43 Globulin 3.0 g/dL (1.3-4.6) 12/08/24 17:43 Urine Color Dark yellow (Yellow) A 12/08/24 17:45 Urine Appearance Clear (CLEAR) 12/08/24 17:45 Urine pH 7 (5-7) 12/08/24 17:45 Ur Specific [place] 1.010 (1.005-1.030) 12/08/24 17:45 Urine Protein Trace (Negative) 12/08/24 17:45 Urine Glucose (UA) Norm (Normal) 12/08/24 17:45 Urine Ketones 1+ (Negative) H 12/08/24 17:45 Urine Blood Neg (Negative) 12/08/24 17:45 Urine Nitrate Negative (Negative) 12/08/24 17:45 Urine Bilirubin 1+ (Negative) H 12/08/24 17:45 Urine Urobilinogen 4 mg/dL (Negative) H 12/08/24 17:45 Ur Leukocyte Esterase Negative (Negative) 12/08/24 17:45 Urine RBC 0-2 /hpf (0-2) 12/08/24 17:45 Urine WBC 0-5 /hpf (0-5) 12/08/24 17:45 Ur Squamous Epith Cells 0-5 /hpf (0-5) 12/08/24 17:45 Amorphous Sediment Not Reportable 12/08/24 17:45 Urine Bacteria None seen /hpf (NONE) 12/08/24 17:45 Hyaline Casts 7.85 /lpf 12/08/24 17:45 Ethyl Alcohol < 10 mg/dL (0-10) 12/08/24 17:43 Blood Type A Positive 12/08/24 18:05 Rho(D) Type Rh positive 12/08/24 18:05 Antibody Screen Negative 12/08/24 18:05 Discharge Plan Discharge Patient Disposition: Home Clinical Impression: Nausea and vomiting, Coffee ground emesis Condition: Stable Prescriptions: New ondansetron 4 mg tablet,disintegrating 4 mg PO Q8H PRN (Reason: nausea and vomiting) 5 Days Qty: 20 0RF No Action pantoprazole 40 mg tablet,delayed release (DR/EC) 40 mg PO BID Qty: 60 12RF ferrous sulfate 325 mg (65 mg iron) tablet 325 mg PO BID Qty: 60 3RF lisinopril-hydrochlorothiazide 20-12.5 mg tablet 1 tab PO QAM Qty: 90 3RF epinephrine [EpiPen 2-Shawn] 0.3 mg/0.3 mL auto-injector 0.3 mg IM Q15M PRN (Reason: anaphylaxis) Qty: 2 0RF Discharge Orders: Discharge ED (Routine); Ordered 12/08/24 Ordered By: Kannan Lanza Referrals: Omari Ames MD [Primary Care Provider] - Discharge Diet: Advance as tolerated Discharge Activity: Increase activity as tolerated Patient Instructions: Acute Nausea and Vomiting (ED) Activity Restrictions/Additional Instructions: Your vital signs are stable. Your blood levels are increasing and not decreasing despite the vomiting. You had a small amount of clear liquid vomit in the emergency department with no blood in it. I suspect that your nausea and vomiting will go away spontaneously over the next few days. Please stay well-hydrated and drink small amounts to avoid vomiting. Advance your diet from liquids to solids gently. If you have any further concerns you are always welcome back in the emergency department. Print Language: Syrian Sign Out Sign Out Data: Patient Sign Out occurred on 12/08/24 at 18:34. Patient's care was discussed, and care was transferred from Ameya Hodges DO to Kannan Lanza MD. Coding Level of Care Code ED Damper Fitter for Chg Fwd Documented by User: Kannan Lanza MD 12/09/24 04:17 HPI - Nausea/Vomiting/Diarrhea General: Chief complaint: Nausea/Vomiting/Diarrhea Stated complaint: vomiting x 5 days Time Seen by Provider: 12/08/24 17:20 Related Data Previous Rx's ?Medication ?Instructions ?Recorded epinephrine 0.3 mg/0.3 mL 0.3 mg (0.3 mL) IM Q15M PRN 12/19/23 injection, auto-injector (EpiPen anaphylaxis #2 ea 2-Shawn) pantoprazole 40 mg tablet,delayed 40 mg PO BID #60 tabs 03/06/24 release ferrous sulfate 325 mg (65 mg 325 mg PO BID #60 tabs 07/15/24 iron) tablet lisinopril 20 1 tab PO QAM #90 tabs 12/03/24 mg-hydrochlorothiazide 12.5 mg tablet ondansetron 4 mg disintegrating 4 mg PO Q8H PRN nausea and 12/08/24 tablet vomiting 5 days #20 tabs Allergies Allergy/AdvReac Type Severity Reaction Status Date / Time cantaloupe Allergy Unknown ALGY-Swell Verified 10/17/24 13:47 Lip/Tongue/Throat kiwi Allergy Unknown ALGY-Anaphy Verified 10/17/24 13:47 laxis amlodipine AdvReac Mild headaches Verified 10/29/24 09:13 PFSH ED PFSH: Medical History GI bleed Acute blood loss anemia Alcohol abuse Acute upper gastrointestinal bleeding GERD (gastroesophageal reflux disease) Hyperlipidemia Hypertension Diverticulosis Hypertension Family history of colon cancer 09/15/2019: Normal colonoscopy except diverticulosis, follow-up colonoscopy in 2024 Surgical History History of excision of epidermal inclusion cyst Social History Smoking and tobacco/nicotine status: unknown if used tobacco/nicotine Alcohol intake: former Substance/Drug Use: never Course Vital Signs: Vital signs: Vital Signs Temperature 97.8 F 12/08/24 17:20 Pulse Rate 73 12/08/24 20:32 Respiratory Rate 17 12/08/24 17:20 Blood Pressure 152/77 12/08/24 20:32 Pulse Oximetry 94 12/08/24 20:32 Oxygen Delivery Me thod Room Air 12/08/24 20:30 MDM - Nausea/Vomiting/Diarrhea Medical Decision Making Care signed out to Dr. Lanza at change of shift. See final notes for diagnosis and disposition. In summary, patient is a well-appearing 69-year-old male seen for nausea and vomiting. He states that for the last 2 days he has had frequent vomiting which occurs roughly 15 to 30 minutes after eating. He also endorses feeling rundown. He denies fever, diarrhea, cough, sinus congestion, or upper respiratory symptoms. I strongly suspect viral etiology. There was 1 bout of vomiting which had coffee-ground emesis but this has since resolved. Hemoglobin appears to be rising when compared with prior studies. We discussed the the relative merits of being admitted for observation versus discharge and he strongly desires to go home. I feel this is reasonable as he is now able to keep down fluids and vital signs are stable. He knows that he is always welcome back in the emergency department if needed. He was given a single ODT Zofran dose of prior to discharge and I wrote for prescription of the same he can order picker/assembler tomorrow morning. He knows to return if he has any lightheadedness, chest pain, shortness of breath, or any symptoms of upper GI bleed. Lab Data 12/08/24 17:43 12/08/24 17:43 Radiology Impressions Abdomen/Pelvis CT 12/08/24 17:55 IMPRESSION: 1. No small bowel obstruction, abscess or free air. 2. Moderate-sized hiatal hernia with concern for esophagitis. 3. A few chronic/incidental findings above. COMMENTS: Consistent with the [employer] [employer]'s Incidental Findings Committee white paper (J Am Debo Radiol 2018): Any incidental renal lesion less than 1 cm or classified as too small to characterize, or any incidental cystic renal lesion characterized as simple-appearing, is likely benign. No follow-up imaging is recommended for these lesions per consensus recommendations based on imaging criteria. Laboratory Results WBC 9.56 10^3/uL (3.29-11.43) 12/08/24 17:43 RBC 4.98 10^6/uL (3.85-5.65) 12/08/24 17:43 Hgb 13.10 g/dL (11.27-16.99) 12/08/24 17:43 Hct 41.0 % (37-53) 12/08/24 17:43 MCV 82.3 fl (82-101) 12/08/24 17:43 MCH 26.3 pg (27-33) L 12/08/24 17:43 MCHC 32.0 g/dL (30-55) 12/08/24 17:43 RDW 15.8 % (12.1-15.1) H 12/08/24 17:43 Plt Count 290 10^3/cmm (157-399) 12/08/24 17:43 MPV 10.2 fL (7.4-10.4) 12/08/24 17:43 Neut % (Auto) 74.6 % 12/08/24 17:43 Lymph % (Auto) 15.8 % 12/08/24 17:43 [place] % (Auto) 9.2 % 12/08/24 17:43 Eos % (Auto) 0.0 % 12/08/24 17:43 Baso % (Auto) 0.1 % 12/08/24 17:43 Neut # (Auto) 7.13 10^3/uL (1.8-7.7) 12/08/24 17:43 Lymph # (Auto) 1.5 10^3/uL (0.8-4.8) 12/08/24 17:43 [place] # (Auto) 0.9 10^3/uL (0.2-0.9) 12/08/24 17:43 Eos # (Auto) 0.0 10^3/uL (0.0-0.8) 12/08/24 17:43 Baso # (Auto) 0.0 10^3/uL (0.0-0.1) 12/08/24 17:43 Nucleated RBC % (auto) 0 % 12/08/24 17:43 Nucleated RBCs # 0.0 /100WBC 12/08/24 17:43 PT 12.80 SECONDS (12.1-14.9) 12/08/24 17:43 INR 0.90 (0.8-1.2) 12/08/24 17:43 Sodium 138 mmol/L (136-145) 12/08/24 17:43 Potassium 3.6 mmol/L (3.5-5.1) 12/08/24 17:43 Chloride 92 mmol/L (98-107) L 12/08/24 17:43 Carbon Dioxide 30 mmol/L (22-29) H 12/08/24 17:43 Anion Gap 19.6 (5-19) H 12/08/24 17:43 BUN 53 mg/dL (8-23) H 12/08/24 17:43 Creatinine 1.5 mg/dL (0.7-1.2) H 12/08/24 17:43 GFR Calculation Not Reportable 12/08/24 17:43 Glucose 112 mg/dL (65-115) 12/08/24 17:43 Calculated Osmolality 301 mOsm/kg (285-295) H 12/08/24 17:43 Calcium 9.6 mg/dL (8.5-10.5) 12/08/24 17:43 Total Bilirubin 2.0 mg/dL (0.15-1.2) H 12/08/24 17:43 AST 28 U/L (0-40) 12/08/24 17:43 ALT 21 U/L (0-41) 12/08/24 17:43 Alkaline Phosphatase 63 U/L (40-130) 12/08/24 17:43 Ammonia 23 umol/L (16-60) 12/08/24 17:43 Total Protein 7.7 g/dL (6.6-8.7) 12/08/24 17:43 Albumin 4.7 g/dL (3.5-5.2) 12/08/24 17:43 Globulin 3.0 g/dL (1.3-4.6) 12/08/24 17:43 Urine Color Dark yellow (Yellow) A 12/08/24 17:45 Urine Appearance Clear (CLEAR) 12/08/24 17:45 Urine pH 7 (5-7) 12/08/24 17:45 Ur Specific [place] 1.010 (1.005-1.030) 12/08/24 17:45 Urine Protein Trace (Negative) 12/08/24 17:45 Urine Glucose (UA) Norm (Normal) 12/08/24 17:45 Urine Ketones 1+ (Negative) H 12/08/24 17:45 Urine Blood Neg (Negative) 12/08/24 17:45 Urine Nitrate Negative (Negative) 12/08/24 17:45 Urine Bilirubin 1+ (Negative) H 12/08/24 17:45 Urine Urobilinogen 4 mg/dL (Negative) H 12/08/24 17:45 Ur Leukocyte Esterase Negative (Negative) 12/08/24 17:45 Urine RBC 0-2 /hpf (0-2) 12/08/24 17:45 Urine WBC 0-5 /hpf (0-5) 12/08/24 17:45 Ur Squamous Epith Cells 0-5 /hpf (0-5) 12/08/24 17:45 Amorphous Sediment Not Reportable 12/08/24 17:45 Urine Bacteria None seen /hpf (NONE) 12/08/24 17:45 Hyaline Casts 7.85 /lpf 12/08/24 17:45 Ethyl Alcohol < 10 mg/dL (0-10) 12/08/24 17:43 Blood Type A Positive 12/08/24 18:05 Rho(D) Type Rh positive 12/08/24 18:05 Antibody Screen Negative 12/08/24 18:05 All radiology interpretation(s) finalized by discharge Discharge Plan Discharge Patient Disposition: Home Clinical Impression: Nausea and vomiting, Coffee ground emesis Condition: Stable Prescriptions: New ondansetron 4 mg tablet,disintegrating 4 mg PO Q8H PRN (Reason: nausea and vomiting) 5 Days Qty: 20 0RF No Action pantoprazole 40 mg tablet,delayed release (DR/EC) 40 mg PO BID Qty: 60 12RF ferrous sulfate 325 mg (65 mg iron) tablet 325 mg PO BID Qty: 60 3RF lisinopril-hydrochlorothiazide 20-12.5 mg tablet 1 tab PO QAM Qty: 90 3RF epinephrine [EpiPen 2-Shawn] 0.3 mg/0.3 mL auto-injector 0.3 mg IM Q15M PRN (Reason: anaphylaxis) Qty: 2 0RF Discharge Orders: Discharge ED (Routine); Ordered 12/08/24 Ordered By: Kannan Lanza Referrals: Omari Ames MD [Primary Care Provider] - Discharge Diet: Advance as tolerated Discharge Activity: Increase activity as tolerated Patient Instructions: Acute Nausea and Vomiting (ED) Activity Restrictions/Additional Instructions: Your vital signs are stable. Your blood levels are increasing and not decreasing despite the vomiting. You had a small amount of clear liquid vomit in the emergency department with no blood in it. I suspect that your nausea and vomiting will go away spontaneously over the next few days. Please stay well-hydrated and drink small amounts to avoid vomiting. Advance your diet from liquids to solids gently. If you have any further concerns you are always welcome back in the emergency department. Print Language: Syrian Sign Out Sign Out Data: Patient Sign Out occurred on 12/08/24 at 18:34. Patient's care was discussed, and care was transferred from Ameya Hodges DO to Kannan Lanza MD. Coding Level of Care Code ED Damper Fitter for Giselle Horton
[2024-12-08 17:57] LABS: Bacteria Urine None Seen /hpf; Hyaline Casts Urine 7.85 /lpf; RBC Urine 0-2 /hpf (0-2); Squamous Epithelial Cell Urine 0-5 /hpf (0-5); WBC Urine 0-5 /hpf (0-5)
[2024-12-08] MEDS: pantoprazole 40 mg SDV 80 MG IVP (18:04)
[2024-12-08 18:09] LABS: Alanine Aminotransferase 21 U/L (0-41); Albumin Level 4.7 g/dL (3.5-5.2); Alkaline Phosphatase 63 U/L (40-130); Aspartate Amino Transferase 28 U/L (0-40); Blood Urea Nitrogen 53 mg/dL (8-23); Calcium 9.6 mg/dL (8.5-10.5); Carbon Dioxide 30 mmol/L (22-29); Chloride 92 mmol/L (98-107); Creatinine Clr Calc Pharmacy 45.6241; Glucose 112 mg/dL (65-115); Osmolality Calculated 301 mOsm/kg (285-295); Sodium 138 mmol/L (136-145); Total Protein 7.7 g/dL (6.6-8.7)
[2024-12-08 18:20] LABS: Ammonia 23 umol/L (16-60); Anion Gap 19.6 (5-19); Potassium 3.6 mmol/L (3.5-5.1)
[2024-12-08 18:44] LABS: Alcohol Level < 10 mg/dL (0-10)
[2024-12-08] MEDS: ondansetron hcl ODT 4 mg Tab PO (20:32)
== END 2024-12-08 20:35 | disposition home or self-care (01) ==
PROVIDERS: Family Medicine; Emergency Provider Student in an Organized Health Care Education/Training Program; PCP Family Medicine
DX: R11.2 Nausea with vomiting, unspecified (principal); E78.5 Hyperlipidemia, unspecified; I10 Essential (primary) hypertension
CPT/HCPCS: 36415; 74177; 80053; 80307; 81001; 82140; 85025; 85610; 86850; 86900; 96374; 99285; J2470; Q0162

== ENCOUNTER 2024-12-09 19:20 | Observation (INO) | payer MEDICARE, MEDICAID, SELFPAY ==
[2024-12-09] VITALS (8 sets, daily range): BP systolic 67–124; BP diastolic 43–80; PULSE 65–85; RESP 12–18; TEMP 36.6–37; O2SAT 97–100; BMI 27.3; BMI 26.2
--- NOTE | 2024-12-09 19:34 | ECG_ITS ---
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 Measurements Intervals [place] Rate: 71 P: 77 [place]: 158 QRS: -22 QRSD: 102 T: -23 QT: 439 QTc: 477 Interpretive Statements SINUS RHYTHM BORDERLINE LEFT AXIS DEVIATION [QRS AXIS < -20] LOW QRS VOLTAGE IN EXTREMITY LEADS [QRS DEFLECTION < 0.5 mV IN LIMB LEADS] MINIMAL ST DEPRESSION [0.025+ mV ST DEPRESSION] PROLONGED QT INTERVAL Compared to ECG 10/17/2024 15:58:02 Low QRS voltage now present ST (T wave) deviation now present Prolonged QT interval now present T-wave abnormality no longer present Possible ischemia no longer present Electronically Signed On 12-10-2024 21:29:06 CDT by Reynaldo Hurst M.D. [email or web address]
--- NOTE | 2024-12-09 19:34 | XRR_ITS ---
PROCEDURE INFORMATION: Exam: XR Chest Exam date and time: 12/09/2024 7:37 PM Age: 69 years old Clinical indication: Other: Syncope TECHNIQUE: Imaging protocol: Radiologic exam of the chest. Views: 1 view. COMPARISON: CR XR chest 1V portable [id number] 07/07/2024 5:44 PM FINDINGS: Lungs: Calcified left hilar lymph node. The lungs are without lobar consolidation. Bibasilar atelectasis and/or scarring. Pleural spaces: Unremarkable. No pleural effusion. No pneumothorax. Heart/Mediastinum: Unremarkable. No cardiomegaly. Bones/joints: Unremarkable. XR/XR chest 1V portable [id number] IMPRESSION: As above.
[2024-12-09] MEDS: sodium chloride 0.9% 1,000 ML 999 ML IV (19:44)
[2024-12-09 19:46] LABS: Basophils % 0.1 %; Eosinophils % 0.1 %; Lymphocytes # 1.8 10^3/uL (0.8-4.8); Lymphocytes % 16.1 %; Mean Corpuscular HGB Conc 31.7 g/dL (30-55); Mean Corpuscular Hemoglobin 26.5 pg (27-33); Mean Corpuscular Volume 83.7 fl (82-101); Mean Platelet Volume 10.2 fL (7.4-10.4); Monocytes # 0.9 10^3/uL (0.2-0.9); Monocytes % 8.3 %; Neutrophils # 8.26 10^3/uL (1.8-7.7); Neutrophils % 74.9 %; Nucleated Red Blood Cells % 0 %; Platelet Count 328 10^3/cmm (157-399); Red Cell Distribution Width 15.9 % (12.1-15.1); White Blood Count 11.02 10^3/uL (3.29-11.43)
[2024-12-09] MEDS: ondansetron 2 mg/ML SDV 2 mL 4 MG IVP ×2 (19:50→21:54)
--- NOTE | 2024-12-09 19:53 | W.ED.SYNCOPE ---
HPI - Syncope General: Chief Complaint: Syncope Stated Complaint: syncope Time Seen by Provider: 12/09/24 19:38 History of Present Illness: Patient is a 69-year-old male seen for multiple episodes of syncope at home. He was seen just yesterday in the emergency department for nausea and vomiting and after receiving IV fluids and Zofran he was able to drink without much difficulty. He has a history of esophagitis and has recently underwent upper endoscopy which did not show varices though he does have a remote history of alcohol use. He denies recent alcohol use. Though he was discharged home yesterday, he has not been up to keep fluids down and has felt more lightheaded than usual, passing out when he stands up. He did take his home dose of lisinopril today. He denies fever, chest pain, shortness of breath, diarrhea, and has no other acute complaints. Related Data Previous Rx's ?Medication ?Instructions ?Recorded epinephrine 0.3 mg/0.3 mL 0.3 mg (0.3 mL) IM Q15M PRN 12/19/23 injection, auto-injector (EpiPen anaphylaxis #2 ea 2-Shawn) pantoprazole 40 mg tablet,delayed 40 mg PO BID #60 tabs 03/06/24 release ferrous sulfate 325 mg (65 mg 325 mg PO BID #60 tabs 07/15/24 iron) tablet lisinopril 20 1 tab PO QAM #90 tabs 12/03/24 mg-hydrochlorothiazide 12.5 mg tablet ondansetron 4 mg disintegrating 4 mg PO Q8H PRN nausea and 12/08/24 tablet vomiting 5 days #20 tabs Allergies Allergy/AdvReac Type Severity Reaction Status Date / Time cantaloupe Allergy Unknown ALGY-Swell Verified 12/09/24 19:28 Lip/Tongue/Throat kiwi Allergy Unknown ALGY-Anaphy Verified 12/09/24 19:28 laxis amlodipine AdvReac Mild headaches Verified 12/09/24 19:28 [facility] ED PFSH: Medical History GI bleed Acute blood loss anemia Alcohol abuse Acute upper gastrointestinal bleeding GERD (gastroesophageal reflux disease) Hyperlipidemia Hypertension Diverticulosis Hypertension Family history of colon cancer 09/15/2019: Normal colonoscopy except diverticulosis, follow-up colonoscopy in 2024 Surgical History History of excision of epidermal inclusion cyst Social History Smoking and tobacco/nicotine status: unknown if used tobacco/nicotine Alcohol intake: former Substance/Drug Use: never Physical Exam Const: COMMON NORMALS: no acute distress, patient oriented x3 and alert HENMT: COMMON NORMALS: normocephalic and atraumatic HEAD & SCALP: normocephalic and atraumatic Eye: COMMON NORMALS: Equal, round and reactive pupils present, EOMs intact bilaterally and no scleral icterus PUPIL: Yes Equal, round and reactive pupils present Resp: COMMON NORMALS: normal respiratory effort and No retractions Cardio: COMMON NORMALS: regular rate, regular rhythm and No murmurs present (Cardio) RATE: regular rate RHYTHM: regular rhythm GI: COMMON NORMALS: Normal to inspection, nondistended, normoactive bowel sounds present, Soft to palpation and non-tender PALPATION: Yes Soft to palpation Neuro: COMMON NORMALS: patient oriented x3 SENSORIUM/ORIENTATION: Yes alert Skin: COMMON NORMALS: no rashes or lesions noted GENERAL SKIN EXAM: no rashes or lesions noted Course Vital Signs: Vital signs: Vital Signs Temperature 97.8 F 12/09/24 19:25 Pulse Rate 71 12/09/24 21:01 Respiratory Rate 12 12/09/24 20:30 Blood Pressure 115/80 12/09/24 21:01 Pulse Oximetry 99 12/09/24 21:01 Oxygen Delivery Me thod Room Air 12/09/24 19:25 MDM - Syncope Medical Decision Making At rest, patient remains hemodynamically stable. When he stands up, blood pressure drops from 107/59 to 67/43 and he becomes lightheaded. He was given IV fluids and Zofran. Laboratory evaluation shows TODD with doubling of his creatinine. Given his ongoing nausea and vomiting and TODD and syncopal episodes he will be admitted to the hospital service for further observation and care. Lab Data 12/09/24 19:29 12/09/24 19:29 Radiology Impressions Chest X-Ray 12/09/24 19:34 IMPRESSION: As above. Laboratory Results WBC 11.02 10^3/uL (3.29-11.43) 12/09/24: RBC 4.90 10^6/uL (3.85-5.65) 12/09/24: Hgb 13.00 g/dL (11.27-16.99) 12/09/24: Hct 41.0 % (37-53) 12/09/24: MCV 83.7 fl (82-101) 12/09/24 MCH 26.5 pg (27-33) L 12/09/24 MCHC 31.7 g/dL (30-55) 12/09/24 RDW 15.9 % (12.1-15.1) H 12/09/24 Plt Count 328 10^3/cmm (157-399) 12/09/24 MPV 10.2 fL (7.4-10.4) 12/09/24: Neut % (Auto) 74.9 % 12/09/24: Lymph % (Auto) 16.1 % 12/09/24: Sullivan % (Auto) 8.3 % 12/09/24 Eos % (Auto) 0.1 % 12/09/24 Baso % (Auto) 0.1 % 12/09/24 Neut # (Auto) 8.26 10^3/uL (1.8-7.7) H 12/09/24 Lymph # (Auto) 1.8 10^3/uL (0.8-4.8) 12/09/24 Sullivan # (Auto) 0.9 10^3/uL (0.2-0.9) 12/09/24 Eos # (Auto) 0.0 10^3/uL (0.0-0.8) 12/09/24 Baso # (Auto) 0.0 10^3/uL (0.0-0.1) 12/09/24 Nucleated RBC % (auto) 0 % 12/09/24 Nucleated RBCs # 0.0 /100WBC 12/09/24 Sodium 135 mmol/L (136-145) L 12/09/24 Potassium 3.1 mmol/L (3.5-5.1) L 12/09/24 19:29 Chloride 85 mmol/L (98-107) L 12/09/24 19:29 Carbon Dioxide 30 mmol/L (22-29) H 12/09/24 19:29 Anion Gap 23.1 (5-19) H 12/09/24 19:29 BUN 59 mg/dL (8-23) H 12/09/24 19:29 Creatinine 2.1 mg/dL (0.7-1.2) H 12/09/24 19:29 GFR Calculation Not Reportable 12/09/24 19:29 Glucose 102 mg/dL (65-115) 12/09/24 19:29 Calculated Osmolality 297 mOsm/kg (285-295) H 12/09/24 19:29 Calcium 9.4 mg/dL (8.5-10.5) 12/09/24 19:29 Total Bilirubin 2.0 mg/dL (0.15-1.2) H 12/09/24 19:29 AST 22 U/L (0-40) 12/09/24 19:29 ALT 19 U/L (0-41) 12/09/24 19:29 Alkaline Phosphatase 64 U/L (40-130) 12/09/24 19:29 Troponin T Baseline 51 ng/L (0-15) H 12/09/24 19:29 Total Protein 7.0 g/dL (6.6-8.7) 12/09/24 19:29 Albumin 4.6 g/dL (3.5-5.2) 12/09/24 19:29 Globulin 2.4 g/dL (1.3-4.6) 12/09/24 19:29 All radiology interpretation(s) finalized by discharge EKG Data EKG 1: Interpretation: EKG: Time?at 1942?sinus rhythm, rate of 71, no ST segment elevation or depression, no T wave inversions, intervals within normal limits. QTc = 461 Discharge Plan Discharge Patient Disposition: Admitted As Inpatient Admit Provider: Miguel A Park Clinical Impression: TODD (acute kidney injury), Syncope, Intractable nausea and vomiting Condition: Stable Discharge Diet: Advance as tolerated Discharge Activity: Increase activity as tolerated Coding Level of Care Code ED Geophysical Support Specialist for Chg Clifford
[2024-12-09 19:56] LABS: Alanine Aminotransferase 19 U/L (0-41); Albumin Level 4.6 g/dL (3.5-5.2); Alkaline Phosphatase 64 U/L (40-130); Anion Gap 23.1 (5-19); Aspartate Amino Transferase 22 U/L (0-40); Blood Urea Nitrogen 59 mg/dL (8-23); Calcium 9.4 mg/dL (8.5-10.5); Carbon Dioxide 30 mmol/L (22-29); Chloride 85 mmol/L (98-107); Creatinine Clr Calc Pharmacy 32.5886; Globulin 2.4 g/dL (1.3-4.6); Glucose 102 mg/dL (65-115); Osmolality Calculated 297 mOsm/kg (285-295); Potassium 3.1 mmol/L (3.5-5.1); Sodium 135 mmol/L (136-145)
[2024-12-09 19:59] LABS: Troponin(5th) Baseline 51 ng/L (0-15)
--- NOTE | 2024-12-09 21:34 | USCV_ITS ---
James Austin Age: 69 Gender: M : 1955 Exam Date: 12/09/2024 22:49 Ordering Phys: Miguel A Park MD Technologist: JUNE [place] [facility] [place]: [place]ope, history of ETOH, GI bleed BP: 118 / 62 HR: 62 Rhythm: Sinus arrythmia Technical Quality: Adequate MEASUREMENTS (Male / Female) Normal Values 2D ECHO LV Diastolic Diameter PLAX 4.3 cm 4.2 - 5.9 / 3.9 - 5.3 cm IVS Diastolic Thickness 1.6 cm 0.6 - 1.0 / 0.6 - 0.9 cm IVS Systolic Thickness 2.1 cm LVPW Diastolic Thickness 1.7 cm 0.6 - 1.0 / 0.6 - 0.9 cm LVPW Systolic Thickness 2.1 cm LVOT Diameter 2.3 cm LV Ejection Fraction 2D Teich 71.7 % LV Ejection Fraction MOD 4C 71.1 % LV Ejection Fraction MOD 2C 70.1 % LV Ejection Fraction 2C AL 75.0 % LA Diameter 3.8 cm Aorta at Sinotubular Diameter 3.8 cm IVC Diameter 1.5 cm M-MODE LA Ao Ratio MM 1.0 AV Cusp Separation MM 2.2 cm DOPPLER AV Peak Velocity 158.0 cm/s LVOT Peak Velocity 124.0 cm/s AV Area Cont Eq vti 4.1 cm squared AV Area Cont Eq pk 3.3 cm squared MV Peak Velocity 86.0 cm/s MV Area PHT 3.0 cm squared Mitral E to A Ratio 0.9 TV Peak Velocity 240.3 cm/s TR Peak Velocity 261.0 cm/s TR Peak Gradient 27.2 mmHg TV Peak E Velocity 36.0 cm/s PV Peak Velocity 107.0 cm/s FINDINGS Left Ventricle Normal left ventricular size and systolic function, EF 71%.. No regional wall motion abnormalities. Mild to moderate concentric left ventricular hypertrophy. Right Ventricle The right ventricle is normal in size and function. Right Atrium The right atrium is normal in size. Left Atrium Small atrial septal aneurysm bulging to the left side. Mitral Valve Mild prolapse of the posterior mitral leaflet with a mild eccentric mitral regurgitation Aortic Valve No gross abnormalities noted Tricuspid Valve Trace of tricuspid valve regurgitation. Pulmonic Valve No gross abnormalities noted Pericardium Normal pericardium without effusion. Aorta Patient has prominent aortic sinuses. The aortic root is measuring 3.9 cm, the level of the sinuses. IVC Normal inferior vena cava. CONCLUSIONS Normal left ventricular size and systolic function, EF 71%.. No regional wall motion abnormalities. Mild to moderate concentric left ventricular hypertrophy. Small atrial septal aneurysm bulging to the left side. Mild prolapse of the posterior mitral leaflet with a mild eccentric mitral regurgitation. Trace of tricuspid valve regurgitation. Estimated pulmonary artery peak systolic pressure of 30 mmHg Prominent aortic sinuses. The aortic root is measuring 3.9 cm, the level of the sinuses. There is no pericardial effusion. There are no intracardiac masses. No similar previous studies are available for comparison Dr Reynaldo Hurst MD [facility] (Electronically Signed) Final Date: 10 December 2024 08:24 S
--- NOTE | 2024-12-09 21:34 | P.HP_ITS ---
Providers/Chief Complaint 2 Admitting Physician: Miguel A Park MD Primary Care Provider: Omari Ames MD Chief Complaint: syncope History of Present Illness James Austin is a 69 year old male with a past medical history of GI bleed, alcohol abuse History of dehydration secondary to alcoholism and binge drinking, history of hiatal hernia surgery with complication requiring esophageal reconstruction, who presents to [facility] due to nausea vomiting dehydration concerns, and syncope. Patient reports that his last drink of alcohol was last week, he has drank alcohol since then, he says over the last few days, he has had nausea, vomiting, poor appetite, he has had episodes of coffee-ground emesis which have resolved he has not had any in over 5 days, he does tell me that his brother recently , and that is brought on him drinking alcohol, but he has not had alcohol in the last 5 days, does report diarrhea, but no bloody or black stools, no hematemesis, no sick contacts, recent travel, no chest pain, no palpitations, he was seen in the emergency room yesterday for nausea vomiting, he was given IV fluids, however he tells me he got home continue to have nausea and vomiting poor appetite he is reported syncopal episodes with getting up, changing position, denies any significant head trauma, no significant pain complaints but does report syncopal episodes Review of Systems 2 Const: Denies: fever(s) or chills Card: Denies: chest pain Resp: Denies: dyspnea GI: Reports: nausea, vomiting and diarrhea; Denies: abdominal pain or dysphagia Neuro: Denies: headache(s), numbness in extremities, weakness in extremities or dizziness Medications/Allergies Home Medications ?Medication ?Instructions ?Recorded ?Confirmed ?Last Taken ?Type epinephrine 0.3 mg/0.3 mL 0.3 mg (0.3 mL) IM Q15M PRN 12/19/23 11/13/24 Unknown Rx injection, auto-injector (EpiPen anaphylaxis #2 ea 2-Shawn) pantoprazole 40 mg tablet,delayed 40 mg PO BID #60 tab s 03/06/24 11/13/24 07/07/24 Rx release ferrous sulfate 325 mg (65 mg 325 mg PO BID #60 tabs 1 09/14/23 11/13/24 Unknown Rx iron) tablet lisinopril 20 1 tab PO QAM #90 tabs Unknown Rx mg-hydrochlorothiazide 12.5 mg tablet ondansetron 4 mg disintegrating 4 mg PO Q8H PRN nausea and 12/08/24 Unknown Rx tablet vomiting 5 days #20 tabs Allergies Allergy/AdvReac Type Severity Reaction Status Date / Time cantaloupe Allergy Unknown ALGY-Swell Verified 12/09/24 19:28 Lip/Tongue/Throat kiwi Allergy Unknown ALGY-Anaphy Verified 12/09/24 19:28 laxis amlodipine AdvReac Mild headaches Verified 12/09/24 19:28 PFSH Acute 2 PFSH: Medical History GI bleed Acute blood loss anemia Alcohol abuse Acute upper gastrointestinal bleeding GERD (gastroesophageal reflux disease) Hyperlipidemia Hypertension Diverticulosis Hypertension Family history of colon cancer 09/15/2019: Normal colonoscopy except diverticulosis, follow-up colonoscopy in 2024 Surgical History History of excision of epidermal inclusion cyst Social History Smoking and tobacco/nicotine status: unknown if used tobacco/nicotine Alcohol intake: former Substance/Drug Use: never Vitals/I&O/Wt Last Vital Signs Temp 97.8 F 12/09/24 19:25 Pulse 71 12/09/24 21:01 Resp 12 12/09/24 20:30 BP 115/80 12/09/24 21:01 Pulse Ox 99 12/09/24 21:01 O2 Del Method Room Air 12/09/24 19:25 12/09/24 12/09/24 12/09/24 06:59 14:59 22:59 Intake Total 1600 / 1600 Balance 1600 / 1600 Weight last 48 hrs Weight 79.379 kg Physical Exam 2 Const: COMMON NORMALS: no acute distress and patient oriented x3 HENMT: COMMON NORMALS: normocephalic HEAD & SCALP: normocephalic Neck/C-Spine: COMMON NORMALS: no JVD Resp: COMMON NORMALS: normal respiratory effort, No retractions, No use of accessory muscles and clear to auscultation bilaterally AUSCULTATION: clear to auscultation bilaterally Cardio: COMMON NORMALS: no JVD, regular rate, regular rhythm, S1 normal heart sound present and S2 normal heart sound present RATE: regular rate RHYTHM: regular rhythm HEART SOUNDS: S1 normal heart sound present and S2 normal heart sound present GI: COMMON NORMALS: Normal to inspection, nondistended, normoactive bowel sounds present, Soft to palpation and non-tender Extremity: COMMON NORMALS: no calf tenderness and no pedal edema Neuro: COMMON NORMALS: patient oriented x3, CN's II-XII intact bilaterally and moves all extremities Psych: COMMON NORMALS: mental status grossly normal Data 12/09/24 19:29 12/09/24 19:29 A&P Assessment and plan (1) Intractable nausea and vomiting: (2) Dehydration: (3) Alcohol withdrawal: (4) Elevated troponin: (5) TODD (acute kidney injury): Plan Dehydration - IV fluids Alcohol withdrawal - [facility] protocol Acute kidney injury - Likely sec to dehydration - IV fluids Hyponatremia, dehydration Hypokalemia, replace p.o. Syncopal episode - Likely orthostatic hypotension - Check orthostatic vitals - Serial troponins, serial EKGs, telemetry monitoring - Cardiac echo - Carotid ultrasound Full code Lovenox for DVT prophylaxis PDMP PDMP Reviewed: Not Reviewed Attestations 2 Medical Necessity Statement*: Patient requires hospitalization, outpatient observation, for intractable nausea, vomiting, dehydration, TODD Diagnoses Intractable nausea and vomiting R11.2 Dehydration E86.0 Alcohol withdrawal F10.939 Elevated troponin R79.89 TODD (acute kidney injury) N17.9
--- NOTE | 2024-12-09 21:34 | USCV_ITS ---
James Austin Age: 69 Gender: M : 1955 Exam Date: 12/09/2024 22:24 Ordering Phys: Miguel A Park MD Technologist: JUNE Exam Location: [facility] [place] Indication: syncope, history of ETOH, GI bleed Risk Factors: syncope, history of ETOH, GI bleed Previous Vascular Surgery: None Right Brachial BP: 118 / 62 Left Brachial BP: / Right Left Velocity (cm/s) Spectral Plaque Velocity (cm/s) Spectral Plaque Syst/Diast Broadening Syst/Diast Broadening 98.30/ 15.40 Min Hetro Prox CCA 154.70/ 25.20 Min Hetro 111.30/20.60 Min Hetro Mid CCA 112.20/ 10.40 Min Hetro 95.70/ 18.00 None Hetro Distal CCA 99.50 / 16.80 Min Hetro 85.40/ 16.70 Min Mitul Prox ICA 97.40 / 21.00 Min Mitul 113.20/32.00 Min Hetro Mid ICA 99.50 / 23.10 None Hetro 121.10/30.20 Min Homo Distal ICA 97.30 / 29.90 Min Homo 108.70 Min Hetro ECA 95.30 Min Hetro 1.30 ICA/CCA 1.00 Antegrade Vertebral Antegrade 51.20/ 10.50 cm/s 42.60/ 6.20 cm/s Tri Subclavian Tri 177.7 150.2 0 0 FINDINGS Comparison: none available. No significant elevation of systolic or diastolic velocities. Waveforms are normal. Mild diffuse carotid atherosclerosis. CONCLUSIONS Bilateral ICA stenosis less than 50%. Dr. Sheba Yepez DO (Electronically Signed) Final Date: 10 December 2024 07:53 S
[2024-12-09] MEDS: famotidine 20 mg/2 mL INJ IVP (21:52)
[2024-12-09] MEDS: thiamine 100 mg/mL 2mL SDV IM (21:52)
[2024-12-09] MEDS: enoxaparin 40 mg/0.4 mL Syringe SUBCUT (21:52)
[2024-12-09] MEDS: sodium chloride 0.9% 1,000 ML 125 ML IV (21:53)
[2024-12-09 22:03] LABS: Lactic Sepsis W/Reflex 1.7 mmol/L (0.5-2.2)
[2024-12-09 22:20] LABS: Procalcitonin 0.09 ng/mL (0-0.5); Thyroid Stimulating Hormone 1.33 uIU/mL (0.27-4.20)
[2024-12-09 22:30] LABS: C Reactive Protein 4.1 mg/L (0.0-4.9); Lipase 24 U/L (13-60)
[2024-12-09 22:33] LABS: Alcohol Level < 10 mg/dL (0-10)
[2024-12-09] MEDS: potassium chloride ER 20 mEq Tablet 40 MEQ PO (23:16)
[2024-12-09 23:28] LABS: Bilirubin Urine Negative (Negative); Blood Urine Negative (Negative); Glucose Urine UA Negative (Normal); Ketones Urine 1+ (Negative); Leukocyte Esterase Urine Negative (Negative); Nitrate Urine Negative (Negative); Protein Urine 1+ (Negative); Urine Appearance Cloudy (CLEAR); Urine Color Yellow (Yellow); pH Urine 6.5 (5-7)
[2024-12-09 23:30] LABS: Add Urine Microscopic? YES; Bacteria Urine None Seen /hpf; Hyaline Casts Urine 11.97 /lpf; RBC Urine 0-2 /hpf (0-2); Squamous Epithelial Cell Urine 0-5 /hpf (0-5); WBC Urine 0-5 /hpf (0-5)
[2024-12-09 23:35] LABS: Amphetamines Screen Urine Negative (Negative); Barbiturates Screen Urine Negative (Negative); Benzodiazepines Screen Urine Negative (Negative); Cocaine Screen Urine Negative (Negative); Opiate Screen Urine Negative (Negative); PCP Screen Urine Negative (Negative); THC Screen Urine Negative (Negative)
[2024-12-10] VITALS (15 sets, daily range): BP systolic 111–148; BP diastolic 57–79; PULSE 58–78; RESP 15–18; TEMP 36.3–36.9; O2SAT 96–100; BMI 26.2
[2024-12-10 00:33] LABS: Gamma Glutamyl Transferase 15 U/L (8-61)
[2024-12-10 02:05] LABS: Basophils % 0.2 %; Eosinophils % 0.1 %; Hematocrit 35.3 % (37-53); Lymphocytes # 1.4 10^3/uL (0.8-4.8); Lymphocytes % 13.7 %; Mean Corpuscular HGB Conc 31.4 g/dL (30-55); Mean Corpuscular Hemoglobin 26.4 pg (27-33); Mean Corpuscular Volume 83.8 fl (82-101); Mean Platelet Volume 9.4 fL (7.4-10.4); Monocytes % 10.2 %; Neutrophils # 7.53 10^3/uL (1.8-7.7); Neutrophils % 75.5 %; Nucleated Red Blood Cells % 0 %; Platelet Count 231 10^3/cmm (157-399); Red Blood Count 4.21 10^6/uL (3.85-5.65); Red Cell Distribution Width 15.8 % (12.1-15.1); White Blood Count 9.98 10^3/uL (3.29-11.43)
[2024-12-10 02:23] LABS: Troponin 5 6HR 46.04 ng/L (0-15)
[2024-12-10 02:24] LABS: Troponin 5 6HR Delta -4.96 ng/L (0-12)
[2024-12-10 02:35] LABS: Alanine Aminotransferase 14 U/L (0-41); Albumin Level 3.8 g/dL (3.5-5.2); Alkaline Phosphatase 54 U/L (40-130); Anion Gap 19.8 (5-19); Aspartate Amino Transferase 20 U/L (0-40); Blood Urea Nitrogen 54 mg/dL (8-23); Calcium 8.1 mg/dL (8.5-10.5); Carbon Dioxide 26 mmol/L (22-29); Chloride 95 mmol/L (98-107); Creatinine Clr Calc Pharmacy 41.9465; Globulin 1.9 g/dL (1.3-4.6); Glucose 101 mg/dL (65-115); Magnesium 2.6 mg/dL (1.7-2.3); Osmolality Calculated 301 mOsm/kg (285-295); Phosphorus 4.9 mg/dL (2.5-4.5); Sodium 138 mmol/L (136-145); Total Bilirubin 1.7 mg/dL (0.15-1.2); Total Protein 5.7 g/dL (6.6-8.7)
[2024-12-10 02:39] LABS: Potassium 2.8 mmol/L (3.5-5.1)
[2024-12-10] MEDS: morphine 4 mg/mL SDV 1 mL 2 MG IVP ×3 (04:15→13:03)
[2024-12-10] MEDS: metoclopramide 5 mg/mL SDV 2 mL IVP (04:31)
[2024-12-10] MEDS: potassium chloride ER 20 mEq Tablet 40 MEQ PO ×3 (04:32→13:07)
[2024-12-10] MEDS: sodium chloride 0.9% 1,000 ML 125 ML IV ×3 (05:10→20:30)
[2024-12-10] MEDS: ondansetron 2 mg/ML SDV 2 mL 4 MG IVP (07:53)
[2024-12-10] MEDS: multivitamin therapeutic Tablet 1 TAB PO (07:56)
[2024-12-10] MEDS: thiamine 100 mg Tablet PO (07:56)
[2024-12-10] MEDS: folic acid 1 mg Tablet PO (07:56)
[2024-12-10] MEDS: famotidine 20 mg/2 mL INJ IVP ×2 (07:58→20:51)
[2024-12-10] MEDS: lidocaine 1% 5 ML in potassium chloride premix 100 ML 26.25 ML IV (09:02)
--- NOTE | 2024-12-10 09:06 | PC.CHAP ---
Pastoral Care Encounter/Spiritual Assessment Type of Contact [] Declined production illustrator visit [] Patient/Family/Request visit [] Outpatient visit [] Follow-up visit [] Physician referral [] Code/Alert [x] Routine visit [] Staff referral [] Actively dying [] Patient sleeping [] Family support [] [] Out of room [] Palliative care [] [] Receiving care in room [] Pre-surgical visit [] Trauma [] Long length of stay [] ICU visit [] Other: Relational/Emotional Strength [x] Patient feels connected with others/family/visitors/staff [] Distress [] Loneliness/isolation [] Abandonment Spirituality of Patient [x] Person of Skye [] Attends Methodist of their [place] [x] Believes in Prayer [] Reads Bible or Quaker materials [] There are Spiritual issues to be addressed Damascener Interventions [x] Prayer [x] Active listening [] Non-anxious presence [x] Spiritual/emotional support [] Crisis/trauma care [] Spiritual counseling [] Bereavement support [] Provided bereavement packet [] Provided Bible/devotional materials [] Provided toy/stuffed animal, coloring book to patient or family member [] Provided Communion [] Anointing/[place] [] Salvation [x] Completed spiritual assessment [] Other: Impact on Illness or Injury [] Angry [] Fearful [] Anxious [] Often cries [] Exhaustion [] Unable to work [] Unable to attend religious [] Unable to walk/stand [] Unable to read [] Unable to drive [] Unable to eat/drink [] Unable to sleep [] Unable to be with family [] Patient intubated [] Other: Summary Time spent with patient 5 min
--- NOTE | 2024-12-10 11:19 | P.PN_ITS ---
Subjective 2 Subjective: Seen in room at bedside this morning. Denies any complaint of further episodes of vomiting. Was able to tolerate clears this morning. Medications: Reviewed: Yes Vitals/I&O/Wt Last Vital Signs Temp 97.4 F L 12/10/24 07:48 Pulse 74 12/10/24 07:48 Resp 18 12/10/24 07:53 BP 126/71 12/10/24 07:48 Pulse Ox 97 12/10/24 07:48 O2 Del Method Nasal Cannula 12/10/24 07:48 O2 Flow Rate 2 12/10/24 07:40 12/09/24 12/10/24 12/10/24 22:59 06:59 14:59 Intake Total 1600 / 1600 2010.417 / 3610.417 240 / 240 Output Total 200 / 200 300 / 300 Balance 1600 / 1600 1810.417 / 3410.417 -60 / -60 Weight last 48 hrs Weight 75.75 kg Weight 75.931 kg Weight 79.379 kg Physical Exam 2 Const: COMMON NORMALS: no acute distress and patient oriented x3 HENMT: COMMON NORMALS: normocephalic HEAD & SCALP: normocephalic Neck/C-Spine: COMMON NORMALS: no JVD Resp: COMMON NORMALS: normal respiratory effort, No retractions, No use of accessory muscles and clear to auscultation bilaterally AUSCULTATION: clear to auscultation bilaterally Cardio: COMMON NORMALS: no JVD, regular rate, regular rhythm, S1 normal heart sound present and S2 normal heart sound present RATE: regular rate RHYTHM: regular rhythm HEART SOUNDS: S1 normal heart sound present and S2 normal heart sound present GI: COMMON NORMALS: Normal to inspection, nondistended, normoactive bowel sounds present, Soft to palpation and non-tender PALPATION: Yes Soft to palpation Extremity: COMMON NORMALS: no calf tenderness and no pedal edema Neuro: COMMON NORMALS: patient oriented x3, CN's II-XII intact bilaterally and moves all extremities Psych: COMMON NORMALS: mental status grossly normal Data 12/10/24 01:54 12/10/24 01:54 Micro: Microbiology 12/09/24 22:11 Blood Culture - Preliminary Blood SPECIMEN COLLECTED 12/09/24 22:07 Blood Culture - Preliminary Blood SPECIMEN COLLECTED A&P Assessment and plan (1) Intractable nausea and vomiting: (2) Dehydration: (3) Alcohol withdrawal: (4) Elevated troponin: (5) TODD (acute kidney injury): Plan 69 year old male with a past medical history of GI bleed, alcohol abuse History of dehydration secondary to alcoholism and binge drinking, history of hiatal hernia surgery with complication requiring esophageal reconstruction, who presents to [facility] due to nausea vomiting dehydration concerns, and syncope. Dehydration - IV fluids Alcohol withdrawal - [facility] protocol Acute kidney injury - Likely sec to dehydration - IV fluids Hyponatremia, dehydration Hypokalemia, replace p.o. Syncopal episode - Likely orthostatic hypotension - Check orthostatic vitals - Serial troponins, serial EKGs, telemetry monitoring - Cardiac echo - Carotid ultrasound Full code Lovenox for DVT prophylaxis 12/10/24 #Syncope likely secondary to dehydration secondary to nausea and vomiting. 3 sets of troponins 51, 55, 46, plateaued. Less likely ACS Continue IV fluids normal saline at 125 cc per hour. Continue IV Pepcid 20 mg twice daily #TODD-resolving, creatinine trending down to 1.6. Encourage p.o. fluid intake #Alcohol withdrawal-CI[facility] protocol in place Continue p.o. multivitamin, thiamine and folic acid #Electrolyte abnormalities, hypokalemia-potassium 2.8 likely secondary to vomiting Replaced #Counseled and educated about alcohol cessation. Patient understands and agrees with plan of care. #Advance diet as tolerated PDMP PDMP Reviewed: Not Reviewed Attestations 2 Medical Necessity Statement*: Patient requires hospitalization, outpatient observation, for intractable nausea, vomiting, dehydration, TODD Time Spent in Patient Care: 20minutes Coding Level of Care Code Acute Code for Chg Fwd Diagnoses Intractable nausea and vomiting R11.2 Dehydration E86.0 Alcohol withdrawal F10.939 Elevated troponin R79.89 TODD (acute kidney injury) N17.9 Time Spent (min) 20
[2024-12-10] MEDS: enoxaparin 40 mg/0.4 mL Syringe SUBCUT (20:51)
[2024-12-11] MEDS: sodium chloride 0.9% 1,000 ML 125 ML IV (04:26)
[2024-12-11 04:41] VITALS: BP 133/73; PULSE 63; RESP 17; TEMP 37.1; O2SAT 92
[2024-12-11 04:43] VITALS: BMI 26.2
[2024-12-11 05:28] LABS: Anion Gap 12.9 (5-19); Blood Urea Nitrogen 29 mg/dL (8-23); Calcium 7.7 mg/dL (8.5-10.5); Carbon Dioxide 24 mmol/L (22-29); Chloride 103 mmol/L (98-107); Glucose 108 mg/dL (65-115); Osmolality Calculated 288 mOsm/kg (285-295); Potassium 3.9 mmol/L (3.5-5.1); Sodium 136 mmol/L (136-145)
[2024-12-11 06:00] VITALS: BP 135/75; BP 136/77; BP 144/75; PULSE 66; PULSE 68; PULSE 74; PULSE 79
[2024-12-11 08:02] VITALS: BP 135/75; PULSE 66; RESP 16; TEMP 36.7; O2SAT 99
[2024-12-11] MEDS: calcium gluconate 0.9% NaCL 1 GM/50 ML PREMIX IV (09:01)
[2024-12-11] MEDS: thiamine 100 mg Tablet PO (09:02)
[2024-12-11] MEDS: multivitamin therapeutic Tablet 1 TAB PO (09:02)
[2024-12-11] MEDS: famotidine 20 mg/2 mL INJ IVP (09:02)
[2024-12-11] MEDS: folic acid 1 mg Tablet PO (09:02)
--- NOTE | 2024-12-11 11:22 | PM.DCS ---
Discharge Providers Date of Admission: 12/09/24 20:33 Date of Discharge: December 11, 2024 Attending Provider at Admission: Miguel A aPrk MD Attending Provider at Discharge: Karen Morgan MD Primary Care Provider: Omari Ames MD Diagnoses at Discharge Discharge Diagnosis (1) Intractable nausea and vomiting: Status: Acute (2) Dehydration: Status: Acute (3) Alcohol withdrawal: Status: Acute (4) Elevated troponin: Status: Acute (5) TODD (acute kidney injury): Status: Acute Reason for Visit Reason for Visit: syncope Brief History: James Austin is a 69 year old male with a past medical history of GI bleed, alcohol abuse History of dehydration secondary to alcoholism and binge drinking, history of hiatal hernia surgery with complication requiring esophageal reconstruction, who presents to [facility] due to nausea vomiting dehydration concerns, and syncope. Patient reports that his last drink of alcohol was last week, he has drank alcohol since then, he says over the last few days, he has had nausea, vomiting, poor appetite, he has had episodes of coffee-ground emesis which have resolved he has not had any in over 5 days, he does tell me that his brother recently , and that is brought on him drinking alcohol, but he has not had alcohol in the last 5 days, does report diarrhea, but no bloody or black stools, no hematemesis, no sick contacts, recent travel, no chest pain, no palpitations, he was seen in the emergency room yesterday for nausea vomiting, he was given IV fluids, however he tells me he got home continue to have nausea and vomiting poor appetite he is reported syncopal episodes with getting up, changing position, denies any significant head trauma, no significant pain complaints but does report syncopal episodes Hospital Course Hospital Course Plan 69 year old male with a past medical history of GI bleed, alcohol abuse History of dehydration secondary to alcoholism and binge drinking, history of hiatal hernia surgery with complication requiring esophageal reconstruction, who presents to [facility] due to nausea vomiting dehydration concerns, and syncope. Dehydration - IV fluids Alcohol withdrawal - WA protocol Acute kidney injury - Likely sec to dehydration - IV fluids Hyponatremia, dehydration Hypokalemia, replace p.o. Syncopal episode - Likely orthostatic hypotension - Check orthostatic vitals - Serial troponins, serial EKGs, telemetry monitoring - Cardiac echo - Carotid ultrasound Full code Lovenox for DVT prophylaxis 12/10/24 #Syncope likely secondary to dehydration secondary to nausea and vomiting. 3 sets of troponins 51, 55, 46, plateaued. Less likely ACS Continue IV fluids normal saline at 125 cc per hour. Continue IV Pepcid 20 mg twice daily #TODD-resolving, creatinine trending down to 1.6. Encourage p.o. fluid intake #Alcohol withdrawal-CIWA protocol in place Continue p.o. multivitamin, thiamine and folic acid #Electrolyte abnormalities, hypokalemia-potassium 2.8 likely secondary to vomiting Replaced #Counseled and educated about alcohol cessation. Patient understands and agrees with plan of care. TODD resolved. tolerating po intake. Will discharge him today to be followed up with PCP in 1 week. Physical Exam Const: COMMON NORMALS: no acute distress and patient oriented x3 HENMT: COMMON NORMALS: normocephalic HEAD & SCALP: normocephalic Neck/C-Spine: COMMON NORMALS: no JVD Resp: COMMON NORMALS: normal respiratory effort, No retractions, No use of accessory muscles and clear to auscultation bilaterally AUSCULTATION: clear to auscultation bilaterally Cardio: COMMON NORMALS: no JVD, regular rate, regular rhythm, S1 normal heart sound present and S2 normal heart sound present RATE: regular rate RHYTHM: regular rhythm HEART SOUNDS: S1 normal heart sound present and S2 normal heart sound present GI: COMMON NORMALS: Normal to inspection, nondistended, normoactive bowel sounds present, Soft to palpation and non-tender PALPATION: Yes Soft to palpation Extremity: COMMON NORMALS: no calf tenderness and no pedal edema Neuro: COMMON NORMALS: patient oriented x3, CN's II-XII intact bilaterally and moves all extremities Psych: COMMON NORMALS: mental status grossly normal Discharge Data Studies Completed and Pending Completed Studies During Hospitalization Category Date Time Status XR chest 1V portable [id number] Stat Exams 12/09/24 19:34 Completed CV carotid duplex BI* [id number] Routine Ultrasound 12/09/24 21:34 Completed CV. echo complete* [id number] Routine Ultrasound 12/09/24 21:34 Completed Pending at discharge Category Date Time Status Blood Culture Routine Lab 12/09/24 22:11 Results Radiology Impressions Chest X-Ray 12/09/24 19:34 IMPRESSION: As above. Laboratory Results WBC 9.98 10^3/uL (3.29-11.43) 12/10/24 01:54 RBC 4.21 10^6/uL (3.85-5.65) 12/10/24 01:54 Hgb 11.10 g/dL (11.27-16.99) L 12/10/24 01:54 Hct 35.3 % (37-53) L 12/10/24 01:54 MCV 83.8 fl (82-101) 12/10/24 01:54 MCH 26.4 pg (27-33) L 12/10/24 01:54 MCHC 31.4 g/dL (30-55) 12/10/24 01:54 RDW 15.8 % (12.1-15.1) H 12/10/24 01:54 Plt Count 231 10^3/cmm (157-399) 12/10/24 01:54 MPV 9.4 fL (7.4-10.4) 12/10/24 01:54 Neut % (Auto) 75.5 % 12/10/24 01:54 Lymph % (Auto) 13.7 % 12/10/24 01:54 Dickinson % (Auto) 10.2 % 12/10/24 01:54 Eos % (Auto) 0.1 % 12/10/24 01:54 Baso % (Auto) 0.2 % 12/10/24 01:54 Neut # (Auto) 7.53 10^3/uL (1.8-7.7) 12/10/24 01:54 Lymph # (Auto) 1.4 10^3/uL (0.8-4.8) 12/10/24 01:54 Dickinson # (Auto) 1.0 10^3/uL (0.2-0.9) H 12/10/24 01:54 Eos # (Auto) 0.0 10^3/uL (0.0-0.8) 12/10/24 01:54 Baso # (Auto) 0.0 10^3/uL (0.0-0.1) 12/10/24 01:54 Nucleated RBC % (auto) 0 % 12/10/24 01:54 Nucleated RBCs # 0.0 /100WBC 12/10/24 01:54 Sodium 136 mmol/L (136-145) 12/11/24 04:26 Potassium 3.9 mmol/L (3.5-5.1) 12/11/24 04:26 Chloride 103 mmol/L (98-107) 12/11/24 04:26 Carbon Dioxide 24 mmol/L (22-29) 12/11/24 04:26 Anion Gap 12.9 (5-19) 12/11/24 04:26 BUN 29 mg/dL (8-23) H 12/11/24 04:26 Creatinine 1.0 mg/dL (0.7-1.2) 12/11/24 04:26 GFR Calculation Not Reportable 12/11/24 04:26 Glucose 108 mg/dL (65-115) 12/11/24 04:26 Calculated Osmolality 288 mOsm/kg (285-295) 12/11/24 04:26 Lactic Acid 1.7 mmol/L (0.5-2.2) 12/09/24 21:32 Calcium 7.7 mg/dL (8.5-10.5) L 12/11/24 04:26 Phosphorus 4.9 mg/dL (2.5-4.5) H 12/10/24 01:54 Magnesium 2.6 mg/dL (1.7-2.3) H 12/10/24 01:54 Total Bilirubin 1.7 mg/dL (0.15-1.2) H 12/10/24 01:54 GGT 15 U/L (8-61) 12/09/24 21:32 AST 20 U/L (0-40) 12/10/24 01:54 ALT 14 U/L (0-41) 12/10/24 01:54 Alkaline Phosphatase 54 U/L (40-130) 12/10/24 01:54 Troponin T Baseline 51 ng/L (0-15) H 12/09/24 19:29 Troponin T 120 Minute 45.60 ng/L (0-15) H 12/09/24 21:32 Delta Troponin T -5.40 ABS# (0-10) L 12/09/24 21:32 Troponin T Hi Sens 6Hr 46.04 ng/L (0-15) H 12/10/24 01:54 Troponin T Hi Sens 6Hr Delta -4.96 ng/L (0-12) L 12/10/24 01:54 C-Reactive Protein 4.1 mg/L (0.0-4.9) 12/09/24 21:32 Total Protein 5.7 g/dL (6.6-8.7) L 12/10/24 01:54 Albumin 3.8 g/dL (3.5-5.2) 12/10/24 01:54 Globulin 1.9 g/dL (1.3-4.6) 12/10/24 01:54 Lipase 24 U/L (13-60) 12/09/24 21:32 Procalcitonin 0.09 ng/mL (0-0.5) 12/09/24 21: TSH 1.33 uIU/mL (0.27-4.20) 12/09/24 21:32 Urine Color Yellow (Yellow) 12/09/24 23:19 Urine Appearance Cloudy (CLEAR) A 12/09/24 23: Urine pH 6.5 (5-7) 12/09/24 23: Ur Specific [place] 1.020 (1.005-1.030) 12/09/24 23:19 Urine Protein 1+ (Negative) A 12/09/24 23:19 Urine Glucose (UA) Negative (Normal) 12/09/24 23: Urine Ketones 1+ (Negative) H 12/09/24 23:19 Urine Blood Negative (Negative) 12/09/24 23:19 Urine Nitrate Negative (Negative) 12/09/24 23:19 Urine Bilirubin Negative (Negative) 12/09/24 23: Urine Urobilinogen 1.0 mg/dL (Negative) 12/09/24 23:19 Ur Leukocyte Esterase Negative (Negative) 12/09/24 23:19 Urine RBC 0-2 /hpf (0-2) 12/09/24 23:19 Urine WBC 0-5 /hpf (0-5) 12/09/24 23:19 Ur Squamous Epith Cells 0-5 /hpf (0-5) 12/09/24 23:19 Amorphous Sediment Not Reportable 12/09/24 23:19 Urine Bacteria None seen /hpf (NONE) 12/09/24 23:19 Hyaline Casts 11.97 /lpf 12/09/24 23:19 Urine Opiates Screen Negative ng/mL (Negative) 04/15/25 23:19 Ur Barbiturates Screen Negative ng/mL (Negative) 12/09/24 23:19 Ur Phencyclidine Scrn Negative ng/mL (Negative) 12/09/24 23:19 Ur Amphetamines Screen Negative ng/mL (Negative) 12/09/24 23:19 U Benzodiazepines Scrn Negative ng/mL (Negative) 12/09/24 23:19 Urine Cocaine Screen Negative ng/mL (Negative) 12/09/24 23:19 U Marijuana (THC) Screen Negative ng/mL (Negative) 12/09/24 23:19 Ethyl Alcohol < 10 mg/dL (0-10) 12/09/24 21:32 Vitals Last Vital Signs Temp 98.0 F 12/11/24 08:02 Pulse 66 12/11/24 08:02 Resp 16 12/11/24 08:02 BP 135/75 12/11/24 08:02 Pulse Ox 99 12/11/24 08:02 O2 Del Method Room Air 12/11/24 08:02 O2 Flow Rate 1 12/10/24 19:00 Discharge Plan Discharge Patient Disposition: Home Condition: Stable Prescriptions: Continued pantoprazole 40 mg tablet,delayed release (DR/EC) 40 mg PO BID Qty: 60 12RF ferrous sulfate 325 mg (65 mg iron) tablet 325 mg PO BID Qty: 60 3RF lisinopril-hydrochlorothiazide 20-12.5 mg tablet 1 tab PO QAM Qty: 90 3RF epinephrine [EpiPen 2-Shawn] 0.3 mg/0.3 mL auto-injector 0.3 mg IM Q15M PRN (Reason: anaphylaxis) Qty: 2 0RF ondansetron 4 mg tablet,disintegrating 4 mg PO Q8H PRN (Reason: nausea and vomiting) 5 Days Qty: 20 0RF Discharge Orders: Discharge Order (Routine); Ordered 12/11/24 Ordered By: Kaern Morgan Referrals: Omari Ames MD [Primary Care Provider] - Discharge Diet: Regular Discharge Activity: Increase activity as tolerated Patient Instructions: Opioid Safety Discharge Attestations Time Spent in Discharge Care*: less than 30 min Status at Discharge: Cognitive status at discharge: cognitively intact, Behavioral status at discharge: cooperative, Quality Metrics Clinical Quality Measures [ No reported AMI, CVA or VTE this stay] Coding Level of Care Code Acute Code for Chg Fwd Diagnoses Intractable nausea and vomiting R11.2 Dehydration E86.0 Alcohol withdrawal F10.939 Elevated troponin R79.89 TODD (acute kidney injury) N17.9 Time Spent (min) 15
[2024-12-11 11:42] VITALS: BP 145/80; PULSE 59; RESP 18; TEMP 36.6; O2SAT 99
--- NOTE | 2024-12-11 12:46 | PC.NURSE ---
All belongings that were locked in [facility] were given to patient prior to discharge.
[2024-12-11 12:47] VITALS: BP 145/80; PULSE 59; RESP 16; TEMP 36.6; O2SAT 99
== END 2024-12-11 12:48 | disposition home or self-care (01) ==
LOC: ER 20:57 → MEDSURG 21:07
PROVIDERS: Admitting Provider Family Medicine; Emergency Provider Student in an Organized Health Care Education/Training Program; PCP Family Medicine; Visit Provider Internal Medicine
DX: E86.0 Dehydration (principal); R11.2 Nausea with vomiting, unspecified; F10.939 Alcohol use, unspecified with withdrawal, unspecified; Y90.0 Blood alcohol level of less than 20 mg/100 ml; R79.89 Other specified abnormal findings of blood chemistry; N17.9 Acute kidney failure, unspecified; K21.9 Gastro-esophageal reflux disease without esophagitis; R55 Syncope and collapse; Z87.19 Personal history of other diseases of the digestive system; Z87.738 Personal history of other specified (corrected) congenital malformations of digestive system
CPT/HCPCS: 36415; 71045; 80048; 80053; 80306; 80307; 81001; 82977; 83605; 83690; 83735; 84100; 84145; 84443; 84484; 85025; 86140; 87040; 93005; 93306; 93880; 94664; 94760; 96365; 96366; 96367; 96372; 96375; 96376; 99285; G0378; J0612; J1650; J2270; J2405; J2765; J3411; J3480; J3490; J7030; J9999

== ENCOUNTER 2025-02-16 08:36 | Observation (INO) | payer MEDICARE, MEDICAID, SELFPAY ==
[2025-02-16] VITALS (12 sets, daily range): BP systolic 76–134; BP diastolic 43–75; PULSE 57–71; RESP 16–18; TEMP 36.6–36.8; O2SAT 95–99; BMI 27.3; BMI 24.3
--- NOTE | 2025-02-16 08:50 | XR_ITS ---
WS: [id number] Exam: XR chest 1V portable [id number] Date/Time of Exam: 02/16/2025 8:55 AM Reason For Exam: dyspnea/cough Comparison 12/09/2024. Lungs are hyperinflated and clear. Normal cardiomediastinal silhouette. No pleural effusion. Bony structures are intact. XR/XR chest 1V portable [id number] IMPRESSION: 1. Pulmonary hyperinflation. No acute finding.
--- NOTE | 2025-02-16 08:58 | ECG_ITS ---
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 Measurements Intervals [place] Rate: 67 P: 46 [place]: 153 QRS: -5 QRSD: 101 T: 28 QT: 442 QTc: 468 Interpretive Statements SINUS RHYTHM Compared to ECG 12/09/2024 19:42:42 ST (T wave) deviation no longer present Prolonged QT interval no longer present Electronically Signed On 02-17-2025 17:28:34 CDT by Gage Durbin M.D. [email or web address] [id number]
[2025-02-16] MEDS: sodium chloride 0.9% 1,000 ML 999 ML IV (09:02)
--- NOTE | 2025-02-16 09:09 | W.ED.SYNCOPE ---
HPI - Syncope General: Chief Complaint: Syncope Stated Complaint: Syncope x 3 days Time Seen by Provider: 02/16/25 08:42 History of Present Illness: 69-year-old male with a history of alcohol use presents to the emergency room passing out the last 3 days patient admits to having been a bit of a cruz drinking hard liquor beginning last week. 5 to 6 days ago the patient had some bright red blood in the vomitus he also reports having had some tarry stools. Associated symptoms: Reports abdominal pain and nausea; Deny chest pain or fever(s) Related Data Previous Rx's ?Medication ?Instructions ?Recorded epinephrine 0.3 mg/0.3 mL 0.3 mg (0.3 mL) IM Q15M PRN 12/19/23 injection, auto-injector (EpiPen anaphylaxis #2 ea 2-Shawn) pantoprazole 40 mg tablet,delayed 40 mg PO BID #60 tabs 03/06/24 release lisinopril 20 1 tab PO QAM #90 tabs 12/03/24 mg-hydrochlorothiazide 12.5 mg tablet Allergies Allergy/AdvReac Type Severity Reaction Status Date / Time cantaloupe Allergy Unknown ALGY-Swell Verified 12/09/24 19:28 Lip/Tongue/Throat kiwi Allergy Unknown ALGY-Anaphy Verified 12/09/24 19:28 laxis amlodipine AdvReac Mild headaches Verified 12/09/24 19:28 Review of Systems Const: Denies: fever(s) or chills Card: Denies: chest pain Resp: Denies: dyspnea GI: Reports: abdominal pain, nausea, vomiting, hematemesis and coffee ground emesis : Denies: dysuria, urinary frequency or urinary urgency Musc: Denies: neck pain or back pain Skin/Breast: Denies: rash PFSH ED PFSH: Medical History GI bleed Acute blood loss anemia Alcohol abuse Acute upper gastrointestinal bleeding GERD (gastroesophageal reflux disease) Hyperlipidemia Hypertension Diverticulosis Hypertension Family history of colon cancer 09/15/2019: Normal colonoscopy except diverticulosis, follow-up colonoscopy in 2024 Surgical History History of excision of epidermal inclusion cyst Social History Smoking and tobacco/nicotine status: never used tobacco/nicotine Alcohol intake: former Substance/Drug Use: never Physical Exam Const: GENERAL APPEARANCE: cooperative ORIENTATION/CONSCIOUSNESS: Yes awake, Yes oriented to person, Yes oriented to place and Yes oriented to time HENMT: COMMON NORMALS: normocephalic, atraumatic and hearing grossly normal bilaterally HEAD & SCALP: normocephalic and atraumatic Resp: COMMON NORMALS: normal respiratory effort, No retractions, No use of accessory muscles and clear to auscultation bilaterally AUSCULTATION: clear to auscultation bilaterally Cardio: COMMON NORMALS: regular rate, regular rhythm and No murmurs present (Cardio) RATE: regular rate RHYTHM: regular rhythm GI: COMMON NORMALS: Soft to palpation and No hepatosplenomegaly present AUSCULTATION: Yes normoactive bowel sounds PALPATION: Yes Soft to palpation, No Tenderness to palpation present (GI), No Guarding due to palpation present (GI) and Yes No hepatosplenomegaly present Extremity: COMMON NORMALS: normal to inspection, capillary refill normal, no clubbing, cyanosis or edema, no calf tenderness and no pedal edema Neuro: SENSORIUM/ORIENTATION: Yes oriented to person, Yes oriented to place and Yes oriented to time Skin: COMMON NORMALS: no rashes or lesions noted GENERAL SKIN EXAM: no rashes or lesions noted Course Vital Signs: Vital signs: Vital Signs Temperature 98.1 F 02/16/25 08:37 Pulse Rate 61 02/16/25 08:37 Respiratory Rate 18 02/16/25 08:55 Blood Pressure 110/63 02/16/25 12:18 Pulse Oximetry 97 02/16/25 12:18 Oxygen Delivery Me thod Room Air 02/16/25 12:18 MDM - Syncope Medical Decision Making CT of the abdomen had some fairly concerning potential findings of discussed with the radiologist she recommended repeating CT of the chest with oral contrast with this were able to rule out the worst of the potential findings indicated on the CT of the abdomen. Will admit patient to observation IV Protonix rest possible EGD in the morning discussed with hospitalist orders written Medical Records I reviewed the patient's medical records. Lab Data I reviewed the patient's lab results. 02/16/25 09:28 02/16/25 09:28 Radiology Impressions Chest X-Ray 02/16/25 08:50 IMPRESSION: 1. Pulmonary hyperinflation. No acute finding. Abdomen/Pelvis CT 02/16/25 10:09 IMPRESSION: 1. Wall thickening and mild enhancement involving the distal esophagus associated with a hiatal hernia. Distal acute esophagitis. Curvilinear pockets of fluid in the distal esophagus. This may be fluid contained within the esophagus. Associated mucosal enhancement and small fluid collections, consider esophageal ulcerations. Recommend upper endoscopy to evaluate the distal esophagus and exclude abscess or contained perforation. 2. Hepatic steatosis. 3. Hemangioma LEFT hepatic lobe. 4. Large bilateral renal cysts. No renal obstruction. 5. No adenopathy or ascites. Chest CT 02/16/25 11:19 IMPRESSION: 1. Large hiatal hernia. No esophageal obstruction. 2. No esophageal perforation or ulceration or abscess. Much better visualization of the distal esophagus. 3. No pathological lymph nodes. Laboratory Results WBC 6.94 10^3/uL (3.29-11.43) 02/16/25 09:28 RBC 4.71 10^6/uL (3.85-5.65) 02/16/25 09:28 Hgb 12.20 g/dL (11.27-16.99) 02/16/25 09:28 Hct 39.0 % (37-53) 02/16/25 09:28 MCV 82.8 fl (82-101) 02/16/25 09:28 MCH 25.9 pg (27-33) L 02/16/25 09:28 MCHC 31.3 g/dL (30-55) 02/16/25 09:28 RDW 18.6 % (12.1-15.1) H 02/16/25 09:28 Plt Count 315 10^3/cmm (157-399) 02/16/25 09:28 MPV 10.1 fL (7.4-10.4) 02/16/25 09:28 Neut % (Auto) 72.3 % 02/16/25 09:28 Lymph % (Auto) 17.7 % 02/16/25 09:28 Person % (Auto) 9.5 % 02/16/25 09:28 Eos % (Auto) 0.1 % 02/16/25 09:28 Baso % (Auto) 0.0 % 02/16/25 09:28 Neut # (Auto) 5.01 10^3/uL (1.8-7.7) 02/16/25 09:28 Lymph # (Auto) 1.2 10^3/uL (0.8-4.8) 02/16/25 09:28 Person # (Auto) 0.7 10^3/uL (0.2-0.9) 02/16/25 09:28 Eos # (Auto) 0.0 10^3/uL (0.0-0.8) 02/16/25 09:28 Baso # (Auto) 0.0 10^3/uL (0.0-0.1) 02/16/25 09:28 Nucleated RBC % (auto) 0 % 02/16/25 09: Nucleated RBCs # 0.0 /100WBC 02/16/25 09:28 Sodium 140 mmol/L (136-145) 02/16/25 09: Potassium 3.6 mmol/L (3.5-5.1) 02/16/25 09: Chloride 91 mmol/L (98-107) L 02/16/25 09: Carbon Dioxide 29 mmol/L (22-29) 02/16/25 09:28 Anion Gap 23.6 (5-19) H 02/16/25 09:28 BUN 65 mg/dL (8-23) H 02/16/25 09:28 Creatinine 1.8 mg/dL (0.7-1.2) H 02/16/25 09:28 GFR Calculation Not Reportable 02/16/25 09: Glucose 107 mg/dL (65-115) 02/16/25 09:28 Calculated Osmolality 309 mOsm/kg (285-295) H 02/16/25 09:28 Calcium 9.1 mg/dL (8.5-10.5) 02/16/25 09:28 Total Bilirubin 1.3 mg/dL (0.15-1.2) H 02/16/25 09:28 AST 40 U/L (0-40) 02/16/25 09:28 ALT 32 U/L (0-41) 02/16/25 09:28 Alkaline Phosphatase 50 U/L (40-130) 02/16/25 09:28 Troponin T Baseline 58 ng/L (0-15) H 02/16/25 09:28 Troponin T 120 Minute 48.91 ng/L (0-15) H 02/16/25 11:05 Delta Troponin T -9.09 ABS# (0-10) L 02/16/25 11:05 Total Protein 6.5 g/dL (6.6-8.7) L 02/16/25 09:28 Albumin 4.2 g/dL (3.5-5.2) 02/16/25 09:28 Globulin 2.3 g/dL (1.3-4.6) 02/16/25 09:28 Lipase 35 U/L (13-60) 02/16/25 09:28 Urine Color Yellow (Yellow) 02/16/25 10:00 Urine Appearance Clear (CLEAR) 02/16/25 10:00 Urine pH 7.0 (5-7) 02/16/25 10:00 Ur Specific [place] 1.019 (1.005-1.030) 02/16/25 10:00 Urine Protein 1+ (Negative) A 02/16/25 10:00 Urine Glucose (UA) Negative (Normal) 02/16/25 10:00 Urine Ketones 1+ (Negative) H 02/16/25 10:00 Urine Blood Negative (Negative) 02/16/25 10:00 Urine Nitrate Negative (Negative) 02/16/25 10:00 Urine Bilirubin Negative (Negative) 02/16/25 10:00 Urine Urobilinogen 1.0 mg/dL (Negative) 02/16/25 10:00 Ur Leukocyte Esterase Negative (Negative) 02/16/25 10:00 Urine RBC 11-20 /hpf (0-2) H 02/16/25 10:00 Urine WBC 0-5 /hpf (0-5) 02/16/25 10:00 Ur Squamous Epith Cells 0-5 /hpf (0-5) 02/16/25 10:00 Amorphous Sediment Not Reportable 02/16/25 10:00 Urine Bacteria None seen /hpf (NONE) 02/16/25 10:00 Hyaline Casts 27.69 /lpf 02/16/25 10:00 Ethyl Alcohol < 10 mg/dL (0-10) 02/16/25 09:28 Blood Type A Positive 02/16/25 09:28 Rho(D) Type Rh positive 02/16/25 09:28 Antibody Screen Negative 02/16/25 09:28 All radiology interpretation(s) finalized by discharge Discharge Plan Discharge Patient Disposition: Placed in Observation Clinical Impression: GI bleed, Ulcerative esophagitis, Alcohol consumption binge drinking, Nausea and vomiting, Acute renal failure, Syncope, Syncope due to orthostatic hypotension Coding Level of Care Code ED [employer] for Giselle Horton
[2025-02-16] MEDS: pantoprazole 40 mg SDV 80 MG IVP (09:30)
[2025-02-16 09:45] LABS: Eosinophils % 0.1 %; Lymphocytes # 1.2 10^3/uL (0.8-4.8); Lymphocytes % 17.7 %; Mean Corpuscular HGB Conc 31.3 g/dL (30-55); Mean Corpuscular Hemoglobin 25.9 pg (27-33); Mean Corpuscular Volume 82.8 fl (82-101); Mean Platelet Volume 10.1 fL (7.4-10.4); Monocytes # 0.7 10^3/uL (0.2-0.9); Monocytes % 9.5 %; Neutrophils # 5.01 10^3/uL (1.8-7.7); Neutrophils % 72.3 %; Nucleated Red Blood Cells % 0 %; Platelet Count 315 10^3/cmm (157-399); Red Blood Count 4.71 10^6/uL (3.85-5.65); Red Cell Distribution Width 18.6 % (12.1-15.1); White Blood Count 6.94 10^3/uL (3.29-11.43)
[2025-02-16 10:02] LABS: Troponin(5th) Baseline 58 ng/L (0-15)
[2025-02-16 10:05] LABS: Alanine Aminotransferase 32 U/L (0-41); Albumin Level 4.2 g/dL (3.5-5.2); Alkaline Phosphatase 50 U/L (40-130); Aspartate Amino Transferase 40 U/L (0-40); Blood Urea Nitrogen 65 mg/dL (8-23); Calcium 9.1 mg/dL (8.5-10.5); Carbon Dioxide 29 mmol/L (22-29); Chloride 91 mmol/L (98-107); Creatinine Clr Calc Pharmacy 38.0201; Globulin 2.3 g/dL (1.3-4.6); Glucose 107 mg/dL (65-115); Lipase 35 U/L (13-60); Osmolality Calculated 309 mOsm/kg (285-295); Sodium 140 mmol/L (136-145); Total Bilirubin 1.3 mg/dL (0.15-1.2); Total Protein 6.5 g/dL (6.6-8.7)
[2025-02-16 10:08] LABS: Alcohol Level < 10 mg/dL (0-10)
--- NOTE | 2025-02-16 10:09 | CT_ITS ---
WS: [id number] CT ABDOMEN AND PELVIS WITH CONTRAST HISTORY: abd pain TECHNIQUE: Imaging performed of the abdomen and pelvis with IV contrast. Single phase imaging of the abdomen. Coronal and sagittal reformats are submitted. All CT scans at [facility] use at least one of these dose optimization techniques: automated exposure control; mA and/or kV adjustment per patient size (includes targeted exams where dose is matched to clinical indication); or iterative reconstruction. IV CONTRAST: Omnipaque 350; 100 mL IV. Oral contrast: No DLP: 469.89 mGy.cm COMPARISON: 12/08/2024, 10/17/2024 Lower thorax: Minimal subsegmental areas of atelectasis at the lung bases. No mass. Heart is normal size. Moderate-sized hiatal hernia. There are several small pockets of fluid containing air in the distal esophagus with a small amount of enhancement. Configuration of the distal esophagus is changed since 2023. Liver/biliary system: Hepatic steatosis. Normal portal vein. Peripherally enhancing mass in the lateral segment LEFT hepatic lobe measures 3.0 x 2.8 cm. Focal fatty sparing along the falciform ligament. Gallbladder: Normal. No gallstones or wall thickening. No pericholecystic fluid. Pancreas: Normal size pancreas and pancreatic duct. No adjacent inflammation. Spleen: Normal size spleen. No mass or infarct. Adrenal glands: Normal. Right kidney: Multiple RIGHT renal cysts. The largest from the superior pole measures 10.6 x 10.9 cm. No solid mass. Left kidney: Multiple LEFT renal cyst. The largest from the lower pole measures 10.4 x 8.9 cm. Aorta: Mild atherosclerosis with no aneurysm. Focal calcification at the origin of the SMA and celiac axis. No complete stenosis. Lymphadenopathy: None. Free fluid: None. GI tract: No GI tract obstruction. Normal colon. Abdominal wall: Unremarkable abdominal wall. No hernia. Pelvis: Small fluid collections in the inguinal regions. Prior inguinal hernia repairs. No change since 12/08/2024. Bones: Increase in lumbar lordosis. Degenerative disc disease. CT/CT abdomen pelvis w con* [id number] IMPRESSION: 1. Wall thickening and mild enhancement involving the distal esophagus associa brigitte with a hiatal hernia. Distal acute esophagitis. Curvilinear pockets of flui d in the distal esophagus. This may be fluid contained within the esophagus. As sociated mucosal enhancement and small fluid collections, consider esophageal u lcerations. Recommend upper endoscopy to evaluate the distal esophagus and excl ude abscess or contained perforation. 2. Hepatic steatosis. 3. Hemangioma LEFT hepatic lobe. 4. Large bilateral renal cysts. No renal obstruction. 5. No adenopathy or ascites.
[2025-02-16 10:10] LABS: Anion Gap 23.6 (5-19); Potassium 3.6 mmol/L (3.5-5.1)
[2025-02-16 10:31] LABS: Bilirubin Urine Negative (Negative); Blood Urine Negative (Negative); Glucose Urine UA Negative (Normal); Ketones Urine 1+ (Negative); Leukocyte Esterase Urine Negative (Negative); Nitrate Urine Negative (Negative); Protein Urine 1+ (Negative); Specific Gravity, Urine 1.019 (1.005-1.030); Urine Appearance Clear (CLEAR); Urine Color Yellow (Yellow)
[2025-02-16 10:36] LABS: Add Urine Microscopic? YES; Bacteria Urine None Seen /hpf; Hyaline Casts Urine 27.69 /lpf; Squamous Epithelial Cell Urine 0-5 /hpf (0-5); Universal Test for UA Present (0); WBC Urine 0-5 /hpf (0-5)
[2025-02-16] MEDS: iohexol 350 mg/mL 500 mL Btl (per mL) IV ×2 (10:38→13:00)
--- NOTE | 2025-02-16 10:49 | ECG_ITS ---
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 Measurements Intervals [place] Rate: 61 P: 38 ME: 119 QRS: 7 QRSD: 114 T: 44 QT: 464 QTc: 470 Interpretive Statements SINUS RHYTHM WITH SHORT ME INTERVAL MODERATE INTRAVENTRICULAR CONDUCTION DELAY [110+ ms QRS DURATION] PROLONGED QT INTERVAL Compared to ECG 02/16/2025 08:58:35 Short ME interval now present Intraventricular conduction delay now present Prolonged QT interval now present Electronically Signed On 02-17-2025 17:46:53 CDT by Gage Durbin M.D. [email or web address] [id number]
[2025-02-16 10:57] LABS: UA Slide Review UA Slide Review Perf
--- NOTE | 2025-02-16 11:19 | CT_ITS ---
WS: [id number] CT chest w con* [id number] HISTORY: esophogeal inflamation TECHNIQUE: Axial imaging performed through the thorax. Coronal and sagittal reformats are submitted. All CT scans at [facility] use at least one of these dose optimization techniques: automated exposure control; mA and/or kV adjustment per patient size (includes targeted exams where dose is matched to clinical indication); or iterative reconstruction. CONTRAST: Omnipaque 350; 100 mL IV. Patient was also given a small amount of dilute Gastrografin contrast for this examination to evaluate the esophagus. DLP: 365.26 mGy.cm COMPARISON: 05/14/2024, CT 02/16/2025 Oral contrast is noted throughout a large portion of the esophagus. There is a large hiatal hernia. The fluid collections noted on the prior recent CT filled with contrast. No convincing evidence for ulceration or abscess. Very mild wall thickening of the distal esophagus prior to the hiatal hernia. No inflammation or obstruction. No mass identified. Lungs and central airway: Lungs are hyperexpanded. No mass or pneumonia. Pleura: Normal. No pleural effusion. Heart and pericardium: Normal size heart with no pericardial effusion. Mediastinum and akash: No mediastinum or hilar adenopathy. Vessels: Mild atherosclerosis aorta. Normal size pulmonary artery. Coronary artery calcifications. LEFT vertebral artery arises directly from the arch. Chest wall and lower neck: No soft tissue masses. Upper abdomen: Large RIGHT renal cyst. Hepatic steatosis. Known LEFT hepatic hemangioma has become isodense with the remaining liver. Osseous structures: No destructive process. CT/CT chest w con* [id number] IMPRESSION: 1. Large hiatal hernia. No esophageal obstruction. 2. No esophageal perforation or ulceration or abscess. Much better visualizati on of the distal esophagus. 3. No pathological lymph nodes.
[2025-02-16 11:40] LABS: Troponin 5 2HR 48.91 ng/L (0-15)
[2025-02-16 11:43] LABS: Troponin 5 2HR Delta -9.09 ABS# (0-10)
--- NOTE | 2025-02-16 14:49 | ECG_ITS ---
[facility] Test Date: 2025-02-16 Pat Name: James Austin Department: Room: 279 Gender: Male Aurist: : [id number] Requested By: Ameya Brar Order Number: [id number] Jerri MD: Gage Durbin M.D. Measurements Intervals [place] Rate: 67 P: 48 VT: 143 QRS: 4 QRSD: 114 T: 30 QT: 464 QTc: 492 Interpretive Statements SINUS RHYTHM WITH OCCASIONAL SUPRAVENTRICULAR PREMATURE COMPLEXES MODERATE INTRAVENTRICULAR CONDUCTION DELAY [110+ ms QRS DURATION] PROLONGED QT INTERVAL Compared to ECG 02/16/2025 10:53:39 Short VT interval no longer present Electronically Signed On 02-17-2025 17:46:26 CDT by Gage Durbin M.D. [email or web address]
[2025-02-16 17:57] LABS: Troponin 5 6HR 49.38 ng/L (0-15)
[2025-02-16 17:58] LABS: Troponin 5 6HR Delta -8.62 ng/L (0-12)
--- NOTE | 2025-02-16 18:03 | PM.HP ---
Providers/Chief Complaint Admitting Physician: Diana Pan MD Primary Care Provider: Omari Ames MD Chief Complaint: Syncope x 3 days History of Present Illness James Austin is a 69 year old male history of binge drinking, alcohol abuse, Gi bleed, previous EGD done which showed hiatal hernia and ulcerative esophagitis. He presents today with 2-3 days of nausea and vomiting, which has been persistent for 3 days. He states he has had bleeding with his vomitus and black tarry stools. Hb is at 12 today. Denies abdominal pain. He reported dizziness today and had an orthostatic drop to 76/43 in the ER today, BP is currently improved with IVF fluid administration Review of Systems General: Reports: 10 or more systems reviewed and unremarkable except in HPI and below Const: Denies: fever(s), chills or body aches Eyes: Denies: change in vision, blurry vision or photophobia ENMT: Reports: hoarseness; Denies: throat pain, enlarged tonsils, odynophagia or nasal congestion Card: Denies: chest pain, palpitations, irregular heart rhythm, edema, swelling of feet/ankles, lightheadedness, pre-syncope, dyspnea on exertion or orthopnea Resp: Denies: dyspnea, productive cough, non-productive cough, wheezing, stridor, pain on inspiration, change in phlegm color, hemoptysis or chest congestion GI: Denies: abdominal pain, nausea, vomiting, hematemesis, coffee ground emesis, dysphagia, heartburn, diarrhea, constipation, GI cramping, change in stool character, hematochezia or melena : Denies: flank pain, dysuria, urinary frequency, urinary urgency, urinary hesitancy or hematuria Musc: Denies: neck pain, back pain, extremity pain, joint swelling, joint warmth or deformity Neuro: Denies: headache(s), numbness in extremities, weakness in extremities, sensory changes, difficulty walking, frequent falls, dizziness, vertigo, behavioral changes, Slurred speech present or seizure-like activity Psych: Denies: anxiety, depression, suicidal ideation or homicidal ideation Endo: Denies: polyuria, polydipsia, tired all the time, cold intolerance or hot flashes Aubrey/Lymph: Denies: easy bruising or easy bleeding Medications/Allergies Home Medications ?Medication ?Instructions ?Recorded ?Confirmed ?Last Taken ?Type epinephrine 0.3 mg/0.3 mL 0.3 mg (0.3 mL) IM Q15M PRN 12/19/23 02/16/25 Unknown Rx injection, auto-injector (EpiPen anaphylaxis #2 ea 2-Shawn) pantoprazole 40 mg tablet,delayed 40 mg PO BID #60 tabs 03/06/24 02/16/25 02/15/25 Rx release lisinopril 20 1 tab PO QAM #90 tabs 12/03/24 02/16/25 02/15/25 Rx mg-hydrochlorothiazide 12.5 mg tablet Allergies Allergy/AdvReac Type Severity Reaction Status Date / Time cantaloupe Allergy Unknown ALGY-Swell Verified 12/09/24 19:28 Lip/Tongue/Throat kiwi Allergy Unknown ALGY-Anaphy Verified 12/09/24 19:28 laxis amlodipine AdvReac Mild headaches Verified 12/09/24 19:28 PFSH Acute PFSH: Medical History GI bleed Acute blood loss anemia Alcohol abuse Acute upper gastrointestinal bleeding GERD (gastroesophageal reflux disease) Hyperlipidemia Hypertension Diverticulosis Hypertension Family history of colon cancer 09/15/2019: Normal colonoscopy except diverticulosis, follow-up colonoscopy in 2024 Surgical History History of excision of epidermal inclusion cyst Social History Smoking and tobacco/nicotine status: never used tobacco/nicotine Alcohol intake: former Substance/Drug Use: never Vitals/I&O/Wt Last Vital Signs Temp 98.1 F 02/16/25 08:37 Pulse 58 L 02/16/25 15:45 Resp 18 02/16/25 08:55 BP 134/71 02/16/25 15:45 Pulse Ox 95 02/16/25 15:45 O2 Del Method Room Air 02/16/25 14:29 02/16/25 02/16/25 02/16/25 06:59 14:59 22:59 Intake Total 1000 / 1000 Balance 1000 / 1000 Weight last 48 hrs Weight 70.398 kg Weight 79.379 kg Physical Exam Narrative: General: No acute distress, AO x3 HEENT: PERRLA, pupils bilaterally equal and reactive, pallors not present Chest: Normal vesicular breath sounds, no added sounds, equal good air entry bilaterally CVS: S1-S2 regular, no murmurs, no tachycardia, no gallops, no rubs Abdomen: Soft, nontender, no organomegaly, bowel sounds present Neuro: No focal deficits, no facial deformity, AO x3, power 5/5 in all limbs Data 02/17/25 05:42 02/17/25 05:42 Other data: Radiology Impressions Chest X-Ray 02/16/25 08:50 IMPRESSION: 1. Pulmonary hyperinflation. No acute finding. Abdomen/Pelvis CT 02/16/25 10:09 IMPRESSION: 1. Wall thickening and mild enhancement involving the distal esophagus associated with a hiatal hernia. Distal acute esophagitis. Curvilinear pockets of fluid in the distal esophagus. This may be fluid contained within the esophagus. Associated mucosal enhancement and small fluid collections, consider esophageal ulcerations. Recommend upper endoscopy to evaluate the distal esophagus and exclude abscess or contained perforation. 2. Hepatic steatosis. 3. Hemangioma LEFT hepatic lobe. 4. Large bilateral renal cysts. No renal obstruction. 5. No adenopathy or ascites. Chest CT 02/16/25 11:19 IMPRESSION: 1. Large hiatal hernia. No esophageal obstruction. 2. No esophageal perforation or ulceration or abscess. Much better visualization of the distal esophagus. 3. No pathological lymph nodes. Laboratory Results WBC 6.94 10^3/uL (3.29-11.43) 02/16/25 09:28 RBC 4.71 10^6/uL (3.85-5.65) 02/16/25 09:28 Hgb 12.20 g/dL (11.27-16.99) 02/16/25 09:28 Hct 39.0 % (37-53) 02/16/25 09:28 MCV 82.8 fl (82-101) 02/16/25 09:28 MCH 25.9 pg (27-33) L 02/16/25 09: MCHC 31.3 g/dL (30-55) 02/16/25 09:28 RDW 18.6 % (12.1-15.1) H 02/16/25 09:28 Plt Count 315 10^3/cmm (157-399) 02/16/25 09:28 MPV 10.1 fL (7.4-10.4) 02/16/25 09: Neut % (Auto) 72.3 % 02/16/25 09: Lymph % (Auto) 17.7 % 02/16/25 09: [place] % (Auto) 9.5 % 02/16/25 09: Eos % (Auto) 0.1 % 02/16/25 09: Baso % (Auto) 0.0 % 02/16/25 09: Neut # (Auto) 5.01 10^3/uL (1.8-7.7) 02/16/25 09: Lymph # (Auto) 1.2 10^3/uL (0.8-4.8) 02/16/25 09: [place] # (Auto) 0.7 10^3/uL (0.2-0.9) 02/16/25 09: Eos # (Auto) 0.0 10^3/uL (0.0-0.8) 02/16/25 09: Baso # (Auto) 0.0 10^3/uL (0.0-0.1) 02/16/25 09: Nucleated RBC % (auto) 0 % 02/16/25 09: Nucleated RBCs # 0.0 /100WBC 02/16/25 09: Sodium 140 mmol/L (136-145) 02/16/25 09: Potassium 3.6 mmol/L (3.5-5.1) 02/16/25 09: Chloride 91 mmol/L (98-107) L 02/16/25 09: Carbon Dioxide 29 mmol/L (22-29) 02/16/25 09: Anion Gap 23.6 (5-19) H 02/16/25 09:28 BUN 65 mg/dL (8-23) H 02/16/25 09:28 Creatinine 1.8 mg/dL (0.7-1.2) H 02/16/25 09:28 GFR Calculation Not Reportable 02/16/25 09: Glucose 107 mg/dL (65-115) 02/16/25 09: Calculated Osmolality 309 mOsm/kg (285-295) H 02/16/25 09:28 Calcium 9.1 mg/dL (8.5-10.5) 02/16/25 09:28 Total Bilirubin 1.3 mg/dL (0.15-1.2) H 02/16/25 09:28 AST 40 U/L (0-40) 02/16/25 09:28 ALT 32 U/L (0-41) 02/16/25 09:28 Alkaline Phosphatase 50 U/L (40-130) 02/16/25 09:28 Troponin T Baseline 58 ng/L (0-15) H 02/16/25 09:28 Troponin T 120 Minute 48.91 ng/L (0-15) H 02/16/25 11:05 Delta Troponin T -9.09 ABS# (0-10) L 02/16/25 11:05 Troponin T Hi Sens 6Hr 49.38 ng/L (0-15) H 02/16/25 17:08 Troponin T Hi Sens 6Hr Delta -8.62 ng/L (0-12) L 02/16/25 17:08 Total Protein 6.5 g/dL (6.6-8.7) L 02/16/25 09:28 Albumin 4.2 g/dL (3.5-5.2) 02/16/25 09:28 Globulin 2.3 g/dL (1.3-4.6) 02/16/25 09: Lipase 38 U/L (13-60) 02/16/25 17:08 Urine Color Yellow (Yellow) 02/16/25 10:00 Urine Appearance Clear (CLEAR) 02/16/25 10:00 Urine pH 7.0 (5-7) 02/16/25 10:00 Ur Specific [place] 1.019 (1.005-1.030) 02/16/25 10:00 Urine Protein 1+ (Negative) A 02/16/25 10:00 Urine Glucose (UA) Negative (Normal) 02/16/25 10:00 Urine Ketones 1+ (Negative) H 02/16/25 10:00 Urine Blood Negative (Negative) 02/16/25 10:00 Urine Nitrate Negative (Negative) 02/16/25 10:00 Urine Bilirubin Negative (Negative) 02/16/25 10:00 Urine Urobilinogen 1.0 mg/dL (Negative) 02/16/25 10:00 Ur Leukocyte Esterase Negative (Negative) 02/16/25 10:00 Urine RBC 11-20 /hpf (0-2) H 02/16/25 10:00 Urine WBC 0-5 /hpf (0-5) 02/16/25 10:00 Ur Squamous Epith Cells 0-5 /hpf (0-5) 02/16/25 10:00 Amorphous Sediment Not Reportable 02/16/25 10:00 Urine Bacteria None seen /hpf (NONE) 02/16/25 10:00 Hyaline Casts 27.69 /lpf 02/16/25 10:00 Ethyl Alcohol < 10 mg/dL (0-10) 02/16/25 09:28 Blood Type A Positive 02/16/25 09:28 Rho(D) Type Rh positive 02/16/25 09:28 Antibody Screen Negative 02/16/25 09:28 A&P Assessment and plan (1) Intractable nausea and vomiting: (2) Orthostatic hypotension: (3) Alcohol abuse: (4) Hiatal hernia: (5) GI bleed: Plan 69-year-old male with a past medical history of alcohol abuse presenting to the hospital with chief complaints of intractable nausea and vomiting along with orthostatic hypotension. Patient additionally reports dark black stools and blood-tinged vomitus. CT of the abdomen and pelvis was performed in the emergency room which had shown wall thickening and mild enhancement involving the distal esophagus associated with a hiatal hernia. Distal acute esophagitis was considered. There was suspicion for mucosal enhancement of the esophagus with small fluid collections raising concern for esophageal ulceration. Note was also made of possible contained perforation or abscess. Dedicated CT of the chest was performed in follow-up which showed large hiatal hernia did not show any convincing evidence for ulceration or abscess. Currently his hemoglobin is stable at 12, this is improved when compared to a prior admission. Patient had an EGD in June 2020 for which had shown a small hiatal Luis hernia without obstruction or gangrene. Note was made of esophagitis with contact bleeding. Since patient's hemoglobin is currently stable with endocsopic evaluation 6 months ago, he has not had any witnessed episodes of hematemesis or melena currently, we will follow with conservative management and serial H&H monitoring He has received 80 mg IV push of Protonix in the emergency room, will continue with Protonix 40 mg IV every 12 hours Intractable nausea and vomiting may be related to severe esophagitis. Protonix as noted above. Add Carafate 1 g p.o. twice daily As needed Zofran for nausea management. Repeat H&H with a.m. labs. Orthostatic hypotension likely related to GI losses. This is currently improved after being given a 2 L fluid bolus in the emergency room. Continue with normal saline hydration at 50 to 75 cc an hour. Clear liquid diet. Hold lisinopril and hydrochlorothiazide. Fecal occult blood has been ordered. DVT ppx: SCD, no a/c due to possible GI bleeding Full code PDMP PDMP Reviewed: Not Reviewed Attestations Medical Necessity Statement*: observation, anticipate less than 2 midnight Coding Level of Care Code Acute Code for Chg Fwd High MDM includes number and complexity of problems actively addressed during encounter, amount and/or complexity of data reviewed/ordered and described risk of complication, morbidity or mortality of management as documented Diagnoses Intractable nausea and vomiting R11.2 Orthostatic hypotension I95.1 Alcohol abuse F10.10 Hiatal hernia K44.9 GI bleed K92.2
[2025-02-16 18:50] LABS: Lipase 38 U/L (13-60)
[2025-02-16] MEDS: sodium chloride 0.9% 1,000 ML 50 ML IV (20:57)
[2025-02-16] MEDS: pantoprazole 40 mg SDV IVP (20:57)
[2025-02-17] VITALS (7 sets, daily range): BP systolic 107–151; BP diastolic 53–70; PULSE 60–67; RESP 15–17; TEMP 36.5–37.2; O2SAT 90–98
[2025-02-17] MEDS: sucralfate 1 gm Tablet PO ×2 (06:01→17:28)
[2025-02-17 06:12] LABS: Eosinophils % 0.5 %; Lymphocytes # 1.6 10^3/uL (0.8-4.8); Lymphocytes % 21.1 %; Mean Corpuscular HGB Conc 30.5 g/dL (30-55); Mean Corpuscular Hemoglobin 25.6 pg (27-33); Mean Corpuscular Volume 83.9 fl (82-101); Monocytes # 0.7 10^3/uL (0.2-0.9); Monocytes % 9.6 %; Neutrophils # 5.24 10^3/uL (1.8-7.7); Neutrophils % 68.4 %; Nucleated Red Blood Cells % 0 %; Platelet Count 272 10^3/cmm (157-399); Red Blood Count 4.65 10^6/uL (3.85-5.65); Red Cell Distribution Width 18.8 % (12.1-15.1); White Blood Count 7.67 10^3/uL (3.29-11.43)
[2025-02-17 06:34] LABS: Alanine Aminotransferase 30 U/L (0-41); Alkaline Phosphatase 55 U/L (40-130); Anion Gap 15.7 (5-19); Aspartate Amino Transferase 30 U/L (0-40); Blood Urea Nitrogen 50 mg/dL (8-23); Calcium 9.3 mg/dL (8.5-10.5); Carbon Dioxide 35 mmol/L (22-29); Chloride 91 mmol/L (98-107); Creatinine Clr Calc Pharmacy 46.6473; Globulin 2.8 g/dL (1.3-4.6); Glucose 112 mg/dL (65-115); Osmolality Calculated 300 mOsm/kg (285-295); Potassium 3.7 mmol/L (3.5-5.1); Sodium 138 mmol/L (136-145); Total Bilirubin 1.1 mg/dL (0.15-1.2); Total Protein 6.8 g/dL (6.6-8.7)
--- NOTE | 2025-02-17 09:00 | P.PN_ITS ---
Subjective 2 Subjective: Patient has had 2 episodes of vomiting this morning. No Zofran has been administered since admission per review of medication list. Medications: Reviewed: Yes Vitals/I&O/Wt Last Vital Signs Temp 98.0 F 02/17/25 12:00 Pulse 60 02/17/25 12:00 Resp 16 02/17/25 12:00 BP 107/55 02/17/25 12:00 Pulse Ox 93 02/17/25 12:00 O2 Del Method Room Air 02/17/25 12:00 02/17/25 02/17/25 02/17/25 06:59 14:59 22:59 Intake Total 770 / 770 Output Total 450 / 450 3 / 3 Balance -450 / 550 767 / 767 Weight last 48 hrs Weight 71.214 kg Weight 70.398 kg Weight 79.379 kg Physical Exam 2 Narrative: General: No acute distress, AO x3 HEENT: PERRLA, pupils bilaterally equal and reactive, pallors not present Chest: Normal vesicular breath sounds, no added sounds, equal good air entry bilaterally CVS: S1-S2 regular, no murmurs, no tachycardia, no gallops, no rubs Abdomen: Soft, nontender, no organomegaly, bowel sounds present Neuro: No focal deficits, no facial deformity, AO x3, power 5/5 in all limbs Data 02/17/25 05:42 02/17/25 05:42 A&P Assessment and plan (1) Intractable nausea and vomiting: (2) Orthostatic hypotension: (3) Alcohol abuse: (4) Hiatal hernia: (5) GI bleed: Plan 69-year-old male with a past medical history of alcohol abuse presenting to the hospital with chief complaints of intractable nausea and vomiting along with orthostatic hypotension. Patient additionally reports dark black stools and blood-tinged vomitus. CT of the abdomen and pelvis was performed in the emergency room which had shown wall thickening and mild enhancement involving the distal esophagus associated with a hiatal hernia. Distal acute esophagitis was considered. There was suspicion for mucosal enhancement of the esophagus with small fluid collections raising concern for esophageal ulceration. Note was also made of possible contained perforation or abscess. Dedicated CT of the chest was performed in follow-up which showed large hiatal hernia did not show any convincing evidence for ulceration or abscess. Currently his hemoglobin is stable at 12, this is improved when compared to a prior admission. Patient had an EGD in June 2020 for which had shown a small hiatal Luis hernia without obstruction or gangrene. Note was made of esophagitis with contact bleeding. Since patient's hemoglobin is currently stable with endocsopic evaluation 6 months ago, he has not had any witnessed episodes of hematemesis or melena currently, we will follow with conservative management and serial H&H monitoring He has received 80 mg IV push of Protonix in the emergency room, will continue with Protonix 40 mg IV every 12 hours Intractable nausea and vomiting may be related to severe esophagitis. Protonix as noted above. Add Carafate 1 g p.o. twice daily As needed Zofran for nausea management. Repeat H&H with a.m. labs. Orthostatic hypotension likely related to GI losses. This is currently improved after being given a 2 L fluid bolus in the emergency room. Continue with normal saline hydration at 50 to 75 cc an hour. Clear liquid diet. Hold lisinopril and hydrochlorothiazide. Fecal occult blood has been ordered. DVT ppx: SCD, no a/c due to possible GI bleeding Full code February 17, 2025 Patient continues to have nausea and vomiting this morning. He has had 2 episodes since this morning. Not yet received any Zofran. Will change this to a standing dose every 8 hours. Additionally add scopolamine patch. As needed Reglan additionally added. Continue Protonix 40 mg IV every 12 hours. Patient has vomitus in an emesis bag, appears bilious, no blood is noted on direct inspection. Pending FOBT, he is yet to have a bowel movement. Continue IV fluids given ongoing GI losses. Patient thinks clear liquid diet may be precipitating his nausea and instead wishes to try her GI soft diet. He states he is hungry. Lipase noted normal at 38. Unlikely pancreatitis. TODD with improving creatinine from 1.8-1.4 today. Needs continued observation as unable to tolerate any po intake yet. PDMP PDMP Reviewed: Not Reviewed Attestations 2 Medical Necessity Statement*: unbale to tolerate po intake, add scopolamine patch, needs to be administered anti emetics Coding Level of Care Code Acute Code for Chg Fwd Diagnoses Intractable nausea and vomiting R11.2 Orthostatic hypotension I95.1 Alcohol abuse F10.10 Hiatal hernia K44.9 GI bleed K92.2
[2025-02-17] MEDS: ondansetron 2 mg/ML SDV 2 mL 4 MG IVP ×2 (09:11→17:28)
[2025-02-17] MEDS: scopolamine 1 mg PATCH 1 PATCH TRANSDERMA (09:11)
[2025-02-17] MEDS: pantoprazole 40 mg SDV IVP ×2 (09:12→20:24)
--- NOTE | 2025-02-17 10:29 | PC.CHAP ---
Pastoral Care Encounter/Spiritual Assessment Type of Contact [] Declined pug mill operator visit [] Patient/Family/Request visit [] Outpatient visit [] Follow-up visit [] Physician referral [] Code/Alert [x] Routine visit [] Staff referral [] Actively dying [] Patient sleeping [] Family support [] [] Out of room [] Palliative care [] [] Receiving care in room [] Pre-surgical visit [] Trauma [] Long length of stay [] ICU visit [] Other: Relational/Emotional Strength [x] Patient feels connected with others/family/visitors/staff [x] Distress [] Loneliness/isolation [] Abandonment Spirituality of Patient [x] Person of Skye [] Attends Mormonism of their Skye [x] Believes in Prayer [] Reads Bible or Orthodoxy materials [x] There are Spiritual issues to be addressed Ophthalmic Aide Interventions [x] Prayer [x] Active listening [x] Non-anxious presence [x] Spiritual/emotional support [] Crisis/trauma care [] Spiritual counseling [] Bereavement support [] Provided bereavement packet [] Provided Bible/devotional materials [] Provided toy/stuffed animal, coloring book to patient or family member [] Provided Communion [] Anointing/[place] [] Salvation [x] Completed spiritual assessment [] Other: Impact on Illness or Injury [] Angry [] Fearful [] Anxious [] Often cries [] Exhaustion [] Unable to work [] Unable to attend pentecostal [] Unable to walk/stand [] Unable to read [] Unable to drive [] Unable to eat/drink [] Unable to sleep [] Unable to be with family [] Patient intubated [] Other: Summary Time spent with patient 10 min
[2025-02-17] MEDS: metoclopramide 5 mg/mL SDV 2 mL IVP (15:24)
[2025-02-17] MEDS: prochlorperazine 10 mg Tablet 5 MG PO (17:28)
[2025-02-17] MEDS: sodium chloride 0.9% 1,000 ML 50 ML IV (17:29)
[2025-02-17 17:41] LABS: Hematocrit 36.7 % (37-53)
[2025-02-18] VITALS: BP 106/54; PULSE 64; RESP 16; TEMP 36.9; O2SAT 93
[2025-02-18] MEDS: ondansetron 2 mg/ML SDV 2 mL 4 MG IVP ×2 (01:53→09:52)
[2025-02-18 04:00] VITALS: BP 113/58; PULSE 88; RESP 17; TEMP 36.8; O2SAT 94
[2025-02-18] MEDS: sucralfate 1 gm Tablet PO (06:00)
[2025-02-18] MEDS: sodium chloride 0.9% 1,000 ML 75 ML IV (06:00)
[2025-02-18 06:12] LABS: Eosinophils # 0.1 10^3/uL (0.0-0.8); Eosinophils % 2.2 %; Lymphocytes # 1.4 10^3/uL (0.8-4.8); Lymphocytes % 23.8 %; Mean Corpuscular HGB Conc 30.3 g/dL (30-55); Mean Corpuscular Hemoglobin 25.7 pg (27-33); Mean Corpuscular Volume 84.8 fl (82-101); Mean Platelet Volume 10.6 fL (7.4-10.4); Monocytes # 0.6 10^3/uL (0.2-0.9); Monocytes % 10.3 %; Neutrophils # 3.69 10^3/uL (1.8-7.7); Neutrophils % 63.4 %; Nucleated Red Blood Cells % 0 %; Platelet Count 215 10^3/cmm (157-399); Red Blood Count 4.01 10^6/uL (3.85-5.65); Red Cell Distribution Width 18.3 % (12.1-15.1); White Blood Count 5.83 10^3/uL (3.29-11.43)
[2025-02-18 06:26] LABS: Magnesium 2.3 mg/dL (1.7-2.3)
[2025-02-18 06:34] LABS: Alanine Aminotransferase 25 U/L (0-41); Albumin Level 3.6 g/dL (3.5-5.2); Alkaline Phosphatase 43 U/L (40-130); Aspartate Amino Transferase 25 U/L (0-40); Blood Urea Nitrogen 32 mg/dL (8-23); Calcium 8.4 mg/dL (8.5-10.5); Carbon Dioxide 30 mmol/L (22-29); Chloride 96 mmol/L (98-107); Creatinine Clr Calc Pharmacy 65.8624; Glucose 109 mg/dL (65-115); Osmolality Calculated 291 mOsm/kg (285-295); Sodium 137 mmol/L (136-145); Total Bilirubin 0.9 mg/dL (0.15-1.2); Total Protein 5.6 g/dL (6.6-8.7)
[2025-02-18 07:24] VITALS: BP 112/65; PULSE 58; RESP 17; TEMP 36.7; O2SAT 98
--- NOTE | 2025-02-18 09:00 | PC.CHAP ---
Pastoral Care Encounter/Spiritual Assessment Type of Contact [] Declined roofing technician visit [] Patient/Family/Request visit [] Outpatient visit [] Follow-up visit [] Physician referral [] Code/Alert [x] Routine visit [] Staff referral [] Actively dying [] Patient sleeping [] Family support [] [] Out of room [] Palliative care [] [] Receiving care in room [] Pre-surgical visit [] Trauma [] Long length of stay [] ICU visit [] Other: Relational/Emotional Strength [x] Patient feels connected with others/family/visitors/staff [] Distress [] Loneliness/isolation [] Abandonment Spirituality of Patient [x] Person of Skye [] Attends Restorationist of their Skye [x] Believes in Prayer [] Reads Bible or Jehovah'S Witness materials [] There are Spiritual issues to be addressed Solid Glass Rod Dowel Machine Operator Interventions [x] Prayer [x] Active listening [x] Non-anxious presence [x] Spiritual/emotional support [] Crisis/trauma care [] Spiritual counseling [] Bereavement support [] Provided bereavement packet [] Provided Bible/devotional materials [] Provided toy/stuffed animal, coloring book to patient or family member [] Provided Communion [] Anointing/[place] [] Salvation [x] Completed spiritual assessment [] Other: Impact on Illness or Injury [] Angry [] Fearful [] Anxious [] Often cries [] Exhaustion [] Unable to work [] Unable to attend mormonism [] Unable to walk/stand [] Unable to read [] Unable to drive [] Unable to eat/drink [] Unable to sleep [] Unable to be with family [] Patient intubated [] Other: Summary Time spent with patient 10 min
[2025-02-18 09:37] VITALS: BP 100/61; BP 116/64; BP 129/68; PULSE 65; PULSE 72; PULSE 75
--- NOTE | 2025-02-18 09:41 | PC.SOCIAL ---
IMM Update Pg. 2 of IMM updated and copy provided at bedside.
[2025-02-18] MEDS: potassium chloride ER 20 mEq Tablet 40 MEQ PO (09:51)
[2025-02-18] MEDS: pantoprazole 40 mg SDV IVP (09:52)
[2025-02-18 10:23] VITALS: BP 112/65; PULSE 65; RESP 17; TEMP 36.7; O2SAT 98
--- NOTE | 2025-02-18 15:22 | P.DS_ITS ---
Discharge Providers Date of Admission: 02/16/25 15:26 Date of Discharge: February 18, 2025 Attending Provider at Admission: Diana Pan MD Attending Provider at Discharge: Diana Pan MD Primary Care Provider: Omari Ames MD Diagnoses at Discharge Discharge Diagnosis (1) Intractable nausea and vomiting: Status: Resolved (2) Orthostatic hypotension: Status: Acute (3) Alcohol abuse: Status: Acute (4) Hiatal hernia: Status: Acute (5) GI bleed: Status: Acute Reason for Visit Reason for Visit: Syncope x 3 days Hospital Course Hospital Course James Austin is a 69 year old male history of binge drinking, alcohol abuse, Gi bleed admitted with 2-3 days of nausea and vomiting, which has been persistent for 3 days. He states he has had bleeding with his vomitus and black tarry stools. Hb is at 12 upon admission, remained at 10.2 at the time of discharge. Patient's baseline hemoglobin per review of past numbers is between 9.9-11.9. He had orthostatic hypotension initially upon admission with blood pressure dropping to 76/45. Patient was admitted to the hospital in view of orthostatic hypotension and possible GI bleeding. He received treatment with Protonix 80 mg IV followed by 40 mg IV every 12 hours. He did not have any witnessed hematemesis or melena during the hospital course. His vomitus was noted to be bilious without any blood on direct inspection. He did not have a bowel movement therefore FOBT was not collected. He received IV hydration for TODD and creatinine improved from 1.8--> 1.0 during admission course. For his nausea he received treatment with as needed Zofran, as needed Reglan and scopolamine patch. He also received promethazine intermittently. Patient's nausea and vomiting are resolved as of last evening. He is tolerating an oral intake. He is being discharged with instructions to continue Reglan 5 mg every 8 hours for 5 days and keep the scopolamine patch. Should he experience nausea and spite of the above 2 medications, he may take as needed prochlorperazine or Zofran. He was instructed to continue Protonix 40 mg p.o. twice daily and sucralfate 1 g p.o. twice daily has been added. Referral provided to general surgery as outpatient, should he have recurring symptoms will likely need upper GI and lower GI endoscopy. His vital signs are stable today. Antihypertensive lisinopril HCTZ was discontinued at discharge due to noted hypotension upon arrival, and maintenance of his blood pressure wi thout need for antihypertensives during hospital course. Also instructed to abstain from all alcohol consumption. He feels much better today. Physical Exam Narrative: General: No acute distress, AO x3 HEENT: PERRLA, pupils bilaterally equal and reactive, pallors not present Chest: Normal vesicular breath sounds, no added sounds, equal good air entry bilaterally CVS: S1-S2 regular, no murmurs, no tachycardia, no gallops, no rubs Abdomen: Soft, nontender, no organomegaly, bowel sounds present Neuro: No focal deficits, no facial deformity, AO x3, power 5/5 in all limbs Discharge Data Studies Completed and Pending Completed Studies During Hospitalization Category Date Time Status CT abdomen pelvis w con* [id number] Stat Cat Scan 02/16/25 10:[address] chest w con* [id number] Stat Cat Scan 02/16/25 11:19 Completed XR chest 1V portable [id number] Stat Exams 02/16/25 08:50 Completed Radiology Impressions Chest X-Ray 02/16/25 08:50 IMPRESSION: 1. Pulmonary hyperinflation. No acute finding. Abdomen/Pelvis CT 02/16/25 10:09 IMPRESSION: 1. Wall thickening and mild enhancement involving the distal esophagus associated with a hiatal hernia. Distal acute esophagitis. Curvilinear pockets of fluid in the distal esophagus. This may be fluid contained within the esophagus. Associated mucosal enhancement and small fluid collections, consider esophageal ulcerations. Recommend upper endoscopy to evaluate the distal esophagus and exclude abscess or contained perforation. 2. Hepatic steatosis. 3. Hemangioma LEFT hepatic lobe. 4. Large bilateral renal cysts. No renal obstruction. 5. No adenopathy or ascites. Chest CT 02/16/25 11:19 IMPRESSION: 1. Large hiatal hernia. No esophageal obstruction. 2. No esophageal perforation or ulceration or abscess. Much better visualization of the distal esophagus. 3. No pathological lymph nodes. Laboratory Results WBC 5.83 10^3/uL (3.29-11.43) 02/18/25 06:01 RBC 4.01 10^6/uL (3.85-5.65) 02/18/25 06:01 Hgb 10.30 g/dL (11.27-16.99) L 06/25/25 06:01 Hct 34.0 % (37-53) L 02/18/25 06:01 MCV 84.8 fl (82-101) 02/18/25 06:01 MCH 25.7 pg (27-33) L 02/18/25 06:01 MCHC 30.3 g/dL (30-55) 02/18/25 06:01 RDW 18.3 % (12.1-15.1) H 02/18/25 06:01 Plt Count 215 10^3/cmm (157-399) 02/18/25 06:01 MPV 10.6 fL (7.4-10.4) H 02/18/25 06:01 Neut % (Auto) 63.4 % 02/18/25 06:01 Lymph % (Auto) 23.8 % 02/18/25 06:01 [place] % (Auto) 10.3 % 02/18/25 06:01 Eos % (Auto) 2.2 % 02/18/25 06:01 Baso % (Auto) 0.0 % 02/18/25 06:01 Neut # (Auto) 3.69 10^3/uL (1.8-7.7) 02/18/25 06:01 Lymph # (Auto) 1.4 10^3/uL (0.8-4.8) 02/18/25 06:01 [place] # (Auto) 0.6 10^3/uL (0.2-0.9) 02/18/25 06:01 Eos # (Auto) 0.1 10^3/uL (0.0-0.8) 02/18/25 06:01 Baso # (Auto) 0.0 10^3/uL (0.0-0.1) 02/18/25 06:01 Nucleated RBC % (auto) 0 % 02/18/25 06:01 Nucleated RBCs # 0.0 /100WBC 02/18/25 06:01 Sodium 137 mmol/L (136-145) 02/18/25 06:01 Potassium 3.0 mmol/L (3.5-5.1) L 02/18/25 06:01 Chloride 96 mmol/L (98-107) L 02/18/25 06:01 Carbon Dioxide 30 mmol/L (22-29) H 02/18/25 06:01 Anion Gap 14.0 (5-19) 02/18/25 06:01 BUN 32 mg/dL (8-23) H 02/18/25 06:01 Creatinine 1.0 mg/dL (0.7-1.2) 02/18/25 06:01 GFR Calculation Not Reportable 02/18/25 06:01 Glucose 109 mg/dL (65-115) 02/18/25 06:01 Calculated Osmolality 291 mOsm/kg (285-295) 02/18/25 06:01 Calcium 8.4 mg/dL (8.5-10.5) L 02/18/25 06:01 Magnesium 2.3 mg/dL (1.7-2.3) 02/18/25 06:01 Total Bilirubin 0.9 mg/dL (0.15-1.2) 02/18/25 06:01 AST 25 U/L (0-40) 02/18/25 06:01 ALT 25 U/L (0-41) 02/18/25 06:01 Alkaline Phosphatase 43 U/L (40-130) 02/18/25 06:01 Troponin T Baseline 58 ng/L (0-15) H 02/16/25 09:28 Troponin T 120 Minute 48.91 ng/L (0-15) H 02/16/25 11:05 Delta Troponin T -9.09 ABS# (0-10) L 02/16/25 11:05 Troponin T Hi Sens 6Hr 49.38 ng/L (0-15) H 02/16/25 17:08 Troponin T Hi Sens 6Hr Delta -8.62 ng/L (0-12) L 02/16/25 17:08 Total Protein 5.6 g/dL (6.6-8.7) L 02/18/25 06:01 Albumin 3.6 g/dL (3.5-5.2) 02/18/25 06:01 Globulin 2.0 g/dL (1.3-4.6) 02/18/25 06:01 Lipase 38 U/L (13-60) 02/16/25 17:08 Urine Color Yellow (Yellow) 02/16/25 10:00 Urine Appearance Clear (CLEAR) 02/16/25 10:00 Urine pH 7.0 (5-7) 02/16/25 10:00 Ur Specific [place] 1.019 (1.005-1.030) 02/16/25 10:00 Urine Protein 1+ (Negative) A 02/16/25 10:00 Urine Glucose (UA) Negative (Normal) 02/16/25 10:00 Urine Ketones 1+ (Negative) H 02/16/25 10:00 Urine Blood Negative (Negative) 02/16/25 10:00 Urine Nitrate Negative (Negative) 02/16/25 10:00 Urine Bilirubin Negative (Negative) 02/16/25 10:00 Urine Urobilinogen 1.0 mg/dL (Negative) 02/16/25 10:00 Ur Leukocyte Esterase Negative (Negative) 02/16/25 10:00 Urine RBC 11-20 /hpf (0-2) H 02/16/25 10:00 Urine WBC 0-5 /hpf (0-5) 02/16/25 10:00 Ur Squamous Epith Cells 0-5 /hpf (0-5) 02/16/25 10:00 Amorphous Sediment Not Reportable 02/16/25 10:00 Urine Bacteria None seen /hpf (NONE) 02/16/25 10:00 Hyaline Casts 27.69 /lpf 02/16/25 10:00 Ethyl Alcohol < 10 mg/dL (0-10) 02/16/25 09:28 Blood Type A Positive 02/16/25 09:28 Rho(D) Type Rh positive 02/16/25 09:28 Antibody Screen Negative 02/16/25 09:28 Vitals Last Vital Signs Temp 98.1 F 02/18/25 10:23 Pulse 65 02/18/25 10:23 Resp 17 02/18/25 10:23 BP 112/65 02/18/25 10:23 Pulse Ox 98 02/18/25 10:23 O2 Del Method Room Air 02/18/25 07:24 Discharge Plan Discharge Patient Disposition: Home Condition: Stable Prescriptions: New sucralfate 1 gram Tablet 1 g PO BIDAC 30 Days Qty: 30 0RF prochlorperazine maleate 10 mg Tablet 5 mg PO TID PRN (Reason: Nausea And Vomiting, Severe) 5 Days Qty: 15 0RF scopolamine base [Transderm-Scop] 1 mg over 3 days Patch 3 Day 1 patch transdermal Q3D 2 Days Qty: 2 0RF metoclopramide HCl [Reglan] 5 mg tablet 5 mg PO Q8H 5 Days Qty: 15 0RF ondansetron HCl 4 mg tablet 4 mg PO Q8H PRN (Reason: nausea and vomiting) 5 Days Qty: 15 0RF Continued epinephrine [EpiPen 2-Shawn] 0.3 mg/0.3 mL auto-injector 0.3 mg IM Q15M PRN (Reason: anaphylaxis) Qty: 2 0RF pantoprazole 40 mg tablet,delayed release (DR/EC) 40 mg PO BID Qty: 60 12RF Held lisinopril-hydrochlorothiazide 20-12.5 mg tablet 1 tab PO QAM Qty: 90 3RF Hold Instructions: Resume on 02/25/25. maintain BP chart over next week and take to PCP for review Discharge Orders: Discharge Order (Routine); Ordered 02/18/25 Ordered By: Diana Pan Referrals: Christiano Canada MD [Physician, General Surgery] - 02/26/25 8:00 am Referral Note: hospital discharge follow up for GI bleed, h/o esophagitis, hiatal hernia, no witnessed events in hospital but Hb low. Needs EGD/colono . Omari Ames MD [Primary Care Provider, [facility]] - 04/03/25 9:00 am Referral Note: Discharge Diet: Advance as tolerated and GI Soft Discharge Activity: Increase activity as tolerated Patient Instructions: Metoclopramide (By mouth), Sucralfate (By mouth), Ondansetron (By mouth), Abuse of Alcohol (GEN), Opioid Safety, Patient Portal & [place] Instructions Activity Restrictions/Additional Instructions: Abstain from alcohol use take reglan 5mg TID as daily medicine for 5 days. Additionally uise scopolamine patch. If you have vomiting in spite of the above two medicines, then take EITHER zofran or prochlorperazine for relief Discharge Attestations Time Spent in Discharge Care*: greater than 30 min Status at Discharge: Cognitive status at discharge: cognitively intact , Behavioral status at discharge: cooperative , Quality Metrics Clinical Quality Measures [ No reported AMI, CVA or VTE this stay] Coding Level of Care Code Acute Code for Chg Fwd Diagnoses Intractable nausea and vomiting R11.2 Orthostatic hypotension I95.1 Alcohol abuse F10.10 Hiatal hernia K44.9 GI bleed K92.2
== END 2025-02-18 11:11 | disposition home or self-care (01) ==
LOC: ER 13:58 → MEDSURG 16:50 → ER IP 02-17 08:18
PROVIDERS: Admitting Provider Student in an Organized Health Care Education/Training Program; Emergency Provider Family Medicine; PCP Family Medicine; Visit Provider Student in an Organized Health Care Education/Training Program
DX: R11.2 Nausea with vomiting, unspecified (principal); I95.1 Orthostatic hypotension; F10.10 Alcohol abuse, uncomplicated; K44.9 Diaphragmatic hernia without obstruction or gangrene; K92.2 Gastrointestinal hemorrhage, unspecified; E78.5 Hyperlipidemia, unspecified; I10 Essential (primary) hypertension; K21.9 Gastro-esophageal reflux disease without esophagitis
CPT/HCPCS: 36415; 71045; 71260; 74177; 80053; 80307; 81001; 83690; 83735; 84484; 85014; 85018; 85025; 86850; 86900; 93005; 96374; 96375; 96376; 99285; G0378; J2405; J2470; J2765; J7030; J9999; Q0164; Q9963

== ENCOUNTER 2025-03-10 10:58 | Inpatient (IN) | payer MEDICARE, MEDICAID, SELFPAY ==
--- OUTSIDE RECORDS SUMMARY | 2003-08-26 19:00 | XMS_ITS | Continuity of Care Document ---
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 Role Phone [facility] Unavailable Unavailable Problems Problem Status [...] (finding) Diagnosis Patient examined (context-dependent category) Diagnosis Encounter for fitting and adjustment of other gastrointestinal appliance and device Active Diagnosis Encounter for other general examination Active Diagnosis Diaphragmatic hernia with obstruction, without gangrene Active Diagnosis Obstructed diaphragmatic hernia (disorder) Diagnosis Pulmonary [...] Fall from operating room table (event) Diagnosis Allergies, Adverse Reactions, Alerts Substance Category Reaction Severity Reaction type Status Date Reported Comments Source Kiwi Assertion Facial swelling Severe Food allergy Active [facility]
[2025-03-10] VITALS (13 sets, daily range): BP systolic 70–136; BP diastolic 47–82; PULSE 56–90; RESP 16–21; TEMP 36.4–36.7; O2SAT 94–100; BMI 26.6; BMI 26.3
--- NOTE | 2025-03-10 11:03 | ECG_ITS ---
[facility]: [facility]25-[facility]10 Pat Name: James Austin Department: Room: Gender: Male Client Resource Specialist: : [id number] Requested By: Ameya Brar Order Number: [id number] Jerri MD: Gage Durbin M.D. Measurements Intervals [place] Rate: 60 P: 47 IL: 145 QRS: -20 QRSD: 102 T: 38 QT: 507 QTc: 509 Interpretive Statements SINUS RHYTHM Compared to ECG 02/16/2025 17:01:41 Intraventricular conduction delay no longer present Electronically Signed On 03-10-2025 14:58:40 CDT by Gage Durbin M.D. [id number]
--- NOTE | 2025-03-10 11:08 | CT_ITS ---
WS: [id number] CT HEAD TECHNIQUE: Noncontrast CT of the head obtained from the skullbase to the vertex. CLINICAL INFORMATION: Dizziness COMPARISON: 2023 DLP: 1062.[address] scans at [facility] use at least one of these dose optimization techniques: automated exposure control; mA and/or kV adjustment per patient size (includes targeted exams where dose is matched to clinical indication); or iterative reconstruction. FINDINGS: No evidence of intracranial hemorrhage or mass effect. Ventricular system and basal cisterns are patent. Mild small vessel changes with mild parenchymal volume loss. No extra-axial fluid collections. No evidence of mass or mass effect. Vascular calcification. Tiny chronic lacunar infarct RIGHT caudate. Mild mucosal thickening in the paranasal sinuses. Mild sphenoid sinusitis with secretions. Mastoid air cells are well aerated. CT/CT head wo con* [id number] IMPRESSION: 1. No evidence of intracranial hemorrhage or mass effect. 2. A few frothy secretions in the sphenoid sinus compatible with mild sinusiti s. 3. Vascular calcification. 4. No acute intracranial findings.
--- NOTE | 2025-03-10 11:12 | PC.NURSE ---
orthostatics: laying-- bp- 100/56 hr- 63 sitting--bp- 92/68 hr- 74 standing-- bp 70/47 hr- 90
--- NOTE | 2025-03-10 11:20 | W.ED.DIZZY ---
HPI - Dizziness General: Chief Complaint: Dizziness Stated Complaint: Dizzy/N Time Seen by Provider: 03/10/25 11:00 History of Present Illness: HPI Narrative: 69-year-old male presents to the emergency room with complaints of being dizzy. Patient states he has been dizzy for the last 4 to 5 days no new medications. No recent falls no head injuries is not on any anticoagulants. He notes when he stands he gets very weak and dizzy he was possibly orthostatic on testing shortly after arrival. He denies any chest pain or abdominal pain or recent eye surgery or eyedrops or any treatments to the eye. Associated symptoms: Denies chest pain or chills Related Data Previous Rx's ?Medication ?Instructions ?Recorded lisinopril 20 1 tab PO QAM #90 tabs 12/03/24 mg-hydrochlorothiazide 12.5 mg tablet Held on 02/18/25. Instructions: Resume on 02/25/25. maintain BP chart over next week and take to PCP for review pantoprazole 40 mg tablet,delayed 40 mg PO BID #60 tabs 02/18/25 release sucralfate 1 gram tablet 1 g PO BIDAC 30 days #30 tabs 02/18/25 Allergies Allergy/AdvReac Type Severity Reaction Status Date / Time cantaloupe Allergy Unknown ALGY-Swell Verified 03/10/25 11:04 Lip/Tongue/Throat kiwi Allergy Unknown ALGY-Anaphy Verified 03/10/25 11:04 laxis amlodipine AdvReac Mild headaches Verified 03/10/25 11:04 Review of Systems Const: Denies: fever(s) or chills Card: Denies: chest pain Resp: Denies: dyspnea GI: Denies: abdominal pain : Denies: dysuria, urinary frequency or urinary urgency Musc: Denies: neck pain or back pain Skin/Breast: Denies: rash Neuro: Reports: dizziness [facility] ED PFSH: Medical History GI bleed Acute blood loss anemia Alcohol abuse Acute upper gastrointestinal bleeding GERD (gastroesophageal reflux disease) Hyperlipidemia Hypertension Diverticulosis Hypertension Family history of colon cancer 09/15/2019: Normal colonoscopy except diverticulosis, follow-up colonoscopy in 2024 Surgical History History of excision of epidermal inclusion cyst Social History Smoking and tobacco/nicotine status: never used tobacco/nicotine Alcohol intake: former Substance/Drug Use: never Physical Exam Const: GENERAL APPEARANCE: cooperative ORIENTATION/CONSCIOUSNESS: Yes awake, Yes oriented to person, Yes oriented to place and Yes oriented to time HENMT: COMMON NORMALS: normocephalic, atraumatic and hearing grossly normal bilaterally HEAD & SCALP: normocephalic and atraumatic Eye: OTHER: Left eye is fixed and dilated. The right eye is reactive to light will constricted with. Resp: COMMON NORMALS: normal respiratory effort, No retractions, No use of accessory muscles and clear to auscultation bilaterally AUSCULTATION: clear to auscultation bilaterally Cardio: COMMON NORMALS: regular rate, regular rhythm and No murmurs present (Cardio) RATE: regular rate RHYTHM: regular rhythm GI: COMMON NORMALS: Soft to palpation and No hepatosplenomegaly present AUSCULTATION: Yes normoactive bowel sounds PALPATION: Yes Soft to palpation, No Tenderness to palpation present (GI), No Guarding due to palpation present (GI) and Yes No hepatosplenomegaly present Extremity: COMMON NORMALS: normal to inspection, capillary refill normal, no clubbing, cyanosis or edema, no calf tenderness and no pedal edema Neuro: SENSORIUM/ORIENTATION: Yes oriented to person, Yes oriented to place and Yes oriented to time Skin: COMMON NORMALS: no rashes or lesions noted GENERAL SKIN EXAM: no rashes or lesions noted Course Vital Signs: Vital signs: Vital Signs Temperature 97.8 F 03/10/25 15:13 Pulse Rate 56 L 03/10/25 15:14 Respiratory Rate 16 03/10/25 15:13 Blood Pressure 136/64 03/10/25 15:14 Pulse Oximetry 98 03/10/25 15:13 Oxygen Delivery Me thod Room Air 03/10/25 15:13 MDM - Dizziness Medical Decision Making Despite a liter of fluids patient remains orthostatic is unable to tolerate p.o. potassium supplement will admit start IV potassium. Continue IV fluids discussed with hospitalist orders written. Discussed his anisocoria with hospitalist as well. 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 Lab Data I reviewed the patient's lab results. 03/10/25 11:36 03/10/25 11:[address] 03/10/25 11:08 IMPRESSION: 1. No evidence of intracranial hemorrhage or mass effect. 2. A few frothy secretions in the sphenoid sinus compatible with mild sinusitis. 3. Vascular calcification. 4. No acute intracranial findings. Laboratory Results WBC 5.71 10^3/uL (3.29-11.43) 03/10/25 11:36 RBC 4.28 10^6/uL (3.85-5.65) 03/10/25 11:36 Hgb 11.30 g/dL (11.27-16.99) 03/10/25 11:36 Hct 36.1 % (37-53) L 03/10/25 11:36 MCV 84.3 fl (82-101) 03/10/25 11:36 MCH 26.4 pg (27-33) L 03/10/25 11:36 MCHC 31.3 g/dL (30-55) 03/10/25 11:36 RDW 19.9 % (12.1-15.1) H 03/10/25 11:36 Plt Count 293 10^3/cmm (157-399) 03/10/25 11:36 MPV 9.7 fL (7.4-10.4) 03/10/25 11:36 Neut % (Auto) 70.9 % 03/10/25 11:36 Lymph % (Auto) 18.4 % 03/10/25 11:36 [place] % (Auto) 9.8 % 03/10/25 11:36 Eos % (Auto) 0.2 % 03/10/25 11:36 Baso % (Auto) 0.2 % 03/10/25 11:36 Neut # (Auto) 4.05 10^3/uL (1.8-7.7) 03/10/25 11:36 Lymph # (Auto) 1.1 10^3/uL (0.8-4.8) 03/10/25 11:36 [place] # (Auto) 0.6 10^3/uL (0.2-0.9) 03/10/25 11:36 Eos # (Auto) 0.0 10^3/uL (0.0-0.8) 03/10/25 11:36 Baso # (Auto) 0.0 10^3/uL (0.0-0.1) 03/10/25 11:36 Nucleated RBC % (auto) 0 % 03/10/25 11:36 Nucleated RBCs # 0.0 /100WBC 03/10/25 11:36 Sodium 136 mmol/L (136-145) 03/10/25 11:36 Potassium 2.6 mmol/L (3.5-5.1) L* 03/10/25 11:36 Chloride 91 mmol/L (98-107) L 03/10/25 11:36 Carbon Dioxide 29 mmol/L (22-29) 03/10/25 11:36 Anion Gap 18.6 (5-19) 03/10/25 11:36 BUN 29 mg/dL (8-23) H 03/10/25 11:36 Creatinine 1.3 mg/dL (0.7-1.2) H 03/10/25 11:36 GFR Calculation Not Reportable 03/10/25 11:36 Glucose 103 mg/dL (65-115) 03/10/25 11:36 Calculated Osmolality 288 mOsm/kg (285-295) 03/10/25 11:36 Calcium 9.2 mg/dL (8.5-10.5) 03/10/25 11:36 Magnesium 2.0 mg/dL (1.7-2.3) 03/10/25 11:36 Total Bilirubin 1.7 mg/dL (0.15-1.2) H 03/10/25 11:36 AST 20 U/L (0-40) 03/10/25 11:36 ALT 13 U/L (0-41) 03/10/25 11:36 Alkaline Phosphatase 58 U/L (40-130) 03/10/25 11:36 Total Protein 6.8 g/dL (6.6-8.7) 03/10/25 11:36 Albumin 4.0 g/dL (3.5-5.2) 03/10/25 11:36 Globulin 2.8 g/dL (1.3-4.6) 03/10/25 11:36 Urine Color Yellow (Yellow) 03/10/25 11:30 Urine Appearance Clear (CLEAR) 03/10/25 11:30 Urine pH 7.0 (5-7) 03/10/25 11:30 Ur Specific [place] 1.025 (1.005-1.030) 03/10/25 11:30 Urine Protein Trace (Negative) A 03/10/25 11:30 Urine Glucose (UA) Negative (Normal) 03/10/25 11:30 Urine Ketones 1+ (Negative) H 03/10/25 11:30 Urine Blood Negative (Negative) 03/10/25 11:30 Urine Nitrate Negative (Negative) 03/10/25 11:30 Urine Bilirubin Negative (Negative) 03/10/25 11:30 Urine Urobilinogen 1.0 mg/dL (Negative) 03/10/25 11:30 Ur Leukocyte Esterase Negative (Negative) 03/10/25 11:30 Urine RBC 0-2 /hpf (0-2) 03/10/25 11:30 Urine WBC 0-5 /hpf (0-5) 03/10/25 11:30 Ur Squamous Epith Cells 0-5 /hpf (0-5) 03/10/25 11:30 Amorphous Sediment Not Reportable 03/10/25 11:30 Urine Bacteria None seen /hpf (NONE) 03/10/25 11:30 Hyaline Casts 6.17 /lpf 03/10/25 11:30 All radiology interpretation(s) finalized by discharge Discharge Plan Discharge Patient Disposition: Placed in Observation Admit Provider: Natali Pereira Clinical Impression: Orthostatic hypotension, Hypokalemia, Anisocoria Coding Level of Care Code ED Mechanical Engineering Director for Giselle Horton
[2025-03-10 11:41] LABS: Hematocrit 36.1 % (37-53); Hemoglobin 11.30 g/dL (11.27-16.99); Mean Corpuscular HGB Conc 31.3 g/dL (30-55); Mean Corpuscular Hemoglobin 26.4 pg (27-33); Mean Corpuscular Volume 84.3 fl (82-101); Nucleated Red Blood Cells % 0 %; Platelet Count 293 10^3/cmm (157-399); Red Blood Count 4.28 10^6/uL (3.85-5.65); White Blood Count 5.71 10^3/uL (3.29-11.43)
[2025-03-10 12:00] LABS: Glucose Urine UA Negative (Normal); Nitrate Urine Negative (Negative); Specific Gravity, Urine 1.025 (1.005-1.030)
[2025-03-10 12:04] LABS: Alanine Aminotransferase 13 U/L (0-41); Albumin Level 4.0 g/dL (3.5-5.2); Alkaline Phosphatase 58 U/L (40-130); Anion Gap 18.6 (5-19); Aspartate Amino Transferase 20 U/L (0-40); Blood Urea Nitrogen 29 mg/dL (8-23); Calcium 9.2 mg/dL (8.5-10.5); Carbon Dioxide 29 mmol/L (22-29); Chloride 91 mmol/L (98-107); Creatinine Clr Calc Pharmacy 51.9744; Globulin 2.8 g/dL (1.3-4.6); Glucose 103 mg/dL (65-115); Osmolality Calculated 288 mOsm/kg (285-295); Sodium 136 mmol/L (136-145); Total Protein 6.8 g/dL (6.6-8.7)
[2025-03-10 12:05] LABS: Add Urine Microscopic? YES
[2025-03-10 12:07] LABS: Potassium 2.6 mmol/L (3.5-5.1)
[2025-03-10] MEDS: potassium chloride oral liq 20 mEq/15 mL UDC 60 MEQ PO (12:17)
[2025-03-10 12:32] LABS: Magnesium 2.0 mg/dL (1.7-2.3)
[2025-03-10] MEDS: potassium chloride premix 100 ML 25 MEQ IV (14:45)
--- NOTE | 2025-03-10 15:14 | MR_ITS ---
WS: [id number] MRI BRAIN WITHOUT CONTRAST HISTORY: r/o posterior circ stroke COMPARISON: CT head 03/10/2025 TECHNIQUE: Diffusion imaging, multiplanar T1, T2 and FLAIR imaging obtained. No evidence for acute infarct or hemorrhage. [place]-white matter differentiation is normal. Moderate symmetric atrophy and mild small vessel changes. No large territory infarct. Ventricles and extra-axial spaces are prominent on the basis of atrophy. No inferior displacement of cerebellar tonsils. The sella turcica and pituitary gland are unremarkable. Dural venous sinuses and [place] demonstrate no abnormality on this unenhanced studies. Limited evaluation of the dural venous sinuses. Flow voids are difficult to identify in their entirety due to motion and artifact. Paranasal sinuses: Mild mucoperiosteal thickening in the RIGHT maxillary sinus. No air-fluid level. Mastoid air cells: Normal. Calvarium and scalp: Intact. MR/MR head wo con* [id number] IMPRESSION: 1. No acute infarct. No posterior circulation infarct. 2. No hemorrhage. 3. Moderate symmetric atrophy and mild small vessel disease.
--- NOTE | 2025-03-10 15:16 | P.HP_ITS ---
Providers/Chief Complaint 2 Admitting Physician: Natali Pereira MD Primary Care Provider: Omari Ames MD Chief Complaint: Dizzy/N History of Present Illness James Austin is a 69 year old male With past medical history of alcohol abuse, GI bleed, previous EGD done showing hiatal hernia and ulcerative esophagitis presented to the ER today for complaint of nausea vomiting. He states he was feeling dizzy this morning and has been vomiting for the last 3 to 4 days. He states he drinks alcohol. He states he tries not to drink but when he does drink he drinks daily after that. About a pint to the fifth. Denies abdominal pain. Denies chewing tobacco. He states he cannot keep anything down. If he drinks water even he throws it up. Denies hematochezia, black tarry stools. Hemoglobin 11.3 today. He states he just felt very dizzy and therefore came to the hospital. Patient is vomiting as he is being examined. In the ER he was noted to have anisocoria which was not evident on his pictures from [employer] that the ER doctor was able to see with consent of the patient. This may be a new finding. ER doctor called me with his concerns. Patient returned from head MRI. Awaiting results. Medications/Allergies Home Medications ?Medication ?Instructions ?Recorded ?Confirmed ?Last Taken ?Type lisinopril 20 1 tab PO QAM #90 tabs 03/10/25 03/09/25 Rx mg-hydrochlorothiazide 12.5 mg tablet Held on 02/18/25. Instructions: Resume on 02/25/25. maintain BP chart over next week and take to PCP for review pantoprazole 40 mg tablet,delayed 40 mg PO BID #60 tab s 02/18/25 03/10/25 Unknown Rx release sucralfate 1 gram tablet 1 g PO BIDAC 30 days #30 tab s 02/18/25 03/10/25 Unknown Rx Allergies Allergy/AdvReac Type Severity Reaction Status Date / Time cantaloupe Allergy Unknown ALGY-Swell Verified 03/10/25 11:04 Lip/Tongue/Throat kiwi Allergy Unknown ALGY-Anaphy Verified 03/10/25 11:04 laxis amlodipine AdvReac Mild headaches Verified 03/10/25 11:04 PFSH Acute 2 PFSH: Medical History (Updated 03/10/25 @ 15:25 by Ameya Hodges DO) GI bleed Acute blood loss anemia Alcohol abuse Acute upper gastrointestinal bleeding GERD (gastroesophageal reflux disease) Hyperlipidemia Hypertension Diverticulosis Hypertension Family history of colon cancer 09/15/2019: Normal colonoscopy except diverticulosis, follow-up colonoscopy in 2024 Surgical History History of excision of epidermal inclusion cyst Social History Smoking and tobacco/nicotine status: never used tobacco/nicotine Alcohol intake: former Substance/Drug Use: never Vitals/I&O/Wt Last Vital Signs Temp 97.8 F 03/10/25 15:13 Pulse 56 L 03/10/25 15:14 Resp 16 03/10/25 15:13 BP 136/64 03/10/25 15:14 Pulse Ox 98 03/10/25 15:13 O2 Del Method Room Air 03/10/25 15:13 03/10/25 03/10/25 03/10/25 06:59 14:59 22:59 Intake Total 1000 / 1000 Balance 1000 / 1000 Weight last 48 hrs Weight 76.204 kg Weight 77.111 kg Physical Exam 2 Narrative: General: Alert oriented x3, patient seen sitting up in bed appearing in distress as he is actively vomiting holding a vomit tray in his hand. HEENT: Normocephalic, atraumatic, EOMI, breathing room air. Cardio: Slightly tachycardic, normal S1-S2 Respiratory: Clear to auscultation bilaterally no wheezes no rhonchi GI: Abdomen soft, nontender, nondistended, bowel sounds + Extremities: no edema, no cyanosis Data 03/10/25 11:36 03/10/25 11:36 A&P Assessment and plan 1. Intractable nausea and vomitin. Orthostatic hypotension: 3. Alcohol abuse: 4. Hiatal hernia: 5. TODD (acute kidney injury): 6. Alcohol use disorder: 7. Dehydration: 8. Volume depletion: 9. Hypokalemia: Plan: #Intractable nausea vomiting #Orthostatic hypotension #Alcohol abuse #Hiatal hernia #Hypokalemia #TODD Patient presenting to the hospital with alcohol abuse and chief complaint of intractable nausea vomiting along with orthostatic hypotension. Denies black stools or blood-tinged vomitus. He is vomiting right now during the encounter which is clear white. Patient's last drink was on . Hemoglobin stable at 11.3. Patient has had an EGD in June 2020 which showed small hiatal hernia without obstruction or gangrene. ? Will order Protonix 80 IV push x 1 ? Placed on Protonix 40 IV twice daily ? Continue on Carafate ? Zofran as needed for nausea ? Add Reglan every 6 hours as needed ? Orthostatic hypotension most likely secondary to GI losses. ? Patient is status post normal saline boluses in the ER. ? Continue on normal saline 125 cc/h ? He did try clear liquid diet however ended up vomiting. ? I discussed with him to keep n.p.o. status for tonight. Patient is agreeable ? Hold lisinopril hydrochlorothiazide ? I will check CT abdomen pelvis with IV contrast ? Check lipase -Creatinine 1.3 today. TODD most likely secondary to prerenal cause due to dehydration. ? Expect this to improve with IV fluids. ? Patient given K rider in ER x 1 and oral potassium 60 x 1. ? Will recheck BMP at 9 PM. ? Patient is at risk of cardiac arrhythmia secondary to severe electrolyte imbalance. He will need frequent lab monitoring. Full code DVT prophylaxis: Heparin SQ twice daily PDMP PDMP Reviewed: Not Reviewed Attestations 2 Medical Necessity Statement*: Intractable nausea vomiting, greater than 2 midnight stay Diagnoses Intractable nausea and vomiting R11.2 Orthostatic hypotension I95.1 Alcohol abuse F10.10 Hiatal hernia K44.9 TODD (acute kidney injury) N17.9 Alcohol use disorder F10.90 Dehydration E86.0 Volume depletion E86.9 Hypokalemia E87.6
[2025-03-10] MEDS: heparin 5,000 unit/mL INJ 1 mL 5000 UNIT SUBCUT (15:29)
[2025-03-10] MEDS: pantoprazole 40 mg SDV IVP (15:29)
[2025-03-10 16:01] LABS: Procalcitonin 0.11 ng/mL (0-0.5); Thyroid Stimulating Hormone 1.31 uIU/mL (0.27-4.20)
--- NOTE | 2025-03-10 16:54 | CTR_ITS ---
PROCEDURE INFORMATION: Exam: CT Abdomen And Pelvis Without Contrast Exam date and time: 03/10/2025 5:42 PM Age: 69 years old Clinical indication: Nausea and vomiting; Additional info: Nausea vomitting TECHNIQUE: Imaging protocol: Computed tomography of the abdomen and pelvis without contrast. Radiation optimization: All CT scans at this facility use at least one of these dose optimization techniques: automated exposure control; mA and/or kV adjustment per patient size (includes targeted exams where dose is matched to clinical indication); or iterative reconstruction. COMPARISON: CT abdomen pelvis w con* [id number] 02/16/2025 10:28 AM RADIATION DOSE METRICS: Total DLP (mGy-cm): 542.19 FINDINGS: Lungs: Lung bases are clear. No pleural effusion. Diaphragm: A hiatal hernia is noted in the lower mediastinum. Liver: Normal. No mass. Gallbladder and biliary ducts: Multiple gallstones are noted in the gallbladder but the gallbladder does not appear inflamed and demonstrates normal wall thickness. Pancreas: Normal. No ductal dilation. Spleen: Normal. No splenomegaly. Adrenal glands: Normal. No mass. Kidneys and ureters: Large simple cysts involve both kidneys. The largest cyst on the right measures 10.7 cm in diameter and the largest cyst on the left measures 11.9 cm. Stomach and bowel: Unremarkable. No obstruction. No mucosal thickening. Appendix: No evidence of appendicitis. Intraperitoneal space: Unremarkable. No free air. No significant fluid collection. Vasculature: Unremarkable. No abdominal aortic aneurysm. Lymph nodes: Unremarkable. No enlarged lymph nodes. Urinary bladder: Unremarkable as visualized. Reproductive: The prostate gland is abnormally enlarged. Bones/joints: Unremarkable. No acute fracture. Soft tissues: Unremarkable. CT/CT abdomen pelvis con [id number] IMPRESSION: 1. No acute findings. 2. Stable hiatal hernia 3. Cholelithiasis 4. A benign renal cyst or cysts have been detected. No further follow-up imaging is required. 5. Prostate enlargement COMMENTS: Consistent with the [place] [employer]'s Incidental Findings Committee white paper (J Am Debo Radiol 2018): Any incidental renal lesion less than 1 cm or classified as too small to characterize, or any incidental cystic renal lesion characterized as simple-appearing, is likely benign. No follow-up imaging is recommended for these lesions per consensus recommendations based on imaging criteria.
[2025-03-10] MEDS: metoclopramide 5 mg/mL SDV 2 mL IVP (18:05)
[2025-03-10 20:19] LABS: Alanine Aminotransferase 11 U/L (0-41); Albumin Level 3.5 g/dL (3.5-5.2); Alkaline Phosphatase 51 U/L (40-130); Anion Gap 18.3 (5-19); Aspartate Amino Transferase 17 U/L (0-40); Blood Urea Nitrogen 31 mg/dL (8-23); Calcium 8.3 mg/dL (8.5-10.5); Carbon Dioxide 27 mmol/L (22-29); Chloride 97 mmol/L (98-107); Creatinine Clr Calc Pharmacy 61.1082; Globulin 2.2 g/dL (1.3-4.6); Glucose 96 mg/dL (65-115); Osmolality Calculated 294 mOsm/kg (285-295); Potassium 3.3 mmol/L (3.5-5.1); Sodium 139 mmol/L (136-145); Total Protein 5.7 g/dL (6.6-8.7)
[2025-03-11] VITALS: BP 126/67; PULSE 60; RESP 18; TEMP 36.7; O2SAT 95
[2025-03-11] MEDS: pantoprazole 40 mg SDV IVP ×2 (03:26→16:39)
[2025-03-11] MEDS: heparin 5,000 unit/mL INJ 1 mL 5000 UNIT SUBCUT ×2 (03:27→16:39)
[2025-03-11 04:00] VITALS: BP 155/74; PULSE 61; RESP 17; TEMP 36.4; O2SAT 95
[2025-03-11 06:05] LABS: Hematocrit 31.4 % (37-53); Hemoglobin 9.50 g/dL (11.27-16.99); Mean Corpuscular HGB Conc 30.3 g/dL (30-55); Mean Corpuscular Hemoglobin 25.9 pg (27-33); Mean Corpuscular Volume 85.6 fl (82-101); Nucleated Red Blood Cells % 0 %; Platelet Count 227 10^3/cmm (157-399); Red Blood Count 3.67 10^6/uL (3.85-5.65); White Blood Count 5.31 10^3/uL (3.29-11.43)
[2025-03-11 06:22] LABS: Alanine Aminotransferase 11 U/L (0-41); Albumin Level 3.4 g/dL (3.5-5.2); Alkaline Phosphatase 55 U/L (40-130); Anion Gap 16.7 (5-19); Aspartate Amino Transferase 15 U/L (0-40); Blood Urea Nitrogen 28 mg/dL (8-23); Calcium 8.3 mg/dL (8.5-10.5); Carbon Dioxide 26 mmol/L (22-29); Chloride 99 mmol/L (98-107); Creatinine Clr Calc Pharmacy 75.6151; Globulin 2.2 g/dL (1.3-4.6); Glucose 91 mg/dL (65-115); Magnesium 2.1 mg/dL (1.7-2.3); Osmolality Calculated 293 mOsm/kg (285-295); Sodium 139 mmol/L (136-145); Total Protein 5.6 g/dL (6.6-8.7)
[2025-03-11 06:47] LABS: Potassium 2.7 mmol/L (3.5-5.1)
[2025-03-11 07:13] VITALS: BP 154/76; PULSE 60; RESP 18; TEMP 36.6; O2SAT 98
--- NOTE | 2025-03-11 09:43 | PC.CHAP ---
Pastoral Care Encounter/Spiritual Assessment Type of Contact [] Declined wool shearer visit [] Patient/Family/Request visit [] Outpatient visit [] Follow-up visit [] Physician referral [] Code/Alert [x] Routine visit [] Staff referral [] Actively dying [] Patient sleeping [] Family support [] [] Out of room [] Palliative care [] [] Receiving care in room [] Pre-surgical visit [] Trauma [] Long length of stay [] ICU visit [] Other: Relational/Emotional Strength [x] Patient feels connected with others/family/visitors/staff [x] Distress [] Loneliness/isolation [] Abandonment Spirituality of Patient [x] Person of Skye [] Attends Synagogue of their [place] [x] Believes in Prayer [] Reads Bible or Quaker materials [] There are Spiritual issues to be addressed [place] Interventions [x] Prayer [x] Active listening [x] Non-anxious presence [x] Spiritual/emotional support [] Crisis/trauma care [] Spiritual counseling [] Bereavement support [] Provided bereavement packet [] Provided Bible/devotional materials [] Provided toy/stuffed animal, coloring book to patient or family member [] Provided Communion [] Anointing/Slater [] Salvation [x] Completed spiritual assessment [] Other: Impact on Illness or Injury [] Angry [] Fearful [] Anxious [] Often cries [] Exhaustion [] Unable to work [] Unable to attend jehovah's witness [] Unable to walk/stand [] Unable to read [] Unable to drive [] Unable to eat/drink [] Unable to sleep [] Unable to be with family [] Patient intubated [] Other: Summary Time spent with patient 10 min
[2025-03-11] MEDS: lidocaine 1% 5 ML in potassium chloride premix 100 ML 26.25 ML IV ×2 (09:48→20:17)
[2025-03-11 11:21] VITALS: BP 128/70; PULSE 57; RESP 18; TEMP 36.8; O2SAT 97
[2025-03-11] MEDS: LORazepam 1 MG/0.5 ML injection 0.25 MG IVP (13:59)
--- NOTE | 2025-03-11 14:08 | P.PN_ITS ---
Subjective 2 Subjective: Seen this morning. Patient continues to experience vomiting. He is requesting to eat food however he is not able to even keep water down at this time. I discussed with him that he is currently getting Zofran and will be alternating with Reglan. I will try Ativan today. Hopefully if seen vomiting improves we will let patient eat. CT abdomen pelvis reviewed. No acute pathology. Vitals/I&O/Wt Last Vital Signs Temp 98.2 F 03/11/25 11:21 Pulse 57 L 03/11/25 11:21 Resp 18 03/11/25 11:21 BP 128/70 03/11/25 11:21 Pulse Ox 97 03/11/25 11:21 O2 Del Method Room Air 03/11/25 11:21 03/10/25 03/11/25 03/11/25 22:59 06:59 14:59 Intake Total 1460 / 2460 1000 / 3460 1000 / 1000 Output Total 600 / 600 Balance 1460 / 2460 1000 / 3460 400 / 400 Weight last 48 hrs Weight 78.381 kg Weight 76.204 kg Weight 77.111 kg Physical Exam 2 Narrative: General: Alert oriented x3, HEENT: Normocephalic, atraumatic, EOMI, breathing room air. Cardio: Regular rhythm, slightly bradycardic, normal S1-S2 Respiratory: Clear to auscultation bilaterally no wheezes no rhonchi GI: Abdomen soft, nontender, nondistended, bowel sounds + Extremities: no edema, no cyanosis Data 03/11/25 05:23 03/11/25 05:23 A&P Assessment and plan 1. Intractable nausea and vomitin. Orthostatic hypotension: 3. Alcohol abuse: 4. Hiatal hernia: 5. TODD (acute kidney injury): 6. Alcohol use disorder: 7. Dehydration: 8. Volume depletion: 9. Hypokalemia: Plan: #Intractable nausea vomiting #Orthostatic hypotension #Alcohol abuse #Hiatal hernia #Hypokalemia #TODD Patient presenting to the hospital with alcohol abuse and chief complaint of intractable nausea vomiting along with orthostatic hypotension. Denies black stools or blood-tinged vomitus. He is vomiting right now during the encounter which is clear white. Patient's last drink was on . Hemoglobin stable at 11.3. Patient has had an EGD in June 2020 which showed small hiatal hernia without obstruction or gangrene. ? Will order Protonix 80 IV push x 1 ? Placed on Protonix 40 IV twice daily ? Continue on Carafate ? Zofran as needed for nausea ? Add Reglan every 6 hours as needed ? Orthostatic hypotension most likely secondary to GI losses. ? Patient is status post normal saline boluses in the ER. ? Continue on normal saline 125 cc/h ? He did try clear liquid diet however ended up vomiting. ? I discussed with him to keep n.p.o. status for tonight. Patient is agreeable ? Hold lisinopril hydrochlorothiazide ? I will check CT abdomen pelvis with IV contrast ? Check lipase -Creatinine 1.3 today. TODD most likely secondary to prerenal cause due to dehydration. ? Expect this to improve with IV fluids. ? Patient given K rider in ER x 1 and oral potassium 60 x 1. ? Will recheck BMP at 9 PM. ? Patient is at risk of cardiac arrhythmia secondary to severe electrolyte imbalance. He will need frequent lab monitoring. Full code DVT prophylaxis: Heparin SQ twice daily 03/11/2025 Blood pressure improved, MRI negative for posterior circulation stroke. CT abdomen pelvis reviewed. No acute pathology noted Patient continues to vomit. Will continue Zofran and Reglan on alternate dosing Will place on Ativan 0.25 twice daily. Hopefully once nausea has subsided may consider clear liquid diet. TODD improved. Creatinine 0.9 today. Patient remains severely hypokalemic at 2.7. Replete with IV potassium. Recheck labs at 4 PM. PDMP PDMP Reviewed: Not Reviewed Attestations 2 Medical Necessity Statement*: Intractable nausea vomiting, greater than 2 midnight stay Diagnoses Intractable nausea and vomiting R11.2 Orthostatic hypotension I95.1 Alcohol abuse F10.10 Hiatal hernia K44.9 TODD (acute kidney injury) N17.9 Alcohol use disorder F10.90 Dehydration E86.0 Volume depletion E86.9 Hypokalemia E87.6
--- NOTE | 2025-03-11 14:19 | ECG_ITS ---
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 Measurements Intervals [place] Rate: 57 P: 31 SC: 156 QRS: -4 QRSD: 102 T: -8 QT: 456 QTc: 446 Interpretive Statements SINUS BRADYCARDIA INFERIOR MYOCARDIAL INFARCTION , OF INDETERMINATE AGE [40+ ms Q WAVE AND/OR ST/T ABNORMALITY IN II/aVF] Compared to ECG 03/10/2025 11:03:27 Myocardial infarct finding now present Sinus rhythm no longer present Electronically Signed On 03-11-2025 16:40:22 CDT by Reynaldo Hurst M.D. [email or web address]
[2025-03-11 16:01] VITALS: BP 147/67; PULSE 66; RESP 17; TEMP 36.8; O2SAT 94
[2025-03-11 18:47] LABS: Anion Gap 16.0 (5-19); Blood Urea Nitrogen 22 mg/dL (8-23); Calcium 8.2 mg/dL (8.5-10.5); Carbon Dioxide 24 mmol/L (22-29); Chloride 102 mmol/L (98-107); Creatinine Clr Calc Pharmacy 85.0669; Glucose 73 mg/dL (65-115); Osmolality Calculated 290 mOsm/kg (285-295); Potassium 3.0 mmol/L (3.5-5.1); Sodium 139 mmol/L (136-145)
[2025-03-11 20:00] VITALS: BP 149/74; PULSE 79; RESP 17; TEMP 36.4; O2SAT 91
[2025-03-12] VITALS: BP 151/71; PULSE 58; RESP 16; TEMP 36.7; O2SAT 95
[2025-03-12] MEDS: LORazepam 1 MG/0.5 ML injection 0.25 MG IVP (00:44)
[2025-03-12] MEDS: heparin 5,000 unit/mL INJ 1 mL 5000 UNIT SUBCUT (03:52)
[2025-03-12] MEDS: pantoprazole 40 mg SDV IVP (03:52)
[2025-03-12 04:00] VITALS: BP 150/70; PULSE 66; RESP 16; TEMP 37.1; O2SAT 93
[2025-03-12 05:04] LABS: Hematocrit 30.1 % (37-53); Hemoglobin 9.30 g/dL (11.27-16.99); Mean Corpuscular HGB Conc 30.9 g/dL (30-55); Mean Corpuscular Hemoglobin 26.5 pg (27-33); Mean Corpuscular Volume 85.8 fl (82-101); Nucleated Red Blood Cells % 0 %; Platelet Count 186 10^3/cmm (157-399); Red Blood Count 3.51 10^6/uL (3.85-5.65); White Blood Count 4.08 10^3/uL (3.29-11.43)
[2025-03-12 05:26] LABS: Alanine Aminotransferase 9 U/L (0-41); Albumin Level 3.0 g/dL (3.5-5.2); Alkaline Phosphatase 50 U/L (40-130); Anion Gap 15.2 (5-19); Aspartate Amino Transferase 13 U/L (0-40); Blood Urea Nitrogen 18 mg/dL (8-23); Calcium 8.1 mg/dL (8.5-10.5); Carbon Dioxide 22 mmol/L (22-29); Chloride 103 mmol/L (98-107); Creatinine Clr Calc Pharmacy 85.0669; Globulin 2.1 g/dL (1.3-4.6); Glucose 83 mg/dL (65-115); Magnesium 2.0 mg/dL (1.7-2.3); Osmolality Calculated 285 mOsm/kg (285-295); Potassium 3.2 mmol/L (3.5-5.1); Sodium 137 mmol/L (136-145); Total Protein 5.1 g/dL (6.6-8.7)
[2025-03-12 06:00] VITALS: PULSE 56
[2025-03-12 07:45] VITALS: BP 145/69; PULSE 58; RESP 16; TEMP 36.7; O2SAT 97
--- NOTE | 2025-03-12 09:22 | P.DS_ITS ---
Discharge Providers Date of Admission: 03/10/25 14:02 Date of Discharge: March 12, 2025 Attending Provider at Admission: Natali Pereira MD Attending Provider at Discharge: Natali Pereira MD Primary Care Provider: Omari Ames MD Diagnoses at Discharge Discharge Diagnosis 1. Intractable nausea and vomitin. Orthostatic hypotension: 3. Alcohol abuse: 4. Hiatal hernia: 5. TODD (acute kidney injury): 6. Alcohol use disorder: 7. Dehydration: 8. Volume depletion: 9. Hypokalemia: Reason for Visit Reason for Visit: Dizzy/N Hospital Course Hospital Course James uAstin is a 69 year old male With past medical history of alcohol abuse, GI bleed, previous EGD done showing hiatal hernia and ulcerative esophagitis presented to the ER today for complaint of nausea vomiting. He states he was feeling dizzy this morning and has been vomiting for the last 3 to 4 days. He states he drinks alcohol. He states he tries not to drink but when he does drink he drinks daily after that. About a pint to the fifth. Denies abdominal pain. Denies chewing tobacco. He states he cannot keep anything down. If he drinks water even he throws it up. Denies hematochezia, black tarry stools. Hemoglobin 11.3 today. He states he just felt very dizzy and therefore came to the hospital. Patient is vomiting as he is being examined. In the ER he was noted to have anisocoria which was not evident on his pictures from [employer] that the ER doctor was able to see with consent of the patient. This may be a new finding. ER doctor called me with his concerns. Patient returned from head MRI. Awaiting results. Patient was admitted for intractable nausea vomiting. Diet was slowly advanced. He was given alternating Zofran and Reglan and eventually given Ativan which controlled his nausea. He is able to tolerate oral diet at this time and will be discharged home in stable condition. He states that anxiety/depression are his major issues and he believes the Ativan helped the most. He is already established at crisis stabilization center and will be following up with their as an outpatient. I did give him 3-day supply of alprazolam at discharge. We also ordered Reglan. Patient agreeable to all of the above. I encouraged him to keep his outpatient appointment with general surgery for EGD. I did adjust his blood pressure medications at time of discharge. Physical Exam Narrative: General: Alert oriented x3, HEENT: Normocephalic, atraumatic, EOMI, breathing room air. Cardio: Regular rhythm, slightly bradycardic, normal S1-S2 Respiratory: Clear to auscultation bilaterally no wheezes no rhonchi GI: Abdomen soft, nontender, nondistended, bowel sounds + Extremities: no edema, no cyanosis Discharge Data Studies Completed and Pending Completed Studies During Hospitalization Category Date Time Status CT abdomen pelvis wo con [id number] Urgent Cat Scan 03/10/25 16:[address] head wo con* [id number] Stat Cat Scan 03/10/25 11:08 Completed MR head wo con* [id number] Stat MRI 03/10/25 15:14 Completed Radiology Impressions Head CT 03/10/25 11:08 IMPRESSION: 1. No evidence of intracranial hemorrhage or mass effect. 2. A few frothy secretions in the sphenoid sinus compatible with mild sinusitis. 3. Vascular calcification. 4. No acute intracranial findings. Head MRI 03/10/25 15:14 IMPRESSION: 1. No acute infarct. No posterior circulation infarct. 2. No hemorrhage. 3. Moderate symmetric atrophy and mild small vessel disease. Abdomen/Pelvis CT 03/10/25 16:54 IMPRESSION: 1. No acute findings. 2. Stable hiatal hernia 3. Cholelithiasis 4. A benign renal cyst or cysts have been detected. No further follow-up imaging is required. 5. Prostate enlargement COMMENTS: Consistent with the [place] [employer]'s Incidental Findings Committee white paper (J Am Debo Radiol 2018): Any incidental renal lesion less than 1 cm or classified as too small to characterize, or any incidental cystic renal lesion characterized as simple-appearing, is likely benign. No follow-up imaging is recommended for these lesions per consensus recommendations based on imaging criteria. Laboratory Results WBC 4.08 10^3/uL (3.29-11.43) 03/12/25 04:45 RBC 3.51 10^6/uL (3.85-5.65) L 03/12/25 04:45 Hgb 9.30 g/dL (11.27-16.99) L 03/12/25 04:45 Hct 30.1 % (37-53) L 03/12/25 04:45 MCV 85.8 fl (82-101) 03/12/25 04:45 MCH 26.5 pg (27-33) L 03/12/25 04:45 MCHC 30.9 g/dL (30-55) 03/12/25 04:45 RDW 19.1 % (12.1-15.1) H 03/12/25 04:45 Plt Count 186 10^3/cmm (157-399) 03/12/25 04:45 MPV 9.6 fL (7.4-10.4) 03/12/25 04:45 Neut % (Auto) 51.8 % 03/12/25 04:45 Lymph % (Auto) 32.1 % 03/12/25 04:45 [place] % (Auto) 10.3 % 03/12/25 04:45 Eos % (Auto) 5.1 % 03/12/25 04:45 Baso % (Auto) 0.2 % 03/12/25 04:45 Neut # (Auto) 2.11 10^3/uL (1.8-7.7) 03/12/25 04:45 Lymph # (Auto) 1.3 10^3/uL (0.8-4.8) 03/12/25 04:45 [place] # (Auto) 0.4 10^3/uL (0.2-0.9) 03/12/25 04:45 Eos # (Auto) 0.2 10^3/uL (0.0-0.8) 03/12/25 04:45 Baso # (Auto) 0.0 10^3/uL (0.0-0.1) 03/12/25 04:45 Nucleated RBC % (auto) 0 % 03/12/25 04:45 Nucleated RBCs # 0.0 /100WBC 03/12/25 04:45 Sodium 137 mmol/L (136-145) 03/12/25 04:45 Potassium 3.2 mmol/L (3.5-5.1) L 03/12/25 04:45 Chloride 103 mmol/L (98-107) 03/12/25 04:45 Carbon Dioxide 22 mmol/L (22-29) 03/12/25 04:45 Anion Gap 15.2 (5-19) 03/12/25 04:45 BUN 18 mg/dL (8-23) 03/12/25 04:45 Creatinine 0.8 mg/dL (0.7-1.2) 03/12/25 04:45 GFR Calculation Not Reportable 03/12/25 04:45 Glucose 83 mg/dL (65-115) 03/12/25 04:45 Calculated Osmolality 285 mOsm/kg (285-295) 03/12/25 04:45 Calcium 8.1 mg/dL (8.5-10.5) L 03/12/25 04:45 Phosphorus 3.1 mg/dL (2.5-4.5) 03/11/25 05:23 Magnesium 2.0 mg/dL (1.7-2.3) 03/12/25 04:45 Total Bilirubin 1.0 mg/dL (0.15-1.2) 03/12/25 04:45 AST 13 U/L (0-40) 03/12/25 04:45 ALT 9 U/L (0-41) 03/12/25 04:45 Alkaline Phosphatase 50 U/L (40-130) 03/12/25 04:45 Total Protein 5.1 g/dL (6.6-8.7) L 03/12/25 04:45 Albumin 3.0 g/dL (3.5-5.2) L 03/12/25 04:45 Globulin 2.1 g/dL (1.3-4.6) 03/12/25 04:45 Procalcitonin 0.11 ng/mL (0-0.5) 03/10/25 11:36 TSH 1.31 uIU/mL (0.27-4.20) 03/10/25 11:36 Urine Color Yellow (Yellow) 03/10/25 11:30 Urine Appearance Clear (CLEAR) 03/10/25 11:30 Urine pH 7.0 (5-7) 03/10/25 11:30 Ur Specific [place] 1.025 (1.005-1.030) 03/10/25 11:30 Urine Protein Trace (Negative) A 03/10/25 11:30 Urine Glucose (UA) Negative (Normal) 03/10/25 11:30 Urine Ketones 1+ (Negative) H 03/10/25 11:30 Urine Blood Negative (Negative) 03/10/25 11:30 Urine Nitrate Negative (Negative) 03/10/25 11:30 Urine Bilirubin Negative (Negative) 03/10/25 11:30 Urine Urobilinogen 1.0 mg/dL (Negative) 03/10/25 11:30 Ur Leukocyte Esterase Negative (Negative) 03/10/25 11:30 Urine RBC 0-2 /hpf (0-2) 03/10/25 11:30 Urine WBC 0-5 /hpf (0-5) 03/10/25 11:30 Ur Squamous Epith Cells 0-5 /hpf (0-5) 03/10/25 11:30 Amorphous Sediment Not Reportable 03/10/25 11:30 Urine Bacteria None seen /hpf (NONE) 03/10/25 11:30 Hyaline Casts 6.17 /lpf 03/10/25 11:30 Vitals Last Vital Signs Temp 98.0 F 03/12/25 07:45 Pulse 58 L 03/12/25 07:45 Resp 16 03/12/25 07:45 BP 145/69 03/12/25 07:45 Pulse Ox 97 03/12/25 07:45 O2 Del Method Room Air 03/12/25 07:45 Discharge Plan Discharge Patient Disposition: Home Condition: Stable Prescriptions: New amlodipine 5 mg tablet 5 mg PO DAILY Qty: 30 0RF alprazolam 0.25 mg tablet 0.25 mg PO BID PRN (Reason: nausea and vomiting) Qty: 8 0RF metoclopramide HCl [Reglan] 5 mg tablet 5 mg PO Q8H PRN (Reason: nausea and vomiting) Qty: 9 0RF Continued sucralfate 1 gram Tablet 1 g PO BIDAC 30 Days Qty: 30 0RF pantoprazole 40 mg tablet,delayed release (DR/EC) 40 mg PO BID Qty: 60 12RF Discontinued lisinopril-hydrochlorothiazide 20-12.5 mg tablet 1 tab PO QAM Qty: 90 3RF Discharge Order = DC NOW: Discharge Order (Routine); Ordered 03/12/25 Ordered By: Natali Pereira Other Ambulatory Orders: Basic Metabolic Panel (Routine) Timeframe: 3 Days Facility: [facility] - Location: Lab - Main Lab Ordered By: Natali Pereira Referrals: Crisis Stabilization [Other] Referral Note: 7 days/week 8am-6pm [facility] [Outside] Referral Note: ?Follow up as a walk in at [facility], walk in hours are Sunday-Sunday from 7:30AM-3:00PM, first come, first seen. Once you do this assessment you will be referred for appropriate services. Christiano Canada MD [Physician, General Surgery] - 03/18/25 8:40 am Referral Note: EGD + Colonoscopy Omari Ames MD [Primary Care Provider, [facility]] - 03/19/25 10:30 am Referral Note: Discharge Diet: GI Soft Discharge Activity: Resume usual activity Patient Instructions: Metoclopramide (By mouth), Alprazolam (By mouth), Amlodipine (By mouth), Acute Nausea and Vomiting (GEN), Opioid Safety, Patient Portal & [facility] Instructions Activity Restrictions/Additional Instructions: Try reglan first for nausea, if it doesn't help then you may try the alprazolam for nausea. Please follow up with primary care doctor. Discharge Attestations Time Spent in Discharge Care*: greater than 30 min Status at Discharge: Cognitive status at discharge: cognitively intact , Behavioral status at discharge: cooperative , Quality Metrics Clinical Quality Measures [ No reported AMI, CVA or VTE this stay] Coding Level of Care Code Acute Code for Chg Fwd Diagnoses Intractable nausea and vomiting R11.2 Orthostatic hypotension I95.1 Alcohol abuse F10.10 Hiatal hernia K44.9 TODD (acute kidney injury) N17.9 Alcohol use disorder F10.90 Dehydration E86.0 Volume depletion E86.9 Hypokalemia E87.6
[2025-03-12 11:20] VITALS: BP 139/67; PULSE 65; RESP 16; TEMP 36.8; O2SAT 96
== END 2025-03-12 13:30 | disposition home or self-care (01) | DRG 641 ==
LOC: ER 13:02 → MEDSURG 14:02
PROVIDERS: Admitting Provider Internal Medicine; Emergency Provider Family Medicine; PCP Family Medicine; Visit Provider Internal Medicine
DX: E87.6 Hypokalemia (principal); N17.9 Acute kidney failure, unspecified; I95.1 Orthostatic hypotension; F10.10 Alcohol abuse, uncomplicated; K44.9 Diaphragmatic hernia without obstruction or gangrene; E86.0 Dehydration; K21.9 Gastro-esophageal reflux disease without esophagitis; E78.5 Hyperlipidemia, unspecified; I10 Essential (primary) hypertension; H57.02 Anisocoria
CPT/HCPCS: 36415; 70450; 70551; 74176; 80048; 80053; 81001; 83735; 84100; 84145; 84443; 85025; 93005; 96372; 99285; J1644; J2060; J2470; J2765; J3480; J7030; J9999

== ENCOUNTER → 2025-03-19 11:00 | Outpatient (BNVA) | payer MEDICARE, MEDICAID, SELFPAY | PROVIDERS: PCP Family Medicine; Visit Provider Family Medicine | DX: F10.10 Alcohol abuse, uncomplicated (principal); I95.1 Orthostatic hypotension; R11.2 Nausea with vomiting, unspecified | CPT/HCPCS: 80053; 85025 ==

== ENCOUNTER → 2025-04-16 09:26 | Outpatient (BNVA) | payer MEDICARE, MEDICAID, SELFPAY | PROVIDERS: PCP Family Medicine; Visit Provider Family Medicine | DX: F10.10 Alcohol abuse, uncomplicated (principal); I10 Essential (primary) hypertension; K92.2 Gastrointestinal hemorrhage, unspecified | CPT/HCPCS: 80048; 85025 ==

== ENCOUNTER 2025-05-01 14:40 | Emergency (ER) | payer MEDICARE, MEDICAID, SELFPAY ==
--- OUTSIDE RECORDS SUMMARY | 2003-08-26 19:00 | XMS_ITS | Continuity of Care Document ---
Author Name [facility] Address [address] [place] [address] Organization [facility] Care Team Providers Care Maintenance Services Dispatcher Name Role Phone [facility] Unavailable Unavailable Problems Problem Status Onset Date Problem Type Date of Resolution Comments Source Body mass index 30+ - obesity (finding) Active Condition Added by Discern Rule PROB_ADD_BMI Obesity (disorder) Active Condition A dded by Discern Rule PROB_ADD_BMI Procedure carried out on subject (situation) Diagnosis History of - gastrointestinal disease (context-dependent category) Diagnosis Essential hypertension (disorder) Diagnosis Gastroesophageal reflux disease without esophagitis (disorder) Diagnosis Obesity (disorder) Diagnosis Obese class I (finding) Diagnosis Patient examined (context-dependent category) Diagnosis Obstructed diaphragmatic hernia (disorder) Diagnosis Pulmonary embolism (disorder) Diagnosis Abscess of mediastinum (disorder) Diagnosis Accidental wound during procedure Diagnosis Pleural effusion (disorder) Diagnosis Acute renal failure syndrome (disorder) Diagnosis Hyperosmolality with hypernatremia (disorder) Diagnosis Exposure to 2019 novel coronavirus Diagnosis Leukocytosis (disorder) Diagnosis Diffuse spasm of esophagus (disorder) Diagnosis Umbilical hernia (disorder) Diagnosis Complication of surgical procedure (disorder) Diagnosis Fall from operating room table (event) Diagnosis Encounter for fitting and adjustment of other gastrointestinal appliance and device Active Diagnosis Encounter for other general examination Active Diagnosis Diaphragmatic hernia with obstruction, without gangrene Active Diagnosis Allergies, Adverse Reactions, Alerts Substance Category Reaction Severity Reaction type Status Date Reported Comments Source Kiwi Assertion Facial swelling Severe Food allergy Active [facility]
[2025-05-01 14:41] VITALS: BP 99/68; PULSE 75; RESP 18; TEMP 36.3; O2SAT 97; BMI 26.6
--- NOTE | 2025-05-01 14:46 | ECG_ITS ---
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 Measurements Intervals [place] Rate: 70 P: 60 IN: 154 QRS: 9 QRSD: 102 T: 41 QT: 420 QTc: 453 Interpretive Statements SINUS RHYTHM Non Specific ST-T changes Compared to ECG 03/11/2025 14:35:29 Sinus bradycardia no longer present Myocardial infarct finding no longer present Electronically Signed On 05-01-2025 20:17:16 CDT by Reynaldo Hurst M.D. [id number]
[2025-05-01 14:57] LABS: Hematocrit 38.1 % (37-53); Hemoglobin 12.10 g/dL (11.27-16.99); Mean Corpuscular HGB Conc 31.8 g/dL (30-55); Mean Corpuscular Hemoglobin 25.4 pg (27-33); Mean Corpuscular Volume 80.0 fl (82-101); Nucleated Red Blood Cells % 0 %; Platelet Count 398 10^3/cmm (157-399); Red Blood Count 4.76 10^6/uL (3.85-5.65); White Blood Count 8.03 10^3/uL (3.29-11.43)
--- NOTE | 2025-05-01 15:13 | W.ED.WEAKNES ---
HPI - Weakness General: Chief complaint: Weakness Stated complaint: syncope - n/v - hypotensive History of Present Illness: 69-year-old male with a history of alcohol abuse, GERD, hyperlipidemia, hypertension and diverticulosis who presents emergency room by ambulance from [facility] after having a near syncopal episode. He had some nausea and vomiting. He says he has been having nausea and vomiting now for a few days. EMS reports his blood pressure was in the 80s systolic when they arrived and they have started some fluids. On arrival here his pressure is 99/68. He is no longer in any distress. He says this has happened to him before and his doctors told him he thought it was related to alcohol. However he says he has been drinking less alcohol than he normally does but he has been drinking. No abdominal pain. No diarrhea. No chest pain. No fevers. Related Data Previous Rx's ?Medication ?Instructions ?Recorded pantoprazole 40 mg tablet,delayed 40 mg PO BID #60 tabs 02/18/25 release amlodipine 5 mg tablet 5 mg PO DAILY #30 tabs 03/11/25 metoclopramide HCl 5 mg tablet 5 mg PO Q8H PRN nausea and 03/12/25 (Reglan) vomiting #9 tabs sucralfate 1 gram tablet 1 g PO BIDAC 30 days #30 tabs 03/19/25 alprazolam 0.25 mg tablet 0.25 mg PO BID PRN anxiety #30 tabs 04/16/25 ondansetron 8 mg disintegrating 8 mg PO Q6H #14 tabs 05/01/25 tablet Allergies Allergy/AdvReac Type Severity Reaction Status Date / Time cantaloupe Allergy Unknown ALGY-Swell Verified 03/10/25 11:04 Lip/Tongue/Throat kiwi Allergy Unknown ALGY-Anaphy Verified 03/10/25 11:04 laxis amlodipine AdvReac Mild headaches Verified 03/10/25 11:04 Review of Systems Narrative: Constitutional symptoms: Negative except as documented in HPI. Skin symptoms: Negative except as documented in HPI. Eye symptoms: Negative except as documented in HPI. ENMT symptoms: Negative except as documented in HPI. Respiratory symptoms: Negative except as documented in HPI. Cardiovascular symptoms: Negative except as documented in HPI. Gastrointestinal symptoms: Negative except as documented in HPI. Genitourinary symptoms: Negative except as documented in HPI. Musculoskeletal symptoms: Negative except as documented in HPI. Neurologic symptoms: Negative except as documented in HPI. Psychiatric symptoms: Negative except as documented in HPI. Endocrine symptoms: Negative except as documented in HPI. PFSH ED PFSH: Medical History (Updated 05/01/25 @ 16:09 by Lexus Spain MD) GI bleed Acute blood loss anemia Alcohol abuse Acute upper gastrointestinal bleeding GERD (gastroesophageal reflux disease) Hyperlipidemia Hypertension Diverticulosis Hypertension Family history of colon cancer 09/15/2019: Normal colonoscopy except diverticulosis, follow-up colonoscopy in 2024 Surgical History History of excision of epidermal inclusion cyst Social History Smoking and tobacco/nicotine status: never used tobacco/nicotine Alcohol intake: former Substance/Drug Use: never Physical Exam Narrative: EXAM NARRATIVE: General: Alert, no acute distress. Skin: Warm, dry. Head: Normocephalic, atraumatic. Neck: Supple, trachea midline. Eye: Extraocular movements are intact. Ears, nose, mouth and throat: Tacky oral mucosa Cardiovascular: Regular, Normal peripheral perfusion. Respiratory: Lungs are clear to auscultation, respirations are non-labored, breath sounds are equal, Symmetrical chest wall expansion. Gastrointestinal: Soft, Nontender, Non distended Musculoskeletal: Normal ROM, no deformity. Neurological: Alert and oriented, No focal neurological deficit observed. Psychiatric: Cooperative, appropriate mood & affect. Course Vital Signs: Vital signs: Vital Signs Temperature 97.4 F L 05/01/25 14:41 Pulse Rate 75 05/01/25 14:41 Respiratory Rate 18 05/01/25 14:41 Blood Pressure 99/68 05/01/25 14:41 Pulse Oximetry 97 05/01/25 14:41 Oxygen Delivery Me thod Room Air 05/01/25 14:41 MDM - Weakness Medical Decision Making Medical decision making: Differential diagnosis including but not limited to and based on the above HPI, review of systems and physical exam in this patient with syncope: Vasovagal, orthostatics hypotension, cardiac dysrhythmia, myocardial infarction, infection and hypotension, Orders placed to evaluate differential diagnosis based on the above differential, HPI and physical exam EKG: Time 1447. Rate 70. Normal sinus rhythm, No ST-T changes, no ectopy, normal [place] & QRS intervals, This was reviewed and interpreted by myself the ER physician at 1454 Lab Review: Laboratory results were reviewed and interpreted by myself the emergency room physician. No leukocytosis. No anemia. Patient does have some slight renal insufficiency with BUN/creatinine 48 and 1.9. He has received 2 L of fluids. His pressures improved. Has mild lactic acidosis which is often related with alcoholism. This has been present multiple times in the past when he was not septic. No evidence of sepsis. At that he is just dehydrated from vomiting and likely has some alcoholic gastritis. He has no pain. Lipase is negative. Urinalysis is negative for infection. His alcohol is negative here today. I reviewed the patient's medical record. Reexamination: Patient remained stable. No increased work of breathing. No altered mental status. No focal motor deficits. Assessment and plan: Near syncope Alcohol abuse Dehydration Vomiting Acute renal insufficiency ?2 L normal saline bolus and IV Zofran in the emergency room. - Discharged home - Discussed plan with patient. Answered any questions. - Evaluation and treatment of this problem were appropriate in the emergency setting. Lab Data 05/01/25 14:43 05/01/25 14:43 Laboratory Results WBC 8.03 10^3/uL (3.29-11.43) 05/01/25 14:43 RBC 4.76 10^6/uL (3.85-5.65) 05/01/25 14:43 Hgb 12.10 g/dL (11.27-16.99) 05/01/25 14:43 Hct 38.1 % (37-53) 05/01/25 14:43 MCV 80.0 fl (82-101) L 05/01/25 14:43 MCH 25.4 pg (27-33) L 05/01/25 14:43 MCHC 31.8 g/dL (30-55) 05/01/25 14:43 RDW 18.5 % (12.1-15.1) H 05/01/25 14:43 Plt Count 398 10^3/cmm (157-399) 05/01/25 14:43 MPV 9.9 fL (7.4-10.4) 05/01/25 14:43 Neut % (Auto) 71.0 % 05/01/25 14:43 Lymph % (Auto) 20.3 % 05/01/25 14:43 [place] % (Auto) 8.3 % 05/01/25 14:43 Eos % (Auto) 0.1 % 05/01/25 14:43 Baso % (Auto) 0.1 % 05/01/25 14:43 Neut # (Auto) 5.69 10^3/uL (1.8-7.7) 05/01/25 14:43 Lymph # (Auto) 1.6 10^3/uL (0.8-4.8) 05/01/25 14:43 [place] # (Auto) 0.7 10^3/uL (0.2-0.9) 05/01/25 14:43 Eos # (Auto) 0.0 10^3/uL (0.0-0.8) 05/01/25 14:43 Baso # (Auto) 0.0 10^3/uL (0.0-0.1) 05/01/25 14:43 Nucleated RBC % (auto) 0 % 05/01/25 14:43 Nucleated RBCs # 0.0 /100WBC 05/01/25 14:43 Sodium 138 mmol/L (136-145) 05/01/25 14:43 Potassium 3.5 mmol/L (3.5-5.1) 05/01/25 14:43 Chloride 88 mmol/L (98-107) L 05/01/25 14:43 Carbon Dioxide 27 mmol/L (22-29) 05/01/25 14:43 Anion Gap 26.5 (5-19) H 05/01/25 14:43 BUN 48 mg/dL (8-23) H 05/01/25 14:43 Creatinine 1.9 mg/dL (0.7-1.2) H 05/01/25 14:43 GFR Calculation Not Reportable 05/01/25 14:43 Glucose 134 mg/dL (65-115) H 05/01/25 14:43 Calculated Osmolality 301 mOsm/kg (285-295) H 05/01/25 14:43 Lactic Acid 4.5 mmol/L (0.5-2.2) H* 05/01/25 14:43 Calcium 10.1 mg/dL (8.5-10.5) 05/01/25 14:43 Total Bilirubin 1.7 mg/dL (0.15-1.2) H 05/01/25 14:43 AST 20 U/L (0-40) 05/01/25 14:43 ALT 17 U/L (0-41) 05/01/25 14:43 Alkaline Phosphatase 62 U/L (40-130) 05/01/25 14:43 Troponin T Baseline 47 ng/L (0-15) H 05/01/25 14:43 Total Protein 7.4 g/dL (6.6-8.7) 05/01/25 14:43 Albumin 4.7 g/dL (3.5-5.2) 05/01/25 14:43 Globulin 2.7 g/dL (1.3-4.6) 05/01/25 14:43 Lipase 33 U/L (13-60) 05/01/25 14:43 Urine Color Dark yellow (Yellow) A 05/01/25 15:03 Urine Appearance Clear (CLEAR) 05/01/25 15:03 Urine pH 6.5 (5-7) 05/01/25 15:03 Ur Specific [place] 1.023 (1.005-1.030) 05/01/25 15:03 Urine Protein 1+ (Negative) A 05/01/25 15:03 Urine Glucose (UA) Negative (Normal) 05/01/25 15:03 Urine Ketones Trace (Negative) 05/01/25 15:03 Urine Blood Negative (Negative) 05/01/25 15:03 Urine Nitrate Negative (Negative) 05/01/25 15:03 Urine Bilirubin Negative (Negative) 05/01/25 15:03 Urine Urobilinogen 1.0 mg/dL (Negative) 05/01/25 15:03 Ur Leukocyte Esterase Negative (Negative) 05/01/25 15:03 Urine RBC 0-2 /hpf (0-2) 05/01/25 15:03 Urine WBC 0-5 /hpf (0-5) 05/01/25 15:03 Ur Squamous Epith Cells 0-5 /hpf (0-5) 05/01/25 15:03 Amorphous Sediment Not Reportable 05/01/25 15:03 Urine Bacteria None seen /hpf (NONE) 05/01/25 15:03 Hyaline Casts 5-10 /lpf H 05/01/25 15:03 Ethyl Alcohol < 10 mg/dL (0-10) 05/01/25 14:43 No radiology studies performed this visit Discharge Plan Discharge Patient Disposition: Home Clinical Impression: Near syncope, Dehydration, Acute renal insufficiency Condition: Stable Prescriptions: New ondansetron 8 mg tablet,disintegrating 8 mg PO Q6H Qty: 14 0RF Rx Instructions: Take 1/2-1 tab every 6 hours as needed for nausea and vomiting No Action sucralfate 1 gram tablet 1 g PO BIDAC 30 Days Qty: 30 1RF alprazolam 0.25 mg tablet 0.25 mg PO BID PRN (Reason: anxiety) Qty: 30 4RF amlodipine 5 mg tablet 5 mg PO DAILY Qty: 30 0RF metoclopramide HCl [Reglan] 5 mg tablet 5 mg PO Q8H PRN (Reason: nausea and vomiting) Qty: 9 0RF pantoprazole 40 mg tablet,delayed release (DR/EC) 40 mg PO BID Qty: 60 12RF Discharge Orders: Discharge ED (Routine); Ordered 05/01/25 Ordered By: Lexus Spain Referrals: Omrai Ames MD [Primary Care Provider, Family Practice] Discharge Diet: Advance as tolerated Discharge Activity: Increase activity as tolerated Patient Instructions: Opioid Safety, Pain Management, Patient Portal & [place] Instructions Activity Restrictions/Additional Instructions: Thank you for choosing [facility] for your healthcare needs today. You have been screened and evaluated and felt safe for discharge. Health conditions do change or evolve sometimes and as such it is important that you follow up with your Primary Doctor to be re checked, 3-5 days is a general good time frame for follow up. You are always welcome to return to the ED for re assessment if your symptoms are worsening or you have new concerns Print Language: Croatian Coding Level of Care Code ED Binder Chainstitch for Giselle Horton
[2025-05-01 15:18] LABS: Troponin(5th) Baseline 47 ng/L (0-15)
[2025-05-01 15:27] LABS: Glucose Urine UA Negative (Normal); Nitrate Urine Negative (Negative); Specific Gravity, Urine 1.023 (1.005-1.030)
[2025-05-01 15:29] LABS: Lactic Sepsis W/Reflex 4.5 mmol/L (0.5-2.2)
[2025-05-01 15:32] LABS: Alanine Aminotransferase 17 U/L (0-41); Albumin Level 4.7 g/dL (3.5-5.2); Alkaline Phosphatase 62 U/L (40-130); Anion Gap 26.5 (5-19); Aspartate Amino Transferase 20 U/L (0-40); Blood Urea Nitrogen 48 mg/dL (8-23); Calcium 10.1 mg/dL (8.5-10.5); Carbon Dioxide 27 mmol/L (22-29); Chloride 88 mmol/L (98-107); Creatinine Clr Calc Pharmacy 35.5614; Globulin 2.7 g/dL (1.3-4.6); Glucose 134 mg/dL (65-115); Lipase 33 U/L (13-60); Osmolality Calculated 301 mOsm/kg (285-295); Potassium 3.5 mmol/L (3.5-5.1); Sodium 138 mmol/L (136-145); Total Protein 7.4 g/dL (6.6-8.7)
[2025-05-01 15:33] LABS: Alcohol Level < 10 mg/dL (0-10)
[2025-05-01 15:51] LABS: UA Slide Review UA Slide Review Perf
[2025-05-01 16:08] LABS: Reflex Lactate Order REFLEX LACTIC ORDERD
[2025-05-01 17:01] VITALS: BP 138/75; PULSE 72; O2SAT 96
== END 2025-05-01 17:08 | disposition home or self-care (01) ==
PROVIDERS: Emergency Provider Emergency Medicine; PCP Family Medicine
DX: R55 Syncope and collapse (principal); E86.0 Dehydration; N28.9 Disorder of kidney and ureter, unspecified; E78.5 Hyperlipidemia, unspecified; I10 Essential (primary) hypertension
CPT/HCPCS: 80053; 80307; 81001; 83605; 83690; 84484; 85025; 87040; 93005; 96360; 99284; J7030

== ENCOUNTER → 2025-08-06 11:15 | Outpatient (BNVA) | payer MEDICARE, MEDICAID, SELFPAY | PROVIDERS: PCP Family Medicine; Visit Provider Family Medicine | DX: F10.10 Alcohol abuse, uncomplicated (principal); I10 Essential (primary) hypertension; N17.9 Acute kidney failure, unspecified | CPT/HCPCS: 80053; 85025 ==